=== PATIENT | female | born 1940 | race Caucasian/White ===

== ENCOUNTER → 2018-02-27 07:02 | Outpatient (CLI) | payer MEDICARE, SELFPAY ==
[2018-02-27 10:24] LABS: AST(SGOT) 20 U/L (15-37); Alanine Aminotransfer ALT/SGPT 33 U/L (13-56); Albumin, Serum 4.1 g/dL (3.2-5.0); Alkaline Phosphatase 35 U/L (45-117); Bilirubin, Direct 0.13 mg/dL (0.00-0.30); Cholesterol 160 mg/dL (200); Globulin 2.8 g/dL (2.2-4.2); High Density Lipoprotein 59 mg/dL; Protein, Total 6.9 g/dL (6.4-8.2); Triglycerides 119 mg/dL; Very Low Density Lipoprotein 24 mg/dL (5-40)
== END ==
PROVIDERS: Family Provider Family Medicine; PCP Family Medicine; Visit Provider Internal Medicine Cardiovascular Disease
DX: E78.5 Hyperlipidemia, unspecified (principal)
CPT/HCPCS: 36415; 80061; 80076

== ENCOUNTER → 2018-09-21 07:36 | Outpatient (CLI) | payer MEDICARE, SELFPAY ==
--- NOTE | 2018-09-21 07:40 | US_ITS ---
STUDY: ABDOMINAL ULTRASOUND REASON FOR EXAM: Female, 78 years old. Left sided fullness when bending over. Not palpable. TECHNIQUE: Transabdominal ultrasound was performed with real-time and static wolfe scale imaging. TECHNICAL QUALITY: Adequate. COMPARISON: None. FINDINGS: Liver: The liver measures 18 cm. There is increased echogenicity consistent with fatty infiltration. The bile ducts are within normal limits. There is hepatic color flow. The direction of portal flow is hepatopetal. There is no demonstrated mass lesion. Gallbladder: Normal distended gallbladder. The gallbladder wall measures 2.6 mm. There is a negative sonographic Velez's sign. There is no pericholecystic fluid. There are no gallstones. Common Bile Duct (C.B.D.): The common bile duct measures 4.8 mm. Pancreas: Normal size of the head, body and tail of the pancreas. There is normal echogenicity of the pancreas. There is no demonstrated pancreatic mass or cyst. Spleen: Normal size of the spleen. The spleen measures 9.5 cm. Right Kidney: Normal size of the right kidney. The right kidney measures 11 cm. Normal renal cortex. The right cortex measures 1.1 cm. There is no demonstrated renal mass or cyst. There is no right hydronephrosis. Left Kidney: Normal size of the left kidney. The left kidney measures 11 cm. Normal renal cortex. The left cortex measures 1.0 cm. There is no demonstrated renal mass or cyst. There is no left hydronephrosis. Aorta: There is atherosclerotic changes without evidence for abdominal aortic aneurysm. I.V.C.: The IVC is patent. There is no ascites. US/Abdomen Complete IMPRESSION: 1. Enlarged fatty infiltrated liver without focal mass. 2. Atherosclerotic changes of the abdominal aorta without aneurysm. 3. Otherwise normal abdominal ultrasound. Electronically Signed: Joe Rosales DO at 19:34 EST Tel [phone], Service support ,
== END ==
PROVIDERS: Family Provider Family Medicine; PCP Family Medicine; Referring Provider Family Medicine; Visit Provider Family Medicine
DX: R19.02 Left upper quadrant abdominal swelling, mass and lump (principal)
CPT/HCPCS: 76700

== ENCOUNTER → 2019-07-13 10:38 | Outpatient (CLI) | payer MEDICARE, SELFPAY ==
[2019-06-04 08:50] VITALS: BMI 30.7
--- NOTE | 2019-07-13 10:41 | ECHOD_ITS ---
Reason For Study: MURMUR Procedure This was a 2D Doppler, Color Flow transthoracic echocardiogram. Exam performed in department. Left Ventricle Normal LV size. Left ventricular systolic function is normal. The estimated ejection fraction is 65 %. Unable to assess diastolic dysfunction. No regional wall motion abnormalities noted. Right Ventricle Normal RV size. Normal systolic function. Atria Normal left atrium. Normal right atrium. No doppler evidence for ASD. Mitral Valve There is mild to moderate mitral annular calcification. Extension of the mitral annular calcification onto the posterior mitral valve leaflet. Mild (1+) mitral valve insufficiency. Tricuspid Valve Normal tricuspid valve. Mild tricuspid valve insufficiency. Right ventricular systolic pressure estimated to be 22 mmHg. Aortic Valve Trisinus/trileaflet aortic valve. Moderate focal aortic valve thickening. Severe focal aortic valve calcification. Moderate to severe aortic valve stenosis. Pulmonic Valve The pulmonic valve is not well visualized. Great Vessels Normal sized aortic root. Calcified aortic root. Pericardium/Pleural No pericardial effusion. MMode/2D Measurements & Calculations LVIDd: 4.0 cm IVSd: 1.2 cm LVOT diam: 2.0 cm LVIDs: 2.6 cm LVPWd: 1.1 cm LVOT area: 3.1 cm2 RVDd: 3.1 cm FS: 34.8 % MVA(traced): 2.4 cm2 Ao root diam: 3.3 cm LAV(MOD-bp): 42.7 ml LAV(MOD-bp) Indexed: 24.3 ml/m2 LAV(MOD-sp2): 43.7 ml LAV(MOD-sp4): 42.0 ml LA dimension(2D): 3.3 cm Aortic Valve Planimetry: 1.0 cm2 LA A4 area: 16.3 cm2 RA A4 area: 10.0 cm2 Time Measurements MV dec time: 0.36 sec Doppler Measurements & Calculations MV E max bro: 101.5 cm/sec MV V2 max: 147.9 cm/sec Ao V2 max: 356.6 cm/sec MV A max bro: 141.9 cm/sec MV max P.8 mmHg Ao max P.1 mmHg MV E/A: 0.72 MV V2 mean: 73.7 cm/sec Ao V2 mean: 261.3 cm/sec MV mean P.5 mmHg Ao mean P.4 mmHg MV V2 VTI: 37.5 cm Ao V2 VTI: 82.1 cm MVA(VTI): 2.2 cm2 BRENT(I,D): 1.0 cm2 BRENT(V,D): 0.92 cm2 LV V1 max: 105.7 cm/sec SV(LVOT): 83.8 ml PA V2 max: 96.3 cm/sec LV V1 max P.5 mmHg LV V1 mean P.7 mmHg LV V1 mean: 78.6 cm/sec LV V1 VTI: 27.0 cm TR max bro: 218.7 cm/sec MV P1/2t-pr_phl: 103.0 msec TR max P.1 mmHg Interpretation Summary Left ventricular systolic function is normal. The estimated ejection fraction is 65 %. There is mild to moderate mitral annular calcification. Extension of the mitral annular calcification onto the posterior mitral valve leaflet. Mild (1+) mitral valve insufficiency. Mild tricuspid valve insufficiency. Moderate to severe aortic valve stenosis. Calcified aortic root. Right ventricular systolic pressure estimated to be 22 mmHg. Unable to assess diastolic dysfunction. Ordering Physician: Parth De Oliveira Referring Physician: SHELBY BENITEZ Performed By: Johnna Monte, RDCS, RVT
== END ==
PROVIDERS: Family Provider Family Medicine; PCP Family Medicine; Referring Provider Internal Medicine Cardiovascular Disease; Visit Provider Internal Medicine Cardiovascular Disease
DX: I34.0 Nonrheumatic mitral (valve) insufficiency (principal); I35.0 Nonrheumatic aortic (valve) stenosis; I36.1 Nonrheumatic tricuspid (valve) insufficiency; I10 Essential (primary) hypertension; E78.00 Pure hypercholesterolemia, unspecified
CPT/HCPCS: 93306

== ENCOUNTER → 2020-04-11 14:01 | Outpatient (CLI) | payer MEDICARE, SELFPAY ==
[2019-06-04 08:50] VITALS: BMI 30.7
[2020-04-11 15:26] LABS: Vitamin B12 796 pg/mL (211-911)
== END ==
PROVIDERS: PCP Family Medicine; Referring Provider Family Medicine; Visit Provider Family Medicine
DX: R20.2 Paresthesia of skin (principal)
CPT/HCPCS: 36415; 82607; 82746; 84425

== ENCOUNTER 2020-06-26 11:01 | Emergency (ER) | payer MEDICARE, SELFPAY ==
[2019-06-04 08:50] VITALS: BMI 30.7
[2020-06-26 11:03] VITALS: BP 187/92; PULSE 78; RESP 20; TEMP 36.1; O2SAT 98; BMI 31.0
--- NOTE | 2020-06-26 11:19 | EKG12_ITS ---
Test Reason : COLD SYMPTOMS Blood Pressure : / mmHG Vent. Rate : 074 BPM Atrial Rate : 074 BPM P-R Int : 148 ms QRS Dur : 130 ms QT Int : 440 ms P-R-T Axes : 072 108 031 degrees QTc Int : 488 ms Normal sinus rhythm Right bundle branch block Abnormal ECG Confirmed by ETTA POWELL, ROMI ([id number]), editorial director KRYSTA QUIROZ ([id number]) on 06/28/2020 1:31:02 PM Referred By: ANANDA Confirmed By:ROMI QUILES MD
--- NOTE | 2020-06-26 11:21 | ED.DCSUM_ITS ---
History of Present Illness Chief Complaint: Cold Sx Detail of Chief Complaint: Cough, dyspnea, dyspnea on exertion and pleuritic right-sided chest pain Informant: Patient Onset: Weeks - Cough has been present since May 22. Pleuritic chest pain has been present for greater than 1 week she now reports new onset diarrhea. Patient did have a positive COVID test. Context: Sudden Onset Timing: Continuous Quality: Upper respiratory and GI, right-sided pleuritic chest pain Current Severity: Mild Maximum Severity: Moderate Worsened by: Dyspnea on exertion Relieved by: Nothing Associated Symptoms: Upper respiratory and GI Narrative: Patient is an 80-year-old woman who states her cough started May 22. She had a cover test on May 29 that she was told was positive approximately 1 week ago. She states the health department said she no longer had to self quarantine because she does not have a fever. She does report rhinorrhea, congestion, postnasal drainage, sore throat, loss of taste and smell, nonproductive cough and now pleuritic chest pain and diarrhea. She has no history of VTE. She denies leg pain, swelling discoloration. She denies hematemesis, melena or hematochezia. She has not had a documented fever for 1+ weeks. 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 (10) Pure hypercholesterolemia Status: Chronic (11) RBBB (right bundle branch block) Status: Chronic Past Medical History - Allergies and Home Meds Allergies/Adverse Reactions: Allergies codeine Allergy (Intermediate, Verified 06/26/20 11:05) Swelling amoxicillin [From Augmentin] Allergy (Mild, Verified 06/26/20 11:05) Itching clavulanic acid [From Augmentin] Allergy (Mild, Verified 06/26/20 11:05) Itching niacin [From Niaspan Extended-Release] Allergy (Mild, Verified 06/26/20 11:05) Itching Primary Care Physician: Yesica Olsen MD [Primary Care Provider] - Prior records reviewed: Yes Surgical History: noncontributory Lives: Alone Smoking Status: Former smoker Alcohol: None Drugs: None Review of Systems General: Reports: Malaise. Denies: Chills, Fever, Subjective Eyes: Denies: Visual changes - bilaterally, Blurred Vision - bilaterally ENT: Reports: Rhinorrhea, Sore throat. Denies: Bilateral ear pain Cardiovascular: Reports: Chest pain. Denies: Palpitations, Heart racing Respiratory: Reports: Dyspnea, Cough, Dyspnea on exertion. Denies: Sputum, Orthopnea, Paroxysmal nocturnal dyspnea Gastrointestinal: Reports: Abdominal pain, Diarrhea. Denies: Nausea, Vomiting, Constipation, Melena, Hematochezia, -, - Genitourinary: Denies: Dysuria, Hematuria, Frequency Musculoskeletal: Reports: Myalgias, Arthralgias, Swelling. Denies: Neck pain, Back pain, Extremity Pain, -, - Skin: Denies: Rash Neurological: Reports: Headache, Weakness Psych: Denies: Depression, Anxiety Physical Exam Vital Signs/Narrative: Vital Signs Temp Pulse Resp BP Pulse Ox 06/26/20 11:03 97 F L 78 20 H 187/92 H 98 Inital Vital Signs reviewed: Yes General: Well nourished, Well developed, No Acute Distress Head: Normocephalic, Atraumatic Eyes: Perrl, EOMI ENT: Moist mucous membranes, No rhinorrhea, Nasal congestion. Negative for: Sinus tenderness Neck: Supple, Nontender Cardiovascular: Regular rate, Regular rhythm, No murmurs, Normal S1, Normal S2 Respiratory: No distress, Chest nontender, Rales - Inspiratory rales bilaterally., - - Patient does have splinting with deep breathing. Abdomen: Soft, Nontender, Nondistended, Normal bowel sounds Back: Nontender, Normal Inspection. Negative for: CVA tenderness Extremities: Nontender, Edema - 2 to 3 mm pitting edema bilaterally, - - No asymmetry, discoloration, palpable cords or tenderness along the distribution of the deep venous system. There is no ischemic changes noted of the toes or fi ngers. Skin: Normal color, No rash. Negative for: Cyanosis, Diaphoresis, Jaundice Neurological: Alert, Oriented x3, Cranial nerves II-XII grossly intact, Normal Strength, Normal Sensation Psychological: Normal affect, Normal Mood Diagnostic/Tx/Re-eval Chest X-Ray - ED: 1 View, Read by ED Physician, Normal, Heart, Mediastinum, Bony Structures, No Acute Disease, Chronic Changes Impressions Chest X-Ray 06/26/20 12:10 IMPRESSION: The lungs are clear. Electronically Signed: Juliano Pickard, at 12:20 EDT , Service support , 06/26/20 12:10 Chest 1 View (Portable) [RAD] Stat Laboratory Results 06/26/20 06/26/20 06/26/20 11:40 11:40 11:40 WBC 11.0 RBC 3.64 L Hgb 12.1 Hct 36.9 L MCV 101.4 H MCH 33.2 H MCHC 32.8 RDW Std Deviation 49.2 H RDW Coeff of Aubrey 13.4 Plt Count 155 MPV 10.3 Neut % (Auto) Not Reportable Absolute Neuts (auto) 6.0 Absolute Lymphs (auto) 3.75 Total Counted 100 Neutrophils % (Manual) 51 Band Neutrophils % 3 Lymphocytes % (Manual) 34 Monocytes % (Manual) 2 Metamyelocytes % 4 H Myelocytes % 3 H Promyelocytes % 3 H Diff Path Review May foll Reactive Lymphocytes OCC Platelet Estimate ADEQUATE Polychromasia 1+ Macrocytosis 1+ PT 12.8 INR 1.0 APTT 28.5 D-Dimer Quant (PE/DVT) 0.56 H* Sodium 141 Potassium 4.3 Chloride 108 H Carbon Dioxide 28.0 Anion Gap 5 BUN 23 H Creatinine 0.80 Estim Creat Clear Calc 42.88 Est GFR (MDRD) Af Amer 88 Est GFR (MDRD) Non-Af 72 BUN/Creatinine Ratio 28.6 H Glucose 97 Lactic Acid Calcium 9.2 Total Bilirubin 0.30 AST 27 ALT 39 Alkaline Phosphatase 40 L Total Protein 7.5 Albumin 4.1 Globulin 3.4 Albumin/Globulin Ratio 1.2 06/26/20 11:40 WBC RBC Hgb Hct MCV MCH MCHC RDW Std Deviation RDW Coeff of Aubrey Plt Count MPV Neut % (Auto) Absolute Neuts (auto) Absolute Lymphs (auto) Total Counted Neutrophils % (Manual) Band Neutrophils % Lymphocytes % (Manual) Monocytes % (Manual) Metamyelocytes % Myelocytes % Promyelocytes % Diff Path Review Reactive Lymphocytes Platelet Estimate Polychromasia Macrocytosis PT INR APTT D-Dimer Quant (PE/DVT) Sodium Potassium Chloride Carbon Dioxide Anion Gap BUN Creatinine Estim Creat Clear Calc Est GFR (MDRD) Af Amer Est GFR (MDRD) Non-Af BUN/Creatinine Ratio Glucose Lactic Acid 0.7 Calcium Total Bilirubin AST ALT Alkaline Phosphatase Total Protein Albumin Globulin Albumin/Globulin Ratio Dimer is elevated at 0.56. D-dimer is normal when corrected for age. Therefore CTA was not ordered. Patient has pleurisy. Suspect this is due to her COVID infection. - Medical Decision Making With positive Kopit test pleuritic chest pain need to consider pulmonary embolus. Also need to rule out rib fracture, pneumonia versus pleurisy. Appropriate labs including d-dimer was obtained. Chest x-ray single view was obtained because patient is still symptomatic with a positive COVID test. ED Disposition - Plan for ED Patient: Disposition: Home or Assisted Living Diagnosis: COVID-19 virus infection, Pleurisy Instructions: ED Chest Pain Pleurisy Referrals: Yesica Olsen MD [Primary Care Provider] - As Needed Additional Instructions: You should continue to self quarantine since you are still having symptoms. Two thirds of patients with COVID infection do not have a fever. Take ibuprofen or Aleve for your pleuritic chest pain, pleurisy
[2020-06-26 11:50] LABS: Hematocrit 36.9 % (37-47); Hemoglobin 12.1 g/dL (12.0-15.0); Mean Corp Hgb Conc 32.8 g/dL (32-36); Mean Corpuscular Hgb 33.2 pg (27.0-32.0); Mean Corpuscular Volume 101.4 fL (81-99); Mean Platelet Vol. 10.3 fl (6.2-12.0); POSITIVE COUNT YES; POSITIVE MORPHOLOGY YES; Platelet Count 155 K/mm3 (150-450); RBC Distribution Width CV 13.4 % (11.6-14.6); RBC Distribution Width SD 49.2 fl (35.1-43.9); Red Blood Count 3.64 M/mm3 (4.2-5.4)
[2020-06-26 12:00] LABS: Prothrombin Time (Protime)PT. 12.8 SECONDS (11.7-14.9)
[2020-06-26 12:01] LABS: Partial Thromboplast Time 28.5 Seconds (24.1-36.2)
[2020-06-26 12:05] VITALS: BP 175/73; PULSE 68; RESP 10; TEMP 36.6; O2SAT 97
[2020-06-26 12:06] LABS: Differential Indicated MANUAL DIFF
[2020-06-26 12:07] LABS: ALB/GLOB Ratio 1.2 RATIO (0.9-2.4); AST(SGOT) 27 U/L (15-37); Alanine Aminotransfer ALT/SGPT 39 U/L (13-56); Albumin, Serum 4.1 g/dL (3.2-5.0); Alkaline Phosphatase 40 U/L (45-117); Anion Gap 5 (5-15); BUN 23 mg/dL (7-18); BUN/Creat Ratio 28.6 RATIO (10-20); Calcium,Total 9.2 mg/dL (8.5-10.1); Chloride 108 mmol/L (98-107); D-Dimer Quantitative (DVT/PE) 0.56 FEU/ug/m (0.27-0.49); EST Glomerular Filtration Rate 72 mL/min (>60); Est Glom Filt Rate - Afr Amer 88 mL/min (>60); Estimated Creatinine Clearance 42.88 ml/min; Globulin 3.4 g/dL (2.2-4.2); Glucose 97 mg/dL (74-106); Potassium 4.3 mmol/L (3.5-5.1); Protein, Total 7.5 g/dL (6.4-8.2); Sodium Level 141 mmol/L (136-145)
--- NOTE | 2020-06-26 12:10 | RAD_ITS ---
STUDY: X-RAY CHEST REASON FOR EXAM: Female, 80 years old. Cough, pleuritic chst pain, dyspnea, COVID positive TECHNIQUE: Single AP portable view of the chest. COMPARISON: Comparison is made with prior study 06/23/2016. FINDINGS: EKG electrodes are seen. The lungs are clear and expanded. There is no demonstrated pleural abnormality. Normal size heart. Normal mediastinum and alton. Normal visualized pulmonary arteries. There is atherosclerotic calcification of the aortic arch with tortuosity. There are diffuse degenerative changes of the visualized thoracic spine. Normal visualized ribs, clavicles, and shoulders. There is no demonstrated abnormality of the visualized soft tissue structures of the upper abdomen. RAD/Chest 1 View (Portable) IMPRESSION: The lungs are clear. Electronically Signed: Juliano Pickard, at 12:20 EDT , Service support ,
[2020-06-26 12:11] LABS: Lymphocyte 34 % (19-41); Metamyelocyte 4 % (0-1); Monocyte 2 % (0-10); Myelocyte 3 (0-0); Neutrophil-Band 3 % (0-5); Neutrophil-Segmented 51 % (47-70); Promyelocyte 3 (0-0); Total Cells Counted 100 (MANUAL DIFF)
[2020-06-26 12:14] LABS: Absolute Lymphocyte Count 3.75 X10^3/uL (0.83-4.51); Reactive Lymphocyte OCC
[2020-06-26 12:15] LABS: Macrocytosis 1+; Platelet Estimate ADEQUATE (ADEQ); Polychromasia 1+
[2020-06-26 12:18] LABS: Lactic Acid 0.7 mmol/L (0.4-1.9)
[2020-06-26 12:23] VITALS: BP 167/74; PULSE 68; RESP 13; TEMP 36.6; O2SAT 97
[2020-06-26 13:40] VITALS: BP 153/96; PULSE 72; RESP 16; TEMP 37.1; O2SAT 97
[2020-06-27 11:48] LABS: Pathologist Review Reviewed
== END 2020-06-26 13:50 | disposition home or self-care (01) ==
PROVIDERS: Emergency Provider Emergency Medicine; PCP Family Medicine
DX: U07.1 COVID-19 (principal); R09.1 Pleurisy; I08.3 Combined rheumatic disorders of mitral, aortic and tricuspid valves; I45.10 Unspecified right bundle-branch block; I10 Essential (primary) hypertension; E78.00 Pure hypercholesterolemia, unspecified; M19.90 Unspecified osteoarthritis, unspecified site; Z79.82 Long term (current) use of aspirin; Z79.899 Other long term (current) drug therapy; Z87.891 Personal history of nicotine dependence
CPT/HCPCS: 71045; 80053; 83605; 85025; 85379; 85610; 85730; 87040; 93005; 99285

== ENCOUNTER → 2020-08-18 09:05 | Outpatient (CLI) | payer MEDICARE, SELFPAY | PROVIDERS: PCP Family Medicine; Referring Provider Internal Medicine Cardiovascular Disease; Visit Provider Internal Medicine Cardiovascular Disease | DX: B34.2 Coronavirus infection, unspecified (principal) | CPT/HCPCS: 87635; C9803; U0003 ==

== ENCOUNTER → 2020-11-28 08:43 | Outpatient (CLI) | payer MEDICARE, SELFPAY ==
[2020-08-31 09:33] VITALS: BMI 31.4
--- NOTE | 2020-11-28 08:46 | ECHOD_ITS ---
Reason For Study: SOB Procedure This was a 2D Doppler, Color Flow transthoracic echocardiogram. The exam was of adequate technical quality. Exam performed in department. Left Ventricle Normal LV size. Moderate concentric left ventricular hypertrophy. Left ventricular systolic function is normal. The estimated ejection fraction is 65 %. There is evidence of diastolic dysfunction. No regional wall motion abnormalities noted. Right Ventricle Normal RV size. Normal systolic function. Atria The left atrium is mildly enlarged. Normal right atrium. No doppler evidence for ASD. Mitral Valve There is moderate mitral annular calcification. Extension of the mitral annular calcification on the base of the posterior mitral valve leaflet. The mitral valve chordae are thickened and/or calcified. Mild-Moderate (1-2+) mitral valve insufficiency. Tricuspid Valve Normal tricuspid valve. Mild tricuspid valve insufficiency. Right ventricular systolic pressure estimated to be 27 mmHg. Aortic Valve Trisinus/trileaflet aortic valve. Mild diffuse aortic valve thickening. Severe focal aortic valve calcification. Severe aortic stenosis. Pulmonic Valve The pulmonic valve is not well visualized. Great Vessels Calcified aortic root. Pericardium/Pleural No pericardial effusion. MMode/2D Measurements & Calculations LVIDd: 4.2 cm IVSd: 1.4 cm LVOT diam: 2.0 cm LVIDs: 2.9 cm LVPWd: 1.5 cm LVOT area: 3.1 cm2 RVDd: 3.6 cm FS: 31.6 % LAV(MOD-bp): 60.8 ml LVAd ap4: 32.0 cm2 SV(MOD-sp4): 68.6 ml LAV(MOD-bp) Indexed: 34.0 ml/m2 EDV(MOD-sp4): 104.7 ml LAV(MOD-sp2): 69.9 ml EDV(sp4-el): 107.1 ml LAV(MOD-sp4): 51.1 ml LVAs ap4: 16.5 cm2 ESV(MOD-sp4): 36.0 ml ESV(sp4-el): 34.5 ml EF(MOD-sp4): 65.6 % EF(sp4-el): 67.8 % SV(sp4-el): 72.6 ml Aortic Valve Planimetry: 0.80 cm2 LA A4 area: 19.0 cm2 LA dimension(2D): 4.6 cm RA A4 area: 12.3 cm2 Time Measurements MV dec time: 0.30 sec Doppler Measurements & Calculations MV E max eze: 122.9 cm/sec Lat Peak E' Eze: 4.9 cm/sec Med Peak E' Eze: 5.0 cm/sec MV A max eze: 190.1 cm/sec E/E' lat: 25.1 E/E' med: 24.7 MV E/A: 0.65 MV V2 max: 182.1 cm/sec Ao V2 max: 428.6 cm/sec LV V1 max: 112.8 cm/sec MV max P.3 mmHg Ao max P.5 mmHg LV V1 max P.1 mmHg MV V2 mean: 106.4 cm/sec Ao V2 mean: 326.8 cm/sec LV V1 mean P.0 mmHg MV mean P.1 mmHg Ao mean P.1 mmHg LV V1 mean: 82.5 cm/sec MV V2 VTI: 38.5 cm Ao V2 VTI: 104.8 cm LV V1 VTI: 28.9 cm MVA(VTI): 2.4 cm2 BRENT(I,D): 0.87 cm2 BRENT(V,D): 0.82 cm2 SV(LVOT): 90.7 ml PA V2 max: 97.1 cm/sec TR max eze: 243.5 cm/sec TR max P.7 mmHg MV P1/2t-pr_phl: 113.8 msec Interpretation Summary Left ventricular systolic function is normal. The estimated ejection fraction is 65 %. Moderate concentric left ventricular hypertrophy. The left atrium is mildly enlarged. There is moderate mitral annular calcification. Extension of the mitral annular calcification on the base of the posterior mitral valve leaflet. The mitral valve chordae are thickened and/or calcified. Mild-Moderate (1-2+) mitral valve insufficiency. Mild tricuspid valve insufficiency. Severe aortic stenosis. Calcified aortic root. Right ventricular systolic pressure estimated to be 27 mmHg. There is evidence of diastolic dysfunction. Ordering Physician: Parth De Oliveira Referring Physician: SHELBY BENITEZ Performed By: Johnna Monte, RDCS, RVT
== END ==
PROVIDERS: PCP Family Medicine; Referring Provider Internal Medicine Cardiovascular Disease; Visit Provider Internal Medicine Cardiovascular Disease
DX: R06.02 Shortness of breath (principal); I08.3 Combined rheumatic disorders of mitral, aortic and tricuspid valves; I10 Essential (primary) hypertension; E78.00 Pure hypercholesterolemia, unspecified
CPT/HCPCS: 93306

== ENCOUNTER → 2020-12-19 09:30 | Outpatient (CLI) | payer MEDICARE, SELFPAY ==
[2020-12-04 14:24] VITALS: BMI 31.8
[2020-12-04 16:38] LABS: Hematocrit 27.9 % (37-47); Hemoglobin 9.1 g/dL (12.0-15.0); Mean Corp Hgb Conc 32.6 g/dL (32-36); Mean Corpuscular Hgb 37.4 pg (27.0-32.0); Mean Corpuscular Volume 114.8 fL (81-99); Mean Platelet Vol. 10.5 fl (6.2-12.0); POSITIVE COUNT YES; POSITIVE DIFFERENTIAL YES; POSITIVE MORPHOLOGY YES; Platelet Count 80 K/mm3 (150-450); RBC Distribution Width CV 16.1 % (11.6-14.6); RBC Distribution Width SD 67.9 fl (35.1-43.9); Red Blood Count 2.43 M/mm3 (4.2-5.4); White Blood Count 44.2 K/mm3 (4.4-11.0)
[2020-12-04 16:47] LABS: Differential Indicated MANUAL DIFF
[2020-12-04 16:51] LABS: BUN 20 mg/dL (7-18); BUN/Creat Ratio 21.7 RATIO (10-20); Calcium,Total 9.5 mg/dL (8.5-10.1); Creatinine, Serum 0.92 mg/dL (0.55-1.02); EST Glomerular Filtration Rate 62 mL/min (>60); Est Glom Filt Rate - Afr Amer 75 mL/min (>60); Glucose 91 mg/dL (74-106); Potassium 4.3 mmol/L (3.5-5.1); Sodium Level 139 mmol/L (136-145)
[2020-12-04 16:52] LABS: Anion Gap 6 (5-15); Chloride 106 mmol/L (98-107)
[2020-12-04 17:16] LABS: Neutrophil-Band 3 % (0-5); Neutrophil-Segmented 68 % (47-70)
[2020-12-04 17:17] LABS: Lymphocyte 13 % (19-41); Monocyte 1 % (0-10); Myelocyte 12 (0-0); Platelet Estimate MOD DEC (ADEQ); Promyelocyte 3 (0-0); Red Cell Morphology NORM C+C NORMAL (NORM C&C)
[2020-12-04 17:19] LABS: Absolute Lymphocyte Count 5.74 X10^3/uL (0.83-4.51); Absolute Neutrophil Count 31.4 X10^3/uL (2.0-7.7)
[2020-12-04 18:03] LABS: Prothrombin Time (Protime)PT. 12.6 SECONDS (11.7-14.9)
[2020-12-05 12:26] LABS: Pathologist Review Reviewed
--- NOTE | 2020-12-19 08:29 | HP_ITS ---
HPI HPI History of Present Illness Surgical H&P: Yes Details: EDWARD ELIAS, is a 80 year old white female who presents to the office today for outpatient cardiovascular follow-up of her history of aortic valve stenosis, MR, and TR superimposed on hyperlipidemia, hypertension, and a diagnosis of the COVID-19 virus in May 2020 (not requiring hospitalization). Patient underwent an echocardiogram on 11/28/2020 that showed ejection fraction of 65% and severe aortic valve stenosis. As part of her work-up, she is anticipated undergo a heart catheterization. Based on results of such test, further recommendation and treatment will be recommended. Pt denies chest, arm, jaw, or neck discomfort. Her exercise tolerance is less. Pt denies symptoms of palpitations, lightheadedness, dizziness, near syncopal or syncopal episodes. Pt denies claudication issues. Pt. denies orthopnea, PND, fever, chills, blood in urine, blood in stool, epistaxis, or myalgia. She notes SOB when walking up steps. She notes previous lower extremity edema that has resolved. She states ongoing cough. She states being more fatigue since COVID- 19. She states her blood pressure at home has been at 150s/70s. Intake Vital Signs 12/04/20 Height 5 ft 2 in 12/04/20 Weight: 174 lb 12/04/20 BP 165/79 H 12/04/20 Blood Pressure Location Lt brachial 12/04/20 Position Sitting 12/04/20 Respiration 18 12/04/20 Pulse 95 12/04/20 Pulse Source Monitor 12/04/20 Pulse Oximetry (%) 98 Intake Visit Reasons: updated [employer] Specialist Required: No Accompanied by: None Is patient in pain?: No Allergies codeine Allergy (Intermediate, Verified 12/04/20 14:22) Swelling amoxicillin [From Augmentin] Allergy (Mild, Verified 12/04/20 14:22) Itching clavulanic acid [From Augmentin] Allergy (Mild, Verified 12/04/20 14:22) Itching niacin [From Niaspan Extended-Release] Allergy (Mild, Verified 12/04/20 14:22) [facility]ching [facility] Medical History Pure hypercholesterolemia (Chronic) Essential hypertension (Chronic) Nonrheumatic aortic (valve) stenosis (Chronic) Nonrheumatic mitral (valve) insufficiency (Chronic) Non-rheumatic tricuspid valve insufficiency (Chronic) Other [facility] (current[facility] drug therapy (Chronic) RBBB (right bundle branch block) (Chronic) Edema (Acute) Palpitations (Acute) Abnormal EKG (Acute) Segmental and somatic dysfunction of pelvic region (Acute) Segmental and somatic dysfunction of thoracic region (Acute) Intervertebral disc disorder with radiculopathy of lumbar region (Acute) Osteoarthritis (Chronic) Segmental and somatic dysfunction of lumbar region (Acute) Neuropathy (Acute) Aortic stenosis (Inactive) Surgical History H/O meniscectomy of right knee (Resolved) History of appendectomy (Resolved) History of medial meniscus repair of left knee (Resolved) History of partial knee replacement (Resolved) History of synovectomy (Resolved) History of total hysterectomy (Resolved) History of tubal ligation (Resolved) Family History Mother CHF (congestive heart failure) Brother CAD (coronary artery disease) Sister CHF (congestive heart failure) Son Cardiac pacemaker in situ WPW (Durkv-Arsgqdlap-Lrcyp syndrome) Father No problems noted. Social History (Updated 12/04/20 @ 15:35 by Joce Ni TERRAZZO LAYER HELPER, TERRAZZO LAYER HELPER-C) Smoking Status: Never smoker alcohol intake: never substance use type: does not use diet: low carbohydrate caffeine: Yes Type: coffee Number of servings: 2 what type of physical activity do you participate in: none seatbelt use: always do you feel safe at home: Yes ROS Const Const: Positive for fatigue and weakness (leg); negative for body ache, fever(s) or chills ENT ENT: Negative for dizziness Cardio Chest Pain: No Palpitations: No Edema: None Muscle aches with walking: None Resp Respiratory: Positive for SOB with activity and Cough; negative for SOB at rest, SOB orthopnea\SOB lying down or paroxysmal nocturnal dyspnea GI GI: Negative nausea, vomiting blood/hematemesis, bright, red blood in stools or black,tarry stools : Negative for hematuria or frequent nighttime urination/ nocturia Musc Musc: Negative for muscle aches/ myalgia Skin Skin: Negative non-healing lesions or rash Neuro Neuro: Positive for weakness (leg); negative for dizziness, lightheadedness, near syncope, syncope or orthostatic symptoms Endo Endo: Positive for fatigue Allergy Allergy/Immunology: Negative for rash Cardiology Exam Const Appearance: cooperative, healthy appearing, comfortable and no acute distress Nutritional Appearance: well nourished and obese Orientation: alert, awake and oriented x3 Head Head: normal to inspection Ears: hearing grossly normal bilaterally Nose: external nose normal Face and Sinus: face symmetric Mouth: oral mucosae normal Eyes General: appearance normal, both eyes and all related structures Eyelids: eyelids normal EOM: EOM intact bilaterally Neck Neck: normal visual inspection and no JVD Carotids: normal carotid upstroke Chest Chest inspection: normal inspection of the chest, symmetric chest movement and normal respiratory effort; negative cough Auscultation: Bilateral: Clear to Auscultation Cardio Rate: regular rate Rhythm: regular rhythm Heart sounds: S1 normal, S2 normal and murmur; negative rub or gallop Murmur: Grade 3/6, mid systolic, LLSB, LVOT, sternal notch and radiates to carotids GI GI: normal to inspection and obese Neuro General: alert, awake, oriented x3 and CN's II-XI intact bilaterally Skin Skin: no rashes or lesions noted Extremities Pulses: Normal: Right Posterior Tibial Pulse, Left Posterior Tibial Pulse, Right Radial Pulse, Left Radial Pulse Lower Extremity Edema: None: Bilateral Psych Psychological: normal affect Assessment & Plan 1. Nonrheumatic aortic (valve) stenosis I35.0 Plan Patient's most recent echocardiogram reveals severe aortic valve stenosis. She will proceed with heart catheterization to further assess coronary artery anatomy. Based on results, further recommendation will be made. Depending on her long-term work-up, hopefully her shortness of breath improves. EKG in office shows sinus rhythm with underlying right bundle branch block at a rate of 97 beats minute, HI interval 148, QTc 462, and QRS 124. Orders Orders: Left Heart Cath/COR/LV Percut Today Basic Metabolic Profile (BMP) Today Prothrombin Time w/INR Today 2. Essential hypertension I10 Plan Patient's blood pressure is elevated today in office. It was recommended to consider additional medical therapy such as hydrochlorothiazide or amlodipine in attempt to better improve blood pressure. However, at this time she wishes to defer until heart catheterization. She was asked to continue to monitor and contact our office if is increasing at home. Orders Orders: Basic Metabolic Profile (BMP) Today 3. Pure hypercholesterolemia E78.00 Plan She will continue current statin and nonstatin medication. Orders Orders: Basic Metabolic Profile (BMP) Today Plan Detail Other Orders Orders: 12 Lead EKG performed by BMS Today I45.10 Basic Metabolic Profile (BMP) Today I45.10 CBC W/Diff, Automated Today B34.2 Other Medications Changed: From: lisinopril TAKE 1 TABLET BY MOUTH TWICE A DAY 180 tabs 3RF To: lisinopril 20 mg PO BID 180 tabs 3RF Additional Comments Thank you for allowing us to participate in the patients plan of care, if you have any questions please do not hesitate to call. This note was generated using a voice recognition system and there may be incorrect words, spelling or punctuation that were not noted when reviewing the office note prior to saving. Goals Decrease pain and spasm Increase ROM Barriers Degenerative changes Coding Level of Care Code Off vis,est,level 4 Diagnoses Nonrheumatic aortic (valve) stenosis I35.0 Essential hypertension I10 Pure hypercholesterolemia E78.00 Coding Level of Care Code Off vis,est,level 4 Diagnoses Nonrheumatic aortic (valve) stenosis I35.0 Essential hypertension I10 Pure hypercholesterolemia E78.00 Supplemental Info Supplemental Information Transthoracic echocardiogram: 11-28-2020 Interpretation Summary Left ventricular systolic function is normal. The estimated ejection fraction is 65 %. Moderate concentric left ventricular hypertrophy. The left atrium is mildly enlarged. There is moderate mitral annular calcification. Extension of the mitral annular calcification on the base of the posterior mitral valve leaflet. The mitral valve chordae are thickened and/or calcified. Mild-Moderate (1-2+) mitral valve insufficiency. Mild tricuspid valve insufficiency. Severe aortic stenosis. Calcified aortic root. Right ventricular systolic pressure estimated to be 27 mmHg. There is evidence of diastolic dysfunction. Transthoracic echocardiogram: Interpretation Summary Left ventricular systolic function is normal. The estimated ejection fraction is 65 %. Apical false tendon noted. There is mild to moderate mitral annular calcification. Extension of the mitral annular calcification onto the posterior mitral valve leaflets. The mitral papillary muscle appears thickened and/or calcified. Mild (1+) mitral valve insufficiency. Mild tricuspid valve insufficiency. Mild aortic stenosis. Calcified aortic root. Right ventricular systolic pressure estimated to be 21 mmHg. Echocardiogram: 07/13/2019 Interpretation Summary Left ventricular systolic function is normal. The estimated ejection fraction is 65 %. There is mild to moderate mitral annular calcification. Extension of the mitral annular calcification onto the posterior mitral valve leaflet. Mild (1+) mitral valve insufficiency. Mild tricuspid valve insufficiency. Moderate to severe aortic valve stenosis. Calcified aortic root. Right ventricular systolic pressure estimated to be 22 mmHg. Unable to assess diastolic dysfunction. Stress echocardiogram: 04-11-2010 Dobutamine stress echocardiogram: Considered negative Labs LDL Cholesterol 77 mg/dL (0-130) 02/27/18 HDL Cholesterol 59 mg/dL (40-) 02/27/18 Triglycerides 119 mg/dL (-199) 02/27/18 VLDL Cholesterol 24 mg/dL (5-40) 02/27/18 Diagnostics Electrocardiogram 12/04/20 Echocardiogram 11/28/20 Abdomen Ultrasound 09/21/18 Chest X-Ray 06/26/20 COVID (Procedure Consent) Procedure Criteria Procedure Criteria: Yes Elective The surgeon/proceduralist and patient have discussed in detail the risk of exposure to and/or potential harm posed by the COVID-19 virus with having a surgery/procedure at this time versus the risk of? delaying the surgery/procedure. It is not possible to know either the risk of delaying the surgery or procedure or chance of getting an infection with perfect accuracy, but a joint decision was made between the patient and the surgeon/proceduralist ?to proceed at this time with the scheduled surgery/procedure as indicated on the consent form.
== END ==
PROVIDERS: Nurse Practitioner Family; PCP Family Medicine; Visit Provider Internal Medicine Cardiovascular Disease
DX: Z01.812 Encounter for preprocedural laboratory examination (principal); I10 Essential (primary) hypertension; I45.10 Unspecified right bundle-branch block; I35.0 Nonrheumatic aortic (valve) stenosis; E78.00 Pure hypercholesterolemia, unspecified; Z86.16 Personal history of COVID-19
CPT/HCPCS: 36415; 80048; 85025; 85610

== ENCOUNTER → 2021-01-15 08:56 | Outpatient (CLI) | payer MEDICARE, SELFPAY ==
[2021-01-09 11:35] VITALS: BMI 32.8
[2021-01-15] VITALS (10 sets, daily range): BP systolic 116–170; BP diastolic 51–88; PULSE 77–102; RESP 13–23; O2SAT 94–100; BMI 31.4
--- NOTE | 2021-01-15 | IMM_PTH ---
PATIENT: EDWARD ELIAS LOC: CT U#:[id number] AGE/SX: 85/F ROOM: RE01/15/[address]: Dr. Pipe Cazares MD : 1940 BED: DIS: SPEC #: [id number] RECD: 01/16/21 12:46 STATUS: SOUMiranda REQ #: [id number] TRIPP: 01/15/21 00:[address]: Pipe Cazares DEPT: IMMUNOHISTOCHEMISTRY RECD BY: Dianne Guzmán ENTERED: 01/16/21 12:48 SP TYPE: IMMUNO OTHR DR: Dr. Yesica Olsen MD Tissues: B - Bone marrow of iliac crest Procedures: CD56 (add) CD34 (initial) PHYSICIAN & INSTITUTION [place] [id number] SPECIMEN INFORMATION: Tissue Source: B - Bone marrow clot Clinical Info: Leukocytosis, anemia, thrombocytopenia Specimen Number: [id number] CPT code: 68247, 74405 METHODOLOGY: Deparaffinized sections of prefer/formalin-fixed tissue or PAP/DQ stained slides are incubated with monoclonal/polyclonal antibodies/oligonucleotide probes. Localization is made via biotin free immunoperoxidase method. Appropriate controls are performed and reacted as expected. Results on target cell population are indicated in the following table: RESULTS: ANTIBODY / CLONE RESULT Block B CD34 (QBEnd-10) positive CD56 (123C3.D5) negative These tests were developed and their performance characteristics determined by [facility]. They may not have been cleared or approved by the U.S. Food and Drug Administration. The FDA has determined that such clearance or approval is not necessary. The above immunohistochemical/dualISH markers are ordered and reviewed by the Pathologist. INTERPRETATION: B. Bone marrow clot: Rare blasts are noted. Significant increase of blasts is not seen. SJ:wilfredo 01/17/2021
--- NOTE | 2021-01-15 09:12 | CT_ITS ---
PROCEDURE: CT GUIDED BONE marrow biopsy and bone marrow aspirate. DATE: 01/15/2021. INDICATION: Female, 80 years old. Thrombocytopenia. PHYSICIAN: Juliano Pickard M.D. RADIATION DOSAGE (If Supplied By Facility): CTDIvol = ( 15 ) mGy, DLP = ( 257.04 ) mGycm. Individualized dose optimization techniques were utilized. PROCEDURE: The risks, benefits, and alternatives to the procedure were explained to the patient. The specific risk of hemorrhage requiring further treatment or intervention was detailed and accepted. Follow-up instructions were discussed with the patient as well. Written informed consent was obtained. The patient was brought into the CT suite and placed in the prone position. . An appropriate entry site was identified. The overlying skin was prepped and draped in the usual sterile fashion. 1% lidocaine was administered subcutaneously for local anesthesia. Conscious sedation was performed. The patient received 1 mg of VERSED and 25 mcg of FENTANYL intravenously. Conscious sedation was started at 10:38 AM and terminated at 10:49 AM. The patient was monitored by the department nurse. Under CT guidance, a bone marrow biopsy and bone marrow aspirate were performed along the posterior aspect of the left iliac bone. The specimens were then placed in the appropriate fluid and transported to the laboratory for analysis. Hemostasis was obtained. The patient tolerated the procedure well without immediate complications. CT/Biopsy/Inj or Needle Placement IMPRESSION: Successful CT guided bone marrow biopsy and bone marrow aspirate of the posterior aspect of the left iliac bone, as described above. Conscious sedation protocol was followed. Electronically Signed: Juliano Pickard MD at 11:44 EST , Service support ,
[2021-01-15 09:20] LABS: Hematocrit 21.9 % (37-47); Hemoglobin 6.7 g/dL (12.0-15.0); Mean Corp Hgb Conc 30.6 g/dL (32-36); Mean Corpuscular Hgb 39.2 pg (27.0-32.0); Mean Corpuscular Volume 128.1 fL (81-99); Mean Platelet Vol. 10.5 fl (6.2-12.0); POSITIVE COUNT YES; POSITIVE DIFFERENTIAL YES; POSITIVE MORPHOLOGY YES; RBC Distribution Width CV 17.9 % (11.6-14.6); RBC Distribution Width SD 82.4 fl (35.1-43.9); Red Blood Count 1.71 M/mm3 (4.2-5.4)
[2021-01-15 09:26] LABS: Differential Indicated MANUAL DIFF; Platelet Count 50 K/mm3 (150-450); White Blood Count 63.3 K/mm3 (4.4-11.0)
[2021-01-15 09:27] LABS: Prothrombin Time (Protime)PT. 12.7 SECONDS (11.7-14.9)
[2021-01-15 09:28] LABS: Partial Thromboplast Time 29.1 Seconds (24.1-36.2)
[2021-01-15 10:09] LABS: Blast 2 % (0-0); Lymphocyte 13 % (19-41); Metamyelocyte 17 % (0-1); Monocyte 1 % (0-10); Myelocyte 9 (0-0); Neutrophil-Band 7 % (0-5); Neutrophil-Segmented 47 % (47-70); Promyelocyte 4 (0-0); Total Cells Counted 100 (MANUAL DIFF)
[2021-01-15 10:10] LABS: Anisocytosis 2+; Hypochromasia 3+; Platelet Estimate MKD DEC (ADEQ)
[2021-01-15 10:11] LABS: Macrocytosis 2+; Microcytosis RARE
[2021-01-15 10:12] LABS: Absolute Lymphocyte Count 8.22 X10^3/uL (0.83-4.51); Absolute Neutrophil Count 34.2 X10^3/uL (2.0-7.7)
[2021-01-15 10:58] LABS: Bone Marrow Aspiraton SEE PATHOLOGY REPORT
--- NOTE | 2021-01-15 11:00 | BMB_PTH ---
PATIENT: EDWARD ELIAS LOC: CT U#:[id number] AGE/SX: 85/F ROOM: RE01/15/[address]: Dr. Pipe Cazares MD : 1940 BED: DIS: SPEC #: [id number] RECD: 01/15/21 11:31 STATUS: RENATO REEmani #: [id number] TRIPP: 01/15/21 11:[address]: Pipe Cazares DEPT: BONE MARROW RECD BY: Carmen Powers ENTERED: 01/15/21 11:32 SP TYPE: BMB OTHR DR: Dr. Yesica Olsen MD Tissues: A - Bone marrow, NOS B - Bone marrow, NOS C - Bone marrow, NOS Procedures: Bone Marrow Aspiration Bone Marrow Core Biopsy Iron Stain Bone Marrow HEADER OPERATION: Bone marrow biopsy and aspiration PRE-OP DIAGNOSIS: Leukocytosis, anemia, thrombocytopenia TISSUE SUBMITTED: A - Core, B - Clot, C - Smears, and send outs (flow, cytogenetics and FISH) BONE MARROW DIAGNOSIS Bone marrow core, clot and aspirate smears: Marked leukocytosis with left shift suspicious for myeloproliferative neoplasm, CML. Iron - absent. Peripheral blood - leukemoid reaction with neutrophilic left shift. - severe macrocytic anemia and marked thrombocytopenia. Flow cytometry study from [facility] does not show acute leukemia or increased blasts. The flow cytometry shows predominance of maturing myeloid cells (96.3%). A myeloproliferative neoplasms (MPN), such as CML, cannot be excluded. No monocytosis. No evidence of lymphoproliferative disorder. Complete report is viewable in patient's EMR. Cytogenetic and FISH studies are pending at this time. See comment. SJ:wilfredo 01/17/2021 COMMENT Bone marrow core consists of scant blood clot. No bone core is identified. Correlation with clinical findings and appropriate follow up are necessary. This case is discussed with Dr. Cazares on 01/17/2021. BONE MARROW STUDY Slides are reviewed. CBC DATE: 01/15/21 WBC 63.3K; RBC 1.71; HGB 6.7; HCT 21.9; MCV 128.1; RDW 17.9; PLTS 50,000 SEGS 47%; BAND 7%, META 17%, MYELO 9, PRO 4, BLAST 2% LYMPHS 13%; MONOS 1%; EOS 0%; BASOS 0%, PERIPHERAL SMEAR: Submitted. RBC: Severe macrocytic anemia. WBC: Leukemoid reaction with neutrophilic left shift. The WBC count is compatible to as reported above. PLTS: Markedly decreased. BONE MARROW ASPIRATE DIFFERENTIAL: 200 cell count. Blasts % (normal 0-2): 1 Promyelocytes % (normal 1-5): 4 Myelocytes and metamyelocytes % (normal 17-41): 31 Bands and Segs % (normal 15-32): 60 Eos % (normal 1-6): 0 Basos % (normal 0-1): 0 Monocytes % (normal 0-4): 0 Erythroid Precursors % (normal 17-35): 2 Lymphocytes % (normal 7-13): 3 Plasma Cells % (normal 0-2): 0 ASPIRATE FINDINGS: Site: Not specified Aspicular, Cellular M/E ratio: 47.5 (Normal 1.5-4.0) Megakaryocytes: Not seen Erythropoiesis: Markedly decreased. Rare erythroid cells are noted. Granulopoiesis: Progressive and with left shift. Comment: Significant increase of blasts are not seen. CORE BIOPSY FINDINGS: Site: Not specified Comment: The specimen consists of scant amount of peripheral blood. Bone marrow core is not identified in the submitted specimen. ASPIRATE CLOT FINDINGS: Site: Not specified Marrow particles: Numerous Cellularity: 100% M/E ratio: Marked myeloid hyperplasia is noted. Megakaryocytes: Present and decreased in number. Granulomas: Absent. Lymphoid aggregates: Absent. Atypical infiltrates: Absent. Comment: Immunohistochemistry ([id number]) does not show significant increase of blasts. Rare blasts are noted. SPECIAL STAINS WITH MATCHED CONTROLS: Iron: Absent Reticulin: No significant increase of reticulin fibers is noted. PAS: Highlights myeloid cells and megakaryocytes. BONE MARROW GROSS A - Received is a container labeled with the patient's name and designated bone marrow. The specimen consists of a scant amount of blood clot. The specimen is totally submitted for cell block preparation. B - Received labeled with the patient's name and designated bone marrow is a specimen that consists of approximately 8 cc of bloody fluid that on filtration yields multiple minute fragments of blood clots measuring in aggregate 3 x 2.5 x 0.1 cm. The specimen is totally submitted in one cassette. C - Also received are 15 unstained and 1 peripheral stained slides. The unstained slides are submitted for appropriate staining. Also received are three green top tubes which are sent to our reference lab for flow, cytogenetics and FISH. / SJ:rg 01/15/2021 TC:0 CPT: 82574, 19351, 58418 x2, 28926 x3 ADDENDUM ADDENDUM ADDENDUM ADDENDUM ADDENDUM ADDENDUM ADDENDUM ADDENDUM ADDENDUM ADDENDUM ADDENDUM 01/24/2021 09:59 ADDENDUM 01/31/2021 09:54 ADDENDUM 01/24/2021 09:59 ADDENDUM 01/24/2021 09:59 ADDENDUM 01/24/2021 09:59 ADDENDUM 01/24/2021 09:59 CYTOGENETICS REPORT FROM [facility] INTERPRETATION: A normal female karyotype was observed in ten metaphases analyzed. Karyotype: 46,XX[10] Incomplete study FLUORESCENCE IN SITU HYBRIDIZATION (FISH) INTERPRETATION: No evidence of BCR/ABL rearrangement. Please see complete report in e-chart or EMR for further details ONKOSIGHT NGS MPN PANEL SEQUENCING REPORT FROM [facility] RESULT SUMMARY: Abnormal PERTINENT NEGATIVE RESULTS: The following genes are NEGATIVE for clinically relevant mutations. Mutational hotspots and surrounding exonic regions were interrogated for DNA level point mutations and indels (fusions not assayed). ABL1, CALR, CBL, CSF3R, DNMT3A, IDH1, IDH2, JAK2, KIT, MPL, SETBP1, SF3B1, TP53, U2AF1 Please see complete report in e-chart or EMR
--- NOTE | 2021-01-15 11:30 | NURSING ---
[id number], Madison Arteaga, who dropped off the patient, left her phone number [phone] to be contacted when pt is able to be picked up. JOURDAN Ulloa contacted Madison to let her know the procedure went well and the patient can be picked up at noon at the main entrance.
[2021-01-15 14:47] LABS: Pathologist Review Reviewed
== END ==
PROVIDERS: PCP Family Medicine; Referring Provider Internal Medicine Medical Oncology; Visit Provider Internal Medicine Medical Oncology
DX: D69.6 Thrombocytopenia, unspecified (principal); D72.829 Elevated white blood cell count, unspecified; D53.9 Nutritional anemia, unspecified
CPT/HCPCS: 38222; 36415; 77012; 85025; 85610; 85730; 88305; 88311; 88313; 88341; 88342; J7040; A4216

== ENCOUNTER 2021-01-20 18:32 | Inpatient (IN) | payer MEDICARE, SELFPAY ==
[2021-01-15 09:56] VITALS: BMI 31.4
[2021-01-20] VITALS (8 sets, daily range): BP systolic 134–165; BP diastolic 59–92; PULSE 91–109; RESP 16–26; TEMP 36.4–37.2; O2SAT 94–98; BMI 33.3; BMI 32.9; BMI 32.8
--- NOTE | 2021-01-20 18:35 | ED.RN ---
CALLED FOR EKG PER RN REQUEST, PULLED OLD EKGS FOR
--- NOTE | 2021-01-20 18:36 | EKG12_ITS ---
Test Reason : CP Blood Pressure : / mmHG Vent. Rate : 100 BPM Atrial Rate : 100 BPM P-R Int : 158 ms QRS Dur : 128 ms QT Int : 404 ms P-R-T Axes : 065 110 -08 degrees QTc Int : 521 ms Normal sinus rhythm Right bundle branch block Left posterior fascicular block Bifascicular block Cannot rule out Inferior infarct , age undetermined T wave abnormality, consider lateral ischemia Abnormal ECG Confirmed by SUSAN POWELL, JL ([id number]), production editor KRYSTA QUIROZ ([id number]) on 01/23/2021 12:22:49 PM Referred By: DAYSI Confirmed By:JL DAVIS MD
--- NOTE | 2021-01-20 18:54 | RAD_ITS ---
STUDY: X-RAY CHEST REASON FOR EXAM: Female, 80 years old. chest pain TECHNIQUE: Frontal view of the chest COMPARISON: 26 June 2020 FINDINGS: There is likely bilateral basal atelectasis.. There is no demonstrated pleural abnormality. Normal size heart. Normal mediastinum and alton. Normal visualized pulmonary arteries. Normal visualized aortic arch and descending thoracic aorta. Normal visualized thoracic spine. Normal visualized ribs, clavicles, and shoulders. There is no demonstrated abnormality of the visualized soft tissue structures of the upper abdomen. RAD/Chest 1 View (Portable) IMPRESSION: Bilateral basal atelectasis. Electronically Signed: Nicanor Kearney MD at 19:23 EST Tel , Service support ,
--- NOTE | 2021-01-20 18:56 | ED.DCSUM_ITS ---
- ER Visit Summary Date of Service: 01/20/21 Chief Complaint: Left-sided chest pain radiating to her left shoulder blade area and down her posterior left arm. Resolved after nitroglycerin and aspirin by squad History of Present Illness: The patient is a 80 F history of coronary disease, hypertension, high cholesterol anemia and low platelets with elevated white count that they are currently working up. She also has a known history of a right bundle branch block and aortic stenosis. Patient is never had a heart cath that is pending due to the other medical problems. States today around 5:00 at home at rest left-sided chest pain radiating to her left shoulder blade region and down her left arm. Associated with shortness of breath. She has known exertional dyspnea with minimal exertion and also at times gets chest pain with that. Physical Examination: Older female no acute distress currently is pain-free. Pulse ox 96% on room air no signs hypoxia. H EENT exam unremarkable. Neck nontender. No JVD no lymphadenopathy. Lungs clear to auscultation bilaterally. Heart regular rhythm rate about 100 she has a 4 6 stock ejection murmur which she has had before. Abdomen soft nontender normal bowel sounds no peritoneal signs. Patient moving all 4 extremities. She has 1+ pitting edema which is been there in her lower extremities. Calves are nontender. The edema is symmetrical bilaterally. Neurologically she is awake alert with no focal motor deficits. Test Results: EKG shows a normal sinus rhythm right bundle branch block with a left posterior fascicular block. ST depression in leads II, III, aVF. Also appears to be in leads V4 5 and 6. Repeat EKG shows normal sinus rhythm rate of 90 with no change from the first. CBC shows a white count of 57,000 which is her baseline secondary to his underlying hematologic disorder which the results are not back yet on the bone biopsy. Hemoglobin is 6.2 previously was 6.7 it is continually dropped. Platelet count of 47,000 previously was 50. Electrolytes unremarkable normal creatinine gap. Troponin negative. I went over all test results with the patient. Currently she is pain-free. She will be given Nitropaste. Emergency Department Course and Treatment: Patient with very cardiac sounding chest pain. Is already received aspirin and nitro. Currently is pain-free. Treatment Plan: I spoke to the admitting hospitalist. Patient be admitted to PCU. I spoke to cardiology on-call Dr. Weir. Patient will be typed and crossed for 4 units and she is 2 units. 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 This note was generated with [employer] dictation software. It may contain incorrect words, spelling, and punctuation that were not noted in review of the chart prior to signing ED Disposition - Plan for ED Patient: Referrals: Yesica Olsen MD [Primary Care Provider] -
[2021-01-20 19:16] LABS: Anion Gap 6 (5-15); BUN 21 mg/dL (7-18); Calcium,Total 8.5 mg/dL (8.5-10.1); Chloride 109 mmol/L (98-107); EST Glomerular Filtration Rate 56 mL/min (>60); Est Glom Filt Rate - Afr Amer 68 mL/min (>60); Glucose 146 mg/dL (74-106); Potassium 4.1 mmol/L (3.5-5.1); Sodium Level 141 mmol/L (136-145)
[2021-01-20 19:47] LABS: Hematocrit 19.5 % (37-47); Hemoglobin 6.2 g/dL (12.0-15.0); Mean Corp Hgb Conc 31.8 g/dL (32-36); Mean Corpuscular Hgb 39.5 pg (27.0-32.0); Mean Corpuscular Volume 124.2 fL (81-99); Mean Platelet Vol. 11.1 fl (6.2-12.0); POSITIVE COUNT YES; POSITIVE DIFFERENTIAL YES; POSITIVE MORPHOLOGY YES; Red Blood Count 1.57 M/mm3 (4.2-5.4)
[2021-01-20 19:49] LABS: Differential Indicated MANUAL DIFF
--- NOTE | 2021-01-20 19:49 | EKG12_ITS ---
Test Reason : REPEAT Blood Pressure : / mmHG Vent. Rate : 090 BPM Atrial Rate : 090 BPM P-R Int : 164 ms QRS Dur : 130 ms QT Int : 424 ms P-R-T Axes : 073 108 -25 degrees QTc Int : 518 ms Normal sinus rhythm Right bundle branch block Cannot rule out Inferior infarct , age undetermined T wave abnormality, consider lateral ischemia Abnormal ECG Confirmed by JL DAVIS MD ([id number]), news videotape editor KRYSTA QUIROZ ([id number]) on 01/23/2021 12:23:03 PM Referred By: DAYSI Confirmed By:JL DAVIS MD
[2021-01-20 19:50] LABS: Platelet Count 47 K/mm3 (150-450); White Blood Count 57.7 K/mm3 (4.4-11.0)
[2021-01-20 20:48] LABS: Blast 3 % (0-0); Lymphocyte 12 % (19-41); Metamyelocyte 4 % (0-1); Myelocyte 8 (0-0); Neutrophil-Band 14 % (0-5); Neutrophil-Segmented 52 % (47-70); Promyelocyte 7 (0-0); Total Cells Counted 100 (MANUAL DIFF)
[2021-01-20 20:51] LABS: Anisocytosis 2+; Macrocytosis 2+; Platelet Estimate MKD DEC (ADEQ)
[2021-01-20 20:59] LABS: Hypochromasia 1+
[2021-01-20 21:00] LABS: Absolute Lymphocyte Count 6.92 X10^3/uL (0.83-4.51); Absolute Neutrophil Count 38.1 X10^3/uL (2.0-7.7)
[2021-01-20] MEDS: Nitroglycerin Oint 1 INCH PACKET TD (22:29)
--- NOTE | 2021-01-20 22:32 | PCM.HP.STD ---
Problem List (1) Chest pain Status: Acute (2) Aortic stenosis Status: Chronic (3) Unstable angina Status: Acute (4) Coronavirus infection Status: Resolved (5) Leukocytosis Status: Chronic Qualifiers: Leukocytosis type: unspecified Qualified Code(s): D72.829 - Elevated white blood cell count, unspecified (6) Thrombocytopenia Status: Chronic (7) History of COVID-19 Status: Chronic Comment: May 2020 (8) Pure hypercholesterolemia Status: Chronic (9) Essential hypertension Status: Chronic (10) Nonrheumatic aortic (valve) stenosis Status: Chronic (11) Nonrheumatic mitral (valve) insufficiency Status: Chronic (12) Non-rheumatic tricuspid valve insufficiency Status: Chronic (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 (14) RBBB (right bundle branch block) Status: Chronic (15) Edema Status: Chronic (16) Palpitations Status: Inactive (17) Abnormal EKG Status: Chronic (18) Segmental and somatic dysfunction of pelvic region Status: Chronic (19) Segmental and somatic dysfunction of thoracic region Status: Chronic (20) 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 She describes her chest pain as a pressure at the left side of her chest. The chest pain radiated to her left scapula; into her left arm and into her teeth. Her chest pain increased with exertion and it improves with rest although at rest she still has a significant chest pain. Associated with her symptoms is diaphoresis and shortness of breath. She denies any nausea or vomiting. She received nitroglycerin by the paramedics and this helped with her chest pain. Also she was given full dose aspirin. Her chest pain actually started in November 2020. In November 2020 her chest pain was only with exertion but now her chest pain is at rest. Because of severe aortic stenosis the plan was to do a cardiac cath but because of abnormal blood count she was referred to hematology. Currently she is being worked out outpatient for an abnormal CBC and recently had a bone marrow biopsy. She has a chronic right bundle branch block. Past Medical History Past Medical History (Chronic Problems): Chronic Problems (Last Reviewed 01/21/21 @ 01:[address] Pipe Rich MD) Leukocytosis (Chronic) Thrombocytopenia (Chronic) Aortic stenosis (Chronic) History of COVID-19 (Chronic) May 2020 Pure hypercholesterolemia (Chronic) Essential hypertension (Chronic) Nonrheumatic aortic (valve) stenosis (Chronic) Nonrheumatic mitral (valve) insufficiency (Chronic) Non-rheumatic tricuspid valve insufficiency (Chronic) Other fci (current) drug therapy (Chronic) RBBB (right bundle branch block) (Chronic) Edema (Chronic) Abnormal EKG (Chronic) Segmental and somatic dysfunction of pelvic region (Chronic) Segmental and somatic dysfunction of thoracic region (Chronic) 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) Osteoarthritis (Chronic) Segmental and somatic dysfunction of lumbar region (Chronic) Medical History: Medical History (Last Reviewed 01/21/21 @ 01:[address] Pipe Rich MD) History of COVID-19 (Chronic) Z86.01 June 2020 Pure hypercholesterolemia (Chronic) E78.00 Essential hypertension (Chronic) I10 Nonrheumatic aortic (valve) stenosis (Chronic) I35.0 Nonrheumatic mitral (valve) insufficiency (Chronic) I34.0 Non-rheumatic tricuspid valve insufficiency (Chronic) I36.1 Other fci (current) drug therapy (Chronic) Z79.899 RBBB (right bundle branch block) (Chronic) I45.10 Edema (Acute) R60.9 Palpitations (Acute) R00.2 Abnormal EKG (Acute) R94.31 Segmental and somatic dysfunction of pelvic region (Acute) M99.05 Segmental and somatic dysfunction of thoracic region (Acute) M99.02 Intervertebral disc disorder with radiculopathy of lumbar region (Acute) M51.16 Osteoarthritis (Chronic) M19.90 Segmental and somatic dysfunction of lumbar region (Acute) M99.03 Neuropathy G62.9 Aortic stenosis (Inactive) I35.0 Allergies codeine Allergy (Intermediate, Verified 01/20/21 18:41) Swelling amoxicillin [From Augmentin] Allergy (Mild, Verified 01/20/21 18:41) Itching clavulanic acid [From Augmentin] Allergy (Mild, Verified 01/20/21 18:41) Itching niacin [From Niaspan Extended-Release] Allergy (Mild, Verified 01/20/21 18:41) Itching Home Medications: Ambulatory Orders Medication Instructions Recorded multivitamin,cl-ehbc-[id number] 1 tab PO QDAY 11/18/17 naproxen sodium 220 mg capsule 220 mg PO Q12H PRN 03/02/18 tolterodine 2 mg tablet 4 mg PO DAILY tab 06/04/19 atorvastatin 10 mg tablet 10 mg PO QDAY #90 tab 08/31/20 fenofibrate nanocrystallized 48 mg 48 mg PO QDAY #90 tab 08/31/20 tablet magnesium 250 mg tablet 250 mg PO DAILY 08/31/20 zinc 50 mg tablet 50 mg PO DAILY 08/31/20 lisinopril 20 mg tablet 20 mg PO BID #180 tab 12/04/20 furosemide 20 mg tablet 20 mg PO DAILY #30 tab 12/13/20 Ferrous Sulfate [Iron] 325 mg PO DAILY 01/09/21 Potassium Chloride [K-Tab ER] 20 meq PO DAILY 01/09/21 Surgical History: Surgical History (Last Reviewed 01/21/21 @ 01:[address] Pipe Rich MD) H/O meniscectomy of right knee Z98.890 History of appendectomy Z90.49 History of medial meniscus repair of left knee Z98.890 History of partial knee replacement Z96.659 History of synovectomy Z98.890 History of total hysterectomy Z90.710 History of tubal ligation Z98.51 Smoking Status: Never smoker Tobacco Use: Non-smoker - *Family History Maternal Family History: Family History (Last Reviewed 01/21/21 @ 01:[address] Pipe Rich MD) Mother CHF (congestive heart failure) Brother CAD (coronary artery disease) Sister CHF (congestive heart failure) Son Cardiac pacemaker in situ WPW (Sdojt-Tcksaogoc-Lbuhs syndrome) Father No problems noted. Review of Systems Constitutional: Denies: Chills, Fever, Weight Change HEENT: Denies: Head Aches, Sinus Congestion, Sinus Drainage Cardiovascular: Reports: Chest Pain. Denies: Palpitations Respiratory: Reports: Shortness of Breath. Denies: Cough, Sputum production Gastrointestinal: Denies: Abdominal Pain, Nausea, Vomiting Genitourinary: Denies: Dysuria Musculoskeletal: Denies: Joint Pain, Joint Tenderness Skin: Denies: Rash, Wounds Neurological: Denies: Numbness, Tingling, Focal weakness Psychiatric: Denies: Anxiety, Depression, Homicidal Ideations, Suicidal Ideations Hematologic/ Lymphatic: Denies: Easy Bruising, Easy Bleeding VTE Information - Inpt Only VTE Present on Admission: No VTE Mechan Device Prophylaxis: SCD's VTE Pharm Prophylaxis ordered?: No Patient Problems: Active and Suspected Problems (Last Reviewed 01/21/21 @ 01:[address] Pipe Rich MD) Chest pain (Acute) - Physical Exam Vitals/I&O's: Vital Signs Temp Pulse Resp BP Pulse Ox 97.6 F L 101 H 26 H 155/92 H 95 01/20/21 18:33 01/20/21 22:29 01/20/21 22:02 01/20/21 22:29 01/20/21 22:02 Oxygen Delivery Method Room Air Weight: 82.6 kg Body Mass Index (BMI) 33.3 General: Alert, Oriented x3, Cooperative HEENT: Atraumatic, PERRLA, EOMI, Normocephalic Neck: Supple, No JVD, Negative Carotid Bruits Lungs: Clear to auscultation, Normal air movement Cardiovascular: Regular rate, Normal S1, Normal S2, Murmur Abdomen: Bowel Sounds Present, Soft, Non Tender Extremities: Capillary Refill Less than 3 Seconds, Edema - Bilateral leg edema Skin: No rashes, No breakdown Musculoskeletal: No Tenderness to Palpation of Joints or Extremities Neurological: Cranial nerves II-XII grossly intact Psych/Mental Status: Normal Affect, Appropriate Laboratory Results 01/20/21 18:13: WBC Cancelled, Corrected WBC Cancelled, RBC Cancelled, Hgb Cancelled, Hct Cancelled, MCV Cancelled, MCH Cancelled, MCHC Cancelled, RDW Std Deviation Cancelled, RDW Coeff of Aubrey Cancelled, Plt Count Cancelled, MPV Cancelled, Immature Gran % (Auto) Cancelled, Neut % (Auto) Cancelled, Lymph % (Auto) Cancelled, [place] % (Auto) Cancelled, Eos % (Auto) Cancelled, Baso % (Auto) Cancelled, Absolute Neuts (auto) Cancelled, Absolute Lymphs (auto) Cancelled, Total Counted Cancelled, Neutrophils % (Manual) Cancelled, Band Neutrophils % Cancelled, Lymphocytes % (Manual) Cancelled, Monocytes % (Manual) Cancelled, Eosinophils % (Manual) Cancelled, Basophils % (Manual) Cancelled, Metamyelocytes % Cancelled, Myelocytes % Cancelled, Promyelocytes % Cancelled, Blast Cells % Cancelled, Plasma Cell % (Manual) Cancelled, Other Cells % Cancelled, Nucleated RBC % Cancelled, Nucleated RBCs/100 WBC Cancelled, Differential Comment Cancelled, Diff Path Review Cancelled, Hypersegmented Neuts Cancelled, Atypical Lymphocytes Cancelled, Reactive Lymphocytes Cancelled, Smudge Cells Cancelled, Toxic Granulation Cancelled, Toxic Vacuolation Cancelled, Dohle Bodies Cancelled, Natty Rods Cancelled, Platelet Estimate Cancelled, Plt Morphology Comment Cancelled, RBC Morphology Cancelled, Polychromasia Cancelled, Hypochromasia Cancelled, Poikilocytosis Cancelled, Basophilic Stippling Cancelled, Anisocytosis Cancelled, Microcytosis Cancelled, Macrocytosis Cancelled, Spherocytes Cancelled, Sickle Cells Cancelled, Target Cells Cancelled, Tear Drop Cells Cancelled, Ovalocytes Cancelled, Stomatocytes Cancelled, Garcia-Wittmann Bodies Cancelled, Oanh Cells Cancelled, Bite Cells Cancelled, Crenated Cell Cancelled, Acanthocytes (Spur) Cancelled, Rouleaux Cancelled, Schistocytes Cancelled 01/20/21 18:13: Sodium 141, Potassium 4.1, Chloride 109 H, Carbon Dioxide 26.0, Anion Gap 6, BUN 21 H, Creatinine 1.00, Estim Creat Clear Calc 34.30, Est GFR (MDRD) Af Amer 68, Est GFR (MDRD) Non-Af 56 L, BUN/Creatinine Ratio 21.0 H, Glucose 146 H, Calcium 8.5, Troponin I < 0.015 01/20/21 18:55: WBC 57.7 H*, RBC 1.57 L, Hgb 6.2 L, Hct 19.5 L, MCV 124.2 H, MCH 39.5 H, MCHC 31.8 L, RDW Std Deviation 79.0 H, RDW Coeff of Aubrey 18.0 H, Plt Count 47 L*, MPV 11.1, Neut % (Auto) Not Reportable, Absolute Neuts (auto) 38.1 H, Absolute Lymphs (auto) 6.92 H, Total Counted 100, Neutrophils % (Manual) 52, Band Neutrophils % 14 H, Lymphocytes % (Manual) 12 L, Metamyelocytes % 4 H, Myelocytes % 8 H, Promyelocytes % 7 H, Blast Cells % 3 H*, Diff Path Review May foll, Platelet Estimate MKD DEC, Hypochromasia 1+, Anisocytosis 2+, Macrocytosis 2+ Assessment/Plan All Active Problems (Last Reviewed 01/21/21 @ 01:[address] Pipe Rich MD) Coronavirus infection (Resolved) Chest pain (Acute) Unstable angina (Acute) The patient is a 80 year old F with a significant history of severe aortic stenosis who presents emergency department with excruciating chest pain that started on the same day of presentation and with abnormal CBC. Unstable angina Place on a monitored bed at PCU Radiologist impression of chest x-ray: Bilateral atelectasis actual. CXR image was independently interpreted. I agree radiologist interpretation. Actual EKG tracing was independently visualized. EKG tracing showed right bundle branch block with ST depression. Old EKG was reviewed. Current EKG is similar to EKG on 12/04/2020. ASA 81 mg p.o. daily ordered Nitropaste ordered at the ED; and continued. Does not want morphine for pain. We will check lipid panel. Serial cardiac enzymes ordered Stat EKG as needed for chest pain Discussed with ED doc to discuss case with cardiology. Inpatient cardiology consult. Blood dyscrasia With leukocytosis; anemia and thrombocytopenia. Disappear to be chronic. Is being worked up outpatient. Discussed with ED doctor to give 2 units of blood. Will order Lasix in between blood as patient has bilateral leg edema. Iron sulfate continued Hypertension Blood pressure is not within goal Lisinopril continued. As needed hydralazine ordered. Trend blood pressure and adjust blood pressure medications. Leg edema Home furosemide continued Lasix 40 mg IV push x1 in between 2 units of packed red blood cells. DVT prophylaxis SCD ordered. Inpatient E&M: 46850 Init Hosp L3
[2021-01-20] MEDS: Acetaminophen 500 MG Tablet 1000 MG PO (22:48)
--- NOTE | 2021-01-20 23:06 | EKG12_ITS ---
Test Reason : CP ADMISSION Blood Pressure : / mmHG Vent. Rate : 100 BPM Atrial Rate : 100 BPM P-R Int : 162 ms QRS Dur : 130 ms QT Int : 398 ms P-R-T Axes : 072 113 -59 degrees QTc Int : 513 ms Normal sinus rhythm Right bundle branch block Left posterior fascicular block Bifascicular block Inferior infarct , age undetermined T wave abnormality, consider lateral ischemia Abnormal ECG Confirmed by SUSAN POWELL, JL ([id number]), writer editor KRYSTA QUIROZ ([id number]) on 01/23/2021 12:49:32 PM Referred By: GAVIN Confirmed By:JL DAVIS MD
[2021-01-21] VITALS (27 sets, daily range): BP systolic 111–150; BP diastolic 46–71; PULSE 69–104; RESP 16–22; TEMP 36.3–37.1; O2SAT 93–100
--- NOTE | 2021-01-21 02:33 | NURSING ---
PT'S DAUGHTER EMMETT BENITEZ CALLED IN GAVE PHONE # OF [phone] CONTACT NUMBER. STATES SHE MAY BE THE ONE VISITING IF HER BROTHER IS UNABLE TO DO SO. INFORMED OF VISITATION POLICY AND HOURS.
[2021-01-21] MEDS: Furosemide 40 MG/4 ML Vial IV (05:49)
[2021-01-21] MEDS: Nitroglycerin Oint 1 INCH PACKET TD ×3 (06:28→18:24)
[2021-01-21 07:23] LABS: Anion Gap 8 (5-15); BUN 28 mg/dL (7-18); BUN/Creat Ratio 33.4 RATIO (10-20); Calcium,Total 8.3 mg/dL (8.5-10.1); Chloride 112 mmol/L (98-107); Cholesterol 207 mg/dL (200); Creatinine, Serum 0.84 mg/dL (0.55-1.02); EST Glomerular Filtration Rate 69 mL/min (>60); Est Glom Filt Rate - Afr Amer 84 mL/min (>60); Estimated Creatinine Clearance 40.84 ml/min; Glucose 109 mg/dL (74-106); High Density Lipoprotein 37 mg/dL; Potassium 4.4 mmol/L (3.5-5.1); Sodium Level 144 mmol/L (136-145); Triglycerides 366 mg/dL; Very Low Density Lipoprotein 73 mg/dL (5-40)
--- NOTE | 2021-01-21 07:29 | PN_ITS ---
Patient Problems: Active and Suspected Problems (Last Reviewed 01/21/21 @ 01:[address] Pipe Rich MD) Chest pain (Acute) Unstable angina (Acute) Reason for Visit: Follow-up on chest pain/leukocytosis/thrombocytopenia Subjective: Patient was seen and examined. She was transfused 2 units of packed RBCs. She denied any progressive shortness of breath dizziness or chest pain. No bleeding from any orifices. No melena stools or hematochezia. Objective: Physical exam: General: Alert, Oriented x3, Cooperative HEENT: Atraumatic, PERRLA, EOMI, Normocephalic Neck: Supple, No JVD, Negative Carotid Bruits Lungs: Clear to auscultation, Normal air movement Cardiovascular: Regular rate, Normal S1, Normal S2, Murmur Abdomen: Bowel Sounds Present, Soft, Non Tender Extremities: Capillary Refill Less than 3 Seconds, Edema - Bilateral leg edema Skin: No rashes, No breakdown Musculoskeletal: No Tenderness to Palpation of Joints or Extremities Neurological: Cranial nerves II-XII grossly intact Psych/Mental Status: Normal Affect, Appropriate Vitals/I&O's: Vital Signs Temp Pulse Resp BP Pulse Ox 97.7 F L 88 16 132/58 H 99 01/21/21 06:25 01/21/21 06:28 01/21/21 06:25 01/21/21 06:28 01/21/21 06:25 Oxygen Flow Rate (L/min) 2 Oxygen Delivery Method Nasal Cannula Weight: 81.5 kg Body Mass Index (BMI) 32.8 Intake and Output for Last 24 Hours 01/19/21 01/20/21 01/21/21 23:59 23:59 23:59 Intake Total 500 / 500 Balance 500 / 500 Laboratory Results 01/20/21 11:43: Troponin I 0.024 01/20/21 18:13: WBC Cancelled, Corrected WBC Cancelled, RBC Cancelled, Hgb Cancelled, Hct Cancelled, MCV Cancelled, MCH Cancelled, MCHC Cancelled, RDW Std Deviation Cancelled, RDW Coeff of Aubrey Cancelled, Plt Count Cancelled, MPV Cancelled, Immature Gran % (Auto) Cancelled, Neut % (Auto) Cancelled, Lymph % (Auto) Cancelled, [place] % (Auto) Cancelled, Eos % (Auto) Cancelled, Baso % (Auto) Cancelled, Absolute Neuts (auto) Cancelled, Absolute Lymphs (auto) Cancelled, Total Counted Cancelled, Neutrophils % (Manual) Cancelled, Band Neutrophils % Cancelled, Lymphocytes % (Manual) Cancelled, Monocytes % (Manual) Cancelled, Eosinophils % (Manual) Cancelled, Basophils % (Manual) Cancelled, Metamyelocytes % Cancelled, Myelocytes % Cancelled, Promyelocytes % Cancelled, Blast Cells % Cancelled, Plasma Cell % (Manual) Cancelled, Other Cells % Cancelled, Nucleated RBC % Cancelled, Nucleated RBCs/100 WBC Cancelled, Differential Comment Cancelled, Diff Path Review Cancelled, Hypersegmented Neuts Cancelled, Atypical Lymphocytes Cancelled, Reactive Lymphocytes Cancelled, Smudge Cells Cancelled, Toxic Granulation Cancelled, Toxic Vacuolation Cancelled, Dohle Bodies Cancelled, Natty Rods Cancelled, Platelet Estimate Cancelled, Plt Morphology Comment Cancelled, RBC Morphology Cancelled, Polychromasia Cancelled, Hypochromasia Cancelled, Poikilocytosis Cancelled, Basophilic Stippling Cancelled, Anisocytosis Cancelled, Microcytosis Cancelled, Macrocytosis Cancelled, Spherocytes Cancelled, Sickle Cells Cancelled, Target Cells Cancelled, Tear Drop Cells Cancelled, Ovalocytes Cancelled, Stomatocytes Cancelled, Garcia-Cornlea Bodies Cancelled, [place] Cells Cancelled, Bite Cells Cancelled, Crenated Cell Cancelled, Acanthocytes (Spur) Cancelled, Rouleaux Cancelled, Schistocytes Cancelled 01/20/21 18:13: Sodium 141, Potassium 4.1, Chloride 109 H, Carbon Dioxide 26.0, Anion Gap 6, BUN 21 H, Creatinine 1.00, Estim Creat Clear Calc 34.30, Est GFR (MDRD) Af Amer 68, Est GFR (MDRD) Non-Af 56 L, BUN/Creatinine Ratio 21.0 H, Glucose 146 H, Calcium 8.5, Troponin I < 0.015 01/20/21 18:55: WBC 57.7 H*, RBC 1.57 L, Hgb 6.2 L, Hct 19.5 L, MCV 124.2 H, MCH 39.5 H, MCHC 31.8 L, RDW Std Deviation 79.0 H, RDW Coeff of Aubrey 18.0 H, Plt Cou nt 47 L*, MPV 11.1, Neut % (Auto) Not Reportable, Absolute Neuts (auto) 38.1 H, Absolute Lymphs (auto) 6.92 H, Total Counted 100, Neutrophils % (Manual) 52, Band Neutrophils % 14 H, Lymphocytes % (Manual) 12 L, Metamyelocytes % 4 H, Myelocytes % 8 H, Promyelocytes % 7 H, Blast Cells % 3 H*, Diff Path Review May foll, Platelet Estimate MKD DEC, Hypochromasia 1+, Anisocytosis 2+, Macrocytosis 2+ 01/20/21 22:30: Blood Type A NEGATIVE, Antibody Screen NEGATIVE, Crossmatch See Detail 01/21/21 02:15: Troponin I 0.065 H 01/21/21 05:16: Sodium 144, Potassium 4.4, Chloride 112 H, Carbon Dioxide 24.0, Anion Gap 8, BUN 28 H, Creatinine 0.84, Estim Creat Clear Calc 40.84, Est GFR (MDRD) Af Amer 84, Est GFR (MDRD) Non-Af 69, BUN/Creatinine Ratio 33.4 H, Glucose 109 H, Calcium 8.3 L, Magnesium 2.0, Triglycerides 366 H, Cholesterol 207 H, LDL Cholesterol 97, VLDL Cholesterol 73 H, HDL Cholesterol 37 L 01/21/21 05:16: Troponin I 0.177 H Current Medications Acetaminophen (Acetaminophen 325 Mg Tablet) 650 mg PO Q6H PRN PRN PRN Reason: Pain Score 1-10/Temp > 100.7 F Aspirin (Aspirin E.C. 81 Mg Tablet) 81 mg PO DAILY@0800 [facility] Atorvastatin Calcium (Atorvastatin Calcium 10 Mg Tablet) 10 mg PO QHS [facility] Cholecalciferol (Cholecalciferol (Vit D3) 1,000 Unit (25mcg)) 2,000 unit PO DAILY [facility] Fenofibrate (Fenofibrate 48 Mg Tablet) 48 mg PO DAILYCM [facility] Ferrous Sulfate (Ferrous Sulfate 325 Mg Tablet) 325 mg PO DAILYCM [facility] Furosemide (Furosemide 20 Mg Tablet) 20 mg PO DAILY [facility] Lisinopril (Lisinopril 20 Mg Tablet) 20 mg PO BID [facility] Magnesium Chloride (Magnesium Chloride 64 Mg Delay Rel.Tablet) 64 mg PO DAILY [facility] Multivitamins/Minerals (Multivitamins,Ther W-Minerals Tablet) 1 tablet PO DAILYCM [facility] Nitroglycerin (Nitroglycerin Oint 1 Inch Packet) 1 inch TD Q6 [facility] Last Admin: 01/21/21 06:28 Dose: 1 inch Documented by: Nutritional Formula (Lactose Free) (Ensure Enlive 120 Ml Liquid) 120 ml PO 4X/DAY [facility] Ondansetron HCl (Ondansetron 4 Mg/2 Ml Vial) 4 mg IV Q8H PRN PRN PRN Reason: NAUSEA/VOMITING Potassium Chloride (Potassium Chloride Oral Tablet 20 Meq) [facility] Senna/Docusate Sodium (Senna/Docusate Sodium 1 Tablet) 2 tablet PO BID PRN PRN PRN Reason: Constipation Tolterodine Tartrate (Tolterodine Tartrate 4 Mg Cap.Sa) 4 mg PO DAILY [facility] Zinc Sulfate (Zinc Sulfate (50mg Elemental) 220 Mg Capsule) 220 mg PO DAILY [facility] STROKE Vital Signs/Narrative: Vital Signs Temp Pulse Resp BP Pulse Ox 01/21/21 06:28 88 132/58 H 01/21/21 06:25 97.7 F L 81 16 132/58 H 99 01/21/21 06:10 97.7 F L 77 16 138/59 H 100 01/21/21 05:20 97.8 F 75 16 120/46 L 100 01/21/21 04:26 98.2 F 76 16 111/50 L 100 Medical Necessity - Tobacco Use Smoking Status: Former smoker Tobacco Use: Non-smoker Assessment/Plan All Active Problems (Last Reviewed 01/21/21 @ 01:[address] Pipe Rich MD) Coronavirus infection (Resolved) Chest pain (Acute) Unstable angina (Acute) 80-year-old female past medical history of CAD, severe aortic stenosis, with ongoing work-up for CML by hematology who comes in with chest pain 1. Chest pain, concerning for angina, absent at the time of being seen No acute ST-T changes, troponins have been minimally elevated Continue on aspirin, atorvastatin, fenofibrate 2. Leucocytosis/thrombocytopenia, concerning for possible CML Will consult hematology 3. Hypertension, controlled, continue on Lisinopril 4. DVT PPx - SCDs Inpatient E&M: 44716 Subs Hosp L2
[2021-01-21] MEDS: Fenofibrate 48 MG Tablet PO (08:37)
[2021-01-21] MEDS: Furosemide 20 MG Tablet PO (08:37)
[2021-01-21] MEDS: Potassium Chloride Oral Tablet 20 MEQ PO (08:37)
[2021-01-21] MEDS: Aspirin E.C. 81 MG Tablet PO (08:37)
[2021-01-21] MEDS: Magnesium Chloride 64 MG Delay Rel.Tablet PO (08:37)
[2021-01-21] MEDS: Ferrous Sulfate 325 MG Tablet PO (08:37)
[2021-01-21] MEDS: Tolterodine Tartrate 4 MG CAP.SA PO (08:37)
[2021-01-21] MEDS: Multivitamins,Ther W-Minerals Tablet 1 TABLET PO (08:38)
[2021-01-21] MEDS: Lisinopril 20 MG Tablet PO ×2 (08:38→21:16)
--- NOTE | 2021-01-21 10:50 | CON.PCM_ITS ---
Reason for Consult Date of Consultation: 01/21/21 History of Present Illness: The patient is a 80 year old F [] Past Medical History Allergies/Adverse Reactions: Allergies codeine Allergy (Intermediate, Verified 01/20/21 23:23) Swelling amoxicillin [From Augmentin] Allergy (Mild, Verified 01/20/21 23:23) Itching clavulanic acid [From Augmentin] Allergy (Mild, Verified 01/20/21 23:23) Itching niacin [From Niaspan Extended-Release] Allergy (Mild, Verified 01/20/21 23:23) Itching Home Medications: Ambulatory Orders Medication Instructions Recorded multivitamin,[id number] 1 tab PO QDAY 11/18/17 naproxen sodium 220 mg capsule 220 mg PO Q12H PRN 03/02/18 tolterodine 2 mg tablet 4 mg PO DAILY tab 06/04/19 atorvastatin 10 mg tablet 10 mg PO QDAY #90 tab 08/31/20 fenofibrate nanocrystallized 48 mg 48 mg PO QDAY #90 tab 08/31/20 tablet magnesium 250 mg tablet 250 mg PO DAILY 08/31/20 zinc 50 mg tablet 50 mg PO DAILY 08/31/20 lisinopril 20 mg tablet 20 mg PO BID #180 tab 12/04/20 furosemide 20 mg tablet 20 mg PO DAILY #30 tab 12/13/20 Ferrous Sulfate [Iron] 325 mg PO DAILY 01/09/21 Potassium Chloride [K-Tab ER] 20 meq PO DAILY 01/09/21 Past Medical History (Chronic Problems): Chronic Problems (Last Reviewed 01/21/21 @ 01:[address] Pipe Rich MD) Leukocytosis (Chronic) Thrombocytopenia (Chronic) Aortic stenosis (Chronic) History of COVID-19 (Chronic) May 2020 Pure hypercholesterolemia (Chronic) Essential hypertension (Chronic) Nonrheumatic aortic (valve) stenosis (Chronic) Nonrheumatic mitral (valve) insufficiency (Chronic) Non-rheumatic tricuspid valve insufficiency (Chronic) Other intermediate designer (current) drug therapy (Chronic) RBBB (right bundle branch block) (Chronic) Edema (Chronic) Abnormal EKG (Chronic) Segmental and somatic dysfunction of pelvic region (Chronic) Segmental and somatic dysfunction of thoracic region (Chronic) 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 Pipe Rich MD) Mother CHF (congestive heart failure) Brother CAD (coronary artery disease) Sister CHF (congestive heart failure) Son Cardiac pacemaker in situ WPW (Pyauj-Zwgjbbqod-Kynab syndrome) Father No problems noted. Smoking Status: Former smoker Tobacco Use: Non-smoker Objective: Vital Signs Temp Pulse Resp BP Pulse Ox 98.0 F 85 16 143/51 H 98 01/21/21 09:50 01/21/21 09:50 01/21/21 09:50 01/21/21 09:50 01/21/21 09:50 Oxygen Flow Rate (L/min) 2 Oxygen Delivery Method Room Air Weight: 179 lb 10.828 oz Body Mass Index (BMI) 32.8 Intake and Output for Last 24 Hours 01/19/21 01/20/21 01/21/21 23:59 23:59 23:59 Intake Total 500 / 500 Balance 500 / 500 General: Awake, Alert, Oriented x 3 HEENT: PERRL, EOMI, Sclera Non Icteric Neck: Supple, Good ROM, No Lymph Node Enlargement Cardiovascular: Regular Rhythm, Normal S1, Normal S2, No Murmurs, No Rubs, No Gallops Murmur Murmur: Grade 2/6, Mid Systolic 01/20/21 11:43: Troponin I 0.024 01/20/21 18:13: WBC Cancelled, Corrected WBC Cancelled, RBC Cancelled, Hgb Cancelled, Hct Cancelled, MCV Cancelled, MCH Cancelled, MCHC Cancelled, Plt Count Cancelled, MPV Cancelled, Immature Gran % (Auto) Cancelled, Neut % (Auto) Cancelled, Lymph % (Auto) Cancelled, Early % (Auto) Cancelled, Eos % (Auto) Cancelled, Baso % (Auto) Cancelled, Absolute Neuts (auto) Cancelled, Total Counted Cancelled, Neutrophils % (Manual) Cancelled, Band Neutrophils % Cancelled, Lymphocytes % (Manual) Cancelled, Monocytes % (Manual) Cancelled, Eosinophils % (Manual) Cancelled, Basophils % (Manual) Cancelled, Metamyelocytes % Cancelled, Myelocytes % Cancelled, Promyelocytes % Cancelled, Blast Cells % Cancelled, Plasma Cell % (Manual) Cancelled, Other Cells % Cancelled, Nucleated RBC % Cancelled 01/20/21 18:13: Sodium 141, Potassium 4.1, Chloride 109 H, Carbon Dioxide 26.0, Anion Gap 6, BUN 21 H, Creatinine 1.00, Est GFR (MDRD) Af Amer 68, Est GFR (MDRD) Non-Af 56 L, BUN/Creatinine Ratio 21.0 H, Glucose 146 H, Calcium 8.5, Troponin I < 0.015 01/20/21 18:55: WBC 57.7 H*, RBC 1.57 L, Hgb 6.2 L, Hct 19.5 L, MCV 124.2 H, MCH 39.5 H, MCHC 31.8 L, Plt Count 47 L*, MPV 11.1, Neut % (Auto) Not Reportable, Absolute Neuts (auto) 38.1 H, Total Counted 100, Neutrophils % (Manual) 52, Band Neutrophils % 14 H, Lymphocytes % (Manual) 12 L, Metamyelocytes % 4 H, Myelocytes % 8 H, Promyelocytes % 7 H, Blast Cells % 3 H* 01/21/21 02:15: Troponin I 0.065 H 01/21/21 05:16: Sodium 144, Potassium 4.4, Chloride 112 H, Carbon Dioxide 24.0, Anion Gap 8, BUN 28 H, Creatinine 0.84, Est GFR (MDRD) Af Amer 84, Est GFR (MDRD) Non-Af 69, BUN/Creatinine Ratio 33.4 H, Glucose 109 H, Calcium 8.3 L, Magnesium 2.0, Triglycerides 366 H, Cholesterol 207 H, LDL Cholesterol 97, VLDL Cholesterol 73 H, HDL Cholesterol 37 L 01/21/21 05:16: Troponin I 0.177 H Rhythm: EKG: ECHO: Stress Test: Cardiac Cath: PCI: CT Surgery: Holter monitor: EPS: PPM: CXR: Chest CT Scan: Assessment/Plan 80-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 De Oliveira He had echocardiogram which showed preserved LV function with ejection fraction 65, severe calcific aortic valve stenosis Due to history of anemia and thrombocytopenia with a platelet count of 47 white cell count 53 Patient underwent hematology evaluation with a bone marrow biopsy and awaiting further assessment and recommendation. Assessment and plan;. 1. Patient has significantly abnormal electrocardiogram, with diffuse ST depression and ST elevation noted in aVR. On clinical exam she had ejection systolic murmur heard in the aortic valve area and by the echocardiogram she had severe calcific aortic valve stenosis. The cardiac biomarkers, high sensitive troponins has been within normal, renal function electrolytes normal. On the CBC she has blast cells and she has severe thrombocytopenia and significant leukocytosis. Awaiting to discuss a bone marrow biopsy result with the can filling machine operator/oncologist. Patient will require further assessment with cardiac catheterization however as she has severe thrombocytopenia she will need initial hematology work-up to reach out the diagnosis and to discuss her treatment Meanwhile she been stable clinically she does not have any symptoms of chest pain today. She will be seen and followed by her primary biomass technician Dr. De Oliveira. As well she will be evaluated by her can filling machine operator/oncology during this admission.
[2021-01-21 10:57] LABS: Hematocrit 25.9 % (37-47); Hemoglobin 8.3 g/dL (12.0-15.0); Mean Corpuscular Hgb 35.5 pg (27.0-32.0); Mean Corpuscular Volume 110.7 fL (81-99); Mean Platelet Vol. 10.1 fl (6.2-12.0); POSITIVE COUNT YES; POSITIVE MORPHOLOGY YES; Platelet Count 40 K/mm3 (150-450); RBC Distribution Width CV 26.6 % (11.6-14.6); Red Blood Count 2.34 M/mm3 (4.2-5.4)
[2021-01-21 11:00] LABS: RBC Distribution Width SD 103.1 fl (35.1-43.9); Scan Indicated on CBC? Y/N YES- FLAGS NOTED
[2021-01-21 11:02] LABS: White Blood Count 60.5 K/mm3 (4.4-11.0)
[2021-01-21 11:21] LABS: Differential Comment SCANNED
--- NOTE | 2021-01-21 13:59 | CON.PCM_ITS ---
Subjective Date of Service:: 01/21/21 Chief Complaint: Leukocytosis/thrombocytopenia History of Present Illness: Ms. Radha Subramanian is a very pleasant 80-year-old woman with a past medical history positive for hypertension, aortic valve stenosis, and osteoarthritis who was found to have leukocytosis and thrombocytopenia during a work-up for angina in November 2020. She was referred to hematology for work-up. Underwent BMBX on 01/15/2021. Pathology of which showed marked leukocytosis with left shift suspicious for myeloproliferative neoplasm, CML. Peripheral blood with severe macrocytic anemia and marked thrombocytopenia. Flow cytometry at that time did not show any increased blasts. Cytogenetics and FISH studies are pending. Patient experienced severe abrupt worsening of her chronic chest pain accompanied by shortness of breath while sitting in a chair yesterday. She was brought to [facility] ED via squad. Found to have significantly abnormal EKG, with ST depression and ST elevation. CBC showed a white blood cell count 57.7, hemoglobin 6.2 and platelets 47,000. 3% blasts Tentatively, she was scheduled for cardiac catheterization however thrombocytopenia took precedence. She has been given 2 units PRBCs. Upon entering the room, patient is sitting upright in bed having a conversation with son who is visiting. She denies any chest pain or shortness of breath occurring today. Further denies any overt bleeding or abnormal bruising aside from previous venipuncture sites. Reports that she tolerated blood transfusions well. Past Medical History: Chronic Problems (Last Reviewed 01/21/21 @ 01:[address] Pipe Rich MD) Leukocytosis (Chronic) Thrombocytopenia (Chronic) Aortic stenosis (Chronic) History of COVID-19 (Chronic) May 2020 Pure hypercholesterolemia (Chronic) Essential hypertension (Chronic) Nonrheumatic aortic (valve) stenosis (Chronic) Nonrheumatic mitral (valve) insufficiency (Chronic) Non-rheumatic tricuspid valve insufficiency (Chronic) Other intermediate card tender (current) drug therapy (Chronic) RBBB (right bundle branch block) (Chronic) Edema (Chronic) Abnormal EKG (Chronic) Segmental and somatic dysfunction of pelvic region (Chronic) Segmental and somatic dysfunction of thoracic region (Chronic) 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) Osteoarthritis (Chronic) Segmental and somatic dysfunction of lumbar region (Chronic) Past Medical/Surgical History: Past Medical History - Most Recent Inpatient Visit Past Medical History Start: 01/20/21 22:23 Text: Status: Complete Freq: ONCE Protocol: Document 01/20/21 22:23 AF (Rec: 01/20/21 23:44 AF [id number]) BMI Required to complete PMH What is Patient's BMI 32.9 Past Medical History Unable History Recalled Yes Query Text:Pt Unable/Family Not Present Neurologic Medical History Hx Stroke/TIA No Hx Dementia/Alzheimer's No Hx Parkinson's Disease No Hx Seizures No Hx Multiple Sclerosis No Hx Migraines No Cardiac Medical History VTE Present on Admission No Hx of Deep Vein Thrombosis/VTE/PE No Hx Hypertension Yes Hx Chest Pain/Angina Yes: ON EXERTION TYPICALLY Hx Heart Attack No Hx Cardiac Surgery/Stents/Etc. No Hx Heart Failure No Hx Pacemaker/AICD No Hx Irregular Heartbeat and/or Afib No Hx Anticoagulant Therapy No: WAS ON ASPIRIN DR ONEAL Query Text:(Coumadin, Aspirin, Plavix, Xarelto, etc.) Hx Pain in Legs when Walking/Leg Cramps No Respiratory Medical History Hx COPD No Hx Emphysema No Hx Smoking No Smoking Status Former smoker Tobacco Use Non-smoker Years Smoking 20 Packs Smoked per Day 2 Hx Smoking Cessation Date 11/17/1959 Hx Smoking Cessation Counseling No Hx Smoking Exposure No Hx Tobacco Use in last 12 months No Hx Sleep Apnea No Do you snore loudly (louder than talking No or can be heard through closed doors)? Do you often feel tired/ fatigued/ No sleepy during daytime? Has anyone observed you stop breathing No during sleep? STOP Results Negative GI Medical History Hx Ulcer No Hx Hepatitis No Hx Cirrhosis No Hx GI Bleed No Hx Unplanned Weight Loss No Genitourinary Medical History Indwelling Catheter in Place on Arrival/ No Admission Hx Renal Disease No Hx Dialysis No Musculoskeletal History Hx Arthritis No Hx Rheumatoid Arthritis No Endocrine Medical History Hx Diabetes No Hx Thyroid Disease No Hematologic Medical History Hx of Blood Transfusion Yes Hx of Transfusion in last 3 Months No Ever experience any problems with No transfusion(s)? Hx of Preganancy in last 3 Months No Nurse Filling Out Transfusion & AFLICKING Questions: Date: 01/20/21 Time: 23:40 Psycho/Social Medical History Hx Depression No Hx Anxiety No Hx Behavior Disorder No Hx Alcohol Use No Hx Substance Use No Other Medical History Hx Blood Disorders Yes Hx Anemia Yes Hx Cancer No: RECENTLY HAD BX Hx Drug Resistant Organism No Wound/Pressure Injury Present on Arrival No /Admission Query Text:If yes, chart assessment in Shift/Clinical Findings Central Line/PICC/VAD Present on Arrival No /Admission Antibiotics within last 7 days? No Risk for Readmission Number of Risk Factors 3 At Risk for Readmission Patient is At Risk For Readmission Patient is eligible for Call Back Y Past Medical History (Last Reviewed 01/21/21 @ 01:[address] 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 Pipe Rich MD) H/O meniscectomy of right knee (Resolved) History of appendectomy (Resolved) History of medial meniscus repair of left knee (Resolved) History of partial knee replacement (Resolved) History of synovectomy (Resolved) History of total hysterectomy (Resolved) History of tubal ligation (Resolved) Maternal Family History: Family History (Last Reviewed 01/21/21 @ 01:[address] Pipe Rich MD) Mother CHF (congestive heart failure) Brother CAD (coronary artery disease) Sister CHF (congestive heart failure) Son Cardiac pacemaker in situ WPW (Akmuh-[id number] syndrome) Father No problems noted. - Social History Smoking Status: Former smoker Tobacco Use: Non-smoker Allergies/Adverse Reactions: Allergy/AdvReac Type Severity Reaction Status Date / Time codeine Allergy Intermediate Swelling Verified 01/20/21 23:23 amoxicillin [From Augmentin] Allergy Mild Itching Verified 01/20/21 23:23 clavulanic acid Allergy Mild Itching Verified 01/20/21 23:23 [From Augmentin] niacin Allergy Mild Itching Verified 01/20/21 23:23 [From Niaspan Extended-Release] Review of Systems Constitutional:: Reports: Appetite change - Decreased. Denies: Fever, Sweats, Weight loss, Chills Cardiovascular:: Denies: Chest pain - Resolved, Palpitations Respiratory: Denies: Cough, Hemoptysis, Shortness of Breath, Wheezing Gastrointestinal:: Denies: Abdominal pain, Nausea, Vomiting, Diarrhea, Constipation, Melena, Hematochezia Genitourinary: Denies: Hematuria Musculoskeletal:: Denies: Back pain Skin: Denies: Pruritis, Rash Neurological:: Denies: Headache, Dizziness, Numbness, Tingling Vital Signs Temperature 98.3 F 01/21/21 12:20 Temperature Source Oral 01/21/21 12:20 Pulse Rate 84 01/21/21 12:21 Pulse Strength Normal (2+) 01/21/21 08:33 Respiratory Rate 18 01/21/21 12:20 Respiratory Effort Non-Labored 01/21/21 08:27 Respiratory Depth Normal 01/21/21 08:27 Respiratory Pattern Normal 01/21/21 08:27 Blood Pressure 146/60 H 01/21/21 12:21 Blood Pressure Mean 88 01/21/21 12:20 Blood Pressure Source Monitor 01/21/21 12:20 Blood Pressure Position Sitting 01/21/21 12:20 Blood Pressure Location Left Arm 01/21/21 12:20 Pulse Ox 99 01/21/21 12:20 Oxygen Delivery Method Room Air 01/21/21 12:20 Oxygen Flow Rate (L/min) 2 01/21/21 06:25 - Physical Exam General: Alert, Oriented x3, No apparent distress HEENT: Atraumatic, Normocephalic, - - Wears glasses Oropharynx:: Negative for: Dry mucosa, Ulcerated lesions Neck:: Supple, Trachea midline. Negative for: JVD, bilateral Cardiac:: Regular rate, Regular rhythm, Normal S1, Normal S2 Lungs: Clear to auscultation, Excusion symmetrical. Negative for: Rhonchi, Wheezes Abdomen:: Bowel sounds x 4, Soft, Non-tender, Non-distended. Negative for: Hepatosplenomegaly - Careful attention paid to the spleen during abdominal exam Extremities:: Edema - Bilateral lower extremities right equals left Skin:: Ecchymosis - Bilateral upper extremities in various stages of healing. Negative for: Rash, Petechiae Psychiatric:: Appropriate affect, Euthymic Lymphatics:: Negative for: Cervical lymphadenopathy, Supraclavicular lymphadenopathy, Axillary lymphadenopathy Laboratory Data: Laboratory Tests 01/21/21 01/21/21 01/21/21 Range/Units 10:45 05:16 05:16 WBC 60.5 H* Corrected WBC RBC 2.34 L Hgb 8.3 L Hct 25.9 L MCV 110.7 H D MCH 35.5 H MCHC 32.0 RDW Std Deviation 103.1 H RDW Coeff of Aubrey 26.6 H Plt Count 40 L* MPV 10.1 Immature Gran % (Auto) Neut % (Auto) Lymph % (Auto) [place] % (Auto) Eos % (Auto) Baso % (Auto) Absolute Neuts (auto) Absolute Lymphs (auto) Total Counted Neutrophils % (Manual) Band Neutrophils % Lymphocytes % (Manual) Monocytes % (Manual) Eosinophils % (Manual) Basophils % (Manual) Metamyelocytes % Myelocytes % Promyelocytes % Blast Cells % Plasma Cell % (Manual) Other Cells % Nucleated RBC % Nucleated RBCs/100 WBC Differential Comment SCANNED Diff Path Review May foll Hypersegmented Neuts Atypical Lymphocytes Reactive Lymphocytes Smudge Cells Toxic Granulation Toxic Vacuolation Dohle Bodies Natty Rods Platelet Estimate Plt Morphology Comment RBC Morphology Polychromasia Hypochromasia Poikilocytosis Basophilic Stippling Anisocytosis Microcytosis Macrocytosis Spherocytes Sickle Cells Target Cells Tear Drop Cells Ovalocytes Stomatocytes [place] Bodies [place] Cells Bite Cells Crenated Cell Acanthocytes (Spur) Rouleaux Schistocytes Sodium 144 (136-145) mmol/L Potassium 4.4 (3.5-5.1) mmol/L Chloride 112 H (98-107) mmol/L Carbon Dioxide 24.0 (21.0-32.0) mmol/L Anion Gap 8 (5-15) BUN 28 H (7-18) mg/dL Creatinine 0.84 (0.55-1.02) mg/dL Estim Creat Clear Calc 40.84 ml/min Est GFR (MDRD) Af Amer 84 (>60) mL/min Est GFR (MDRD) Non-Af 69 (>60) mL/min BUN/Creatinine Ratio 33.4 H (10-20) RATIO Glucose 109 H (74-106) mg/dL Calcium 8.3 L (8.5-10.1) mg/dL Magnesium 2.0 (1.6-2.6) mg/dL Troponin I 0.177 H (<0.045) ng/mL Triglycerides 366 H ( - 199) mg/dL Cholesterol 207 H (200) mg/dL LDL Cholesterol 97 (0-130) mg/dL VLDL Cholesterol 73 H (5-40) mg/dL HDL Cholesterol 37 L (40 - ) mg/dL Blood Type Antibody Screen Crossmatch 01/21/21 01/20/21 01/20/21 Range/Units 02:15 22:30 18:55 WBC 57.7 H* Corrected WBC RBC 1.57 L Hgb 6.2 L Hct 19.5 L MCV 124.2 H MCH 39.5 H MCHC 31.8 L RDW Std Deviation 79.0 H RDW Coeff of Aubrey 18.0 H Plt Count 47 L* MPV 11.1 Immature Gran % (Auto) Neut % (Auto) Not Reportable Lymph % (Auto) [place] % (Auto) Eos % (Auto) Baso % (Auto) Absolute Neuts (auto) 38.1 H Absolute Lymphs (auto) 6.92 H Total Counted 100 Neutrophils % (Manual) 52 Band Neutrophils % 14 H Lymphocytes % (Manual) 12 L Monocytes % (Manual) Eosinophils % (Manual) Basophils % (Manual) Metamyelocytes % 4 H Myelocytes % 8 H Promyelocytes % 7 H Blast Cells % 3 H* Plasma Cell % (Manual) Other Cells % Nucleated RBC % Nucleated RBCs/100 WBC Differential Comment Diff Path Review May foll Hypersegmented Neuts Atypical Lymphocytes Reactive Lymphocytes Smudge Cells Toxic Granulation Toxic Vacuolation Dohle Bodies Natty Rods Platelet Estimate MKD DEC Plt Morphology Comment RBC Morphology Polychromasia Hypochromasia 1+ Poikilocytosis Basophilic Stippling Anisocytosis 2+ Microcytosis Macrocytosis 2+ Spherocytes Sickle Cells Target Cells Tear Drop Cells Ovalocytes Stomatocytes [place] Bodies Oanh Cells Bite Cells Crenated Cell Acanthocytes (Spur) Rouleaux Schistocytes Sodium (136-145) mmol/L Potassium (3.5-5.1) mmol/L Chloride (98-107) mmol/L Carbon Dioxide (21.0-32.0) mmol/L Anion Gap (5-15) BUN (7-18) mg/dL Creatinine (0.55-1.02) mg/dL Estim Creat Clear Calc ml/min Est GFR (MDRD) Af Amer (>60) mL/min Est GFR (MDRD) Non-Af (>60) mL/min BUN/Creatinine Ratio (10-20) RATIO Glucose (74-106) mg/dL Calcium (8.5-10.1) mg/dL Magnesium (1.6-2.6) mg/dL Troponin I 0.065 H (<0.045) ng/mL Triglycerides ( - 199) mg/dL Cholesterol (200) mg/dL LDL Cholesterol (0-130) mg/dL VLDL Cholesterol (5-40) mg/dL HDL Cholesterol (40 - ) mg/dL Blood Type A NEGATIVE Antibody Screen NEGATIVE Crossmatch See Detail 01/20/21 01/20/21 01/20/21 Range/Units 18:13 18:13 11:43 WBC Cancelled Corrected WBC Cancelled RBC Cancelled Hgb Cancelled Hct Cancelled MCV Cancelled MCH Cancelled MCHC Cancelled RDW Std Deviation Cancelled RDW Coeff of Aubrey Cancelled Plt Count Cancelled MPV Cancelled Immature Gran % (Auto) Cancelled Neut % (Auto) Cancelled Lymph % (Auto) Cancelled [place] % (Auto) Cancelled Eos % (Auto) Cancelled Baso % (Auto) Cancelled Absolute Neuts (auto) Cancelled Absolute Lymphs (auto) Cancelled Total Counted Cancelled Neutrophils % (Manual) Cancelled Band Neutrophils % Cancelled Lymphocytes % (Manual) Cancelled Monocytes % (Manual) Cancelled Eosinophils % (Manual) Cancelled Basophils % (Manual) Cancelled Metamyelocytes % Cancelled Myelocytes % Cancelled Promyelocytes % Cancelled Blast Cells % Cancelled Plasma Cell % (Manual) Cancelled Other Cells % Cancelled Nucleated RBC % Cancelled Nucleated RBCs/100 WBC Cancelled Differential Comment Cancelled Diff Path Review Cancelled Hypersegmented Neuts Cancelled Atypical Lymphocytes Cancelled Reactive Lymphocytes Cancelled Smudge Cells Cancelled Toxic Granulation Cancelled Toxic Vacuolation Cancelled Dohle Bodies Cancelled Natty Rods Cancelled Platelet Estimate Cancelled Plt Morphology Comment Cancelled RBC Morphology Cancelled Polychromasia Cancelled Hypochromasia Cancelled Poikilocytosis Cancelled Basophilic Stippling Cancelled Anisocytosis Cancelled Microcytosis Cancelled Macrocytosis Cancelled Spherocytes Cancelled Sickle Cells Cancelled Target Cells Cancelled Tear Drop Cells Cancelled Ovalocytes Cancelled Stomatocytes Cancelled Garcia[place] Bodies Cancelled [place] Cells Cancelled Bite Cells Cancelled Crenated Cell Cancelled Acanthocytes (Spur) Cancelled Rouleaux Cancelled Schistocytes Cancelled Sodium 141 (136-145) mmol/L Potassium 4.1 (3.5-5.1) mmol/L Chloride 109 H (98-107) mmol/L Carbon Dioxide 26.0 (21.0-32.0) mmol/L Anion Gap 6 (5-15) BUN 21 H (7-18) mg/dL Creatinine 1.00 (0.55-1.02) mg/dL Estim Creat Clear Calc 34.30 ml/min Est GFR (MDRD) Af Amer 68 (>60) mL/min Est GFR (MDRD) Non-Af 56 L (>60) mL/min BUN/Creatinine Ratio 21.0 H (10-20) RATIO Glucose 146 H (74-106) mg/dL Calcium 8.5 (8.5-10.1) mg/dL Magnesium (1.6-2.6) mg/dL Troponin I < 0.015 0.024 (<0.045) ng/mL Triglycerides ( - 199) mg/dL Cholesterol (200) mg/dL LDL Cholesterol (0-130) mg/dL VLDL Cholesterol (5-40) mg/dL HDL Cholesterol (40 - ) mg/dL Blood Type Antibody Screen Crossmatch Diagnostic Data: Diagnostic Data Chest X-Ray 01/20/21 18:54 IMPRESSION: Bilateral basal atelectasis. Electronically Signed: Nicanor Kearney MD at 19:23 EST Tel , Service support , Assessment and Plan Ms. Radha Subramanian is a very pleasant 80-year-old woman recently noted to have abnormal blood counts, requiring cardiac catheterization admitted to [facility] on 01/20/2021 for chest pain and severe anemia. 1. Leukocytosis?with left shift, severe anemia and thrombocytopenia as evidenced by white blood cell count greater than 57, hemoglobin 6.2 and platelets 47,000. Patient has been given 2 units PRBCs. Hemoglobin improved today, 8.2. Reviewed the results of her bone marrow biopsy which is ? for myeloproliferative neoplasm report indicates suspicion for CML, however BCR/ABL was negative. FISH and cytogenetic panels are still pending. For now, advise supportive care with transfusional for hemoglobin less than 8. She is not endorsing any bleeding, no platelet transfusions are required at this time. We will coordinate with cardiology tomorrow specifically regarding platelet level prior to any cardiac intervention. Advise she follow-up with Dr. Cazares on 01/25/21 in the outpatient setting. Case discussed with Dr. Cazares who is in agreement with the aforementioned plan. Florina Mccauley, MSN, [employer]MATURE [employer]PECTOR, AOCNP Medications: Medications Added to Medication List This Visit Category Date Time Status Aspirin E.C. [Ecotrin] Med 01/21/21 08:00 Active 81 mg PO DAILY@0800 Atorvastatin Calcium [Lipitor] Med 01/21/21 22:00 Active 10 mg PO QHS Cholecalciferol (VIT D3) [Vitamin D (25mcg)] Med 01/21/21 10:00 Active 2,000 unit PO DAILY Ensure Enlive Med 01/21/21 10:00 Active 120 ml PO 4X/DAY Fenofibrate [Tricor] Med 01/21/21 08:00 Active 48 mg PO DAILYCM Ferrous Sulfate Med 01/21/21 08:00 Active 325 mg PO DAILYCM Furosemide [Lasix] Med 01/21/21 10:00 Active 20 mg PO DAILY Lisinopril [Zestril] Med 01/21/21 10:00 Active 20 mg PO BID Magnesium Chloride [Mag64] Med 01/21/21 10:00 Active 64 mg PO DAILY Multivitamins,Ther W-Minerals [Multivitamin With Med 01/21/21 08:00 Active Minerals (BKC)] 1 tablet PO DAILYCM Nitroglycerin Oint [Nitrobid] Med 01/21/21 06:00 Active 1 inch TD Q6 Potassium Chloride Oral Tablet [K-Dur] Med 01/21/21 08:00 Active 20 meq PO DAILYCM Tolterodine Tartrate [Detrol LA] Med 01/21/21 10:00 Active 4 mg PO DAILY Zinc Sulfate (50mg elemental) [Zinc Sulfate] Med 01/21/21 10:00 Active 220 mg PO DAILY Primary Care Provider: Dr. Yesica Olsen MD Referring Provider: - Problem List (1) Leukocytosis Status: Chronic Qualifiers: Leukocytosis type: unspecified Qualified Code(s): D72.829 - Elevated white blood cell count, unspecified (2) Thrombocytopenia Status: Chronic (3) Anemia Status: Acute Qualifiers: Anemia type: unspecified type Qualified Code(s): D64.9 - Anemia, unspecified
[2021-01-21] MEDS: Atorvastatin Calcium 10 MG Tablet PO (21:16)
[2021-01-22] VITALS (9 sets, daily range): BP systolic 113–160; BP diastolic 38–78; PULSE 65–79; RESP 16–18; TEMP 36.3–37.1; O2SAT 96–97
[2021-01-22] MEDS: Nitroglycerin Oint 1 INCH PACKET TD ×2 (00:46→06:11)
[2021-01-22] MEDS: Potassium Chloride Oral Tablet 20 MEQ PO (08:47)
[2021-01-22] MEDS: Fenofibrate 48 MG Tablet PO (08:47)
[2021-01-22] MEDS: Aspirin E.C. 81 MG Tablet PO (08:47)
[2021-01-22] MEDS: Multivitamins,Ther W-Minerals Tablet 1 TABLET PO (08:47)
[2021-01-22] MEDS: Ferrous Sulfate 325 MG Tablet PO (08:47)
[2021-01-22] MEDS: Magnesium Chloride 64 MG Delay Rel.Tablet PO (08:48)
[2021-01-22] MEDS: Tolterodine Tartrate 4 MG CAP.SA PO (08:48)
[2021-01-22] MEDS: Lisinopril 20 MG Tablet PO (08:52)
[2021-01-22] MEDS: Furosemide 20 MG Tablet PO (08:52)
[2021-01-22] MEDS: 0.9% Saline Lock 10 ML Syringe IV (10:20)
[2021-01-22] MEDS: Metoprolol Tartrate 25 MG Tablet PO (10:20)
[2021-01-22] MEDS: Isosorbide Mononitrate 30 MG Tablet PO (10:20)
--- NOTE | 2021-01-22 10:30 | CASEMGMT ---
JOURDAN PARIKH Assessment: Face to Face with patient for initial transition planning/care coordination assessment. RN CM introduced self and role at [facility], pt voices understanding and consents to assessment. Pt is sitting up in chair on RA with no distress. PT is A/Ox4 and answers all questions appropriately at this time. Care providers, pharmacy, and demographics verified/updated. Presentation: CP Admitting dx: Unstable angina with severe aortic stenosis PCP: [facility] Specialists:Alvino, cardio; Prah, onco Preferred Pharmacy: [facility] Insurance: PT [facility] Prescription Benefit: yes Living Will/HPOA: Pt states does not have a LW/HPOA and declines AD info at this time. LNOK: sons- Krzysztof and Radhap Chandler Living Arrangements: Pt son is currently living with her and no concerns at home. Pt states I in ADL's. Transportation: Pt states drives self and states no transportation issues. DME/HHC: Pt states she has a cane and walker at home. Denies need for DME. No previous HHC. Pt states no concerns with going home at time of dc. Pt states no further concerns/needs. CM to follow for any further dc planning/needs. Advised pt to ask for CM if any further questions/concerns/needs arise, voices understanding. Pt goal: Home Plan: Home
--- NOTE | 2021-01-22 11:44 | DCINST_ITS ---
- Discharge Diagnoses Current Active Problems: Current Active and Chronic Problems (Last Reviewed 01/21/21 @ 01:[address] Pipe Rich MD) Leukocytosis (Chronic) Thrombocytopenia (Chronic) Chest pain (Acute) Aortic stenosis (Chronic) Unstable angina (Acute) Anemia (Acute) History of COVID-19 (Chronic) May 2020 Pure hypercholesterolemia (Chronic) Essential hypertension (Chronic) Nonrheumatic aortic (valve) stenosis (Chronic) Nonrheumatic mitral (valve) insufficiency (Chronic) Non-rheumatic tricuspid valve insufficiency (Chronic) Other fci (current) drug therapy (Chronic) RBBB (right bundle branch block) (Chronic) Edema (Chronic) Abnormal EKG (Chronic) Segmental and somatic dysfunction of pelvic region (Chronic) Segmental and somatic dysfunction of thoracic region (Chronic) 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) Osteoarthritis (Chronic) Segmental and somatic dysfunction of lumbar region (Chronic) You will use the following diet at home:: No restrictions Discharge Activity: Return to Normal Activity Allergies/Adverse Reactions: Allergies codeine Allergy (Intermediate, Verified 01/20/21 23:23) Swelling amoxicillin [From Augmentin] Allergy (Mild, Verified 01/20/21 23:23) Itching clavulanic acid [From Augmentin] Allergy (Mild, Verified 01/20/21 23:23) Itching niacin [From Niaspan Extended-Release] Allergy (Mild, Verified 01/20/21 23:23) Itching Medications to take at Discharge multivitamin,[id number] 1 tab PO QDAY 11/18/17 tolterodine 2 mg tablet 4 mg PO DAILY tab 06/04/19 atorvastatin 10 mg tablet 10 mg PO QDAY #90 tab 08/31/20 fenofibrate nanocrystallized 48 mg tablet 48 mg PO QDAY #90 tab 08/31/20 magnesium 250 mg tablet 250 mg PO DAILY 08/31/20 zinc 50 mg tablet 50 mg PO DAILY 08/31/20 lisinopril 20 mg tablet 20 mg PO BID #180 tab 12/04/20 furosemide 20 mg tablet 20 mg PO DAILY #30 tab 12/13/20 Ferrous Sulfate [Iron] 325 mg PO DAILY 01/09/21 Potassium Chloride [K-Tab ER] 20 meq PO DAILY 01/09/21 Acetaminophen [Tylenol Tablet] 650 mg PO Q6H PRN PRN tablet 01/22/21 Aspirin E.C. [Ecotrin] 81 mg PO DAILY@0800 #60 tab 01/22/21 Isosorbide Mononitrate [Imdur] 30 mg PO DAILY #60 tab 01/22/21 Metoprolol Tartrate [Lopressor (beta flavio)] 25 mg PO BID #120 tab 01/22/21 The following prescriptions were given: Aspirin E.C. [Ecotrin] 81 mg PO DAILY@0800 #60 tab Transmission Status: Pending to [id number] Isosorbide Mononitrate [Imdur] 30 mg PO DAILY #60 tab Transmission Status: Pending to [id number] Metoprolol Tartrate [Lopressor (beta flavio)] 25 mg PO BID #120 tab Transmission Status: Pending to [facility][id number] Primary Care Physician: Yesica Olsen MD [Primary Care Provider] - Please follow up with your Primary Care Physician in: in 1-2 weeks Test Results: Test results from this visit will be discussed in further detail at your follow- up appointment, if applicable. Please Follow Up With: Pipe Cazares MD Please Follow Up With: Parth De Oliveira MD When: in 2-4 weeks Proposed Discharge Date: 01/22/21
--- NOTE | 2021-01-22 12:15 | DS.PCM_ITS ---
Discharge Date and Diagnosis - Problem List Patient Problems: Active and Suspected Problems (Last Reviewed 01/21/21 @ 01:[address] Pipe Rich MD) Chest pain (Acute) Unstable angina (Acute) Anemia (Acute) Date of Admission: 01/20/21 Date of Discharge: 01/22/21 - Primary Discharge Diagnosis Acute Problems: Active Problems (Last Reviewed 01/21/21 @ 01:[address] Pipe Rich MD) Chest pain (Acute) Unstable angina (Acute) Anemia (Acute) - Secondary Discharge Diagnosis Chronic Problems: Chronic Problems (Last Reviewed 01/21/21 @ 01:[address] Pipe Rich MD) Leukocytosis (Chronic) Thrombocytopenia (Chronic) Aortic stenosis (Chronic) History of COVID-19 (Chronic) May 2020 Pure hypercholesterolemia (Chronic) Essential hypertension (Chronic) Nonrheumatic aortic (valve) stenosis (Chronic) Nonrheumatic mitral (valve) insufficiency (Chronic) Non-rheumatic tricuspid valve insufficiency (Chronic) Other supervisor intermediates (current) drug therapy (Chronic) RBBB (right bundle branch block) (Chronic) Edema (Chronic) Abnormal EKG (Chronic) Segmental and somatic dysfunction of pelvic region (Chronic) Segmental and somatic dysfunction of thoracic region (Chronic) 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 Electronically Signed: Nicanor Kearney MD at 19:23 EST Tel , Service support , Summary of Care Provided: The patient is a 80 year old F-year-old lady with presented with chest pain found to be anemic admitted to monitored bed for further management 1. Chest pain ?Consistent with unstable angina with elevated troponin. 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 Carl Myles 2. Myeloproliferative disorder ?Patient presented with leukocytosis as well as trouble cytopenia and anemia. 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 Attic anemia ?Patient was transfused with 2 unit PRBC 4. Severe aortic stenosis ?Patient to follow-up with cardiology as outpatient 5. Dyslipidemia -Patient is on statin therapy, continued at home dose 6. Patient hypertension ?Patient blood pressure was not well controlled added metoprolol and continue with her lisinopril Patient Problems: Active and Suspected Problems (Last Reviewed 01/21/21 @ 01:[address] Pipe Rich MD) Chest pain (Acute) Unstable angina (Acute) Anemia (Acute) Objective: GENERAL: cooperative HEENT: Atraumatic; EYES; Anicteric, Normal Conjunctiva NECK; supple, normal thyroid, RESPIRATORY: Diminished to auscultation CARDIOVASCULAR: Regular S1 S2, GI: soft, normoactive bowel sounds, : No Renal angle tenderness; EXTREMITIES: No edema, no clubbing, MUSCULOSKELETAL: no muscle waisting NEURO: Awake; no lateralizing signs. SKIN: No Rash PSYCH; Flat affect - Physical Exam Vitals/I&O's: Vital Signs Temp Pulse Resp BP Pulse Ox 98.4 F 78 18 148/50 H 97 01/22/21 10:19 01/22/21 10:20 01/22/21 10:19 01/22/21 10:20 01/22/21 10:19 Oxygen Flow Rate (L/min) 2 Oxygen Delivery Method Room Air Weight: 81.5 kg Body Mass Index (BMI) 32.8 Intake and Output for Last 24 Hours 01/20/21 01/21/21 01/22/21 23:59 23:59 23:59 Intake Total 1160 / 1460 600 / 600 Balance 1160 / 1460 600 / 600 Current Medications Acetaminophen (Acetaminophen 325 Mg Tablet) 650 mg PO Q6H PRN PRN PRN Reason: Pain Score 1-10/Temp > 100.7 F Aspirin (Aspirin E.C. 81 Mg Tablet) 81 mg PO DAILY@0800 [facility] Last Admin: 01/22/21 08:47 Dose: 81 mg Documented by: Atorvastatin Calcium (Atorvastatin Calcium 10 Mg Tablet) 10 mg PO QHS [facility] Last Admin: 01/21/21 21:16 Dose: 10 mg Documented by: Cholecalciferol (Cholecalciferol (Vit D3) 1,000 Unit (25mcg)) 2,000 unit PO DAILY [facility] Last Admin: 01/22/21 08:48 Dose: 2,000 unit Documented by: Fenofibrate ([facility]ibrate 48 Mg Tablet) [facility] Last Admin: 01/22/21 08:47 Dose: 48 mg Documented by: Ferrous Sulfate (Ferrous Sulfate 325 Mg Tablet) [facility] Last Admin: 01/22/21 08:47 Dose: 325 mg Documented by: Furosemide (Furosemide 20 Mg Tablet) 20 mg PO DAILY [facility] Last Admin: 01/22/21 08:52 Dose: 20 mg Documented by: Isosorbide Mononitrate (Isosorbide Mononitrate 30 Mg Tablet) 30 mg PO DAILY [facility] Last Admin: 01/22/21 10:20 Dose: 30 mg Documented by: Lisinopril (Lisinopril 20 Mg Tablet) 20 mg PO BID [facility] Last Admin: 01/22/21 08:52 Dose: 20 mg Documented by: Magnesium Chloride (Magnesium Chloride 64 Mg Delay Rel.Tablet) 64 mg PO DAILY [facility] Last Admin: 01/22/21 08:48 Dose: 64 mg Documented by: Metoprolol Tartrate (Metoprolol Tartrate 25 Mg Tablet) 25 mg PO BID [facility] Last Admin: 01/22/21 10:20 Dose: 25 mg Documented by: Multivitamins/Minerals (Multivitamins,Ther W-Minerals Tablet) [facility] Last Admin: 01/22/21 08:47 Dose: 1 tablet Documented by: Nutritional Formula (Lactose Free) (Ensure Enlive 120 Ml Liquid) 120 ml PO 4X/DAY [facility] Last Admin: 01/22/21 08:57 Dose: Not Given Documented by: Ondansetron HCl (Ondansetron 4 Mg/2 Ml Vial) 4 mg IV Q8H PRN PRN PRN Reason: NAUSEA/VOMITING Potassium Chloride (Potassium Chloride Oral Tablet 20 Meq) [facility] Last Admin: 01/22/21 08:47 Dose: 20 meq Documented by: Senna/Docusate Sodium (Senna/Docusate Sodium 1 Tablet) 2 tablet PO BID PRN PRN PRN Reason: Constipation Sodium Chloride (0.9% Saline Lock 10 Ml Syringe) 10 - 40 ml IV UD PRN PRN Reason: SALINE FLUSH Last Admin: 01/22/21 10:20 Dose: 10 ml Documented by: Tolterodine Tartrate (Tolterodine Tartrate 4 Mg Cap.Sa) 4 mg PO DAILY [facility] Last Admin: 01/22/21 08:48 Dose: 4 mg Documented by: Zinc Sulfate (Zinc Sulfate (50mg Elemental) 220 Mg Capsule) 220 mg PO DAILY [facility] Last Admin: 01/22/21 08:48 Dose: 220 mg Documented by: Discharge Diet: Low fat/ Low Cholesterol Discharge Activity: Return to Normal Activity Home Medications: Medications to take at Discharge multivitamin,[id number] 1 tab PO QDAY 11/18/17 tolterodine 2 mg tablet 4 mg PO DAILY tab 06/04/19 atorvastatin 10 mg tablet 10 mg PO QDAY #90 tab 08/31/20 fenofibrate nanocrystallized 48 mg tablet 48 mg PO QDAY #90 tab 08/31/20 magnesium 250 mg tablet 250 mg PO DAILY 08/31/20 zinc 50 mg tablet 50 mg PO DAILY 08/31/20 lisinopril 20 mg tablet 20 mg PO BID #180 tab 12/04/20 furosemide 20 mg tablet 20 mg PO DAILY #30 tab 12/13/20 Ferrous Sulfate [Iron] 325 mg PO DAILY 01/09/21 Potassium Chloride [K-Tab ER] 20 meq PO DAILY 01/09/21 Acetaminophen [Tylenol Tablet] 650 mg PO Q6H PRN PRN tab 01/22/21 Aspirin E.C. [Ecotrin] 81 mg PO DAILY@0800 #60 tab 01/22/21 Isosorbide Mononitrate [Imdur] 30 mg PO DAILY #60 tab 01/22/21 Metoprolol Tartrate [Lopressor (beta flavio)] 25 mg PO BID #120 tab 01/22/21 Following Prescriptions Were Given to Patient: Aspirin E.C. [Ecotrin] 81 mg PO DAILY@0800 #60 tab Transmission Status: Received by [id number] Isosorbide Mononitrate [Imdur] 30 mg PO DAILY #60 tab Transmission Status: Received by [id number] Metoprolol Tartrate [Lopressor (beta flavio)] 25 mg PO BID #120 tab Transmission Status: Received by [id number] Primary Care Physician: Yesica Olsen MD [Primary Care Provider] - Please follow up with your Primary Care Physician in: in 1-2 weeks Please Follow Up With: Pipe Cazares MD Please Follow Up With: Parth De Oliveira MD When: in 2-4 weeks Disposition: Home Minutes spent on discharge:: 45 Medical Necessity - Tobacco Use Smoking Status: Former smoker Tobacco Use: Non-smoker Meaningful Use Info Meaningful Use Diagnoses (Choose all that apply): None applicable Inpatient E&M: 40467 Disch Hosp
--- NOTE | 2021-01-22 12:22 | PCM.PN.CARD ---
Subjectve: The patient was evaluated earlier this day. At that time she stated she felt much improved compared to when she presented to the hospital. She noted her improvement occurred after her first unit of PRBCs and then even more so after her second unit of PRBCs. Objective: Vital Signs Temp Pulse Resp BP Pulse Ox 98.4 F 78 18 148/50 H 97 01/22/21 10:19 01/22/21 10:20 01/22/21 10:19 01/22/21 10:20 01/22/21 10:19 Oxygen Flow Rate (L/min) 2 Oxygen Delivery Method Room Air Weight: 179 lb 10.828 oz Body Mass Index (BMI) 32.8 Intake and Output for Last 24 Hours 01/20/21 01/21/21 01/22/21 23:59 23:59 23:59 Intake Total 1160 / 1460 600 / 600 Balance 1160 / 1460 600 / 600 General: Awake, Alert, Oriented x 3, Cooperative, No Acute Distress HEENT: Atraumatic, Normocephalic, PERRL, EOMI, Sclera Non Icteric Neck: Supple, Good ROM, No JVD Cardiovascular: Regular Rhythm, Normal S1, Dimished A2 Murmur Murmur: Grade 3/6, Harsh, Mid Systolic, LLSB, LVOT Abdomen: Bowel Sounds Present, Soft Extremities: No edema Neurological: No Focal Motor or Sensory Deficit Psych/Mental Status: Appropriate Rhythm: Sinus rhythm Medical Necessity - Tobacco Use Smoking Status: Former smoker Tobacco Use: Non-smoker Assessment/Plan 1. Indeterminate troponin I levels The patient has been noted to have indeterminate troponin I levels. This may be a type II event secondary to supply demand mismatch based upon the patient's marked anemia superimposed upon her other cardiovascular disease/aortic valve stenosis history. At the present time she is still pending further evaluation with diagnostic cardiac catheterization as well whether or not she truly has underlying angiographically significant appearing CAD that would contribute to symptoms and/or objective findings. However this has been placed on hold secondary to her ongoing recent acute CBC related issues with leukocytosis, anemia, and thrombocytopenia, with a working diagnosis at the moment of CML. 2. Angina pectoris The patient presented with symptoms concerning for angina pectoris. Again this may have been brought out by her marked anemia. This may be related to her marked anemia superimposed upon her underlying severe aortic valve stenosis. However, as noted above, underlying CAD has not yet been excluded. She has had improvement with PRBC transfusion and adjustment of her medications. 3. Aortic valve stenosis Based upon her recent echocardiogram she does appear to have findings compatible with severe aortic valve stenosis. At the present time she will continue her conservative medical therapy. She is being followed by hematology/oncology with respect to her CBC and the need for additional PRBC transfusions. Over time when she is able to from a hematology/oncology standpoint hopefully she can proceed with a diagnostic cardiac catheterization to further evaluate her underlying cardiovascular status. 4. Hyperlipidemia She will continue medical therapy as deemed appropriate. 5. Hypertension Her blood pressure will be monitored and medications can be adjusted as needed. Comment: Her case was reviewed with the patient and Florina Mccauley from hematology oncology. At the present time the recommendation has been to continue conservative management, await the patient's final hematology oncology diagnosis and recommendations with not only her underlying hematologic issues but also how she can proceed from a cardiovascular standpoint with the proceeding with studies such as diagnostic cardiac catheterization and/or PCI and/or TAVR versus a surgical related approach if need be with respect to antiplatelet therapy and anticoagulant therapy, and in the interim follow her hemoglobin to keep her hemoglobin at least above 8. The above was also discussed with Dr. Jon the [facility] hospitalist group. This note was generated using a voice recognition system and there may be incorrect words, spelling or punctuation that were not noted when reviewing the office note prior to saving.
--- NOTE | 2021-01-22 12:45 | PHA.DC.MC ---
Pharmacy Service has performed discharge medication reconciliation and counseling for this patient. The patient was counseled on the following discharge medications and changes in medications for homegoing were reviewed. 1. LOPRERSSOR 2. IMDUR 3. TYLENOL 4. ASPIRIN The Reason for Use, instructions for use, and potential side effects were reviewed for all new medications. The patient's questions regarding all of their medications were answered. The patient was able to verbally demonstrate an understanding of their discharge medications. Home Medications multivitamin,[id number] 1 tab PO QDAY 11/18/17 tolterodine 2 mg tablet 4 mg PO DAILY tab 06/04/19 atorvastatin 10 mg tablet 10 mg PO QDAY #90 tab 08/31/20 fenofibrate nanocrystallized 48 mg tablet 48 mg PO QDAY #90 tab 08/31/20 magnesium 250 mg tablet 250 mg PO DAILY 08/31/20 zinc 50 mg tablet 50 mg PO DAILY 08/31/20 lisinopril 20 mg tablet 20 mg PO BID #180 tab 12/04/20 furosemide 20 mg tablet 20 mg PO DAILY #30 tab 12/13/20 Ferrous Sulfate [Iron] 325 mg PO DAILY 01/09/21 Potassium Chloride [K-Tab ER] 20 meq PO DAILY 01/09/21 Acetaminophen [Tylenol Tablet] 650 mg PO Q6H PRN PRN tab 01/22/21 Aspirin E.C. [Ecotrin] 81 mg PO DAILY@0800 #60 tab 01/22/21 Isosorbide Mononitrate [Imdur] 30 mg PO DAILY #60 tab 01/22/21 Metoprolol Tartrate [Lopressor (beta flavio)] 25 mg PO BID #120 tab 01/22/21 The patient's discharge medication list was reviewed for discrepancies and discrepancies were resolved.
[2021-01-23 09:53] LABS: Pathologist Review Reviewed
[2021-01-23 09:54] LABS: Pathologist Review Reviewed
== END 2021-01-22 13:46 | disposition home or self-care (01) | DRG 812 ==
LOC: ED 19:17 → PCU 22:21
PROVIDERS: Admitting Provider Hospitalist; Emergency Provider Emergency Medicine; PCP Family Medicine; Visit Provider Internal Medicine
DX: D64.9 Anemia, unspecified (principal); I25.110 Atherosclerotic heart disease of native coronary artery with unstable angina pectoris; C94.6 Myelodysplastic disease, not elsewhere classified; D69.6 Thrombocytopenia, unspecified; I35.0 Nonrheumatic aortic (valve) stenosis; E78.5 Hyperlipidemia, unspecified; I10 Essential (primary) hypertension; D63.8 Anemia in other chronic diseases classified elsewhere; R60.0 Localized edema; Z87.891 Personal history of nicotine dependence
CPT/HCPCS: 36415; 71045; 80048; 80061; 83735; 84484; 85025; 85027; 86850; 86900; 86901; 86920; 86922; 93005; 97802; 99285; P9016; A4216; J1940

== ENCOUNTER → 2021-02-02 08:01 | Outpatient (CLI) | payer MEDICARE, SELFPAY ==
[2021-01-25 10:40] VITALS: BMI 32.5
--- NOTE | 2021-02-02 08:03 | CT_ITS ---
STUDY: CT CHEST, ABDOMEN T PELVIS WITH CONTRAST REASON FOR EXAM: Female, 80 years old. R/O MALIGNANCY. History of leukemia. RADIATION DOSAGE (If Supplied By Facility): CTDIvol = ( 9.92 ) mGy, DLP = ( 860.36 ) mGycm TECHNIQUE: Transaxial imaging was performed following intravenous administration of Oral and amp; IV REDICAT and amp; 100ML ISOVUE 300. Individualized dose optimization techniques were used for this CT. COMPARISON: No relevant priors. FINDINGS: CHEST Small benign-appearing bilateral axillary lymph nodes. There is a 4.9 mm faint pleural-based nodule in the anterior aspect of the right upper lobe laterally as seen on axial image #59. This also evidence of a 6.9 mm noncalcified nodule in the peripheral aspect of the left lower lobe as seen on axial image #76. This also evidence of a 4.7 mm nodule in the posterior-lateral aspect of the left lower lobe. These 2 nodules are pleural-based. A pleural-based nodule measuring 6.8 mm is seen in the lateral aspect of the lingular segment of the left upper lobe. There is also evidence of a 1.1 cm x 1 cm nodule in the posterior aspect of the lingular segment of the left upper lobe abutting the left major fissure. There is no demonstrated pleural abnormality. Coronary artery calcification. There are multiple small lymph nodes within the mediastinum, which are normal in size and morphology most compatible with reactive lymph hyperplasia. Normal hilar regions. Normal unenhanced pulmonary arteries. Normal aorta arch and descending thoracic aorta. There are multi-level degenerative changes of the thoracic spine. There is no demonstrated abnormality of the visualized upper abdomen. ABDOMEN Several pleural-based nodules are seen as described. Coronary artery calcification. Calcification of the mitral valve annulus. There is decreased attenuation of the liver consistent with steatosis. Normal gallbladder and extrahepatic biliary system. There is mild splenomegaly. Normal pancreas. Normal bilateral adrenal glands. Normal right kidney. Normal left kidney. There is a small hiatal hernia. Normal small intestine. There are multiple colonic diverticula consistent with diverticulosis. There is non-visualization of the appendix. Status post hysterectomy. There is diffuse atherosclerotic calcification of the abdominal aorta. Minimal dilatation of the distal abdominal aorta with a transverse dimension of 2.7 cm.. Normal inferior vena cava. Normal retroperitoneum. Normal abdominal wall. Normal osseous structures. PELVIS Normal urinary bladder. Normal visualized small intestine. There are multiple colonic diverticula of the sigmoid colon consistent with chronic diverticulosis. There is no pelvic fluid. There is no pelvic lymphadenopathy or mass lesion. Normal visualized pelvic arteries. Normal abdominal wall. There are mild degenerative changes of the visualized lumbar spine. Grade 1 anterolisthesis of L4 on L5. CT/CT Chest, Abd, Pel w/Contrast IMPRESSION: Multiple pleural-based nodules in the lungs as described. Correlation with a PET scan is recommended. Splenomegaly. Electronically Signed: Juliano Pickard MD at 14:46 EDT , Service support ,
== END ==
PROVIDERS: PCP Family Medicine; Referring Provider Internal Medicine Medical Oncology; Visit Provider Internal Medicine Medical Oncology
DX: D72.823 Leukemoid reaction (principal)
CPT/HCPCS: 36430; 71260; 74177; J7040; P9040; Q9967

== ENCOUNTER 2021-05-12 21:29 | Inpatient (IN) | payer MEDICARE, SELFPAY ==
[2021-05-12 21:29] VITALS: BMI 33.1
[2021-05-12 21:30] VITALS: BP 186/103; PULSE 93; RESP 22; TEMP 36.8; O2SAT 99; BMI 34.6
--- NOTE | 2021-05-12 21:43 | EKG12_ITS ---
Test Reason : CP Blood Pressure : / mmHG Vent. Rate : 093 BPM Atrial Rate : 093 BPM P-R Int : 170 ms QRS Dur : 128 ms QT Int : 400 ms P-R-T Axes : 075 106 014 degrees QTc Int : 497 ms Normal sinus rhythm Right bundle branch block Cannot rule out Inferior infarct , age undetermined T wave abnormality, consider lateral ischemia Abnormal ECG Confirmed by SUSAN POWELL, JL ([id number]), food editor KRYSTA QUIROZ ([id number]) on 05/15/2021 8:56:40 AM Referred By: YARELY Confirmed By:JL DAVIS MD
--- NOTE | 2021-05-12 21:43 | RAD_ITS ---
INDICATION: chest pain EXAMINATION/TECHNIQUE: X-RAY - XR Chest 1 View COMPARISON: 01/20/2021. FINDINGS: Bibasilar atelectasis. Lungs are otherwise clear. Tortuous and calcified thoracic aorta. The heart is not enlarged. No pleural effusion or pneumothorax. Degenerative changes of the thoracic spine and shoulders. RAD/Chest 1 View (Portable) IMPRESSION: No acute radiographic abnormalities. Electronically Signed: Jeromy Veras MD at 22:07 EDT Tel , Service support ,
[2021-05-12 21:49] VITALS: O2SAT 100
[2021-05-12 21:53] LABS: Hematocrit 25.5 % (37-47); Hemoglobin 8.5 g/dL (12.0-15.0); Mean Corp Hgb Conc 33.3 g/dL (32-36); Mean Corpuscular Hgb 36.8 pg (27.0-32.0); Mean Corpuscular Volume 110.4 fL (81-99); Mean Platelet Vol. 9.5 fl (6.2-12.0); POSITIVE COUNT YES; POSITIVE MORPHOLOGY YES; Red Blood Count 2.31 M/mm3 (4.2-5.4); White Blood Count 16.9 K/mm3 (4.4-11.0)
--- NOTE | 2021-05-12 21:56 | EDS_ITS ---
HPI History of Present Illness Chief Complaint: Chest Pain Narrative Narrative: 80-year-old female presenting with chest pain. She states that she has a history of similar chest pain. She describes it as radiating from her shoulder to her back and her left-sided jaw. Patient states that in November Dr. De Oliveira is going to do a cardiac catheterization when it was discovered that she has leukemia. Her platelets were too low for cardiac catheterization. Patient has no history of RI or cardiac stents. [facility] Medical History (Updated 05/12/21 @ 23:[address] Clarissa Vidales MD) Aortic stenosis Essential hypertension History of COVID-19 Neuropathy Non-rheumatic tricuspid valve insufficiency Nonrheumatic aortic (valve) stenosis Nonrheumatic mitral (valve) insufficiency Other terminal gauger (current) drug therapy Pure hypercholesterolemia RBBB (right bundle branch block) Home Medications multivitamin,[id number] 1 tab PO QDAY 11/18/17 [History Last Taken Unknown] tolterodine 2 mg tablet 4 mg PO DAILY tab 06/04/19 [History Last Taken Unknown] atorvastatin 10 mg tablet 10 mg PO QDAY #90 tab 08/31/20 [Rx Last Taken Unknown] fenofibrate nanocrystallized 48 mg tablet 48 mg PO QDAY #90 tab 08/31/20 [Rx Last Taken Unknown] magnesium 250 mg tablet 250 mg PO DAILY 08/31/20 [History Last Taken Unknown] zinc 50 mg tablet 50 mg PO DAILY 08/31/20 [History Last Taken Unknown] lisinopril 20 mg tablet 20 mg PO BID #180 tab 12/04/20 [Rx Last Taken Unknown] furosemide 20 mg tablet 20 mg PO DAILY #30 tab 12/13/20 [Rx Last Taken Unknown] ferrous sulfate 325 mg PO DAILY 01/09/21 [History Last Taken Unknown] potassium chloride 20 meq PO DAILY 01/09/21 [History Last Taken Unknown] acetaminophen 650 mg PO Q6H PRN PRN tab 01/22/21 [Rx Last Taken Unknown] allopurinol 300 mg PO DAILY 30 Days #30 tablet 03/12/21 [Rx Last Taken Unknown] metoprolol tartrate 25 mg tablet 25 mg PO BID #180 tab 04/17/21 [Rx Last Taken Unknown] hydroxyurea 500 mg capsule 1,000 mg PO DAILY #60 cap 05/07/21 [Rx Last Taken Unknown] isosorbide mononitrate 90 mg PO DAILY 05/12/21 [History Last Taken Unknown] Allergy/AdvReac Type Severity Reaction Status Date / Time codeine Allergy Intermediate Swelling Verified 04/30/21 10:59 amoxicillin [From Augmentin] Allergy Mild Itching Verified 04/30/21 10:59 clavulanic acid Allergy Mild Itching Verified 04/30/21 10:59 [From Augmentin] niacin Allergy Mild Itching Verified 04/30/21 10:59 [From Niaspan Extended-Release] Family History Mother CHF (congestive heart failure) Brother CAD (coronary artery disease) Sister CHF (congestive heart failure) Son Cardiac pacemaker in situ WPW (Bdogm-Qaglkhhlc-Grmbx syndrome) Father No problems noted. Surgical History H/O meniscectomy of right knee History of appendectomy History of medial meniscus repair of left knee History of partial knee replacement History of synovectomy History of total hysterectomy History of tubal ligation Social History Smoking Status: Former smoker alcohol intake: never substance use type: does not use diet: low carbohydrate caffeine: Yes Type: coffee Number of servings: 2 what type of physical activity do you participate in: none seatbelt use: always do you feel safe at home: Yes ROS ROS ED Constitutional Constitutional ED: Denies chills, fever(s) or subjective Eyes Eyes: Denies none or change in vision ENT ENT ED: Denies ear pain, rhinorrhea or sore throat Cardiovascular Cardiovascular: Reports chest pain Respiratory/Chest Respiratory/Chest: Denies cough or dyspnea Gastrointestinal Gastrointestinal: Denies abdominal pain, nausea or vomiting Genitourinary Genitourinary ED: Denies dysuria or hematuria Musculoskeletal Musculoskeletal: Denies arthralgias or myalgias Integumentary Denies abscess or rash Neurologic Neurologic: Denies headache(s), paresthesias or weakness Psychiatric Psychiatric: Denies anxiety or depression EXAM Physical Exam Const Vital Signs: 05/12/21 21:30 05/12/21 21:49 05/12/21 22:29 Temperature 98.3 F Temperature Source Oral Pulse Rate 93 80 Respiratory Rate 22 H 22 H Blood Pressure 186/103 H 150/60 H Blood Pressure Mean 130 90 Pulse Ox 99 100 100 Oxygen Delivery Method Room Air Nasal Cannula Nasal Cannula Oxygen Flow Rate (L/min) 2 2 05/12/21 23:00 Temperature Temperature Source Pulse Rate 82 Respiratory Rate 19 H Blood Pressure 134/74 H Blood Pressure Mean 94 Pulse Ox 100 Oxygen Delivery Method Nasal Cannula Oxygen Flow Rate (L/min) 2 Positive well nourished General Appearance ED: NAD; Negative for pallor HEENT normocephalic and atraumatic Eyes PERRL Chest Wall inspection of chest normal and palpation of chest normal Resp normal respiratory effort Effort and Inspection: respiratory distress Cardio regular rate and regular rhythm GI normal to inspection, nondistended, normoactive bowel sounds Back/Spine no CVA tenderness General Back: CVA tenderness Extremity normal to inspection General Extremety ED: Negative for edema or tenderness General Extremity: Negative for edema Neuro oriented x3 Sensorium / Orientation: awake and alert Psych mental status grossly normal Skin no rashes or lesions noted and no wounds General Skin Exam: Negative for jaundice or pallor Heart Score History: Highly Suspicious ECG: Significant ST-Depression Age: >/= 65 years Risk Factors: >/= 3 Risk Factors or History of CAD Score: 8 MDM MDM MDM Narrative Medical decision making narrative: 80-year-old female presenting with chest pain. Patient states she has a history of chest pain and catheterization was put off due to diagnosis of leukemia. Dr. De Oliveira has been waiting for her platelets to stay up high enough in order to get a cardiac catheterization. Currently plan to do this in May after they do repeat lab work once again. Patient presenting with chest pain that is radiating from her shoulder to her back down her arm and into her jaw. Her heart score is 8 pretroponin. Patient was given a nitroglycerin trial which seems to have helped. EKG performed on arrival is sinus rhythm at [address] depressions in V3, V4, V5, V6, leads I and II. She has T wave inversions in lead III and aVF. She does have a right bundle branch block. Patient's previous EKG and 21 January 2021 is very similar and not appear to be any substantial dynamic changes in this. Patient states has been on hydroxyurea and been getting blood transfusions to keep her white cell count down and her hemoglobin up. Her white blood cell count is 16.9 today which is down significantly. Her hemoglobin is 8.5 which is the highest that its been since January. Platelet count is 39. Creatinine is slightly bumped at 1.33 and there is some prerenal azotemia to this so she was given IV fluids. High-sensitivity troponin is 23 however patient was only just recently having a short episode of this chest pain which lasted about 4 minutes. Patient had a D- dimer of 0.69 and although she has leukemia I do believe it is reasonable with an age-adjusted D-dimer to hold back on a CTA in order to make her eligible for catheterization and not to have contrast given to her while she has a decrease in her GFR. I spoke with the hospitalist that he does agree. I also spoke with Dr. Weir and discussed this with him and he recommended that we admit the patient and prepare her for catheterization. Patient is amenable to this plan. Impression: 1. Chest pain 2. History of leukemia Lab Data Attestation: I reviewed the patient's lab results. Labs: Laboratory Results - last 24 hr 05/12/21 05/12/21 05/12/21 21:35 21:46 21:46 WBC 16.9 H RBC 2.31 L Hgb 8.5 L Hct 25.5 L MCV 110.4 H MCH 36.8 H MCHC 33.3 RDW Std Deviation TNP RDW Coeff of Aubrey TNP Plt Count 39 L* MPV 9.5 Neut % (Auto) Not Reportable Absolute Neuts (auto) 13.8 H Absolute Lymphs (auto) 1.52 Total Counted 100 Neutrophils % (Manual) 69 Band Neutrophils % 13 H Lymphocytes % (Manual) 9 L Monocytes % (Manual) 4 Metamyelocytes % 2 H Myelocytes % 2 H Blast Cells % 1 H* Diff Path Review May foll Platelet Estimate MKD DEC RBC Morphology N CHROM Anisocytosis 1+ Macrocytosis 1+ Ovalocytes RARE D-Dimer Quant (PE/DVT) 0.69 H* Sodium 142 Potassium 4.0 Chloride 109 H Carbon Dioxide 25.0 Anion Gap 8 BUN 30 H Creatinine 1.33 H Estim Creat Clear Calc 25.79 Est GFR (MDRD) Af Amer 49 L Est GFR (MDRD) Non-Af 41 L BUN/Creatinine Ratio 22.6 H Glucose 222 H Calcium 8.6 Troponin I High Sens 23.0 Radiography Diagnostic Testing: Radiology Impression Chest X-Ray 05/12/21 21:43 IMPRESSION: No acute radiographic abnormalities. Electronically Signed: Jeormy Veras MD at 22:07 EDT Tel , Service support , Discharge Plan Triage Chief Complaint: Chest Pain ED Provider: Francisco Cherry Dx/Rx/DC Orders Prescriptions: No Action multivitamin,pr-[id number] tablet tablet 1 tab PO QDAY RF: 0 tolterodine [Detrol] 2 mg tablet 4 mg PO DAILY RF: 0 zinc 50 mg tablet 50 mg PO DAILY RF: 0 magnesium 250 mg tablet 250 mg PO DAILY RF: 0 lisinopril 20 mg tablet 20 mg PO BID Qty: 180 RF: 3 potassium chloride 20 MEQ tablet extended release 20 meq PO DAILY RF: 0 ferrous sulfate 325 MG tablet 325 mg PO DAILY RF: 0 allopurinol 300 MG tablet 300 mg PO DAILY 30 Days Qty: 30 RF: 1 acetaminophen 325 MG tablet 650 mg PO Q6H PRN PRN (Reason: Pain Score 1-10/Temp > 100.7 F) RF: 0 isosorbide mononitrate 60 mg tablet extended release 24 hr 90 mg PO DAILY RF: 0 fenofibrate nanocrystallized [Tricor] 48 mg tablet 48 mg PO QDAY Qty: 90 RF: 3 atorvastatin 10 mg tablet 10 mg PO QDAY Qty: 90 RF: 3 furosemide 20 mg tablet 20 mg PO DAILY Qty: 30 RF: 11 metoprolol tartrate 25 mg tablet 25 mg PO BID Qty: 180 RF: 3 hydroxyurea [Hydrea] 500 mg capsule 1,000 mg PO DAILY Qty: 60 RF: 3 Primary Care Provider: Yesica Olsen
[2021-05-12 21:57] LABS: Differential Indicated MANUAL DIFF
[2021-05-12 21:58] LABS: Platelet Count 39 K/mm3 (150-450)
[2021-05-12 22:11] LABS: D-Dimer Quantitative (DVT/PE) 0.69 FEU/ug/m (0.27-0.49)
[2021-05-12 22:12] LABS: Anion Gap 8 (5-15); BUN 30 mg/dL (7-18); BUN/Creat Ratio 22.6 RATIO (10-20); Calcium,Total 8.6 mg/dL (8.5-10.1); Chloride 109 mmol/L (98-107); Creatinine, Serum 1.33 mg/dL (0.55-1.02); EST Glomerular Filtration Rate 41 mL/min (>60); Est Glom Filt Rate - Afr Amer 49 mL/min (>60); Estimated Creatinine Clearance 25.79 ml/min; Glucose 222 mg/dL (74-106); Sodium Level 142 mmol/L (136-145)
[2021-05-12 22:22] LABS: Blast 1 % (0-0); Lymphocyte 9 % (19-41); Metamyelocyte 2 % (0-1); Monocyte 4 % (0-10); Myelocyte 2 % (0-0); Neutrophil-Band 13 % (0-5); Neutrophil-Segmented 69 % (47-70); Total Cells Counted 100 (MANUAL DIFF)
[2021-05-12 22:25] LABS: Anisocytosis 1+; Macrocytosis 1+; Ovalocyte RARE; Platelet Estimate MKD DEC (ADEQ); Red Cell Morphology N CHROM NORMAL (NORM C&C)
[2021-05-12 22:29] VITALS: BP 150/60; PULSE 80; RESP 22; O2SAT 100
[2021-05-12 22:31] LABS: Absolute Lymphocyte Count 1.52 X10^3/uL (0.83-4.51); Absolute Neutrophil Count 13.8 X10^3/uL (2.0-7.7)
[2021-05-12 23:00] VITALS: BP 134/74; PULSE 82; RESP 19; O2SAT 100
--- NOTE | 2021-05-12 23:58 | HP.PCM.HOS_ITS ---
[facility] - General General Date of Admission: 05/12/21 Date of Service: 05/12/21 Chief Complaint: Chest pain. HPI Shayy ELIAS, is a 80 F with past medical history as mentioned above presented to the emergency room because of chest pain. Her symptoms started last night when she was about to go to bed, started having chest pain, it is in between her shoulder blades in the back, stabbing pain, intermittent, radiates to her left arm and jaw, associated with shortness of breath, sometimes aggravated by walking and no relieving factors. Patient stated that she has been having intermittent chest pain since November,. Actually when she started having this chest pain, she was scheduled to have cardiac catheterization done as outpatient but she was found to have severe leukocytosis and anemia on CBC, was referred to oncology and she was diagnosed with leukemia and she was treated with hydroxyurea. In the emergency department, her vital signs were stable. She received sublingual nitro and aspirin in the ED and her pain improved. Her routine blood work was remarkable for leukocytosis, hemoglobin of 8.5 g/dL, platelet count is 39,000, BUN is 30, creatinine is 1.33. EKG revealed normal sinus rhythm, RBBB, diffuse T wave inversion and ST segment depression in leads V3, V4, V5 and V6, no new changes compared to EKG from January 21, 2021. Chest x- ray showed no acute findings. Troponin is negative. Patient is being admitted for chest pain/angina pectoris for evaluation. [facility] Medical History (Updated 05/13/21 @ 00:[address] Clarissa Vidales MD) Aortic stenosis Essential hypertension History of COVID-19 Neuropathy Non-rheumatic tricuspid valve insufficiency Nonrheumatic aortic (valve) stenosis Nonrheumatic mitral (valve) insufficiency Other penitentiary (current) drug therapy Pure hypercholesterolemia RBBB (right bundle branch block) Home Medications multivitamin,[id number] 1 tab PO QDAY 11/18/17 [History Last Taken Unknown] tolterodine 2 mg tablet 4 mg PO DAILY tab 06/04/19 [History Last Taken Unknown] atorvastatin 10 mg tablet 10 mg PO QDAY #90 tab 08/31/20 [Rx Last Taken Unknown] fenofibrate nanocrystallized 48 mg tablet 48 mg PO QDAY #90 tab 08/31/20 [Rx Last Taken Unknown] magnesium 250 mg tablet 250 mg PO DAILY 08/31/20 [History Last Taken Unknown] zinc 50 mg tablet 50 mg PO DAILY 08/31/20 [History Last Taken Unknown] lisinopril 20 mg tablet 20 mg PO BID #180 tab 12/04/20 [Rx Last Taken Unknown] furosemide 20 mg tablet 20 mg PO DAILY #30 tab 12/13/20 [Rx Last Taken Unknown] ferrous sulfate 325 mg PO DAILY 01/09/21 [History Last Taken Unknown] potassium chloride 20 meq PO DAILY 01/09/21 [History Last Taken Unknown] acetaminophen 650 mg PO Q6H PRN PRN tab 01/22/21 [Rx Last Taken Unknown] allopurinol 300 mg PO DAILY 30 Days #30 tablet 03/12/21 [Rx Last Taken Unknown] metoprolol tartrate 25 mg tablet 25 mg PO BID #180 tab 04/17/21 [Rx Last Taken Unknown] hydroxyurea 500 mg capsule 1,000 mg PO DAILY #60 cap 05/07/21 [Rx Last Taken Unknown] isosorbide mononitrate 90 mg PO DAILY 05/12/21 [History Last Taken Unknown] Allergy/AdvReac Type Severity Reaction Status Date / Time codeine Allergy Intermediate Swelling Verified 04/30/21 10:59 amoxicillin [From Augmentin] Allergy Mild Itching Verified 04/30/21 10:59 clavulanic acid Allergy Mild Itching Verified 04/30/21 10:59 [From Augmentin] niacin Allergy Mild Itching Verified 04/30/21 10:59 [From Niaspan Extended-Release] Family History Mother CHF (congestive heart failure) Brother CAD (coronary artery disease) Sister CHF (congestive heart failure) Son Cardiac pacemaker in situ WPW (Kdfij-Irrlgdiqt-Pntke syndrome) Father No problems noted. Surgical History H/O meniscectomy of right knee History of appendectomy History of medial meniscus repair of left knee History of partial knee replacement History of synovectomy History of total hysterectomy History of tubal ligation Social History Smoking Status: Former smoker alcohol intake: never substance use type: does not use diet: low carbohydrate caffeine: Yes Type: coffee Number of servings: 2 what type of physical activity do you participate in: none seatbelt use: always do you feel safe at home: Yes ROS Constitutional Constitutional: Denies anorexia, chills, fatigue, fever(s) or malaise Eyes Eyes: Denies blurry vision, change in eye color, change in vision, double vision or eye pain ENT HEENT: Denies ear discharge, ear pain, epistaxis, headache(s), nasal congestion, post nasal drip or sore throat Cardiovascular Cardiovascular: Reports chest pain, dyspnea on exertion and edema; Denies lightheadedness, orthopnea, palpitations or syncope Respiratory/Chest Respiratory/Chest: Reports dyspnea, shortness of breath at rest and shortness of breath with exertion; Denies cough, hemoptysis, productive cough or wheezing Gastrointestinal Gastrointestinal: Denies abdominal pain, constipation, diarrhea, hematemesis, hematochezia, melena, nausea or vomiting Genitourinary Genitourinary: Denies burning urination, dysuria, hematuria, urinary hesitancy or urinary urgency Musculoskeletal Musculoskeletal: Denies arthralgias, back pain, joint pain, joint swelling, myal gias or neck pain Neurologic Neurologic: Denies confusion, dizziness, focal weakness, headache(s), numbness, paresthesias, seizures, tingling, tremor(s) or vertigo Psychiatric Psychiatric: Denies anxiety, depression, hallucinations, homicidal ideation or suicidal ideation Endocrine Endocrinology: Denies change in body appearance, cold intolerance, heat intolerance, polydipsia or polyuria Hematologic/Lymphatic Hematologic/Lymphatic: Denies easy bleeding, easy bruising or lymphadenopathy Allergic/Immunologic Allergic/Immunologic: Denies itchy eyes, rhinitis, throat swelling, tongue swelling, hives, urticaria or wheezing Vital Signs Vital Signs Vital Signs: 05/12/21 21:30 05/12/21 21:49 05/12/21 22:29 Temperature 98.3 F Temperature Source Oral Pulse Rate 93 80 Respiratory Rate 22 H 22 H Blood Pressure 186/103 H 150/60 H Blood Pressure Mean 130 90 Pulse Ox 99 100 100 Oxygen Delivery Method Room Air Nasal Cannula Nasal Cannula Oxygen Flow Rate (L/min) 2 2 05/12/21 23:00 Temperature Temperature Source Pulse Rate 82 Respiratory Rate 19 H Blood Pressure 134/74 H Blood Pressure Mean 94 Pulse Ox 100 Oxygen Delivery Method Nasal Cannula Oxygen Flow Rate (L/min) 2 Weight Weight: 189 lb 6.033 oz Body Mass Index (BMI) 34.6 Physical Exam Const alert, oriented x3, no apparent distress and no limitations General Appearance: cooperative HEENT normocephalic, head/scalp atraumatic, external ears normal and external nose normal Eyes PERRL, EOMs intact bilaterally, conjunctivae normal and no scleral icterus General Eye: normal appearance of both eyes Neck no lymphadenopathy, supple, no meningeal signs, no JVD and no carotid bruits Lymph Lymphatic: no lymphadenopathy noted Resp normal respiratory effort, normal air movement and clear to auscultation bilaterally Resp Narrative: Diminished breath sounds bilateral, otherwise clear. Auscultation: Negative for crackles, rales, rhonchi or wheezes Cardio regular rate, regular rhythm, S1 normal heart sound, S2 normal heart sound and no JVD Cardio Narrative: Systolic murmur. GI normal to inspection, nondistended, normoactive bowel sounds, soft to palpation, non-tender and non-distended; Negative for hepatosplenomegaly Extremity normal to inspection and full ROM Extremity Narrative: Nonpitting edema, no clubbing or cyanosis. Skin no rashes or lesions noted, no wounds and no petechiae Neuro oriented x3, CN's II-XII intact bilaterally and moves all extremities Sensorium / Orientation: alert Speech: speech normal Motor Exam: strength 5/5 throughout Psych mental status grossly normal and affect normal Appearance: appropriate and well kempt Results Lab / Micro Data Result Diagrams: 05/12/21 21:35 05/12/21 21:46 Labs: Laboratory Results - last 24 hr 05/12/21 05/12/21 05/12/21 21:35 21:46 21:46 WBC 16.9 H RBC 2.31 L Hgb 8.5 L Hct 25.5 L MCV 110.4 H MCH 36.8 H MCHC 33.3 RDW Std Deviation TNP RDW Coeff of Aubrey TNP Plt Count 39 L* MPV 9.5 Neut % (Auto) Not Reportable Absolute Neuts (auto) 13.8 H Absolute Lymphs (auto) 1.52 Total Counted 100 Neutrophils % (Manual) 69 Band Neutrophils % 13 H Lymphocytes % (Manual) 9 L Monocytes % (Manual) 4 Metamyelocytes % 2 H Myelocytes % 2 H Blast Cells % 1 H* Diff Path Review May foll Platelet Estimate MKD DEC RBC Morphology N CHROM Anisocytosis 1+ Macrocytosis 1+ Ovalocytes RARE D-Dimer Quant (PE/DVT) 0.69 H* Sodium 142 Potassium 4.0 Chloride 109 H Carbon Dioxide 25.0 Anion Gap 8 BUN 30 H Creatinine 1.33 H Estim Creat Clear Calc 25.79 Est GFR (MDRD) Af Amer 49 L Est GFR (MDRD) Non-Af 41 L BUN/Creatinine Ratio 22.6 H Glucose 222 H Calcium 8.6 Troponin I High Sens 23.0 Radiology Impression Chest X-Ray 05/12/21 21:43 IMPRESSION: No acute radiographic abnormalities. Electronically Signed: Jeromy Veras MD at 22:07 EDT Tel , Service support , Assessment & Plan Assessment/Plan (1) USMAN (acute kidney injury): (2) Chest pain: (3) Angina pectoris: (4) Myeloproliferative neoplasm: (5) Thrombocytopenia: (6) Leukocytosis: QUALIFIERS: Leukocytosis type: unspecified Qualified Code(s): D72.829 - Elevated white blood cell count, unspecified (7) Pure hypercholesterolemia: (8) Essential hypertension: (9) Nonrheumatic aortic (valve) stenosis: PLAN: This is an 80 years old female patient presented to the emergency room for chest pain and she is being admitted for evaluation. #1 chest pain/angina pectoris: This has been going on for several months, she is supposed to go for cardiac catheterization as outpatient with Dr. De Oliveira. EKG reviewed as above. Troponin is negative. Chest x-ray showed no acute findings. Vital signs are stable. She had 2D echocardiogram on November,, showed ejection fraction 65%, LVH, severe aortic stenosis. Plan: Admit to PCU, cardiac monitoring, serial cardiac enzymes, sublingual nitro as needed, Tylenol as needed, Zofran as needed, continue statins and beta-blockers, cardiology consult, gentle IV fluids for hydration, repeat CBC and BMP as well as INR tomorrow morning, PT OT evaluation and treatment. 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 WBC significantly improved. Hemoglobin has been around 8 g/dL, platelet count is 39,000. No active bleeding. Plan to monitor, pro time INR, transfuse as needed. #3 mild acute kidney injury: Admission creatinine is 1.33, but has been around 1 in the past. Plan for gentle IV fluids for hydration, input output chart, repeat BMP tomorrow morning, avoid nephrotoxic drugs. #4 hyperglycemia: Without history of diabetes. Blood glucose is 222. Plan: Check hemoglobin A1c, Accu-Cheks, sliding scale. #5 elevated D-dimer: Age-adjusted D-dimer is 0.82, at this time I doubt acute PE. Patient is not hypoxic or tachycardic. #6 hypertension: Blood pressure stable, continue lisinopril and metoprolol, hold Lasix. #7 severe aortic stenosis: Echocardiogram reviewed as above. #8 hyperlipidemia: Continue statins. #9 CODE STATUS: DNR CCA, no intubation. I explained to the patient and her son different types of CODE STATUS including full code, DNR CC, DNR CCA with and without intubation. Patient clearly mentioned that she does not want any life- sustaining measures, no CPR, no intubation and no mechanical ventilation. Patient's son agreed. #10 DVT prophylaxis: No chemical prophylaxis because of severe thrombocytopenia. This note was generated with [employer] dictation software. It may contain incorrect words, spelling, and punctuation that were not noted in checking the note before signing. Charges/Coding Visit Charges Inpatient E&M: 33266 Init Hosp L3 Procedures Hospitalists Procedures: 69482 Advncd Care Plan 30 Min (Time spent discussing CODE STATUS with the patient and her son is 16 minutes.)
[2021-05-13] VITALS (44 sets, daily range): BP systolic 120–196; BP diastolic 49–126; PULSE 61–89; RESP 14–23; TEMP 36–37.1; O2SAT 92–100; BMI 33.3
--- NOTE | 2021-05-13 00:28 | EKG12_ITS ---
Test Reason : CP ADMIT Blood Pressure : / mmHG Vent. Rate : 075 BPM Atrial Rate : 075 BPM P-R Int : 166 ms QRS Dur : 128 ms QT Int : 448 ms P-R-T Axes : 068 097 050 degrees QTc Int : 500 ms Normal sinus rhythm Right bundle branch block Abnormal ECG Confirmed by SUSAN POWELL, JL ([id number]), editorial manager KRYSTA QUIROZ ([id number]) on 05/15/2021 9:15:36 AM Referred By: ERICK Confirmed By:JL DAVIS MD
[2021-05-13 00:42] LABS: Troponin-I HS 111.7 pg/mL (3.0-53.7)
[2021-05-13] MEDS: 0.9% Normal Saline 1,000 ML 60 ML IV (00:45)
[2021-05-13] MEDS: 0.9% Saline Lock 10 ML Syringe IV ×4 (00:46→14:37)
[2021-05-13 01:02] LABS: Hemoglobin A1c 5.9 % (3.8-5.6)
[2021-05-13] MEDS: Nitroglycerin (INPATIENT USE) 0.4 MG TAB.SUBL SL ×9 (01:25→06:07)
--- NOTE | 2021-05-13 01:26 | NURSING ---
c/o chest pain rated 9. 02 at 2lnc applied nitro given
--- NOTE | 2021-05-13 04:08 | NURSING ---
Pt c/o of chest pain/back pain when she returned from bathroom. nitro given. inform pt to use bedpan from now on.
[2021-05-13 04:09] LABS: Hematocrit 22.5 % (37-47); Hemoglobin 7.3 g/dL (12.0-15.0); Mean Corp Hgb Conc 32.4 g/dL (32-36); Mean Corpuscular Hgb 36.5 pg (27.0-32.0); Mean Corpuscular Volume 112.5 fL (81-99); Mean Platelet Vol. 10.1 fl (6.2-12.0); POSITIVE COUNT YES; POSITIVE MORPHOLOGY YES; Platelet Count 33 K/mm3 (150-450); White Blood Count 15.7 K/mm3 (4.4-11.0)
[2021-05-13 04:10] LABS: Differential Indicated MANUAL DIFF
--- NOTE | 2021-05-13 04:12 | NURSING ---
Pts primary rn aware of plt count of 33 this am.
[2021-05-13 04:15] LABS: Prothrombin Time (Protime)PT. 12.6 SECONDS (11.7-14.9)
[2021-05-13 04:28] LABS: Anion Gap 3 (5-15); BUN 28 mg/dL (7-18); Calcium,Total 8.2 mg/dL (8.5-10.1); Chloride 112 mmol/L (98-107); EST Glomerular Filtration Rate 56 mL/min (>60); Est Glom Filt Rate - Afr Amer 68 mL/min (>60); Glucose 123 mg/dL (74-106); Potassium 4.8 mmol/L (3.5-5.1); Sodium Level 144 mmol/L (136-145)
[2021-05-13 04:52] LABS: Troponin-I HS 403.2 pg/mL (3.0-53.7)
[2021-05-13 05:25] LABS: Blast 1 % (0-0); Lymphocyte 15 % (19-41); Monocyte 2 % (0-10); Myelocyte 7 % (0-0); Neutrophil-Band 4 % (0-5); Neutrophil-Segmented 68 % (47-70); Promyelocyte 3 % (0-0)
[2021-05-13 05:26] LABS: Absolute Neutrophil Count 11.3 X10^3/uL (2.0-7.7)
[2021-05-13 05:27] LABS: Absolute Lymphocyte Count 2.36 X10^3/uL (0.83-4.51); Anisocytosis 2+; Platelet Estimate MKD DEC (ADEQ); Red Cell Morphology NORM C+C NORMAL (NORM C&C)
[2021-05-13 05:28] LABS: Polychromasia 1+
--- NOTE | 2021-05-13 06:00 | EKG12_ITS ---
Test Reason : AM EKG Blood Pressure : / mmHG Vent. Rate : 080 BPM Atrial Rate : 080 BPM P-R Int : 170 ms QRS Dur : 126 ms QT Int : 438 ms P-R-T Axes : 058 101 029 degrees QTc Int : 505 ms Normal sinus rhythm Right bundle branch block T wave abnormality, consider lateral ischemia Abnormal ECG When compared with ECG of 13-MAY-2021 01:09, MANUAL COMPARISON REQUIRED, DATA IS UNCONFIRMED Confirmed by SUSAN POWELL, JL ([id number]), digital editor KRYSTA QUIROZ ([id number]) on 05/15/2021 9:15:20 AM Referred By: ERICK Confirmed By:JL DAVIS MD
[2021-05-13] MEDS: Nitroglycerin Infusion 250 ML 3 MG CONT INF (07:42)
[2021-05-13 07:45] LABS: Bedside Glucose 126 mg/dL (70-110)
[2021-05-13] MEDS: Atorvastatin Calcium 40 MG Tablet PO (07:47)
[2021-05-13] MEDS: Metoprolol Tartrate 25 MG Tablet PO ×2 (07:48→21:00)
[2021-05-13] MEDS: Lisinopril 20 MG Tablet PO ×2 (07:52→21:00)
--- NOTE | 2021-05-13 09:56 | PCM.PN.HOSP ---
Subjective Subjective Doing well, no issues overnight. Continues to have some chest pain on nitro drip, cannot tolerate a heparin drip secondary to her thrombocytopenia. Objective Data Objective Data Vital Signs: Vital Signs Temp Pulse Resp BP Pulse Ox 97 F L 69 20 H 134/60 H 96 05/13/21 08:00 05/13/21 09:00 05/13/21 09:00 05/13/21 09:00 05/13/21 09:38 Oxygen Flow Rate (L/min) 3 Oxygen Delivery Method Nasal Cannula Weight: 182 lb 5.156 oz Body Mass Index (BMI) 33.3 Intake & Output: Intake and Output for Last 24 Hours 05/12/21 05/13/21 05/14/21 03:59 03:59 03:59 Intake Total 3.90 / 3.90 Balance 3.90 / 3.90 Lab / Micro Data Result Diagrams: 05/13/21 03:55 05/13/21 03:55 Labs: Laboratory Results - last 24 hr 05/12/21 05/12/21 05/12/21 21:35 21:35 21:35 WBC 16.9 H RBC 2.31 L Hgb 8.5 L Hct 25.5 L MCV 110.4 H MCH 36.8 H MCHC 33.3 RDW Std Deviation TNP RDW Coeff of Aubrey TNP Plt Count 39 L* MPV 9.5 Neut % (Auto) Not Reportable Absolute Neuts (auto) 13.8 H Absolute Lymphs (auto) 1.52 Total Counted 100 Neutrophils % (Manual) 69 Band Neutrophils % 13 H Lymphocytes % (Manual) 9 L Monocytes % (Manual) 4 Metamyelocytes % 2 H Myelocytes % 2 H Promyelocytes % Blast Cells % 1 H* Diff Path Review May foll Platelet Estimate MKD DEC RBC Morphology N CHROM Polychromasia Anisocytosis 1+ Macrocytosis 1+ Ovalocytes RARE PT INR D-Dimer Quant (PE/DVT) Sodium Potassium Chloride Carbon Dioxide Anion Gap BUN Creatinine Estim Creat Clear Calc Est GFR (MDRD) Af Amer Est GFR (MDRD) Non-Af BUN/Creatinine Ratio Glucose Hemoglobin A1c 5.9 H Calcium Troponin I High Sens POC Glucose Blood Type A NEGATIVE Antibody Screen NEGATIVE Crossmatch See Detail 05/12/21 05/12/21 05/13/21 21:46 21:46 00:02 WBC RBC Hgb Hct MCV MCH MCHC RDW Std Deviation RDW Coeff of Aubrey Plt Count MPV Neut % (Auto) Absolute Neuts (auto) Absolute Lymphs (auto) Total Counted Neutrophils % (Manual) Band Neutrophils % Lymphocytes % (Manual) Monocytes % (Manual) Metamyelocytes % Myelocytes % Promyelocytes % Blast Cells % Diff Path Review Platelet Estimate RBC Morphology Polychromasia Anisocytosis Macrocytosis Ovalocytes PT INR D-Dimer Quant (PE/DVT) 0.69 H* Sodium 142 Potassium 4.0 Chloride 109 H Carbon Dioxide 25.0 Anion Gap 8 BUN 30 H Creatinine 1.33 H Estim Creat Clear Calc 25.79 Est GFR (MDRD) Af Amer 49 L Est GFR (MDRD) Non-Af 41 L BUN/Creatinine Ratio 22.6 H Glucose 222 H Hemoglobin A1c Calcium 8.6 Troponin I High Sens 23.0 111.7 H* POC Glucose Blood Type Antibody Screen Crossmatch 05/13/21 05/13/21 05/13/21 03:55 03:55 03:55 WBC 15.7 H RBC 2.00 L Hgb 7.3 L Hct 22.5 L MCV 112.5 H MCH 36.5 H MCHC 32.4 RDW Std Deviation TNP RDW Coeff of Aubrey TNP Plt Count 33 L* MPV 10.1 Neut % (Auto) Not Reportable Absolute Neuts (auto) 11.3 H Absolute Lymphs (auto) 2.36 Total Counted Neutrophils % (Manual) 68 Band Neutrophils % 4 Lymphocytes % (Manual) 15 L Monocytes % (Manual) 2 Metamyelocytes % Myelocytes % 7 H Promyelocytes % 3 H Blast Cells % 1 H* Diff Path Review May foll Platelet Estimate MKD DEC RBC Morphology NORM C+C Polychromasia 1+ Anisocytosis 2+ Macrocytosis Ovalocytes PT 12.6 INR 1.0 D-Dimer Quant (PE/DVT) Sodium 144 Potassium 4.8 Chloride 112 H Carbon Dioxide 29.0 Anion Gap 3 L BUN 28 H Creatinine 1.00 Estim Creat Clear Calc 34.30 Est GFR (MDRD) Af Amer 68 Est GFR (MDRD) Non-Af 56 L BUN/Creatinine Ratio 28.0 H Glucose 123 H Hemoglobin A1c Calcium 8.2 L Troponin I High Sens POC Glucose Blood Type Antibody Screen Crossmatch 05/13/21 05/13/21 03:55 06:34 WBC RBC Hgb Hct MCV MCH MCHC RDW Std Deviation RDW Coeff of Aubrey Plt Count MPV Neut % (Auto) Absolute Neuts (auto) Absolute Lymphs (auto) Total Counted Neutrophils % (Manual) Band Neutrophils % Lymphocytes % (Manual) Monocytes % (Manual) Metamyelocytes % Myelocytes % Promyelocytes % Blast Cells % Diff Path Review Platelet Estimate RBC Morphology Polychromasia Anisocytosis Macrocytosis Ovalocytes PT INR D-Dimer Quant (PE/DVT) Sodium Potassium Chloride Carbon Dioxide Anion Gap BUN Creatinine Estim Creat Clear Calc Est GFR (MDRD) Af Amer Est GFR (MDRD) Non-Af BUN/Creatinine Ratio Glucose Hemoglobin A1c Calcium Troponin I High Sens 403.2 H* POC Glucose 126 H Blood Type Antibody Screen Crossmatch Radiography Diagnostic Testing: Radiology Impression Chest X-Ray 05/12/21 21:43 IMPRESSION: No acute radiographic abnormalities. Electronically Signed: Jeromy Veras MD at 22:07 EDT Tel , Service support , Physical Exam Const alert, oriented x3 and no apparent distress General Appearance: cooperative HEENT normocephalic and moist oral mucous membranes Eyes PERRL, EOMs intact bilaterally and conjunctivae normal Neck supple and no JVD Lymph Lymphatic: no lymphadenopathy noted Resp normal respiratory effort, no retractions, no use of accessory muscles and clear to auscultation bilaterally Auscultation: Negative for crackles, rales, rhonchi or wheezes Cardio regular rate, regular rhythm, S1 normal heart sound and S2 normal heart sound Heart Sounds: murmur GI soft to palpation, non-tender and non-distended; Negative for hepatosplenomegaly Extremity no clubbing, cyanosis or edema Skin no rashes or lesions noted Neuro no focal motor deficits and no sensory deficits noted Psych affect normal Appearance: appropriate Assessment & Plan Assessment/Plan (1) Acute [id number]-mljelpgvj myocardial infarction: (2) Myeloproliferative neoplasm: (3) Anemia: QUALIFIERS: 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 Non-STEMI/HTN/HLD/severe aortic stenosis -Continue with nitro drip, she does have thrombocytopenia which is chronic- therefore cannot do a heparin drip or Lovenox -We will transfuse 2 units today secondary to her anemia and hopefully this will help with her thrombocytopenia -Cardiology on board and is planning for heart cath tomorrow -We will try some morphine for her pain -She is planning on having her aortic stenosis repaired in few months -Continue statin and fenofibrate -Continue with metoprolol, hold her Lasix and hold her isosorbide secondary to her nitro drip 2. 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 USMAN resolved DVT: SCDs Charges/Coding Visit Charges Inpatient E&M: 71395 Subs Hosp L2
[2021-05-13] MEDS: Tolterodine Tartrate 4 MG CAP.SA PO (10:12)
[2021-05-13] MEDS: Fenofibrate 48 MG Tablet PO (10:12)
[2021-05-13 11:46] LABS: Bedside Glucose 104 mg/dL (70-110)
--- NOTE | 2021-05-13 11:56 | PCM.CONS.C ---
Assessment & Plan Assessment/Plan (1) Acute dht-YH-ttguemrow myocardial infarction: PLAN: 80-year-old patient presented with symptoms of chest pain no symptoms of dizziness lightheadedness or syncope and no symptoms of palpitation or shortness of breath. The chest pain was described as a retrosternal with radiation to the back and to the left arm and also she had discomfort in the left jaw and she mention painful teeth Patient known to have [place] and been seen and followed by her primary automotive specialty technician Dr. De Oliveira In November this year she has the symptoms of chest pain which on this admission get worse and she has significant change in the EKG Also patient had history of valvular heart disease aortic stenosis, mitral and tricuspid regurgitation and was a scheduled to undergo cardiac catheterization however that was not possible due to her low platelet count and being on hydroxyurea for a diagnosis of myeloproliferative diseases/CML by the oncologist which she regular follow-up at [facility]/has been evaluated by bone marrow biopsy She has worsening of her platelet count from 39-33 and also anemia with a hemoglobin of 7.1 requiring blood transfusion I did discuss with the oncologist and will hold aspirin and heparin for now. Then we will follow with repeat CBC and discuss further plan possible cardiac catheterization and repeat echocardiogram to reevaluate her LV function as she has significant elevation of high sensitive troponin with significant change in the EKG and clinical diagnosis of non-ST elevation PR Recommendation plan; 1. We will continue beta-flavio, nitro IV and morphine, statin and also discussed to hold the hydroxyurea with oncologist 2. Due to severe thrombocytopenia and anemia hold on aspirin and heparin No. 3. Primary automotive specialty technician Dr. De Oliveira will resume care and discuss further plan. (2) Thrombocytopenia: (3) Myeloproliferative neoplasm: (4) Nonrheumatic aortic (valve) stenosis: (5) Nonrheumatic mitral (valve) insufficiency: (6) Non-rheumatic tricuspid valve insufficiency: (7) RBBB (right bundle branch block): HPI Consult Data Date of Consult: 05/13/21 HPI Narrative Reason for Consultation: Patient with CML, chest pain with non-STEMI HPI Narrative: EDWARD ELIAS, is a 80 F who presents [facility] Medical History (Updated 05/13/21 @ 01:[address] Clarissa Vidales MD) Aortic stenosis Essential hypertension History of COVID-19 Neuropathy Non-rheumatic tricuspid valve insufficiency Nonrheumatic aortic (valve) stenosis Nonrheumatic mitral (valve) insufficiency Other petroleum terminal plant operator (current) drug therapy Pure hypercholesterolemia RBBB (right bundle branch block) Home Medications multivitamin,au-doyf-edkvaimm 1 tab PO QDAY 11/18/17 [History Last Taken Unknown] tolterodine 2 mg tablet 4 mg PO DAILY tab 06/04/19 [History Last Taken Unknown] atorvastatin 10 mg tablet 10 mg PO QDAY #90 tab 08/31/20 [Rx Last Taken Unknown] fenofibrate nanocrystallized 48 mg tablet 48 mg PO QDAY #90 tab 08/31/20 [Rx Last Taken Unknown] magnesium 250 mg tablet 250 mg PO DAILY 08/31/20 [History Last Taken Unknown] zinc 50 mg tablet 50 mg PO DAILY 08/31/20 [History Last Taken Unknown] lisinopril 20 mg tablet 20 mg PO BID #180 tab 12/04/20 [Rx Last Taken Unknown] furosemide 20 mg tablet 20 mg PO DAILY #30 tab 12/13/20 [Rx Last Taken Unknown] ferrous sulfate 325 mg PO DAILY 01/09/21 [History Last Taken Unknown] potassium chloride 20 meq PO DAILY 01/09/21 [History Last Taken Unknown] acetaminophen 650 mg PO Q6H PRN PRN tab 01/22/21 [Rx Last Taken Unknown] allopurinol 300 mg PO DAILY 30 Days #30 tablet 03/12/21 [Rx Last Taken Unknown] metoprolol tartrate 25 mg tablet 25 mg PO BID #180 tab 04/17/21 [Rx Last Taken Unknown] hydroxyurea 500 mg capsule 1,000 mg PO DAILY #60 cap 05/07/21 [Rx Last Taken Unknown] isosorbide mononitrate 90 mg PO DAILY 05/12/21 [History Last Taken Unknown] Allergy/AdvReac Type Severity Reaction Status Date / Time codeine Allergy Intermediate Swelling Verified 05/13/21 00:36 amoxicillin [From Augmentin] Allergy Mild Itching Verified 05/13/21 00:36 clavulanic acid Allergy Mild Itching Verified 05/13/21 00:36 [From Augmentin] niacin Allergy Mild Itching Verified 05/13/21 00:36 [From Niaspan Extended-Release] Family History Mother CHF (congestive heart failure) Brother CAD (coronary artery disease) Sister CHF (congestive heart failure) Son Cardiac pacemaker in situ WPW (Yhtws-Mwjylizct-Iuwqq syndrome) Father No problems noted. Surgical History (Updated 05/13/21 @ 00:32 by Erica Meyer) H/O meniscectomy of right knee History of appendectomy History of medial meniscus repair of left knee History of partial knee replacement History of synovectomy History of total hysterectomy History of tubal ligation Social History Smoking Status: Former smoker alcohol intake: never substance use type: does not use diet: low carbohydrate caffeine: Yes Type: coffee Number of servings: 2 what type of physical activity do you participate in: none seatbelt use: always do you feel safe at home: Yes Physical Exam Narrative This patient seen and evaluated today at bedside along with the nursing staff She was sitting out in a chair her symptoms of chest pain resolved on the current treatment with IV nitro and morphine. The monitor tech showed normal sinus and she been stable hemodynamically Card examination S1-S2 regular Ejection systolic murmur noted in the aortic area Chest examination clear to auscultation Examination of extremity no clubbing no cyanosis of lower extremity noted Objective Data Vital Signs: Vital Signs Temp Pulse Resp BP Pulse Ox 97 F L 77 20 H 142/68 H 100 05/13/21 08:00 05/13/21 11:00 05/13/21 11:00 05/13/21 11:00 05/13/21 11:00 Oxygen Flow Rate (L/min) 2 Oxygen Delivery Method Nasal Cannula Weight: 182 lb 5.156 oz Body Mass Index (BMI) 33.3 Intake & Output: Intake and Output for Last 24 Hours 05/11/21 05/12/21 05/13/21 23:59 23:59 23:59 Intake Total 249.90 / 249.90 Balance 249.90 / 249.90 Lab / Micro Data Result Diagrams: 05/13/21 03:55 05/13/21 03:55 Labs: Laboratory Results - last 24 hr 05/12/21 05/12/21 05/12/21 21:35 21:35 21:35 WBC 16.9 H RBC 2.31 L Hgb 8.5 L Hct 25.5 L MCV 110.4 H MCH 36.8 H MCHC 33.3 RDW Std Deviation TNP RDW Coeff of Aubrey TNP Plt Count 39 L* MPV 9.5 Neut % (Auto) Not Reportable Absolute Neuts (auto) 13.8 H Absolute Lymphs (auto) 1.52 Total Counted 100 Neutrophils % (Manual) 69 Band Neutrophils % 13 H Lymphocytes % (Manual) 9 L Monocytes % (Manual) 4 Metamyelocytes % 2 H Myelocytes % 2 H Promyelocytes % Blast Cells % 1 H* Diff Path Review May foll Platelet Estimate MKD DEC RBC Morphology N CHROM Polychromasia Anisocytosis 1+ Macrocytosis 1+ Ovalocytes RARE PT INR D-Dimer Quant (PE/DVT) Sodium Potassium Chloride Carbon Dioxide Anion Gap BUN Creatinine Estim Creat Clear Calc Est GFR (MDRD) Af Amer Est GFR (MDRD) Non-Af BUN/Creatinine Ratio Glucose Hemoglobin A1c 5.9 H Calcium Troponin I High Sens POC Glucose Blood Type A NEGATIVE Antibody Screen NEGATIVE Crossmatch See Detail 05/12/21 05/12/21 05/13/21 21:46 21:46 00:02 WBC RBC Hgb Hct MCV MCH MCHC RDW Std Deviation RDW Coeff of Aubrey Plt Count MPV Neut % (Auto) Absolute Neuts (auto) Absolute Lymphs (auto) Total Counted Neutrophils % (Manual) Band Neutrophils % Lymphocytes % (Manual) Monocytes % (Manual) Metamyelocytes % Myelocytes % Promyelocytes % Blast Cells % Diff Path Review Platelet Estimate RBC Morphology Polychromasia Anisocytosis Macrocytosis Ovalocytes PT INR D-Dimer Quant (PE/DVT) 0.69 H* Sodium 142 Potassium 4.0 Chloride 109 H Carbon Dioxide 25.0 Anion Gap 8 BUN 30 H Creatinine 1.33 H Estim Creat Clear Calc 25.79 Est GFR (MDRD) Af Amer 49 L Est GFR (MDRD) Non-Af 41 L BUN/Creatinine Ratio 22.6 H Glucose 222 H Hemoglobin A1c Calcium 8.6 Troponin I High Sens 23.0 111.7 H* POC Glucose Blood Type Antibody Screen Crossmatch 05/13/21 05/13/21 05/13/21 03:55 03:55 03:55 WBC 15.7 H RBC 2.00 L Hgb 7.3 L Hct 22.5 L MCV 112.5 H MCH 36.5 H MCHC 32.4 RDW Std Deviation TNP RDW Coeff of Aubrey TNP Plt Count 33 L* MPV 10.1 Neut % (Auto) Not Reportable Absolute Neuts (auto) 11.3 H Absolute Lymphs (auto) 2.36 Total Counted Neutrophils % (Manual) 68 Band Neutrophils % 4 Lymphocytes % (Manual) 15 L Monocytes % (Manual) 2 Metamyelocytes % Myelocytes % 7 H Promyelocytes % 3 H Blast Cells % 1 H* Diff Path Review May foll Platelet Estimate MKD DEC RBC Morphology NORM C+C Polychromasia 1+ Anisocytosis 2+ Macrocytosis Ovalocytes PT 12.6 INR 1.0 D-Dimer Quant (PE/DVT) Sodium 144 Potassium 4.8 Chloride 112 H Carbon Dioxide 29.0 Anion Gap 3 L BUN 28 H Creatinine 1.00 Estim Creat Clear Calc 34.30 Est GFR (MDRD) Af Amer 68 Est GFR (MDRD) Non-Af 56 L BUN/Creatinine Ratio 28.0 H Glucose 123 H Hemoglobin A1c Calcium 8.2 L Troponin I High Sens POC Glucose Blood Type Antibody Screen Crossmatch 05/13/21 05/13/21 05/13/21 03:55 06:34 11:42 WBC RBC Hgb Hct MCV MCH MCHC RDW Std Deviation RDW Coeff of Aubrey Plt Count MPV Neut % (Auto) Absolute Neuts (auto) Absolute Lymphs (auto) Total Counted Neutrophils % (Manual) Band Neutrophils % Lymphocytes % (Manual) Monocytes % (Manual) Metamyelocytes % Myelocytes % Promyelocytes % Blast Cells % Diff Path Review Platelet Estimate RBC Morphology Polychromasia Anisocytosis Macrocytosis Ovalocytes PT INR D-Dimer Quant (PE/DVT) Sodium Potassium Chloride Carbon Dioxide Anion Gap BUN Creatinine Estim Creat Clear Calc Est GFR (MDRD) Af Amer Est GFR (MDRD) Non-Af BUN/Creatinine Ratio Glucose Hemoglobin A1c Calcium Troponin I High Sens 403.2 H* POC Glucose 126 H 104 Blood Type Antibody Screen Crossmatch Cardiology Labs/Tests 05/12/21 21:35: WBC 16.9 H, RBC 2.31 L, Hgb 8.5 L, Hct 25.5 L, MCV 110.4 H, MCH 36.8 H, MCHC 33.3, Plt Count 39 L*, MPV 9.5, Neut % (Auto) Not Reportable, Absolute Neuts (auto) 13.8 H, Total Counted 100, Neutrophils % (Manual) 69, Band Neutrophils % 13 H, Lymphocytes % (Manual) 9 L, Monocytes % (Manual) 4, Metamyelocytes % 2 H, Myelocytes % 2 H, Blast Cells % 1 H* 05/12/21 21:35: Hemoglobin A1c 5.9 H 05/12/21 21:46: D-Dimer Quant (PE/DVT) 0.69 H* 05/12/21 21:46: Sodium 142, Potassium 4.0, Chloride 109 H, Carbon Dioxide 25.0, Anion Gap 8, BUN 30 H, Creatinine 1.33 H, Est GFR (MDRD) Af Amer 49 L, Est GFR (MDRD) Non-Af 41 L, BUN/Creatinine Ratio 22.6 H, Glucose 222 H, Calcium 8.6 05/13/21 03:55: WBC 15.7 H, RBC 2.00 L, Hgb 7.3 L, Hct 22.5 L, MCV 112.5 H, MCH 36.5 H, MCHC 32.4, Plt Count 33 L*, MPV 10.1, Neut % (Auto) Not Reportable, Absolute Neuts (auto) 11.3 H, Neutrophils % (Manual) 68, Band Neutrophils % 4, Lymphocytes % (Manual) 15 L, Monocytes % (Manual) 2, Myelocytes % 7 H, Promyelocytes % 3 H, Blast Cells % 1 H* 05/13/21 03:55: PT 12.6, INR 1.0 05/13/21 03:55: Sodium 144, Potassium 4.8, Chloride 112 H, Carbon Dioxide 29.0, Anion Gap 3 L, BUN 28 H, Creatinine 1.00, Est GFR (MDRD) Af Amer 68, Est GFR (MDRD) Non-Af 56 L, BUN/Creatinine Ratio 28.0 H, Glucose 123 H, Calcium 8.2 L Rhythm: Normal sinus EKG: Abnormal with ST depression, in anterior leads Radiography Diagnostic Testing: Radiology Impression Chest X-Ray 05/12/21 21:43 IMPRESSION: No acute radiographic abnormalities. Electronically Signed: Jeromy Veras MD at 22:07 EDT Tel , Service support ,
[2021-05-13] MEDS: Ferrous Sulfate 325 MG Tablet PO (12:20)
[2021-05-13] MEDS: Furosemide 40 MG/4 ML Vial IV (14:37)
[2021-05-13 17:05] LABS: Bedside Glucose 113 mg/dL (70-110)
[2021-05-13 21:05] LABS: Bedside Glucose 146 mg/dL (70-110)
[2021-05-14] VITALS (33 sets, daily range): BP systolic 106–171; BP diastolic 45–88; PULSE 57–88; RESP 16–23; TEMP 36–36.7; O2SAT 92–100
--- NOTE | 2021-05-14 05:00 | EKG12_ITS ---
Test Reason : AM EKG Blood Pressure : / mmHG Vent. Rate : 066 BPM Atrial Rate : 066 BPM P-R Int : 180 ms QRS Dur : 126 ms QT Int : 466 ms P-R-T Axes : 058 103 088 degrees QTc Int : 488 ms Normal sinus rhythm Right bundle branch block T wave abnormality, consider lateral ischemia Abnormal ECG When compared with ECG of 13-MAY-2021 05:47, MANUAL COMPARISON REQUIRED, DATA IS UNCONFIRMED Confirmed by SUSAN POWELL, JL ([id number]), editor magazine KRYSTA QUIROZ ([id number]) on 05/15/2021 9:14:45 AM Referred By: ERICK Confirmed By:JL DAVIS MD
[2021-05-14 06:33] LABS: Hematocrit 30.8 % (37-47); Hemoglobin 9.6 g/dL (12.0-15.0); Mean Corp Hgb Conc 31.2 g/dL (32-36); Mean Corpuscular Hgb 34.2 pg (27.0-32.0); Mean Corpuscular Volume 109.6 fL (81-99); Mean Platelet Vol. 11.2 fl (6.2-12.0); POSITIVE COUNT YES; POSITIVE MORPHOLOGY YES; RBC Distribution Width CV 27.5 % (11.6-14.6); RBC Distribution Width SD 98.1 fl (35.1-43.9); Red Blood Count 2.81 M/mm3 (4.2-5.4); White Blood Count 23.4 K/mm3 (4.4-11.0)
[2021-05-14 06:38] LABS: Differential Indicated MANUAL DIFF; Platelet Count 33 K/mm3 (150-450)
[2021-05-14 06:40] LABS: Bedside Glucose 113 mg/dL (70-110)
[2021-05-14 06:46] LABS: Anion Gap 6 (5-15); BUN 25 mg/dL (7-18); BUN/Creat Ratio 28.6 RATIO (10-20); Calcium,Total 8.6 mg/dL (8.5-10.1); Chloride 109 mmol/L (98-107); Creatinine, Serum 0.88 mg/dL (0.55-1.02); EST Glomerular Filtration Rate 66 mL/min (>60); Est Glom Filt Rate - Afr Amer 79 mL/min (>60); Estimated Creatinine Clearance 38.98 ml/min; Glucose 109 mg/dL (74-106); Potassium 4.7 mmol/L (3.5-5.1); Sodium Level 140 mmol/L (136-145)
[2021-05-14 07:02] LABS: Metamyelocyte 3 % (0-1); Neutrophil-Band 10 % (0-5); Neutrophil-Segmented 75 % (47-70); Total Cells Counted 100 (MANUAL DIFF)
[2021-05-14 07:03] LABS: Absolute Neutrophil Count 19.9 X10^3/uL (2.0-7.7); Lymphocyte 9 % (19-41); Monocyte 2 % (0-10); Myelocyte 1 % (0-0)
[2021-05-14 07:04] LABS: Hypochromasia 2+; Platelet Estimate MKD DEC (ADEQ); Red Cell Morphology N CYTIC NORMAL (NORM C&C)
[2021-05-14] MEDS: Lisinopril 20 MG Tablet PO ×2 (07:33→21:11)
[2021-05-14] MEDS: Metoprolol Tartrate 25 MG Tablet PO ×2 (07:33→21:10)
--- NOTE | 2021-05-14 09:09 | CL.D_ITS ---
Patient Name: EDWARD ELIAS Study Date: 05/14/2021 Performing: Parth De Oliveira MD Ht: 61.81 inches 157 cm : 1940 Wt: 182.98 lbs 83 kg Age: 80 Gender: female BSA: 1.84 PROCEDURE(S) PERFORMED DC11-AO ROOT ANGIO WITH HEART CATH [id number]-[id number] CLINICAL PROFILE AND INDICATIONS Indications: ACS <= 24 hrs, Suspected CAD, Valvular Disease Heart Failure: None Stress/Imaging Stress/Image Study Performed: No Angina Classification Anginal Classification w/in 2 Weeks: CCS IV CAD Presentations: Non-STEMI. CONCLUSIONS Aortic Valve Calcification- Severe Mitral Valve Annular Calcification Severe annular calcification RECOMMENDATIONS Risk factor modification Medical therapy Surgery consult for coronary revascularization Surgery consult for valvular disease DESCRIPTION OF PROCEDURE The patient arrived to the procedure lab. The risks and benefits of the procedure as well as a full d escription of our services here and current unavailability of surgical backup were fully explained to the patient and/or their significant other prior to the catheterization. The Timeout was completed, verifying the correct patient and procedure. The patient's procedural site was prepped and draped in the usual fashion. Local anesthetic was given subcutaneously to right groin region with Lidocaine 2%. Using a modified Seldinger technique, arterial access was obtained via the right femoral artery, a 4 Fr sheath was inserted Left Coronary Artery selective angiography was performed in multiple views us ing a 4 Fr. JL5 catheter. Right Coronary Artery selective angiography was then performed in multiple views using a 4 Fr. 3DRC catheter.The arterial sheath was pulled and manual compression applied until hemostasis is achieved. CORONARY ANGIOGRAPHY DOMINANCE: Right Dominant LEFT HEART ASSESSMENT LEFT MAIN: Angiographically normal LEFT ANTERIOR DESCENDING ARTERY: OSTIAL LAD: 90 % Stenosis PROX LAD: Mild calcification CIRCUMFLEX ARTERY: PROX CIRC: Mild luminal irregularities RIGHT CORONARY ARTERY: MID RCA: Mild calcification VALVE FINDINGS: Aortic Valve Calcification - severe Mitral Valve Annular Calcification Severe AORTIC ROOT: Angiographically normal COMPLICATIONS No Complications PROCEDURE MEDICATIONS Versed 1 mg IV Fentanyl 50 mcg IV Oxygen: 2 L/min via nasal cannula Heparin given IA 05/14/2021 08:27:03 Verapamil 2.5mg, Ntg 100mcgs, 2000 units of Heparin given IA 05/14/2021 08:27:03 SUMMARY OF HEMODYNAMIC DATA Time AIR REST ECG 08:07:15 AO 161/56 (93) SA 08:27:45 AO 159/60 (96) 08:31:27 09:07:03 Signed By Parth De Oliveira MD On 05/14/2021 09:09:04 Parth De Oliveira MD
--- NOTE | 2021-05-14 09:15 | NURSING ---
pt retuned from nursery laborer at this time.
--- NOTE | 2021-05-14 09:33 | CASEMGMT ---
According to the [employer] website, the following are in-network tertiary facilities: [facility], [facility], [facility], and . Anahi SOLIMAN CM
[2021-05-14 10:18] LABS: Hematocrit 29.3 % (37-47); Hemoglobin 9.6 g/dL (12.0-15.0); Mean Corp Hgb Conc 32.8 g/dL (32-36); Mean Corpuscular Hgb 33.7 pg (27.0-32.0); Mean Corpuscular Volume 102.8 fL (81-99); Mean Platelet Vol. 9.7 fl (6.2-12.0); POSITIVE COUNT YES; POSITIVE MORPHOLOGY YES; RBC Distribution Width CV 27.2 % (11.6-14.6); Red Blood Count 2.85 M/mm3 (4.2-5.4); White Blood Count 22.7 K/mm3 (4.4-11.0)
[2021-05-14] MEDS: Fenofibrate 48 MG Tablet PO (10:18)
[2021-05-14] MEDS: Tolterodine Tartrate 4 MG CAP.SA PO (10:18)
[2021-05-14 10:25] LABS: Differential Indicated MANUAL DIFF; Platelet Count 28 K/mm3 (150-450)
[2021-05-14] MEDS: Ferrous Sulfate 325 MG Tablet PO (11:21)
[2021-05-14 11:27] LABS: Anion Gap 8 (5-15); BUN 23 mg/dL (7-18); BUN/Creat Ratio 26.4 RATIO (10-20); Calcium,Total 8.5 mg/dL (8.5-10.1); Chloride 106 mmol/L (98-107); Creatinine, Serum 0.87 mg/dL (0.55-1.02); EST Glomerular Filtration Rate 66 mL/min (>60); Est Glom Filt Rate - Afr Amer 80 mL/min (>60); Estimated Creatinine Clearance 39.43 ml/min; Glucose 109 mg/dL (74-106); Potassium 4.5 mmol/L (3.5-5.1); Sodium Level 139 mmol/L (136-145)
[2021-05-14 11:31] LABS: Bedside Glucose 90 mg/dL (70-110)
[2021-05-14 11:34] LABS: Lymphocyte 16 % (19-41); Metamyelocyte 3 % (0-1); Monocyte 5 % (0-10); Myelocyte 1 % (0-0); Neutrophil-Band 12 % (0-5); Neutrophil-Segmented 63 % (47-70); Total Cells Counted 100 (MANUAL DIFF)
[2021-05-14 11:35] LABS: Anisocytosis 1+; Platelet Estimate MKD DEC (ADEQ); Red Cell Morphology N CHROM NORMAL (NORM C&C)
[2021-05-14 11:38] LABS: Absolute Lymphocyte Count 3.63 X10^3/uL (0.83-4.51)
[2021-05-14 13:38] LABS: Pathologist Review Reviewed
[2021-05-14 13:38] LABS: Pathologist Review Reviewed
--- NOTE | 2021-05-14 16:03 | PN.CARD_ITS ---
Subjective Subjective The patient is status post diagnostic cardiac catheterization. She does not appear to have any acute post procedure related concerns. Objective Data Vital Signs: Vital Signs Temp Pulse Resp BP Pulse Ox 98.1 F 66 23 H 111/58 L 100 05/14/21 12:00 05/14/21 15:16 05/14/21 15:00 05/14/21 15:00 05/14/21 15:00 Oxygen Flow Rate (L/min) 2 Oxygen Delivery Method Room Air Weight: 182 lb 5.156 oz Body Mass Index (BMI) 33.3 Intake & Output: Intake and Output for Last 24 Hours 05/12/21 05/13/21 05/14/21 23:59 23:59 23:59 Intake Total 2379.90 / 2382.90 288 / 288 Output Total 800 / 800 500 / 500 Balance 1579.90 / 1582.90 -212 / -212 Lab / Micro Data Result Diagrams: 05/14/21 09:55 05/14/21 09:55 Labs: Laboratory Results - last 24 hr 05/12/21 05/12/21 05/13/21 21:35 21:35 03:55 WBC RBC Hgb Hct MCV MCH MCHC RDW Std Deviation RDW Coeff of Aubrey Plt Count MPV Neut % (Auto) Absolute Neuts (auto) Absolute Lymphs (auto) Total Counted Neutrophils % (Manual) Band Neutrophils % Lymphocytes % (Manual) Monocytes % (Manual) Metamyelocytes % Myelocytes % Diff Path Review Reviewed Reviewed Platelet Estimate RBC Morphology Hypochromasia Anisocytosis Sodium Potassium Chloride Carbon Dioxide Anion Gap BUN Creatinine Estim Creat Clear Calc Est GFR (MDRD) Af Amer Est GFR (MDRD) Non-Af BUN/Creatinine Ratio Glucose Calcium POC Glucose Crossmatch See Detail 05/13/21 05/13/21 05/14/21 16:49 20:59 05:52 WBC 23.4 H RBC 2.81 L Hgb 9.6 L Hct 30.8 L MCV 109.6 H MCH 34.2 H MCHC 31.2 L RDW Std Deviation 98.1 H RDW Coeff of Aubrey 27.5 H Plt Count 33 L* MPV 11.2 Neut % (Auto) Not Reportable Absolute Neuts (auto) 19.9 H Absolute Lymphs (auto) 2.10 Total Counted 100 Neutrophils % (Manual) 75 H Band Neutrophils % 10 H Lymphocytes % (Manual) 9 L Monocytes % (Manual) 2 Metamyelocytes % 3 H Myelocytes % 1 H Diff Path Review May foll Platelet Estimate MKD DEC RBC Morphology N CYTIC Hypochromasia 2+ Anisocytosis Sodium Potassium Chloride Carbon Dioxide Anion Gap BUN Creatinine Estim Creat Clear Calc Est GFR (MDRD) Af Amer Est GFR (MDRD) Non-Af BUN/Creatinine Ratio Glucose Calcium POC Glucose 113 H 146 H Crossmatch 05/14/21 05/14/21 05/14/21 05:52 06:33 09:55 WBC 22.7 H RBC 2.85 L Hgb 9.6 L Hct 29.3 L MCV 102.8 H D MCH 33.7 H MCHC 32.8 D RDW Std Deviation 90.0 H RDW Coeff of Aubrey 27.2 H Plt Count 28 L* MPV 9.7 Neut % (Auto) Not Reportable Absolute Neuts (auto) 17.0 H Absolute Lymphs (auto) 3.63 Total Counted 100 Neutrophils % (Manual) 63 Band Neutrophils % 12 H Lymphocytes % (Manual) 16 L Monocytes % (Manual) 5 Metamyelocytes % 3 H Myelocytes % 1 H Diff Path Review May foll Platelet Estimate MKD DEC RBC Morphology N CHROM Hypochromasia Anisocytosis 1+ Sodium 140 Potassium 4.7 Chloride 109 H Carbon Dioxide 25.0 Anion Gap 6 BUN 25 H Creatinine 0.88 Estim Creat Clear Calc 38.98 Est GFR (MDRD) Af Amer 79 Est GFR (MDRD) Non-Af 66 BUN/Creatinine Ratio 28.6 H Glucose 109 H Calcium 8.6 POC Glucose 113 H Crossmatch 05/14/21 05/14/21 09:55 11:19 WBC RBC Hgb Hct MCV MCH MCHC RDW Std Deviation RDW Coeff of Aubrey Plt Count MPV Neut % (Auto) Absolute Neuts (auto) Absolute Lymphs (auto) Total Counted Neutrophils % (Manual) Band Neutrophils % Lymphocytes % (Manual) Monocytes % (Manual) Metamyelocytes % Myelocytes % Diff Path Review Platelet Estimate RBC Morphology Hypochromasia Anisocytosis Sodium 139 Potassium 4.5 Chloride 106 Carbon Dioxide 25.0 Anion Gap 8 BUN 23 H Creatinine 0.87 Estim Creat Clear Calc 39.43 Est GFR (MDRD) Af Amer 80 Est GFR (MDRD) Non-Af 66 BUN/Creatinine Ratio 26.4 H Glucose 109 H Calcium 8.5 POC Glucose 90 Crossmatch Cardiology Labs/Tests 05/14/21 05:52: WBC 23.4 H, RBC 2.81 L, Hgb 9.6 L, Hct 30.8 L, MCV 109.6 H, MCH 34.2 H, MCHC 31.2 L, Plt Count 33 L*, MPV 11.2, Neut % (Auto) Not Reportable, Absolute Neuts (auto) 19.9 H, Total Counted 100, Neutrophils % (Manual) 75 H, Band Neutrophils % 10 H, Lymphocytes % (Manual) 9 L, Monocytes % (Manual) 2, Metamyelocytes % 3 H, Myelocytes % 1 H 05/14/21 05:52: Sodium 140, Potassium 4.7, Chloride 109 H, Carbon Dioxide 25.0, Anion Gap 6, BUN 25 H, Creatinine 0.88, Est GFR (MDRD) Af Amer 79, Est GFR (MDRD) Non-Af 66, BUN/Creatinine Ratio 28.6 H, Glucose 109 H, Calcium 8.6 05/14/21 09:55: WBC 22.7 H, RBC 2.85 L, Hgb 9.6 L, Hct 29.3 L, MCV 102.8 H D, MCH 33.7 H, MCHC 32.8 D, Plt Count 28 L*, MPV 9.7, Neut % (Auto) Not Reportab le, Absolute Neuts (auto) 17.0 H, Total Counted 100, Neutrophils % (Manual) 63, Band Neutrophils % 12 H, Lymphocytes % (Manual) 16 L, Monocytes % (Manual) 5, Metamyelocytes % 3 H, Myelocytes % 1 H 05/14/21 09:55: Sodium 139, Potassium 4.5, Chloride 106, Carbon Dioxide 25.0, Anion Gap 8, BUN 23 H, Creatinine 0.87, Est GFR (MDRD) Af Amer 80, Est GFR (MDRD) Non-Af 66, BUN/Creatinine Ratio 26.4 H, Glucose 109 H, Calcium 8.5 Rhythm: Sinus rhythm Cardiac Cath: CONCLUSIONS Aortic Valve Calcification- Severe Mitral Valve Annular Calcification Severe annular calcification RECOMMENDATIONS Risk factor modification Medical therapy Surgery consult for coronary revascularization Surgery consult for valvular disease DESCRIPTION OF PROCEDURE The patient arrived to the procedure lab. The risks and benefits of the procedure as well as a full description of our services here and current unavailability of surgical backup were fully explained to the patient and/or their significant other prior to the catheterization. The Timeout was completed, verifying the correct patient and procedure. The patient's procedural site was prepped and draped in the usual fashion. Local anesthetic was given subcutaneously to right groin region with Lidocaine 2%. Using a modified Seldinger technique, arterial access was obtained via the right femoral artery, a 4Fr sheath was inserted Left Coronary Artery selective angiography was performed in multiple views using a 4 Fr. JL5 catheter. Right Coronary Artery selective angiography was then performed in multiple views using a 4 Fr. 3DRC catheter.The arterial sheath was pulled and manual compression applied until hemostasis is achieved. CORONARY ANGIOGRAPHY DOMINANCE: Right Dominant LEFT HEART ASSESSMENT LEFT MAIN: Angiographically normal LEFT ANTERIOR DESCENDING ARTERY: OSTIAL LAD: 90 % Stenosis PROX LAD: Mild calcification CIRCUMFLEX ARTERY: PROX CIRC: Mild luminal irregularities RIGHT CORONARY ARTERY: MID RCA: Mild calcification VALVE FINDINGS: Aortic Valve Calcification - severe Mitral Valve Annular Calcification Severe AORTIC ROOT: Angiographically normal Physical Exam Const alert, oriented x3, no apparent distress and healthy appearing Orientation / Consciousness: awake HEENT normocephalic, head/scalp atraumatic and hearing grossly normal bilaterally Eyes PERRL and EOMs intact bilaterally Neck full ROM, supple and no JVD Chest inspection of chest normal Resp normal respiratory effort and clear to auscultation bilaterally Cardio regular rate and S1 normal heart sound Heart Sounds: other Other Details: Diminished S2/A2 Peripheral Pulses: femoral pulses present right 2+ GI normal to inspection, nondistended, normoactive bowel sounds Extremity no pedal edema Peripheral Pulses: Yes femoral pulses present right 2+ Skin no rashes or lesions noted Psych mental status grossly normal Assessment & Plan Assessment/Plan (1) Nonrheumatic aortic (valve) stenosis: PLAN: The patient does have by transthoracic echocardiogram findings compatible severe aortic valve stenosis. Based upon cardiac catheterization she does appear to have the appearance of severe calcification in the area of the aortic valve. At the present time the thought would be that she does need to be evaluated at a tertiary care center for her aortic valve disease as to whether or not she is a candidate for aortic valve replacement either percutaneously or surgically. (2) CAD (coronary artery disease): QUALIFIERS: Associated angina: with unstable angina Coronary Disease-Associated Artery/Lesion type: [place] artery [place] vs. transplanted heart: [place] heart Qualified Code(s): I25.110 - Atherosclerotic heart disease of [place] coronary artery with unstable angina pectoris PLAN: The patient has undergone further evaluation with diagnostic cardiac catheterization. She was found to have an ostial LAD lesion. This was reviewed by interventional cardiology. The recommendation was for CT surgery consultation prior to proceeding with any form of catheter-based revascularization procedure based upon the location of the patient's lesion, her aortic valve disease, as well as her underlying hematologic issues. (3) Acute doa-RV-dtpydyldg myocardial infarction: PLAN: The patient presented with findings compatible with an acute non-ST segment elevation NE. This may be a type II event secondary to the patient's underlying marked anemia superimposed upon the findings of her underlying CAD and her aortic valve disease. She will need to continue medical therapy as best as possible. (4) Pure hypercholesterolemia: PLAN: The patient should continue evaluation care of her lipids as best as possible. (5) Essential hypertension: PLAN: The patient's blood pressure will need to be followed and her medications adjusted accordingly. 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 She did receive 2 units of PRBC which increased her H&H. Of note her symptoms subsequently improved as well. At the present time her laboratory studies will need to be followed. It appears that the patient does need to keep her H&H elevated to minimize any adverse cardiovascular events. (7) Thrombocytopenia: PLAN: The patient does have thrombocytopenia. This does present an issue with respect ongoing evaluation and care from a cardiac standpoint with antiplatelet agents and/or anticoagulants. Addt'l Comments The patient's case has been previously discussed with the patient's oncologist Dr. Cazares. Based upon his evaluation he thought the patient could proceed with further cardiac evaluation and care as needed as long as her hemoglobin level remained above 8 and her platelet count remained above 30,000. It appears this has been challenging for the patient to keep her hemoglobin level above 8 without PRBC transfusions and her platelet count level has waxed and waned below and above 30,000. At the present time the recommendation is to continue to follow the patient and treat her medically as best as possible noting her current platelet level and the need to temporarily hold on additional antiplatelet/anticoagulant therapy. The plan is for the patient to be transferred to [facility] for further evaluation and care from both noncardiac and cardiac standpoint. The aforementioned information was communicated to Dr. Loera of the [facility] staff. She agreed to initiate transfer to [facility] for further general medical/cardiovascular evaluation and care. This note was generated using a voice recognition system and there may be incorrect words, spelling or punctuation that were not noted when reviewing the office note prior to saving.
--- NOTE | 2021-05-14 16:41 | DS.PCM_ITS ---
Providers Date of Admission: 05/12/21 Primary Care Physician: Dr. Yesica Olsen MD Consultations 05/13/21 00:17 Consult: Cardiology Routine Consulting Provider: Santana Weir Reason for Consult: Chest pain EMERGENT Consult: No MD Notified: Yes Date Notified: 05/12/21 Time Notified: 23:54 Method of Notification: Text Comments:: Notified by ER physician 05/13/21 07:08 Consult: Oncology/Hematology Routine Consulting Provider: Santana Weir Reason for Consult: low plt EMERGENT Consult: Yes MD Notified: Yes Date Notified: 05/13/21 Time Notified: 07:08 Method of Notification: Page Method of Consult:: In-Person Reason For Visit: CHEST PAIN, ANGINA PECTORIS Diagnosis Discharge Diagnosis (1) Nonrheumatic aortic (valve) stenosis: Status: Chronic Code(s): I35.0 - Nonrheumatic aortic (valve) stenosis (2) CAD (coronary artery disease): Status: Acute Code(s): I25.10 - Atherosclerotic heart disease of [place] coronary artery without angina pectoris Qualifiers: Coronary Disease-Associated Artery/Lesion type: [place] artery [place] vs. transplanted heart: [place] heart Associated angina: with unstable angina Qualified Code(s): I25.110 - Atherosclerotic heart disease of [place] coronary artery with unstable angina pectoris (3) Acute cmx-IK-tccrsdcmt myocardial infarction: Status: Acute Code(s): I21.4 - Non-ST elevation (NSTEMI) myocardial infarction (4) Pure hypercholesterolemia: Status: Chronic Code(s): E78.00 - Pure hypercholesterolemia, unspecified (5) Essential hypertension: Status: Chronic Code(s): I10 - Essential (primary) hypertension (6) Anemia: Status: Chronic Code(s): D64.9 - Anemia, unspecified Qualifiers: Anemia type: bone marrow failure Bone marrow failure anemia type: other bone marrow failure Qualified Code(s): D61.89 - Other specified aplastic anemias and other bone marrow failure syndromes (7) Thrombocytopenia: Status: Chronic Code(s): D69.6 - Thrombocytopenia, unspecified Medications at Discharge Home Medications multivitamin,vr-emkg-[id number] 1 tab PO QDAY 11/18/17 tolterodine 2 mg tablet 4 mg PO DAILY tab 06/04/19 atorvastatin 10 mg tablet 10 mg PO QDAY #90 tab 08/31/20 fenofibrate nanocrystallized 48 mg tablet 48 mg PO QDAY #90 tab 08/31/20 magnesium 250 mg tablet 250 mg PO DAILY 08/31/20 zinc 50 mg tablet 50 mg PO DAILY 08/31/20 lisinopril 20 mg tablet 20 mg PO BID #180 tab 12/04/20 furosemide 20 mg tablet 20 mg PO DAILY #30 tab 12/13/20 ferrous sulfate 325 mg PO DAILY 01/09/21 potassium chloride 20 meq PO DAILY 01/09/21 acetaminophen 650 mg PO Q6H PRN PRN tab 01/22/21 allopurinol 300 mg PO DAILY 30 Days #30 tablet 03/12/21 metoprolol tartrate 25 mg tablet 25 mg PO BID #180 tab 04/17/21 hydroxyurea 500 mg capsule 1,000 mg PO DAILY #60 cap 05/07/21 isosorbide mononitrate 90 mg PO DAILY 05/12/21 Hospital Course Operations None Procedures Cardiac catheterization Summary of Care Provided Minutes Spent on Discharge: 40 Hospital Course: Patient is an 80-year-old female with an extensive past medical history as outlined who was admitted via the ED on 05/12/2021 with a complaint of chest pain which started when she was about to go to bed on the day of admission. It radiated between his shoulder blades and was stabbing with us to shortness of breath and aggravated by walking, with no relieving factors. She has been having intermittent chest pain on outpatient basis and was supposed to have cardiac cath on outpatient basis but was found to have severe leukocytosis and anemia and was referred to oncology. 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 On admission, she had diffuse T wave inversion and ST segment depression in leads V3 4 5 and [address] elevation. Troponin was negative. Cardiology was consulted and she had a cardiac cath on 05/04/2021 which showed severe aortic valve calcification and severe mitral valve annular calcification as well as 99% blockage of the ostial LAD. Cardiology therefore determined patient will benefit from cardiothoracic surgery evaluation and patient was therefore transferred to [facility] on 05/14/2021. She is follow-up with her primary care doctor as scheduled after she is discharged from [facility]. 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 Patient was seen and examined prior to transfer and had no complaints. Son was by her bedside. Review of systems otherwise negative. Labs and vitals reviewed. Home medication reviewed and reconciled. Physical Exam Const alert, oriented x3, no apparent distress and no limitations General Appearance: cooperative, comfortable and well kempt Orientation / Consciousness: awake Exam Limitations: no limitations HEENT normocephalic, head/scalp atraumatic, external ears normal, external nose normal and moist oral mucous membranes Eyes PERRL, EOMs intact bilaterally, conjunctivae normal and no scleral icterus General Eye: normal appearance of both eyes Neck no lymphadenopathy, supple, no meningeal signs, no JVD and no carotid bruits Lymph Lymphatic: no lymphadenopathy noted Resp normal respiratory effort, normal air movement, no retractions, no use of accessory muscles and clear to auscultation bilaterally Resp Narrative: Diminished breath sounds bilateral, otherwise clear. Auscultation: Negative for crackles, rales, rhonchi or wheezes Cardio regular rate, regular rhythm, S1 normal heart sound and S2 normal heart sound Cardio Narrative: Systolic murmur. Heart Sounds: murmur GI normal to inspection, nondistended, normoactive bowel sounds, soft to palpation, non-tender and non-distended; Negative for hepatosplenomegaly Extremity normal to inspection, full ROM and no clubbing, cyanosis or edema Extremity Narrative: Nonpitting edema, no clubbing or cyanosis. Skin no rashes or lesions noted, no wounds and no petechiae Neuro oriented x3, CN's II-XII intact bilaterally, moves all extremities and no focal motor deficits Sensorium / Orientation: awake and alert Speech: speech normal Motor Exam: strength 5/5 throughout Psych mental status grossly normal and affect normal Appearance: appropriate and well kempt Weight / BMI Weight Weight: 182 lb 5.156 oz Body Mass Index (BMI) 33.3 ABG / Lab / Microbiology Data Result Diagrams: 05/14/21 09:55 05/14/21 09:55 Laboratory: Laboratory Results - last 24 hr 05/12/21 05/12/21 05/13/21 21:35 21:35 03:55 WBC RBC Hgb Hct MCV MCH MCHC RDW Std Deviation RDW Coeff of Aubrey Plt Count MPV Neut % (Auto) Absolute Neuts (auto) Absolute Lymphs (auto) Total Counted Neutrophils % (Manual) Band Neutrophils % Lymphocytes % (Manual) Monocytes % (Manual) Metamyelocytes % Myelocytes % Diff Path Review Reviewed Reviewed Platelet Estimate RBC Morphology Hypochromasia Anisocytosis Sodium Potassium Chloride Carbon Dioxide Anion Gap BUN Creatinine Estim Creat Clear Calc Est GFR (MDRD) Af Amer Est GFR (MDRD) Non-Af BUN/Creatinine Ratio Glucose Calcium POC Glucose Crossmatch See Detail 05/13/21 05/13/21 05/14/21 16:49 20:59 05:52 WBC 23.4 H RBC 2.81 L Hgb 9.6 L Hct 30.8 L MCV 109.6 H MCH 34.2 H MCHC 31.2 L RDW Std Deviation 98.1 H RDW Coeff of Aubrey 27.5 H Plt Count 33 L* MPV 11.2 Neut % (Auto) Not Reportable Absolute Neuts (auto) 19.9 H Absolute Lymphs (auto) 2.10 Total Counted 100 Neutrophils % (Manual) 75 H Band Neutrophils % 10 H Lymphocytes % (Manual) 9 L Monocytes % (Manual) 2 Metamyelocytes % 3 H Myelocytes % 1 H Diff Path Review May foll Platelet Estimate MKD DEC RBC Morphology N CYTIC Hypochromasia 2+ Anisocytosis Sodium Potassium Chloride Carbon Dioxide Anion Gap BUN Creatinine Estim Creat Clear Calc Est GFR (MDRD) Af Amer Est GFR (MDRD) Non-Af BUN/Creatinine Ratio Glucose Calcium POC Glucose 113 H 146 H Crossmatch 05/14/21 05/14/21 05/14/21 05:52 06:33 09:55 WBC 22.7 H RBC 2.85 L Hgb 9.6 L Hct 29.3 L MCV 102.8 H D MCH 33.7 H MCHC 32.8 D RDW Std Deviation 90.0 H RDW Coeff of Aubrey 27.2 H Plt Count 28 L* MPV 9.7 Neut % (Auto) Not Reportable Absolute Neuts (auto) 17.0 H Absolute Lymphs (auto) 3.63 Total Counted 100 Neutrophils % (Manual) 63 Band Neutrophils % 12 H Lymphocytes % (Manual) 16 L Monocytes % (Manual) 5 Metamyelocytes % 3 H Myelocytes % 1 H Diff Path Review May foll Platelet Estimate MKD DEC RBC Morphology N CHROM Hypochromasia Anisocytosis 1+ Sodium 140 Potassium 4.7 Chloride 109 H Carbon Dioxide 25.0 Anion Gap 6 BUN 25 H Creatinine 0.88 Estim Creat Clear Calc 38.98 Est GFR (MDRD) Af Amer 79 Est GFR (MDRD) Non-Af 66 BUN/Creatinine Ratio 28.6 H Glucose 109 H Calcium 8.6 POC Glucose 113 H Crossmatch 05/14/21 05/14/21 09:55 11:19 WBC RBC Hgb Hct MCV MCH MCHC RDW Std Deviation RDW Coeff of Aubrey Plt Count MPV Neut % (Auto) Absolute Neuts (auto) Absolute Lymphs (auto) Total Counted Neutrophils % (Manual) Band Neutrophils % Lymphocytes % (Manual) Monocytes % (Manual) Metamyelocytes % Myelocytes % Diff Path Review Platelet Estimate RBC Morphology Hypochromasia Anisocytosis Sodium 139 Potassium 4.5 Chloride 106 Carbon Dioxide 25.0 Anion Gap 8 BUN 23 H Creatinine 0.87 Estim Creat Clear Calc 39.43 Est GFR (MDRD) Af Amer 80 Est GFR (MDRD) Non-Af 66 BUN/Creatinine Ratio 26.4 H Glucose 109 H Calcium 8.5 POC Glucose 90 Crossmatch D/C Instructions Discharge Diet: 2000 mg Sodium Diet Discharge Activity: Return to Normal Activity Meaningful Use Info Meaningful Use Diagnoses (Choose all that apply): None applicable Discharge Plan Admission Admit Date/Time: 05/12/21 23:57 Primary Reason for Your Visit: chest pain Attending Provider: Tequila Loera Primary Care Provider: Yesica Olsen Consulting Providers: Santana Weir Instructions Patient Instructions: ED Chest Pain, Noncardiac Discharge Orders/Prescriptions Prescriptions: No Action multivitamin,oq-rdgc-ghcchkdb tablet tablet 1 tab PO QDAY RF: 0 tolterodine [Detrol] 2 mg tablet 4 mg PO DAILY RF: 0 zinc 50 mg tablet 50 mg PO DAILY RF: 0 magnesium 250 mg tablet 250 mg PO DAILY RF: 0 lisinopril 20 mg tablet 20 mg PO BID Qty: 180 RF: 3 potassium chloride 20 MEQ tablet extended release 20 meq PO DAILY RF: 0 ferrous sulfate 325 MG tablet 325 mg PO DAILY RF: 0 allopurinol 300 MG tablet 300 mg PO DAILY 30 Days Qty: 30 RF: 1 acetaminophen 325 MG tablet 650 mg PO Q6H PRN PRN (Reason: Pain Score 1-10/Temp > 100.7 F) RF: 0 isosorbide mononitrate 60 mg tablet extended release 24 hr 90 mg PO DAILY RF: 0 fenofibrate nanocrystallized [Tricor] 48 mg tablet 48 mg PO QDAY Qty: 90 RF: 3 atorvastatin 10 mg tablet 10 mg PO QDAY Qty: 90 RF: 3 furosemide 20 mg tablet 20 mg PO DAILY Qty: 30 RF: 11 metoprolol tartrate 25 mg tablet 25 mg PO BID Qty: 180 RF: 3 hydroxyurea [Hydrea] 500 mg capsule 1,000 mg PO DAILY Qty: 60 RF: 3 Referrals / Follow Up: Yesica Olsen MD [Primary Care Provider] - (after discharge from [facility]) Disposition Disposition (needs filled in before D/C Order can be placed): Acute Care Hospital Charges/Coding Visit Charges Inpatient E&M: 36617 Disch Hosp
[2021-05-14] MEDS: Atorvastatin Calcium 40 MG Tablet PO (21:10)
[2021-05-15] VITALS (18 sets, daily range): BP systolic 118–164; BP diastolic 49–113; PULSE 58–72; RESP 15–26; TEMP 36.6–36.7; O2SAT 92–99
[2021-05-15 05:59] LABS: Hematocrit 28.5 % (37-47); Hemoglobin 9.4 g/dL (12.0-15.0); Mean Corpuscular Hgb 34.3 pg (27.0-32.0); Mean Platelet Vol. 10.2 fl (6.2-12.0); POSITIVE COUNT YES; POSITIVE MORPHOLOGY YES; RBC Distribution Width SD 91.5 fl (35.1-43.9); Red Blood Count 2.74 M/mm3 (4.2-5.4); White Blood Count 17.4 K/mm3 (4.4-11.0)
[2021-05-15 06:09] LABS: Differential Indicated MANUAL DIFF; Platelet Count 28 K/mm3 (150-450)
[2021-05-15 06:19] LABS: Lymphocyte 12 % (19-41); Metamyelocyte 4 % (0-1); Monocyte 2 % (0-10); Myelocyte 5 % (0-0); Neutrophil-Band 3 % (0-5); Neutrophil-Segmented 74 % (47-70); Total Cells Counted 100 (MANUAL DIFF)
[2021-05-15 06:20] LABS: Absolute Neutrophil Count 13.4 X10^3/uL (2.0-7.7); Hypochromasia 3+; Microcytosis RARE; Platelet Estimate MKD DEC (ADEQ); Red Cell Morphology N CYTIC NORMAL (NORM C&C)
[2021-05-15 06:24] LABS: Anion Gap 6 (5-15); BUN 30 mg/dL (7-18); Calcium,Total 8.5 mg/dL (8.5-10.1); Chloride 108 mmol/L (98-107); Creatinine, Serum 0.94 mg/dL (0.55-1.02); EST Glomerular Filtration Rate 61 mL/min (>60); Est Glom Filt Rate - Afr Amer 73 mL/min (>60); Estimated Creatinine Clearance 36.49 ml/min; Glucose 131 mg/dL (74-106); Potassium 4.4 mmol/L (3.5-5.1); Sodium Level 140 mmol/L (136-145)
[2021-05-15] MEDS: Acetaminophen 325 MG Tablet 650 MG PO (06:35)
--- NOTE | 2021-05-15 08:27 | PCM.PN.CARD ---
Subjective Subjective The patient states that as long as she has been on the IV nitroglycerin she has had no recurrent chest discomfort. Objective Data Vital Signs: Vital Signs Temp Pulse Resp BP Pulse Ox 97.9 F 63 18 149/65 H 93 05/15/21 05:00 05/15/21 07:00 05/15/21 07:00 05/15/21 07:00 05/15/21 07:30 Oxygen Flow Rate (L/min) 2 Oxygen Delivery Method Room Air Weight: 182 lb 5.156 oz Body Mass Index (BMI) 33.3 Intake & Output: Intake and Output for Last 24 Hours 05/13/21 05/14/21 05/15/21 23:59 23:59 23:59 Intake Total 2379.90 / 2382.90 552 / 555 Output Total 800 / 800 800 / 800 450 / 450 Balance 1579.90 / 1582.90 -248 / -245 -426 / -426 Lab / Micro Data Result Diagrams: 05/15/21 05:04 05/15/21 05:04 Labs: Laboratory Results - last 24 hr 05/12/21 05/13/21 05/14/21 21:35 03:55 09:55 WBC 22.7 H RBC 2.85 L Hgb 9.6 L Hct 29.3 L MCV 102.8 H D MCH 33.7 H MCHC 32.8 D RDW Std Deviation 90.0 H RDW Coeff of Aubrey 27.2 H Plt Count 28 L* MPV 9.7 Neut % (Auto) Not Reportable Absolute Neuts (auto) 17.0 H Absolute Lymphs (auto) 3.63 Total Counted 100 Neutrophils % (Manual) 63 Band Neutrophils % 12 H Lymphocytes % (Manual) 16 L Monocytes % (Manual) 5 Metamyelocytes % 3 H Myelocytes % 1 H Diff Path Review Reviewed Reviewed March foll Platelet Estimate MKD DEC RBC Morphology N CHROM Hypochromasia Anisocytosis 1+ Microcytosis Sodium Potassium Chloride Carbon Dioxide Anion Gap BUN Creatinine Estim Creat Clear Calc Est GFR (MDRD) Af Amer Est GFR (MDRD) Non-Af BUN/Creatinine Ratio Glucose Calcium POC Glucose 05/14/21 05/14/21 05/15/21 09:55 11:19 05:04 WBC 17.4 H RBC 2.74 L Hgb 9.4 L Hct 28.5 L MCV 104.0 H MCH 34.3 H MCHC 33.0 RDW Std Deviation 91.5 H RDW Coeff of Aubrey 27.0 H Plt Count 28 L* MPV 10.2 Neut % (Auto) Not Reportable Absolute Neuts (auto) 13.4 H Absolute Lymphs (auto) 2.10 Total Counted 100 Neutrophils % (Manual) 74 H Band Neutrophils % 3 Lymphocytes % (Manual) 12 L Monocytes % (Manual) 2 Metamyelocytes % 4 H Myelocytes % 5 H Diff Path Review May foll Platelet Estimate MKD DEC RBC Morphology N CYTIC Hypochromasia 3+ Anisocytosis Microcytosis RARE Sodium 139 Potassium 4.5 Chloride 106 Carbon Dioxide 25.0 Anion Gap 8 BUN 23 H Creatinine 0.87 Estim Creat Clear Calc 39.43 Est GFR (MDRD) Af Amer 80 Est GFR (MDRD) Non-Af 66 BUN/Creatinine Ratio 26.4 H Glucose 109 H Calcium 8.5 POC Glucose 90 05/15/21 05:04 WBC RBC Hgb Hct MCV MCH MCHC RDW Std Deviation RDW Coeff of Aubrey Plt Count MPV Neut % (Auto) Absolute Neuts (auto) Absolute Lymphs (auto) Total Counted Neutrophils % (Manual) Band Neutrophils % Lymphocytes % (Manual) Monocytes % (Manual) Metamyelocytes % Myelocytes % Diff Path Review Platelet Estimate RBC Morphology Hypochromasia Anisocytosis Microcytosis Sodium 140 Potassium 4.4 Chloride 108 H Carbon Dioxide 26.0 Anion Gap 6 BUN 30 H Creatinine 0.94 Estim Creat Clear Calc 36.49 Est GFR (MDRD) Af Amer 73 Est GFR (MDRD) Non-Af 61 BUN/Creatinine Ratio 32.0 H Glucose 131 H Calcium 8.5 POC Glucose Cardiology Labs/Tests 05/14/21 09:55: WBC 22.7 H, RBC 2.85 L, Hgb 9.6 L, Hct 29.3 L, MCV 102.8 H D, MCH 33.7 H, MCHC 32.8 D, Plt Count 28 L*, MPV 9.7, Neut % (Auto) Not Reportable, Absolute Neuts (auto) 17.0 H, Total Counted 100, Neutrophils % (Manual) 63, Band Neutrophils % 12 H, Lymphocytes % (Manual) 16 L, Monocytes % (Manual) 5, Metamyelocytes % 3 H, Myelocytes % 1 H 05/14/21 09:55: Sodium 139, Potassium 4.5, Chloride 106, Carbon Dioxide 25.0, Anion Gap 8, BUN 23 H, Creatinine 0.87, Est GFR (MDRD) Af Amer 80, Est GFR (MDRD) Non-Af 66, BUN/Creatinine Ratio 26.4 H, Glucose 109 H, Calcium 8.5 05/15/21 05:04: WBC 17.4 H, RBC 2.74 L, Hgb 9.4 L, Hct 28.5 L, MCV 104.0 H, MCH 34.3 H, MCHC 33.0, Plt Count 28 L*, MPV 10.2, Neut % (Auto) Not Reportable, Absolute Neuts (auto) 13.4 H, Total Counted 100, Neutrophils % (Manual) 74 H, Band Neutrophils % 3, Lymphocytes % (Manual) 12 L, Monocytes % (Manual) 2, Metamyelocytes % 4 H, Myelocytes % 5 H 05/15/21 05:04: Sodium 140, Potassium 4.4, Chloride 108 H, Carbon Dioxide 26.0, Anion Gap 6, BUN 30 H, Creatinine 0.94, Est GFR (MDRD) Af Amer 73, Est GFR (MDRD) Non-Af 61, BUN/Creatinine Ratio 32.0 H, Glucose 131 H, Calcium 8.5 Rhythm: Sinus rhythm Physical Exam Const alert, oriented x3, no apparent distress and healthy appearing Orientation / Consciousness: awake HEENT normocephalic, head/scalp atraumatic and hearing grossly normal bilaterally Eyes PERRL and EOMs intact bilaterally Neck full ROM, supple and no JVD Chest inspection of chest normal Resp normal respiratory effort and clear to auscultation bilaterally Cardio regular rate and S1 normal heart sound Heart Sounds: murmur systolic II/ high-pitched left sternal border, LVOT and sternal notch and other Other Details: Diminished S2/A2 Peripheral Pulses: femoral pulses present right 2+ GI normal to inspection, nondistended, normoactive bowel sounds Extremity no pedal edema Skin no rashes or lesions noted Psych mental status grossly normal Assessment & Plan Assessment/Plan (1) Nonrheumatic aortic (valve) stenosis: PLAN: The patient does have by transthoracic echocardiogram findings compatible severe aortic valve stenosis. Based upon cardiac catheterization she does appear to have the appearance of severe calcification in the area of the aortic valve. At the present time the thought would be that she does need to be evaluated at a tertiary care center for her aortic valve disease as to whether or not she is a candidate for aortic valve replacement either percutaneously or surgically. (2) CAD (coronary artery disease): QUALIFIERS: Coronary Disease-Associated Artery/Lesion type: [place] artery [place] vs. transplanted heart: [place] heart Associated angina: with unstable angina Qualified Code(s): I25.110 - Atherosclerotic heart disease of [place] coronary artery with unstable angina pectoris PLAN: The patient has undergone further evaluation with diagnostic cardiac catheterization. She was found to have an ostial LAD lesion. This was reviewed by interventional cardiology. The recommendation was for CT surgery consultation prior to proceeding with any form of catheter-based revascularization procedure based upon the location of the patient's lesion, her aortic valve disease, as well as her underlying hematologic issues. (3) Acute srr-GS-iqwhbxypy myocardial infarction: PLAN: The patient presented with findings compatible with an acute non-ST segment elevation SC. This may be a type II event secondary to the patient's underlying marked anemia superimposed upon the findings of her underlying CAD and her aortic valve disease. She will need to continue medical therapy as best as possible. (4) Pure hypercholesterolemia: PLAN: The patient should continue evaluation care of her lipids as best as possible. (5) Essential hypertension: PLAN: The patient's blood pressure will need to be followed and her medications adjusted accordingly. 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 She did receive 2 units of PRBC which increased her H&H. Of note her symptoms subsequently improved as well. At the present time her laboratory studies will need to be followed. It appears that the patient does need to keep her H&H elevated to minimize any adverse cardiovascular events. (7) Thrombocytopenia: PLAN: The patient does have thrombocytopenia. This does present an issue with respect ongoing evaluation and care from a cardiac standpoint with antiplatelet agents and/or anticoagulants. Addt'l Comments The patient appears to be resting comfortably at this time on her current medical regimen. She will continue her cardiovascular medical therapy as best as tolerated noting that there is a hold on agent such as antiplatelet or anticoagulants secondary to concerns of her underlying hematologic issues. She is pending transfer to [facility] for further noncardiac and cardiac evaluation and care of her hematologic issues as well as her cardiovascular issues with respect to her CAD and aortic valve stenosis. This note was generated using a voice recognition system and there may be incorrect words, spelling or punctuation that were not noted when reviewing the office note prior to saving.
--- NOTE | 2021-05-15 08:44 | CASEMGMT ---
Pt awaiting a bed [facility] since yesterday for further cardiac intervention. Anahi SOLIMAN CM
[2021-05-15] MEDS: Lisinopril 20 MG Tablet PO (09:20)
[2021-05-15] MEDS: Ferrous Sulfate 325 MG Tablet PO (09:20)
[2021-05-15] MEDS: Fenofibrate 48 MG Tablet PO (09:21)
[2021-05-15] MEDS: Tolterodine Tartrate 4 MG CAP.SA PO (09:21)
[2021-05-15] MEDS: Metoprolol Tartrate 25 MG Tablet PO (09:21)
[2021-05-15 12:45] LABS: Pathologist Review Reviewed
[2021-05-15 12:45] LABS: Pathologist Review Reviewed
[2021-05-15 12:45] LABS: Pathologist Review Reviewed
--- NOTE | 2021-05-15 14:19 | CASEMGMT ---
[facility] palliative screening tool completed and pt does not qualify for referral at this time. SStiris RN CM
--- NOTE | 2021-05-15 15:04 | NURSING ---
Called report tyler Ross RN at [facility]
--- NOTE | 2021-05-15 15:18 | PN.HOSP_ITS ---
Subjective Subjective THis is a delayed entry note for 05/14/2021 Patient was seen and examined. She had no complaints. She had had cardiac cath which showed ostial LAD 99% stenosis as well as severe aortic sclerosis. Plan was therefore to transfer her to [facility] for CT surgery evaluation. Son was by her bedside. Review of systems otherwise negative. Objective Data Objective Data Vital Signs: Vital Signs Temp Pulse Resp BP Pulse Ox 98.1 F 70 19 H 164/66 H 97 05/15/21 11:00 05/15/21 15:00 05/15/21 15:00 05/15/21 15:00 05/15/21 15:00 Oxygen Flow Rate (L/min) 2 Oxygen Delivery Method Room Air Weight: 182 lb 5.156 oz Body Mass Index (BMI) 33.3 Intake & Output: Intake and Output for Last 24 Hours 05/13/21 05/14/21 05/15/21 23:59 23:59 23:59 Intake Total 2379.90 / 2382.90 552 / 555 648 / 648 Output Total 800 / 800 800 / 800 800 / 800 Balance 1579.90 / 1582.90 -248 / -245 -152 / -152 Lab / Micro Data Result Diagrams: 05/15/21 05:04 05/15/21 05:04 Labs: Laboratory Results - last 24 hr 05/14/21 05/14/21 05/15/21 05:52 09:55 05:04 WBC 17.4 H RBC 2.74 L Hgb 9.4 L Hct 28.5 L MCV 104.0 H MCH 34.3 H MCHC 33.0 RDW Std Deviation 91.5 H RDW Coeff of Aubrey 27.0 H Plt Count 28 L* MPV 10.2 Neut % (Auto) Not Reportable Absolute Neuts (auto) 13.4 H Absolute Lymphs (auto) 2.10 Total Counted 100 Neutrophils % (Manual) 74 H Band Neutrophils % 3 Lymphocytes % (Manual) 12 L Monocytes % (Manual) 2 Metamyelocytes % 4 H Myelocytes % 5 H Diff Path Review Reviewed Reviewed Reviewed Platelet Estimate MKD DEC RBC Morphology N CYTIC Hypochromasia 3+ Microcytosis RARE Sodium Potassium Chloride Carbon Dioxide Anion Gap BUN Creatinine Estim Creat Clear Calc Est GFR (MDRD) Af Amer Est GFR (MDRD) Non-Af BUN/Creatinine Ratio Glucose Calcium 05/15/21 05:04 WBC RBC Hgb Hct MCV MCH MCHC RDW Std Deviation RDW Coeff of Aubrey Plt Count MPV Neut % (Auto) Absolute Neuts (auto) Absolute Lymphs (auto) Total Counted Neutrophils % (Manual) Band Neutrophils % Lymphocytes % (Manual) Monocytes % (Manual) Metamyelocytes % Myelocytes % Diff Path Review Platelet Estimate RBC Morphology Hypochromasia Microcytosis Sodium 140 Potassium 4.4 Chloride 108 H Carbon Dioxide 26.0 Anion Gap 6 BUN 30 H Creatinine 0.94 Estim Creat Clear Calc 36.49 Est GFR (MDRD) Af Amer 73 Est GFR (MDRD) Non-Af 61 BUN/Creatinine Ratio 32.0 H Glucose 131 H Calcium 8.5 Physical Exam Const alert, oriented x3, no apparent distress and no limitations General Appearance: cooperative, comfortable and well kempt Orientation / Consciousness: awake Exam Limitations: no limitations HEENT normocephalic, head/scalp atraumatic, external ears normal, external nose normal and moist oral mucous membranes Head and Scalp: normocephalic Eyes PERRL, EOMs intact bilaterally, conjunctivae normal and no scleral icterus General Eye: normal appearance of both eyes Neck no lymphadenopathy, supple, no meningeal signs, no JVD and no carotid bruits Lymph Lymphatic: no lymphadenopathy noted Resp normal respiratory effort, normal air movement, no retractions, no use of accessory muscles and clear to auscultation bilaterally Auscultation: Negative for crackles, rales, rhonchi or wheezes Cardio regular rate, regular rhythm, S1 normal heart sound and S2 normal heart sound Cardio Narrative: Systolic murmur. Heart Sounds: murmur GI normal to inspection, nondistended, normoactive bowel sounds, soft to palpation, non-tender and non-distended; Negative for hepatosplenomegaly Extremity normal to inspection and full ROM Extremity Narrative: Nonpitting edema, no clubbing or cyanosis. Peripheral Pulses: Yes pulses 2+ throughout Skin no rashes or lesions noted, no wounds and no petechiae Neuro oriented x3, CN's II-XII intact bilaterally, moves all extremities and no focal motor deficits Sensorium / Orientation: awake and alert Speech: speech normal Motor Exam: strength 5/5 throughout Psych mental status grossly normal and affect normal Appearance: appropriate and well kempt Assessment & Plan Assessment/Plan (1) Nonrheumatic aortic (valve) stenosis: (2) CAD (coronary artery disease): QUALIFIERS: Coronary Disease-Associated Artery/Lesion type: [place] artery [place] vs. transplanted heart: [place] heart Associated angina: with unstable angina Qualified Code(s): I25.110 - Atherosclerotic heart disease of [place] coronary artery with unstable angina pectoris (3) Acute wnq-LH-vqsuhvotr myocardial infarction: (4) Pure hypercholesterolemia: (5) Essential hypertension: (6) Anemia: QUALIFIERS: Anemia type: bone marrow failure Bone marrow failure anemia type: other bone marrow failure Qualified Code(s): D61.89 - Other specified aplastic anemias and other bone marrow failure syndromes (7) Thrombocytopenia: PLAN: #Nonstemi * s/p cardiac cath which showed 99% ostial LAD narrowing as well as severe aortic sclerosis * Cardiology on board. * On statin and fenofibrate. 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 On iron replacement therapy. * Follow-up with oncology on outpatient basis * * #Hyperlipidemia: On statin #Benign essential hypertension: On metoprolol\ #History of aortic valve stenosis and mitral valve insufficiency * Findings as above. For transfer to [facility] for evaluation by cardiothoracic surgery #: USMAN: Resolved DVR prophylaxis: SCDs Disposition: Awaiting transfer to [facility] Charges/Coding Visit Charges Inpatient E&M: 09807 Subs Hosp L2
== END 2021-05-15 16:15 | disposition short-term general hospital (02) | DRG 280 ==
LOC: ED 23:32 → PCU 05-13 01:18
PROVIDERS: Family Medicine; Internal Medicine Cardiovascular Disease; Admitting Provider Hospitalist; Emergency Provider Student in an Organized Health Care Education/Training Program; PCP Family Medicine; Visit Provider Student in an Organized Health Care Education/Training Program
DX: I21.4 Non-ST elevation (NSTEMI) myocardial infarction (principal); D61.89 Other specified aplastic anemias and other bone marrow failure syndromes; C92.10 Chronic myeloid leukemia, BCR/ABL-positive, not having achieved remission; N17.9 Acute kidney failure, unspecified; Z87.891 Personal history of nicotine dependence; D69.6 Thrombocytopenia, unspecified; R73.9 Hyperglycemia, unspecified; R79.1 Abnormal coagulation profile; I10 Essential (primary) hypertension; E78.5 Hyperlipidemia, unspecified; Z66 Do not resuscitate; I36.1 Nonrheumatic tricuspid (valve) insufficiency; I08.0 Rheumatic disorders of both mitral and aortic valves; I45.10 Unspecified right bundle-branch block; I25.110 Atherosclerotic heart disease of native coronary artery with unstable angina pectoris; I70.0 Atherosclerosis of aorta
CPT/HCPCS: 36415; 71045; 80048; 82962; 83036; 84484; 85025; 85379; 85610; 86850; 86900; 86901; 86920; 86922; 93005; 93454; 93567; 97162; 97166; 99152; 99153; 99284; J7030; J7040; P9016; Q9967; A4216; C1769; C1894; J1940

== ENCOUNTER → 2021-05-23 10:16 | Outpatient (CLI) | payer MEDICARE, SELFPAY ==
[2021-05-13 00:29] VITALS: BMI 33.3
[2021-05-23 11:46] LABS: Hematocrit 26.1 % (37-47); Hemoglobin 8.7 g/dL (12.0-15.0); Mean Corp Hgb Conc 33.3 g/dL (32-36); Mean Corpuscular Hgb 35.5 pg (27.0-32.0); Mean Corpuscular Volume 106.5 fL (81-99); Mean Platelet Vol. 11.3 fl (6.2-12.0); POSITIVE COUNT YES; POSITIVE MORPHOLOGY YES; Platelet Count 47 K/mm3 (150-450); Red Blood Count 2.45 M/mm3 (4.2-5.4); White Blood Count 26.3 K/mm3 (4.4-11.0)
[2021-05-23 12:10] LABS: Scan Indicated on CBC? Y/N YES- FLAGS NOTED
[2021-05-23 12:14] LABS: Differential Comment SCANNED
[2021-05-23 12:21] LABS: Anion Gap 6 (5-15); BUN 33 mg/dL (7-18); BUN/Creat Ratio 29.2 RATIO (10-20); Chloride 106 mmol/L (98-107); Creatinine, Serum 1.13 mg/dL (0.55-1.02); EST Glomerular Filtration Rate 49 mL/min (>60); Est Glom Filt Rate - Afr Amer 59 mL/min (>60); Glucose 110 mg/dL (74-106); Potassium 4.8 mmol/L (3.5-5.1); Sodium Level 140 mmol/L (136-145)
[2021-05-24 12:46] LABS: Pathologist Review Reviewed
== END ==
PROVIDERS: PCP Family Medicine; Referring Provider Internal Medicine Interventional Cardiology; Visit Provider Internal Medicine Interventional Cardiology
DX: I35.0 Nonrheumatic aortic (valve) stenosis (principal)
CPT/HCPCS: 36415; 80048; 85027

== ENCOUNTER 2021-06-01 09:33 | Emergency (ER) | payer MEDICARE, SELFPAY ==
[2021-05-31 11:32] VITALS: BMI 32.8
[2021-06-01] VITALS (7 sets, daily range): BP systolic 147–176; BP diastolic 52–94; PULSE 69–72; RESP 11–19; TEMP 36.6–37.2; O2SAT 97–98; BMI 33.6
--- NOTE | 2021-06-01 09:40 | EKG12_ITS ---
Test Reason : TAMMIE Blood Pressure : / mmHG Vent. Rate : 071 BPM Atrial Rate : 071 BPM P-R Int : 206 ms QRS Dur : 130 ms QT Int : 454 ms P-R-T Axes : 070 100 048 degrees QTc Int : 493 ms Normal sinus rhythm Right bundle branch block Abnormal ECG Confirmed by YUNG POWELL, DAVID ([id number]), newspaper photo editor KRYSTA QUIROZ ([id number]) on 06/04/2021 9:53:27 AM Referred By: HERACLIO Confirmed By:BONI BARRAGAN MD
--- NOTE | 2021-06-01 09:49 | EKG12_ITS ---
Test Reason : REPEAT Blood Pressure : / mmHG Vent. Rate : 048 BPM Atrial Rate : 079 BPM P-R Int : 248 ms QRS Dur : 132 ms QT Int : 492 ms P-R-T Axes : 066 109 016 degrees QTc Int : 439 ms Sinus rhythm with 2nd degree A-V block (Mobitz II) Right bundle branch block Cannot rule out Inferior infarct , age undetermined T wave abnormality, consider lateral ischemia Abnormal ECG Confirmed by YUNG POWELL, DAVID ([id number]), magazine editor KRYSTA QUIROZ ([id number]) on 06/04/2021 9:54:20 AM Referred By: HERACLIO Confirmed By:BONI BARRAGAN MD
[2021-06-01 09:57] LABS: Hematocrit 26.4 % (37-47); Hemoglobin 8.6 g/dL (12.0-15.0); Mean Corp Hgb Conc 32.6 g/dL (32-36); Mean Corpuscular Volume 101.1 fL (81-99); Mean Platelet Vol. 11.1 fl (6.2-12.0); POSITIVE COUNT YES; POSITIVE DIFFERENTIAL YES; POSITIVE MORPHOLOGY YES; Platelet Count 16 K/mm3 (150-450); Red Blood Count 2.61 M/mm3 (4.2-5.4)
--- NOTE | 2021-06-01 09:58 | CT_ITS ---
HISTORY: palpitations s/p TAVR. TECHNIQUE: Helically acquired images of the chest following IV contrast as per pulmonary angiogram protocol with 2D and 3D reconstructions. A radiation dose optimization technique was used for this scan. IV Contrast dosage and agent: 100 mL [id number]. # of images incl. paperwork: [id number]. COMPARISON: XR same day, CT 02/02/2021. FINDINGS: CENTRAL AIRWAYS: Patent. LUNGS: Interval decrease in size and number of nodules. Residual 2 mm left upper lobe nodules. Residual 3 mm right upper lobe nodule. Stable 3 mm lingular nodule. Mild bilateral lower lobe scarring and atelectasis. PLEURA: No pneumothorax or pleural effusion. PULMONARY ARTERIES: No filling defect. HEART/PERICARDIUM: Heart within normal limits in size. Coronary artery disease. No significant pericardial effusion. AORTA: No aortic aneurysm or dissection flap. Aortic valve replacement in place. MEDIASTINUM/ERIC: No enlarged lymph nodes. OSSEOUS STRUCTURES: Degenerative change. UPPER ABDOMEN: Stable small left adrenal nodule. CT/CTA Chest W/WO Contrast IMPRESSION: No evidence for pulmonary embolism. Interval decrease in size and number of pulmonary nodules with 2-3 mm pulmonary nodules as above. Individualized dose optimization techniques were used for this CT. at 1133 Reported and signed by: Mili Moore MD Electronically Signed: Mili Moore MD at 11:32 EDT Tel , Service support ,
--- NOTE | 2021-06-01 10:00 | ED.VIS.CHEST ---
HPI History of Present Illness Chief Complaint: Palpitations Narrative Narrative: 81-year-old female presenting with palpitations status post TAVR. This began overnight. She had this done on Friday of this week which was 4 days ago. Patient also had a cardiac stent a week before. Patient is not having any chest pain. Patient does feel like her heart is missing beats. She called her surgical instrument repair specialist Dr. Hector and was sent to the ER. She states that she did not want to go to [facility] so she came to [facility]. Patient is on aspirin and Plavix and no other anticoagulation. [facility] Medical History Aortic stenosis CAD (coronary artery disease) CAD (coronary artery disease) Essential hypertension History of blood transfusion History of COVID-19 Neuropathy Non-rheumatic tricuspid valve insufficiency Nonrheumatic aortic (valve) stenosis Nonrheumatic mitral (valve) insufficiency Other buttermaker helper (current) drug therapy Pure hypercholesterolemia RBBB (right bundle branch block) Home Medications atorvastatin 10 mg tablet 10 mg PO QDAY #90 tab 08/31/20 [Rx Last Taken Unknown] lisinopril 20 mg tablet 20 mg PO BID #180 tab 12/04/20 [Rx Last Taken Unknown] furosemide 20 mg tablet 20 mg PO DAILY #30 tab 12/13/20 [Rx Last Taken Unknown] ferrous sulfate 325 mg PO DAILY 01/09/21 [History Last Taken Unknown] allopurinol 300 mg PO DAILY 30 Days #30 tablet 03/12/21 [Rx Last Taken Unknown] metoprolol tartrate 25 mg tablet 25 mg PO BID #180 tab 04/17/21 [Rx Last Taken Unknown] isosorbide mononitrate 90 mg PO DAILY 05/12/21 [History Last Taken Unknown] aspirin 81 mg tablet,delayed release 81 mg PO DAILY 05/31/21 [History Last Taken Unknown] clopidogrel 75 mg tablet 75 mg PO DAILY 05/31/21 [History Last Taken Unknown] pantoprazole 40 mg tablet,delayed release 40 mg PO DAILY 05/31/21 [History Last Taken Unknown] fenofibrate nanocrystallized [Tricor] 54 mg PO QDAY 06/01/21 [History Last Taken Unknown] Allergy/AdvReac Type Severity Reaction Status Date / Time codeine Allergy Intermediate Swelling Verified 06/01/21 09:55 amoxicillin [From Augmentin] Allergy Mild Itching Verified 06/01/21 09:55 clavulanic acid Allergy Mild Itching Verified 06/01/21 09:55 [From Augmentin] niacin Allergy Mild Itching Verified 06/01/21 09:55 [From Niaspan Extended-Release] Family History Mother CHF (congestive heart failure) Brother CAD (coronary artery disease) Sister CHF (congestive heart failure) Son Cardiac pacemaker in situ WPW (Opong-Dhknpeoqw-Djgcb syndrome) Father No problems noted. Surgical History Aortic valve replaced H/O meniscectomy of right knee History of appendectomy History of coronary artery stent placement History of medial meniscus repair of left knee History of partial knee replacement History of synovectomy History of total hysterectomy History of tubal ligation Social History Smoking Status: Former smoker alcohol intake: never substance use type: does not use diet: low carbohydrate caffeine: Yes Type: coffee Number of servings: 2 what type of physical activity do you participate in: none seatbelt use: always do you feel safe at home: Yes ROS ROS ED Constitutional Constitutional ED: Denies fever(s) or subjective Eyes Eyes: Denies blurry vision or change in vision ENT ENT ED: Denies rhinorrhea or sore throat Cardiovascular Cardiovascular: Reports palpitations; Denies chest pain Respiratory/Chest Respiratory/Chest: Denies cough or dyspnea Gastrointestinal Gastrointestinal: Denies abdominal pain, nausea or vomiting Genitourinary Genitourinary ED: Denies dysuria or hematuria Musculoskeletal Musculoskeletal: Denies arthralgias or myalgias Integumentary Denies abscess or rash Neurologic Neurologic: Denies headache(s) or paresthesias EXAM Physical Exam Const Vital Signs: 06/01/21 09:33 06/01/21 09:40 06/01/21 09:54 Temperature 98.9 F 97.8 F Temperature Source Oral Oral Pulse Rate 72 72 Respiratory Rate 16 16 Respiratory Effort Blood Pressure 176/67 H 176/67 H Blood Pressure Mean 103 103 Pulse Ox 97 98 Oxygen Delivery Method Room Air Room Air Room Air 06/01/21 10:01 06/01/21 11:11 06/01/21 12:12 Temperature 98.1 F 98.1 F Temperature Source Oral Oral Pulse Rate 69 72 Respiratory Rate 14 16 Respiratory Effort Normal Non-Labored Blood Pressure 154/61 H 149/94 H Blood Pressure Mean 92 112 Pulse Ox 98 97 Oxygen Delivery Method Room Air Room Air 06/01/21 13:11 06/01/21 14:00 06/01/21 14:33 Temperature Temperature Source Pulse Rate 69 69 70 Respiratory Rate 11 L 19 H 18 Respiratory Effort Blood Pressure 147/57 H 152/52 H 153/59 H Blood Pressure Mean 87 85 90 Pulse Ox 98 98 98 Oxygen Delivery Method Room Air Room Air Positive obese General Appearance ED: NAD Nutritional Appearance: obese HEENT normocephalic and atraumatic Eyes PERRL and EOMs intact bilaterally Neck no lymphadenopathy and supple Resp normal respiratory effort Effort and Inspection: respiratory distress Cardio Rhythm: abnormal rhythm irregularly irregular Peripheral Pulses: pulses 2+ throughout Extremity normal to inspection General Extremety ED: Negative for edema General Extremity: Negative for edema Neuro oriented x3 Sensorium / Orientation: awake and alert Psych mental status grossly normal Skin no rashes or lesions noted and no wounds MDM MDM MDM Narrative Medical decision making narrative: Patient status post TAVR presenting with palpitations. These began overnight. Original EKG interpreted by myself shows a normal sinus rhythm at 71 bpm with a right bundle lavon block. Patient having palpitations and heart rate went down into the 20s and repeat EKG shows a sinus rhythm with Mobitz type II heart block on my interpretation. Patient had follow-up EKG again which shows a sinus rhythm at 48 bpm with sinus rhythm and Mobitz type II heart block at 48 bpm. I did obtain a rhythm strip which shows 3 consecutive ventricular contractions in a row on my interpretation. Pacer pads are placed on the patient. Patient's white blood cell count is 40 however she has leukemia. Her hemoglobin is 8.6 and this is actually higher than before. Her platelet count is lower at 16. Creatinine is 1.03. Electrolytes are within normal limits. Troponin is 402 which is actually decreased from her previous. She is not having any chest pain and just had a TAVR unlikely this is the reason it is elevated. TSH was elevated at 4.89. Free T4 is 0.82 and free T3 is 2.1 which is low. Patient reevaluated multiple times while waiting for [facility] to call back with a bed. She has remained stable. She was able to ambulate to the restroom without difficulty. Chest x-ray on my interpretation shows no acute cardiopulmonary process. The radiologist does agree. CTA does not identify any acute cardiopulmonary process either. There is no PE or dissection. She actually has decreased number of pulmonary nodules from previous. Patient was reevaluated at 3 PM and is doing fine. She is in and out of heart block on the monitor. Patient was accepted by [facility] and she is currently awaiting transportation. Patient reevaluated at 3:50 PM and is now being transported to [facility]. She appears stable at this time. Impression: 1. History of recent TAVR 2. Mobitz type II heart block. Lab Data Labs: Laboratory Results - last 24 hr 06/01/21 06/01/21 06/01/21 09:45 09:45 09:45 WBC 40.5 H* RBC 2.61 L Hgb 8.6 L Hct 26.4 L MCV 101.1 H MCH 33.0 H MCHC 32.6 RDW Std Deviation Not Reportable RDW Coeff of Aubrey Not Reportable Plt Count 16 L* MPV 11.1 Neut % (Auto) Not Reportable Absolute Neuts (auto) 27.9 H Absolute Lymphs (auto) 6.48 H Neutrophils % (Manual) 67 Band Neutrophils % 2 Lymphocytes % (Manual) 16 L Monocytes % (Manual) 1 Metamyelocytes % 7 H Myelocytes % 6 H Promyelocytes % 1 H Diff Path Review May foll Platelet Estimate MKD DEC Hypochromasia 2+ Anisocytosis 3+ Sodium 140 Potassium 4.0 Chloride 107 Carbon Dioxide 28.0 Anion Gap 5 BUN 25 H Creatinine 1.03 H Estim Creat Clear Calc 32.73 Est GFR (MDRD) Af Amer 66 Est GFR (MDRD) Non-Af 54 L BUN/Creatinine Ratio 24.3 H Glucose 132 H Calcium 8.9 Magnesium 2.2 Troponin I High Sens 402.4 H* TSH 4.89 H Free T4 0.82 Free T3 pg/dL 2.1 L Radiography Diagnostic Testing: Radiology Impression Chest CTA 06/01/21 09:58 IMPRESSION: No evidence for pulmonary embolism. Interval decrease in size and number of pulmonary nodules with 2-3 mm pulmonary nodules as above. Individualized dose optimization techniques were used for this CT. at 1133 Reported and signed by: Mili Moore MD Electronically Signed: Mili Moore MD at 11:32 EDT Tel , Service support , Chest X-Ray 06/01/21 10:55 IMPRESSION: No radiographic evidence of acute cardiopulmonary disease. at 1106 Reported and signed by: Mili Moore MD Electronically Signed: Mili Moore MD at 11:05 EDT Tel , Service support , ADDENDUM: 06/01/21 1133 IMPRESSION: No radiographic evidence of acute cardiopulmonary disease. at 1106 Reported and signed by: Mili Moore MD Electronically Signed: Mili Moore MD at 11:25 EDT Tel , Service support , Discharge Plan Triage Chief Complaint: Palpitations ED Provider: Francisco Cherry Dx/Rx/DC Orders Prescriptions: No Action lisinopril 20 mg tablet 20 mg PO BID Qty: 180 RF: 3 aspirin [Adult Aspirin Regimen] 81 mg tablet,delayed release (DR/EC) 81 mg PO DAILY RF: 0 clopidogrel 75 mg tablet 75 mg PO DAILY RF: 0 pantoprazole 40 mg tablet,delayed release (DR/EC) 40 mg PO DAILY RF: 0 ferrous sulfate 325 MG tablet 325 mg PO DAILY RF: 0 allopurinol 300 MG tablet 300 mg PO DAILY 30 Days Qty: 30 RF: 1 isosorbide mononitrate 60 mg tablet extended release 24 hr 90 mg PO DAILY RF: 0 fenofibrate nanocrystallized [Tricor] 48 mg tablet 54 mg PO QDAY RF: 0 atorvastatin 10 mg tablet 10 mg PO QDAY Qty: 90 RF: 3 furosemide 20 mg tablet 20 mg PO DAILY Qty: 30 RF: 11 metoprolol tartrate 25 mg tablet 25 mg PO BID Qty: 180 RF: 3 Primary Care Provider: Yesica Olsen Referrals: Yesica Olsen MD [Primary Care Provider] - Disposition Disposition: Acute Care Hospital Discharge Location: [facility] Discharge Date/Time: 06/01/21 15:45
[2021-06-01 10:03] LABS: Differential Indicated MANUAL DIFF
--- NOTE | 2021-06-01 10:09 | ED.RN ---
CALLED AND LEFT MESSAGE FOR DR WOLFE TO CALL DR PULLIAM
--- NOTE | 2021-06-01 10:15 | EKG12_ITS ---
Test Reason : TAMMIE Blood Pressure : / mmHG Vent. Rate : 052 BPM Atrial Rate : 052 BPM P-R Int : 204 ms QRS Dur : 130 ms QT Int : 454 ms P-R-T Axes : 067 102 042 degrees QTc Int : 422 ms Sinus Rhythm-high grade AV block Right bundle branch block Abnormal ECG Confirmed by YUNG POWELL, DAVID ([id number]), mapping editor KRYSTA QUIROZ ([id number]) on 06/04/2021 9:54:03 AM Referred By: HERACLIO Confirmed By:BONI BARRAGAN MD
[2021-06-01 10:23] LABS: Anion Gap 5 (5-15); BUN 25 mg/dL (7-18); BUN/Creat Ratio 24.3 RATIO (10-20); Calcium,Total 8.9 mg/dL (8.5-10.1); Chloride 107 mmol/L (98-107); Creatinine, Serum 1.03 mg/dL (0.55-1.02); EST Glomerular Filtration Rate 54 mL/min (>60); Est Glom Filt Rate - Afr Amer 66 mL/min (>60); Estimated Creatinine Clearance 32.73 ml/min; Glucose 132 mg/dL (74-106); Magnesium 2.2 mg/dL (1.6-2.6); Sodium Level 140 mmol/L (136-145); Thyroid Stim Hormone (TSH) 4.89 uIU/mL (0.358-3.74); Troponin-I HS 402.4 pg/mL (3.0-53.7)
[2021-06-01 10:33] LABS: Lymphocyte 16 % (19-41); Metamyelocyte 7 % (0-1); Monocyte 1 % (0-10); Myelocyte 6 % (0-0); Neutrophil-Band 2 % (0-5); Neutrophil-Segmented 67 % (47-70); Promyelocyte 1 % (0-0)
[2021-06-01 10:34] LABS: Anisocytosis 3+; Hypochromasia 2+; Platelet Estimate MKD DEC (ADEQ)
[2021-06-01 10:36] LABS: White Blood Count 40.5 K/mm3 (4.4-11.0)
[2021-06-01 10:37] LABS: Absolute Lymphocyte Count 6.48 X10^3/uL (0.83-4.51); Absolute Neutrophil Count 27.9 X10^3/uL (2.0-7.7)
--- NOTE | 2021-06-01 10:55 | RAD_ITS ---
HISTORY: chest pain. TECHNIQUE: XR Chest 1 View. # of images incl. paperwork: 1. COMPARISON: 05/12/2021. FINDINGS: CARDIOMEDIASTINAL STRUCTURES: Cardiac silhouette not enlarged. Mediastinal contour unremarkable with calcification of the aortic knob. LUNGS: Mild left basilar scarring again seen. PLEURA: No pleural effusion or pneumothorax. OSSEOUS STRUCTURES: Degenerative change. RAD/Chest 1 View (Portable) IMPRESSION: No radiographic evidence of acute cardiopulmonary disease. at 1106 Reported and signed by: Mili Moore MD Electronically Signed: Mili Moore MD at 11:05 EDT Tel , Service support ,
[2021-06-01 11:06] LABS: Free T3 2.1 pg/mL (2.18-3.98); T4 Free Direct 0.82 ng/dL (0.76-1.46)
[2021-06-04 13:04] LABS: Pathologist Review Reviewed
== END 2021-06-01 15:45 | disposition short-term general hospital (02) ==
LOC: ED 10:49
PROVIDERS: Emergency Provider Student in an Organized Health Care Education/Training Program; PCP Family Medicine
DX: I44.1 Atrioventricular block, second degree (principal); I25.10 Atherosclerotic heart disease of native coronary artery without angina pectoris; I08.3 Combined rheumatic disorders of mitral, aortic and tricuspid valves; I10 Essential (primary) hypertension; C95.90 Leukemia, unspecified not having achieved remission; E78.00 Pure hypercholesterolemia, unspecified; G62.9 Polyneuropathy, unspecified; E66.9 Obesity, unspecified; Z95.2 Presence of prosthetic heart valve; Z95.5 Presence of coronary angioplasty implant and graft; Z79.82 Long term (current) use of aspirin; Z79.899 Other long term (current) drug therapy; Z86.16 Personal history of COVID-19; Z87.891 Personal history of nicotine dependence; Z82.49 Family history of ischemic heart disease and other diseases of the circulatory system
CPT/HCPCS: 71045; 71275; 80048; 83735; 84439; 84443; 84481; 84484; 85025; 93005; 99285; Q9967; A4216

== ENCOUNTER 2021-06-24 14:43 | Emergency (ER) | payer MEDICARE, SELFPAY ==
[2021-06-24] VITALS (7 sets, daily range): BP systolic 147–156; BP diastolic 62–73; PULSE 81–109; RESP 16–24; TEMP 36.6–37; O2SAT 97–99; BMI 33.6; BMI 31.4
--- NOTE | 2021-06-24 15:00 | EKG12_ITS ---
Test Reason : PALPS/SOB/DIZZY Blood Pressure : / mmHG Vent. Rate : 099 BPM Atrial Rate : 099 BPM P-R Int : 138 ms QRS Dur : 162 ms QT Int : 422 ms P-R-T Axes : 076 -61 086 degrees QTc Int : 541 ms Atrial-sensed ventricular-paced rhythm Abnormal ECG Confirmed by ETTA POWELL, ROMI ([id number]), photo editor KRYSTA QUIROZ ([id number]) on 06/27/2021 9:53:36 AM Referred By: STERLING/HERACLIO Confirmed By:ROMI QUILES MD
--- NOTE | 2021-06-24 15:02 | EDS_ITS ---
HPI History of Present Illness Chief Complaint: Shortness of Breath Informant: patient Narrative Narrative: Patient is an 81-year-old female with history of coronary artery disease, TARV and recent arrhythmia requiring pacemaker 2 weeks ago at [facility]. She is presenting with palpitations and dyspnea on exertion that started last night. She denies cough or chest pain. She notes similar symptoms when she needed her pacemaker and with her NE. She denies any fever. Patient had Covid 1 year ago. She not had her Covid vaccine due to her recent diagnosis of leukemia. [facility] Medical History Aortic stenosis CAD (coronary artery disease) CAD (coronary artery disease) Essential hypertension History of blood transfusion History of COVID-19 Neuropathy Non-rheumatic tricuspid valve insufficiency Nonrheumatic aortic (valve) stenosis Nonrheumatic mitral (valve) insufficiency Other fci (current) drug therapy Pure hypercholesterolemia RBBB (right bundle branch block) Home Medications atorvastatin 10 mg tablet 10 mg PO QDAY #90 tab 08/31/20 [Rx Last Taken Unknown] lisinopril 20 mg tablet 20 mg PO BID #180 tab 12/04/20 [Rx Last Taken Unknown] furosemide 20 mg tablet 20 mg PO DAILY #30 tab 12/13/20 [Rx Last Taken Unknown] ferrous sulfate 325 mg PO DAILY 01/09/21 [History Last Taken Unknown] metoprolol tartrate 25 mg tablet 25 mg PO BID #180 tab 04/17/21 [Rx Last Taken Unknown] isosorbide mononitrate 90 mg PO DAILY 05/12/21 [History Last Taken Unknown] aspirin 81 mg tablet,delayed release 81 mg PO DAILY 05/31/21 [History Last Taken Unknown] clopidogrel 75 mg tablet 75 mg PO DAILY 05/31/21 [History Last Taken Unknown] pantoprazole 40 mg tablet,delayed release 40 mg PO DAILY 05/31/21 [History Last Taken Unknown] fenofibrate nanocrystallized [Tricor] 54 mg PO QDAY 06/01/21 [History Last Taken Unknown] allopurinol 300 mg tablet 300 mg PO DAILY 30 Days #30 tablet 06/07/21 [Rx Last Taken Unknown] hydroxyurea 1,000 mg DAILY 06/24/21 [History Last Taken Unknown] Allergy/AdvReac Type Severity Reaction Status Date / Time codeine Allergy Intermediate Swelling Verified 06/24/21 14:46 amoxicillin [From Augmentin] Allergy Mild Itching Verified 06/24/21 14:46 clavulanic acid Allergy Mild Itching Verified 06/24/21 14:46 [From Augmentin] niacin Allergy Mild Itching Verified 06/24/21 14:46 [From Niaspan Extended-Release] Family History Mother CHF (congestive heart failure) Brother CAD (coronary artery disease) Sister CHF (congestive heart failure) Son Cardiac pacemaker in situ WPW (Ytinf-Lisxchzus-Cmuld syndrome) Father No problems noted. Surgical History Aortic valve replaced H/O meniscectomy of right knee History of appendectomy History of coronary artery stent placement History of medial meniscus repair of left knee History of partial knee replacement History of synovectomy History of total hysterectomy History of tubal ligation Social History Smoking Status: Former smoker alcohol intake: never substance use type: does not use diet: low carbohydrate caffeine: Yes Type: coffee Number of servings: 2 what type of physical activity do you participate in: none seatbelt use: always do you feel safe at home: Yes ROS ROS ED Constitutional Constitutional ED: Denies chills or fever(s) Eyes Eyes: Denies change in vision ENT ENT ED: Denies ear pain or rhinorrhea Cardiovascular Cardiovascular: Reports palpitations and racing heartbeat; Denies chest pain Respiratory/Chest Respiratory/Chest: Reports dyspnea on exertion; Denies cough or dyspnea Gastrointestinal Gastrointestinal: Denies abdominal pain, nausea or vomiting Genitourinary Genitourinary ED: Denies dysuria Musculoskeletal Musculoskeletal: Denies arthralgias or myalgias Integumentary Denies rash Neurologic Neurologic: Denies headache(s) or weakness Psychiatric Psychiatric: Denies anxiety or depression EXAM Physical Exam Const Vital Signs: 06/24/21 14:44 06/24/21 15:00 06/24/21 15:06 Temperature 98.6 F 98.6 F Temperature Source Oral Oral Pulse Rate 109 H 109 H Respiratory Rate 16 18 Respiratory Effort Respiratory Depth Respiratory Pattern Blood Pressure 147/73 H 147/73 H Blood Pressure Mean 97 97 Pulse Ox 99 99 97 Oxygen Delivery Method Room Air Room Air Room Air 06/24/21 15:10 06/24/21 17:00 06/24/21 18:00 Temperature 98 F 98.4 F Temperature Source Temporal Temporal Pulse Rate 87 83 Respiratory Rate 17 24 H Respiratory Effort Normal Short of Breath Respiratory Depth Normal Respiratory Pattern Normal Blood Pressure 150/63 H 156/71 H Blood Pressure Mean 92 99 Pulse Ox 97 99 Oxygen Delivery Method Room Air Room Air Room Air 06/24/21 19:12 Temperature Temperature Source Pulse Rate 81 Respiratory Rate 18 Respiratory Effort Respiratory Depth Respiratory Pattern Blood Pressure 149/62 H Blood Pressure Mean Pulse Ox 97 Oxygen Delivery Method Positive well nourished and well developed General Appearance ED: well developed HEENT Reports moist mucous membranes atraumatic Eyes EOMs intact bilaterally Neck supple and no JVD Resp normal respiratory effort and clear to auscultation bilaterally Auscultation: Negative for rales, rhonchi, wheezes or diminished lung sounds Cardio regular rate and no murmurs Rate: tachycardic GI non-tender and non-distended Palpation: soft Extremity normal to inspection Extremity Narrative: 1+ General Extremety ED: Yes edema; Negative for tenderness General Extremity: edema Neuro oriented x3, CN's II-XII intact bilaterally and no sensory deficits noted Sensorium / Orientation: alert Motor Exam: strength 5/5 throughout Psych mental status grossly normal Skin Skin Narrative: Scattered petechial lesions of the lower extremities and multiple bruises on her arms from prior IV sites Lesions: no lesions MDM MDM MDM Narrative Medical decision making narrative: Patient evaluated for dyspnea on exertion, dizziness and some palpitations or chest that started this morning. She appears nontoxic in no acute distress. Patient is intermittently tachycardic he does have quite a medical history. With her recent hospitalizations I am concerned she could have developed a PE. Her D-dimer is elevated at 1.82 and a CTA is added on. This does not show any acute cardiopulmonary process. Her chest x- ray had showed findings concerning for possible Covid pneumonia however CT is more consistent with scarring. I suspect these findings are from her prior episode of COVID-19 infection. Because of her recent hospitalizations we did recheck a Covid antigen which was negative today. Patient does have normal high sensitive troponin of 16.1 and her repeat was 19.5. Her BNP was normal. She has a significant abnormalities of her CBC including leukocytosis, anemia and thrombocytopenia. This is all consistent with her leukemia and I did touch base with oncology on-call, , who felt like this was in line with her trend and did not think any emergent intervention was indicated. Her platelets are 10 so she will not require a platelet transfusion at this time. Patient does have about elevation of her lactate 2.3 by do not have an obvious source of infection. I do not think this is sepsis. She is not hypoxic and does not have any ambulatory hypoxia. Case is also reviewed with cardiology on-call, Dr. Weir, who does not have any further recommendations and feels that she can likely follow-up outpatient. Given that patient is not having concerning chest pain, has a normal high-sensitivity troponin x2 and is currently asymptomatic with no signs of acute fluid overload or acute PE I think she is stable for outpatient follow-up. Patient is agreeable this plan of care. She is counseled on return precautions. Lab Data Labs: Laboratory Results - last 24 hr 06/24/21 06/24/21 06/24/21 15:05 15:05 15:05 WBC 60.4 H* RBC 2.60 L Hgb 8.3 L Hct 25.7 L MCV 98.8 MCH 31.9 MCHC 32.3 RDW Std Deviation 52.2 H RDW Coeff of Aubrey 21.6 H Plt Count 10 L* MPV 11.1 Neut % (Auto) Not Reportable Absolute Neuts (auto) 42.3 H Absolute Lymphs (auto) 4.83 H Total Counted 100 Neutrophils % (Manual) 58 Band Neutrophils % 12 H Lymphocytes % (Manual) 8 L Monocytes % (Manual) 1 Metamyelocytes % 7 H Myelocytes % 12 H Promyelocytes % 2 H Differential Comment SCANNED Diff Path Review May foll Platelet Estimate MKD DEC Anisocytosis 3+ PT 13.5 INR 1.1 D-Dimer Quant (PE/DVT) 1.82 H* Sodium 140 Potassium 4.1 Chloride 107 Carbon Dioxide 25.0 Anion Gap 8 BUN 31 H Creatinine 1.25 H Estim Creat Clear Calc 26.97 Est GFR (MDRD) Af Amer 53 L Est GFR (MDRD) Non-Af 44 L BUN/Creatinine Ratio 24.8 H Glucose 144 H Lactic Acid Calcium 8.7 Troponin I High Sens 16.1 B-Natriuretic Peptide 06/24/21 06/24/21 06/24/21 15:05 15:05 17:25 WBC RBC Hgb Hct MCV MCH MCHC RDW Std Deviation RDW Coeff of Aubrey Plt Count MPV Neut % (Auto) Absolute Neuts (auto) Absolute Lymphs (auto) Total Counted Neutrophils % (Manual) Band Neutrophils % Lymphocytes % (Manual) Monocytes % (Manual) Metamyelocytes % Myelocytes % Promyelocytes % Differential Comment Diff Path Review Platelet Estimate Anisocytosis PT INR D-Dimer Quant (PE/DVT) Sodium Potassium Chloride Carbon Dioxide Anion Gap BUN Creatinine Estim Creat Clear Calc Est GFR (MDRD) Af Amer Est GFR (MDRD) Non-Af BUN/Creatinine Ratio Glucose Lactic Acid 2.3 H* Calcium Troponin I High Sens 19.5 B-Natriuretic Peptide 68.2 Radiography Chest X-Ray - ED: 1 View, Read by ED Physician, Read by Radiologist and No Acute Disease Diagnostic Testing: Radiology Impression Chest X-Ray 06/24/21 15:05 IMPRESSION: Bibasal nodular opacities, possibly Covid. However, refer to cross-sectional imaging for further evaluation. Electronically Signed: Nicanor Kearney MD at 16:41 EDT Tel , Service support , Chest CTA 06/24/21 16:00 IMPRESSION: Normal CTA chest examination, without a demonstrated pulmonary embolism or arterial dissection. COPD. Increasing small patchy areas of irregular parenchymal density in the periphery of both lung bases, suggesting of scarring or subsegmental atelectasis. Small infiltrates are not excluded. Electronically Signed: Dereck Enciso MD at 17:43 EDT , Service support , Rhythm Strip Rhythm Strip: paced Rate: 99 Ectopy: None EKG Initial EKG: Attestation: I personally reviewed and interpreted this EKG as follows: Interpretation: Paced Comments: Atrial sensed, ventricular paced rhythm This is new compared to prior EKG on 06/01/2021 consistent with patient's history of a recent pacemaker implant Discharge Plan Triage Chief Complaint: Shortness of Breath ED Provider: Breanna Walker Dx/Rx/DC Orders Clinical Impression: RICHARDS (dyspnea on exertion), Heart palpitations, Thrombocytopenia, Leukocytosis Instructions: ED Dyspnea, ED Palpitations Prescriptions: No Action lisinopril 20 mg tablet 20 mg PO BID Qty: 180 RF: 3 aspirin [Adult Aspirin Regimen] 81 mg tablet,delayed release (DR/EC) 81 mg PO DAILY RF: 0 clopidogrel 75 mg tablet 75 mg PO DAILY RF: 0 pantoprazole 40 mg tablet,delayed release (DR/EC) 40 mg PO DAILY RF: 0 ferrous sulfate 325 MG tablet 325 mg PO DAILY RF: 0 isosorbide mononitrate 60 mg tablet extended release 24 hr 90 mg PO DAILY RF: 0 fenofibrate nanocrystallized [Tricor] 48 mg tablet 54 mg PO QDAY RF: 0 hydroxyurea 500 mg capsule 1,000 mg DAILY RF: 0 atorvastatin 10 mg tablet 10 mg PO QDAY Qty: 90 RF: 3 furosemide 20 mg tablet 20 mg PO DAILY Qty: 30 RF: 11 metoprolol tartrate 25 mg tablet 25 mg PO BID Qty: 180 RF: 3 allopurinol 300 mg tablet 300 mg PO DAILY 30 Days Qty: 30 RF: 1 Primary Care Provider: Yesica Olsen Referrals: Yesica Olsen MD [Primary Care Provider] - Pipe Cazares MD [NON-STAFF] - Parth De Oliveira MD [STAFF PHYSICIAN] - Disposition Disposition: Home, Self Care Discharge Date/Time: 06/24/21 19:25
--- NOTE | 2021-06-24 15:05 | RAD_ITS ---
STUDY: X-RAY CHEST REASON FOR EXAM: Female, 81 years old. chest pain TECHNIQUE: Frontal portable view of the chest COMPARISON: 01 June 2021 FINDINGS: There are ill-defined nodular bilateral lower lung opacities. There is no pneumothorax, cardiac megaly, pulmonary edema or pleural effusions. Pacemaker is present in the left upper chest with leads terminating in the right atrium and right ventricle. RAD/Chest 1 View (Portable) IMPRESSION: Bibasal nodular opacities, possibly Covid. However, refer to cross-sectional imaging for further evaluation. Electronically Signed: Nicanor Kearney MD at 16:41 EDT Tel , Service support ,
[2021-06-24 15:22] LABS: Hematocrit 25.7 % (37-47); Hemoglobin 8.3 g/dL (12.0-15.0); Mean Corp Hgb Conc 32.3 g/dL (32-36); Mean Corpuscular Hgb 31.9 pg (27.0-32.0); Mean Corpuscular Volume 98.8 fL (81-99); Mean Platelet Vol. 11.1 fl (6.2-12.0); POSITIVE COUNT YES; POSITIVE DIFFERENTIAL YES; POSITIVE MORPHOLOGY YES; RBC Distribution Width CV 21.6 % (11.6-14.6); RBC Distribution Width SD 52.2 fl (35.1-43.9)
[2021-06-24 15:24] LABS: Platelet Count 10 K/mm3 (150-450); White Blood Count 60.4 K/mm3 (4.4-11.0)
[2021-06-24 15:25] LABS: Differential Indicated MANUAL DIFF
[2021-06-24 15:30] LABS: International Normalized Ratio 1.1; Prothrombin Time (Protime)PT. 13.5 SECONDS (11.7-14.9)
[2021-06-24 15:32] LABS: D-Dimer Quantitative (DVT/PE) 1.82 FEU/ug/m (0.27-0.49)
[2021-06-24 15:39] LABS: Anion Gap 8 (5-15); BUN 31 mg/dL (7-18); BUN/Creat Ratio 24.8 RATIO (10-20); Calcium,Total 8.7 mg/dL (8.5-10.1); Chloride 107 mmol/L (98-107); Creatinine, Serum 1.25 mg/dL (0.55-1.02); EST Glomerular Filtration Rate 44 mL/min (>60); Est Glom Filt Rate - Afr Amer 53 mL/min (>60); Estimated Creatinine Clearance 26.97 ml/min; Glucose 144 mg/dL (74-106); Potassium 4.1 mmol/L (3.5-5.1); Sodium Level 140 mmol/L (136-145); Troponin-I HS 16.1 pg/mL (3.0-53.7)
[2021-06-24 15:44] LABS: BNP,B-Type NATRIURETIC PEPTIDE 68.2 pg/mL (0-100)
--- NOTE | 2021-06-24 15:56 | NURSING ---
CALL FROM LAB, LACTIC ACID 2.3, DR. KTAZ MADE AWARE
[2021-06-24 15:57] LABS: Lactic Acid 2.3 mmol/L (0.4-1.9)
[2021-06-24 15:58] LABS: Lymphocyte 8 % (19-41); Metamyelocyte 7 % (0-1); Monocyte 1 % (0-10); Myelocyte 12 % (0-0); Neutrophil-Band 12 % (0-5); Neutrophil-Segmented 58 % (47-70); Promyelocyte 2 % (0-0); Total Cells Counted 100 (MANUAL DIFF)
--- NOTE | 2021-06-24 16:00 | CT_ITS ---
STUDY: CTA CHEST REASON FOR EXAM: Female, 81 years old. SOB, elevated dimer RADIATION DOSAGE (If Supplied By Facility): CTDIvol = ( 10.71 ) mGy, DLP = ( 391.10 ) mGycm TECHNIQUE: The examination was performed with the intravenous administration of IV 100mL Isovue-370. Post-processing of the angiographic images was performed, with multiplanar reformation and 3D reconstruction. Individualized dose optimization techniques were used for this CT. COMPARISON: None. FINDINGS: Normal enhancement of the main pulmonary artery and right and left pulmonary arteries. Normal enhancement of the bilateral peripheral pulmonary arteries. There is no demonstrated pulmonary embolism. There is atherosclerotic calcification of the aortic arch with tortuosity. There is no demonstrated aortic dissection. Normal heart and pericardium. There has been aortic stent graft placement. Pacemaker is seen with leads terminating in the right atrium and right ventricle. Normal mediastinum. Normal hilar regions. Normal visualized trachea and bronchi. The lungs are hyper expanded, with flattening of the hemidiaphragms. Numerous scattered subcentimeter nodules in both lungs are stable. However along the periphery of both lower lung domínguez, irregular pulmonary densities as much as 2.3 cm, are new or worsened since prior study. These are most suggestive of areas of scarring or subsegmental atelectasis. Small infiltrates are not excluded. No effusions. Normal osseous structures. Normal visualized upper abdomen. CT/CTA Chest W/WO Contrast IMPRESSION: Normal CTA chest examination, without a demonstrated pulmonary embolism or arterial dissection. COPD. Increasing small patchy areas of irregular parenchymal density in the periphery of both lung bases, suggesting of scarring or subsegmental atelectasis. Small infiltrates are not excluded. Electronically Signed: Dereck Enciso MD at 17:43 EDT , Service support ,
[2021-06-24 16:04] LABS: Absolute Neutrophil Count 42.3 X10^3/uL (2.0-7.7); Lymphocyte # 4.83 X10^3/ul (0.83-4.51); Neutrophil # 42.28 X10^3/uL (2.7-7.7)
[2021-06-24 16:05] LABS: Absolute Lymphocyte Count 4.83 X10^3/uL (0.83-4.51); Anisocytosis 3+; Differential Comment SCANNED; Platelet Estimate MKD DEC (ADEQ)
[2021-06-24 18:10] LABS: Troponin-I HS 19.5 pg/mL (3.0-53.7)
[2021-06-24 19:34] LABS: Reflex Lactate? Y
[2021-06-25 14:53] LABS: Pathologist Review Reviewed
== END 2021-06-24 19:25 | disposition home or self-care (01) ==
PROVIDERS: Emergency Provider Emergency Medicine; PCP Family Medicine
DX: R06.02 Shortness of breath (principal); R00.2 Palpitations; D69.6 Thrombocytopenia, unspecified; D72.829 Elevated white blood cell count, unspecified; I25.10 Atherosclerotic heart disease of native coronary artery without angina pectoris; I10 Essential (primary) hypertension; E78.00 Pure hypercholesterolemia, unspecified; Z95.0 Presence of cardiac pacemaker; Z79.82 Long term (current) use of aspirin; Z79.02 Long term (current) use of antithrombotics/antiplatelets; Z79.899 Other long term (current) drug therapy; Z87.891 Personal history of nicotine dependence; Z86.16 Personal history of COVID-19
CPT/HCPCS: 71045; 71275; 80048; 83605; 83880; 84484; 85025; 85379; 85610; 87426; 93005; 99283; Q9967; A4216

== ENCOUNTER 2021-07-15 17:27 | Emergency (ER) | payer MEDICARE, SELFPAY ==
[2021-07-15] VITALS (8 sets, daily range): BP systolic 119–143; BP diastolic 42–74; PULSE 82–94; RESP 14–16; TEMP 36.7–36.9; O2SAT 97–99; BMI 31.1
--- NOTE | 2021-07-15 18:10 | ED.VIS.GI ---
HPI HPI - GI History of Present Illness Chief Complaint: GI Bleed Narrative Narrative: 81-year-old female with history of leukemia presenting with black stools for about 24 hours. She states it is fairly persistent. She is not seeing any bright red blood that she knows of. Patient states she is not having any abdominal pain. Patient is anticoagulated on Eliquis and aspirin. She states there is been no changes to this. Patient states that she is currently on chemotherapy with Dr. Cazares. Patient does state that she has problems with anemia chronically and was transfused a couple units of blood this week by her salesperson wigs. She denies any history of GI bleed in the past. [facility] Medical History Aortic stenosis CAD (coronary artery disease) CAD (coronary artery disease) Essential hypertension History of blood transfusion History of COVID-19 Neuropathy Non-rheumatic tricuspid valve insufficiency Nonrheumatic aortic (valve) stenosis Nonrheumatic mitral (valve) insufficiency Other laborer [employer] (current) drug therapy Pure hypercholesterolemia RBBB (right bundle branch block) Home Medications atorvastatin 10 mg tablet 10 mg PO QDAY #90 tab 08/31/20 [Rx Last Taken Unknown] lisinopril 20 mg tablet 20 mg PO BID #180 tab 12/04/20 [Rx Last Taken Unknown] furosemide 20 mg tablet 20 mg PO DAILY #30 tab 12/13/20 [Rx Last Taken Unknown] ferrous sulfate 325 mg PO DAILY 01/09/21 [History Last Taken Unknown] metoprolol tartrate 25 mg tablet 25 mg PO BID #180 tab 04/17/21 [Rx Last Taken Unknown] isosorbide mononitrate 90 mg PO DAILY 05/12/21 [History Last Taken Unknown] aspirin 81 mg tablet,delayed release 81 mg PO DAILY 05/31/21 [History Last Taken Unknown] clopidogrel 75 mg tablet 75 mg PO DAILY 05/31/21 [History Last Taken Unknown] pantoprazole 40 mg tablet,delayed release 40 mg PO DAILY 05/31/21 [History Last Taken Unknown] fenofibrate nanocrystallized [Tricor] 54 mg PO QDAY 06/01/21 [History Last Taken Unknown] allopurinol 300 mg tablet 300 mg PO DAILY 30 Days #30 tablet 06/07/21 [Rx Last Taken Unknown] hydroxyurea 1,000 mg DAILY 06/24/21 [History Last Taken Unknown] tolterodine 4 mg PO DAILY 07/15/21 [History Last Taken Unknown] Allergy/AdvReac Type Severity Reaction Status Date / Time codeine Allergy Intermediate Swelling Verified 07/15/21 17:30 amoxicillin [From Augmentin] Allergy Mild Itching Verified 07/15/21 17:30 clavulanic acid Allergy Mild Itching Verified 07/15/21 17:30 [From Augmentin] niacin Allergy Mild Itching Verified 07/15/21 17:30 [From Niaspan Extended-Release] Family History Mother CHF (congestive heart failure) Brother CAD (coronary artery disease) Sister CHF (congestive heart failure) Son Cardiac pacemaker in situ WPW (Qctpy-Pybfwspcw-Alpuw syndrome) Father No problems noted. Surgical History Aortic valve replaced H/O meniscectomy of right knee History of appendectomy History of coronary artery stent placement History of medial meniscus repair of left knee History of partial knee replacement History of synovectomy History of total hysterectomy History of tubal ligation Social History Smoking Status: Former smoker alcohol intake: never substance use type: does not use diet: low carbohydrate caffeine: Yes Type: coffee Number of servings: 2 what type of physical activity do you participate in: none seatbelt use: always do you feel safe at home: Yes ROS ROS ED Constitutional Constitutional ED: Denies chills, fever(s) or sweats ENT ENT ED: Denies rhinorrhea or sore throat Cardiovascular Cardiovascular: Denies chest pain, palpitations or racing heartbeat Respiratory/Chest Respiratory/Chest: Reports dyspnea and dyspnea on exertion Gastrointestinal Gastrointestinal: Denies abdominal pain, diarrhea, nausea or vomiting Genitourinary Genitourinary ED: Denies dysuria or hematuria Musculoskeletal Musculoskeletal: Denies arthralgias or myalgias Integumentary Denies Abrasions or rash Neurologic Neurologic: Denies headache(s) or paresthesias Psychiatric Psychiatric: Denies anxiety or depression EXAM Physical Exam Const Vital Signs: 07/15/21 17:28 07/15/21 19:28 08/29/21 21:00 Temperature 98.1 F Temperature Source Oral Pulse Rate 94 90 86 Respiratory Rate 16 15 16 Blood Pressure 121/51 H 119/74 140/48 H Blood Pressure Mean 74 89 78 Blood Pressure Source Blood Pressure Position Blood Pressure Location Pulse Ox 99 98 97 Oxygen Delivery Method Room Air Room Air Room Air 07/15/21 21:45 07/15/21 22:05 Temperature 98.5 F 98.4 F Temperature Source Oral Oral Pulse Rate 87 85 Respiratory Rate 15 15 Blood Pressure 126/52 H 143/47 H Blood Pressure Mean 76 79 Blood Pressure Source Monitor Monitor Blood Pressure Position Semi-Fowlers Semi-Fowlers Blood Pressure Location Right Arm Right Arm Pulse Ox 97 98 Oxygen Delivery Method Room Air Room Air Positive well nourished General Appearance ED: NAD; Negative for pallor HEENT Reports moist mucous membranes normocephalic and atraumatic Eyes PERRL and EOMs intact bilaterally General Eye ED: Yes pale conjunctiva Resp normal respiratory effort and clear to auscultation bilaterally GI non-tender and non-distended Auscultation: normoactive bowel sounds Palpation: soft Narrative: Black stool around the rectum. Neuro CN's II-XII intact bilaterally Sensorium / Orientation: alert, oriented to person, oriented to place and oriented to time Psych mental status grossly normal and thought process normal Skin General Skin Exam: Negative for jaundice or pallor Lesions: no lesions Rashes: no rashes MDM MDM MDM Narrative Medical decision making narrative: Patient presenting with melena which has been over the last 24 hours. She does have chronic anemia but she does not have history of GI bleed that she reports. Her hemoglobin was 5.6 and now is 5.2. This is after a couple of transfusions this week. Her platelets are also low at 6. These were 8 earlier this week. Patient is on aspirin and Plavix chronically. Renal function and electrolytes are normal. Her BUN is elevated but I suspect that some of that is from her GI bleed. Patient's stool was occult positive. She was transfused 2 units of red blood cells. Her vital signs are stable and she is afebrile. She is not hypotensive. Her white blood cell count is 33.4 but this is actually lower than previously. Patient states she did not take her chemotherapy medication today nor did she take any of her platelet inhibitors out of concern for the bleeding. Discussed with Dr. Cazares who recommended transfusing platelets. I did discuss the case also with Dr. Mcclendon who agreed and felt the patient could stay at [facility] as long as she was getting transfused blood and platelets. During her stay she did complain of some left-sided jaw pain. I did obtain an EKG given her cardiac history this appears to be a paced rhythm at 86 bpm without ischemic change. High-sensitivity troponin is 20. I did speak with Dr. Mcclendon again who stated that given her cardiac history as well as her recent GI bleeding this week and being transfused with worsening anemia and platelets she felt more comfortable patient was admitted to a tertiary facility. Thus far [facility] where she had her cardiac care is full, [facility] is full, [place] also has no beds. We will continue to try to find a place to transfer the patient. In the meantime she will get platelets and blood transfusion. Patient signed out to incoming ED physician for monitoring until transfer arrangement can be made. Impression: 1. Blood loss anemia 2. Upper GI bleed 3. Thrombocytopenia 4. History of leukemia Lab Data Attestation: I reviewed the patient's lab results. Labs: Laboratory Results - last 24 hr 07/15/21 07/15/21 07/15/21 18:40 18:40 18:40 WBC 33.4 H* RBC 1.58 L Hgb 5.2 L* Hct 15.4 L MCV 97.5 MCH 32.9 H MCHC 33.8 RDW Std Deviation 47.6 H RDW Coeff of Aubrey 17.0 H Plt Count 6 L* MPV 11.6 Neut % (Auto) Not Reportable Absolute Neuts (auto) 25.4 H Absolute Lymphs (auto) 4.68 H Total Counted 100 Neutrophils % (Manual) 69 Band Neutrophils % 7 H Lymphocytes % (Manual) 14 L Monocytes % (Manual) 1 Metamyelocytes % 4 H Myelocytes % 5 H Differential Comment SEE COMMENT Diff Path Review May foll Atypical Lymphocytes RARE Platelet Estimate MKD DEC RBC Morphology N CHROM Hypochromasia 1+ Anisocytosis RARE Macrocytosis 1+ Ovalocytes RARE PT 13.9 INR 1.1 Sodium 143 Potassium 4.1 Chloride 112 H Carbon Dioxide 24.0 Anion Gap 7 BUN 30 H Creatinine 0.95 Estim Creat Clear Calc 35.49 Est GFR (MDRD) Af Amer 72 Est GFR (MDRD) Non-Af 60 BUN/Creatinine Ratio 31.5 H Glucose 150 H Calcium 8.3 L Total Bilirubin 0.20 AST 26 ALT 24 Alkaline Phosphatase 35 L Troponin I High Sens Total Protein 6.0 L Albumin 3.2 Globulin 2.8 Albumin/Globulin Ratio 1.1 Blood Type Antibody Screen Crossmatch 07/15/21 07/15/21 07/15/21 18:40 18:40 19:34 WBC RBC Hgb Hct MCV MCH MCHC RDW Std Deviation RDW Coeff of Aubrey Plt Count MPV Neut % (Auto) Absolute Neuts (auto) Absolute Lymphs (auto) Total Counted Neutrophils % (Manual) Band Neutrophils % Lymphocytes % (Manual) Monocytes % (Manual) Metamyelocytes % Myelocytes % Differential Comment Diff Path Review Atypical Lymphocytes Platelet Estimate RBC Morphology Hypochromasia Anisocytosis Macrocytosis Ovalocytes PT INR Sodium Potassium Chloride Carbon Dioxide Anion Gap BUN Creatinine Estim Creat Clear Calc Est GFR (MDRD) Af Amer Est GFR (MDRD) Non-Af BUN/Creatinine Ratio Glucose Calcium Total Bilirubin AST ALT Alkaline Phosphatase Troponin I High Sens 20 Total Protein Albumin Globulin Albumin/Globulin Ratio Blood Type A NEGATIVE Antibody Screen NEGATIVE Crossmatch See Detail Discharge Plan Triage Chief Complaint: GI Bleed ED Provider: Francisco Cherry Dx/Rx/DC Orders Prescriptions: No Action lisinopril 20 mg tablet 20 mg PO BID Qty: 180 RF: 3 aspirin [Adult Aspirin Regimen] 81 mg tablet,delayed release (DR/EC) 81 mg PO DAILY RF: 0 clopidogrel 75 mg tablet 75 mg PO DAILY RF: 0 pantoprazole 40 mg tablet,delayed release (DR/EC) 40 mg PO DAILY RF: 0 ferrous sulfate 325 MG tablet 325 mg PO DAILY RF: 0 isosorbide mononitrate 60 mg tablet extended release 24 hr 90 mg PO DAILY RF: 0 fenofibrate nanocrystallized [Tricor] 48 mg tablet 54 mg PO QDAY RF: 0 hydroxyurea 500 mg capsule 1,000 mg DAILY RF: 0 tolterodine 4 mg capsule,extended release 24hr 4 mg PO DAILY RF: 0 atorvastatin 10 mg tablet 10 mg PO QDAY Qty: 90 RF: 3 furosemide 20 mg tablet 20 mg PO DAILY Qty: 30 RF: 11 metoprolol tartrate 25 mg tablet 25 mg PO BID Qty: 180 RF: 3 allopurinol 300 mg tablet 300 mg PO DAILY 30 Days Qty: 30 RF: 1 Primary Care Provider: Yesica Olsen
[2021-07-15] MEDS: 0.9% Normal Saline 1,000 ML 1000 ML IV (18:43)
[2021-07-15 18:54] LABS: Hematocrit 15.4 % (37-47); Mean Corp Hgb Conc 33.8 g/dL (32-36); Mean Corpuscular Hgb 32.9 pg (27.0-32.0); Mean Corpuscular Volume 97.5 fL (81-99); Mean Platelet Vol. 11.6 fl (6.2-12.0); POSITIVE COUNT YES; POSITIVE DIFFERENTIAL YES; POSITIVE MORPHOLOGY YES; RBC Distribution Width SD 47.6 fl (35.1-43.9); Red Blood Count 1.58 M/mm3 (4.2-5.4)
[2021-07-15 19:07] LABS: International Normalized Ratio 1.1; Prothrombin Time (Protime)PT. 13.9 SECONDS (11.7-14.9)
[2021-07-15 19:13] LABS: ALB/GLOB Ratio 1.1 RATIO (0.9-2.4); AST(SGOT) 26 U/L (15-37); Alanine Aminotransfer ALT/SGPT 24 U/L (13-56); Albumin, Serum 3.2 g/dL (3.2-5.0); Alkaline Phosphatase 35 U/L (45-117); Anion Gap 7 (5-15); BUN 30 mg/dL (7-18); BUN/Creat Ratio 31.5 RATIO (10-20); Calcium,Total 8.3 mg/dL (8.5-10.1); Chloride 112 mmol/L (98-107); Creatinine, Serum 0.95 mg/dL (0.55-1.02); EST Glomerular Filtration Rate 60 mL/min (>60); Est Glom Filt Rate - Afr Amer 72 mL/min (>60); Estimated Creatinine Clearance 35.49 ml/min; Globulin 2.8 g/dL (2.2-4.2); Glucose 150 mg/dL (74-106); Potassium 4.1 mmol/L (3.5-5.1); Sodium Level 143 mmol/L (136-145)
--- NOTE | 2021-07-15 19:39 | EKG12_ITS ---
Test Reason : CHEST DISCOMFORT Blood Pressure : / mmHG Vent. Rate : 086 BPM Atrial Rate : 086 BPM P-R Int : 154 ms QRS Dur : 168 ms QT Int : 464 ms P-R-T Axes : 041 -44 091 degrees QTc Int : 555 ms Atrial-sensed ventricular-paced rhythm Abnormal ECG Confirmed by SUSAN POWELL, JL ([id number]), managing editor KRYSTA QUIROZ ([id number]) on 07/17/2021 8:38:32 AM Referred By: HERACLIO Confirmed By:LJ DAVIS MD
[2021-07-15 19:40] LABS: White Blood Count 33.4 K/mm3 (4.4-11.0)
[2021-07-15 19:41] LABS: Hemoglobin 5.2 g/dL (12.0-15.0)
[2021-07-15 19:42] LABS: Differential Indicated MANUAL DIFF; Platelet Count 6 K/mm3 (150-450)
[2021-07-15 19:50] LABS: Lymphocyte 14 % (19-41); Metamyelocyte 4 % (0-1); Monocyte 1 % (0-10); Myelocyte 5 % (0-0); Neutrophil-Band 7 % (0-5); Neutrophil-Segmented 69 % (47-70); Total Cells Counted 100 (MANUAL DIFF)
[2021-07-15 19:54] LABS: Anisocytosis RARE; Atypical Lymphocyte RARE %; Hypochromasia 1+; Macrocytosis 1+; Ovalocyte RARE; Platelet Estimate MKD DEC (ADEQ); Red Cell Morphology N CHROM NORMAL (NORM C&C)
[2021-07-15 19:56] LABS: Absolute Neutrophil Count 25.4 X10^3/uL (2.0-7.7)
[2021-07-15 19:57] LABS: Absolute Lymphocyte Count 4.68 X10^3/uL (0.83-4.51)
[2021-07-15 20:11] LABS: Troponin-I HS 20 pg/mL (3.0-54.0)
--- NOTE | 2021-07-15 23:04 | ED.RN ---
[facility] called for transfer no beds at this time
--- NOTE | 2021-07-15 23:05 | ED.RN ---
[facility] called for transfer no beds at this time
--- NOTE | 2021-07-15 23:06 | ED.RN ---
[facility] called for transfer at this time they are placing patients on wait list at this time
--- NOTE | 2021-07-15 23:10 | ED.RN ---
[facility] called for transfer they are full at this time
--- NOTE | 2021-07-15 23:10 | ED.RN ---
[facility] called for transfer. [facility] is taking patients information and speaking to the Doctor at this time
[2021-07-16] VITALS (9 sets, daily range): BP systolic 123–146; BP diastolic 43–52; PULSE 70–81; RESP 14–24; TEMP 36.6–36.8; O2SAT 97–99
--- NOTE | 2021-07-16 05:51 | ED.RN ---
called and left message with son at this time that patient can be picked up and transported to [facility]
[2021-07-16 14:12] LABS: Pathologist Review Reviewed
== END 2021-07-16 07:51 | disposition short-term general hospital (02) ==
PROVIDERS: Emergency Provider Student in an Organized Health Care Education/Training Program; PCP Family Medicine
DX: D50.0 Iron deficiency anemia secondary to blood loss (chronic) (principal); K92.1 Melena; D69.6 Thrombocytopenia, unspecified; I25.10 Atherosclerotic heart disease of native coronary artery without angina pectoris; I45.10 Unspecified right bundle-branch block; I08.3 Combined rheumatic disorders of mitral, aortic and tricuspid valves; I10 Essential (primary) hypertension; E78.00 Pure hypercholesterolemia, unspecified; Z79.01 Long term (current) use of anticoagulants; Z79.82 Long term (current) use of aspirin; Z79.899 Other long term (current) drug therapy; Z87.891 Personal history of nicotine dependence; Z85.6 Personal history of leukemia; Z86.16 Personal history of COVID-19
CPT/HCPCS: 80053; 82274; 84484; 85025; 85610; 86644; 86850; 86900; 86901; 86920; 86965; 93005; 96361; 96365; 99285; J7030; J7050; P9016; P9035; P9040; A4216

== ENCOUNTER 2021-11-07 15:05 | Inpatient (IN) | payer MEDICARE, SELFPAY ==
[2021-11-07] VITALS (18 sets, daily range): BP systolic 144–181; BP diastolic 61–91; PULSE 66–106; RESP 16–20; TEMP 36.3–37.4; O2SAT 97–100; BMI 34.0; BMI 32.3
--- NOTE | 2021-11-07 15:29 | EKG12_ITS ---
Test Reason : CP Blood Pressure : / mmHG Vent. Rate : 093 BPM Atrial Rate : 093 BPM P-R Int : 140 ms QRS Dur : 168 ms QT Int : 456 ms P-R-T Axes : 075 -48 097 degrees QTc Int : 566 ms Atrial-sensed ventricular-paced rhythm Abnormal ECG Confirmed by SUSAN POWELL, JL ([id number]), story editor KRYSTA QUIROZ ([id number]) on 11/13/2021 9:25:50 AM Referred By: JUAN Confirmed By:JL DAVIS MD
--- NOTE | 2021-11-07 15:30 | EDS_ITS ---
HPI History of Present Illness Chief Complaint: Chest Pain Informant: patient Onset/Context/Timing Onset: Today Activity at onset: gradual Timing: Continuous Quality: Positive for Aching Location: - (Left scapula, left arm, jaw) Worsened By: Exertion Relieved By: Nothing Associated Symptoms: Positive for Dyspnea; Negative for Nausea, Vomiting, Diaphoresis, Cough, Fever, Lightheadedness, Acid Reflux and Palpitations Narrative Narrative: Patient presents with chest pain that began today. Patient states it is aching. Patient states it starts in her left scapular area and then goes down the back of her left arm. Patient states it then goes into her jaw. Patient states this feels similar to the pain she had with her prior stent. Patient states she was given a transfusion of a unit of platelets yesterday. Patient admits to some shortness of breath. Patient states her pain is worse with any exertion. Patient states nothing makes it better. Patient denies any nausea or vomiting. Patient denies any diaphoresis. Patient denies any cough or fever. Patient denies any lightheadedness or palpitations. Prior Similar Symptoms: Yes and With Prior Angina CVD Risk Factors: Positive for Hypertension and Hypercholesterolemia; Negative for Diabetes, Family History 1' </=55 and Smoking PE Risk Factors: Positive for Cancer; Negative for Recent Travel/Surgery, Recent Immobilization, Prior DVT or PE and OCP + Smoking + >/=35 TAD Risk Factors: Positive for Hypertension [facility] Medical History (Updated 11/07/21 @ 20:[address] Parth De Oliveira MD) Aortic stenosis CAD (coronary artery disease) CAD (coronary artery disease) CLL (chronic lymphocytic leukemia) Complete heart block Difficult intravenous access Essential hypertension GI bleed History of blood transfusion History of COVID-19 History of transcatheter aortic valve replacement (TAVR) (05/28/21) Neuropathy Non-rheumatic tricuspid valve insufficiency Non-ST elevation (NSTEMI) myocardial infarction Nonrheumatic aortic (valve) stenosis Nonrheumatic mitral (valve) insufficiency Other usp (current) drug therapy Pure hypercholesterolemia RBBB (right bundle branch block) Home Medications furosemide 20 mg tablet 20 mg PO DAILY #30 tab 12/13/20 [Rx Last Taken 11/07/21] metoprolol tartrate 25 mg tablet 25 mg PO BID #180 tab 04/17/21 [Rx Last Taken 11/07/21] clopidogrel 75 mg tablet 75 mg PO DAILY 05/31/21 [History Last Taken 11/07/21] pantoprazole 40 mg tablet,delayed release 40 mg PO DAILY 05/31/21 [History Last Taken 11/07/21] allopurinol 300 mg tablet 300 mg PO DAILY 30 Days #30 tablet 06/07/21 [Rx Last Taken 11/07/21] hydroxyurea 1,000 mg DAILY 06/24/21 [History Last Taken 11/07/21] tolterodine 4 mg PO DAILY 07/15/21 [History Last Taken 11/07/21] atorvastatin 80 mg tablet 80 mg PO QPM 07/24/21 [History Last Taken 11/06/21] lisinopril 20 mg tablet 20 mg PO BID tab 07/24/21 [History Last Taken 11/07/21] ferrous sulfate 325 mg (65 mg iron) tablet 325 mg PO DAILY #90 tab 08/07/21 [Rx Last Taken 11/07/21] ondansetron HCl 4 mg tablet 4 mg PO Q8H PRN #30 tab 09/18/21 [Rx Last Taken Unknown] decitabine-cedazuridine [Inqovi] 1 tab PO DAILY 11/07/21 [History Last Taken Unknown] fenofibrate 54 mg PO DAILY 11/07/21 [History Last Taken 11/06/21] isosorbide mononitrate 30 mg PO DAILY 11/07/21 [History Last Taken 11/07/21] Allergy/AdvReac Type Severity Reaction Status Date / Time codeine Allergy Intermediate Swelling Verified 11/07/21 15:08 amoxicillin [From Augmentin] Allergy Mild Itching Verified 11/07/21 15:08 clavulanic acid Allergy Mild Itching Verified 11/07/21 15:08 [From Augmentin] niacin Allergy Mild Itching Verified 11/07/21 15:08 [From Niaspan Extended-Release] Family History Mother CHF (congestive heart failure) Brother CAD (coronary artery disease) Sister CHF (congestive heart failure) Son Cardiac pacemaker in situ WPW (Oipyy-Tysquwjwu-Vqqkf syndrome) Father No problems noted. Surgical History Aortic valve replaced H/O meniscectomy of right knee History of appendectomy History of coronary artery stent placement (05/15/21) History of medial meniscus repair of left knee History of partial knee replacement History of permanent cardiac pacemaker placement (06/04/21) History of synovectomy History of total hysterectomy History of tubal ligation S/P colonoscopy Social History Smoking Status: Former smoker alcohol intake: never substance use type: does not use diet: low carbohydrate caffeine: Yes Type: coffee Number of servings: 2 what type of physical activity do you participate in: none seatbelt use: always do you feel safe at home: Yes ROS ROS ED Constitutional Constitutional ED: Denies chills or fever(s) Eyes Eyes: Denies blurry vision or change in vision ENT ENT ED: Denies rhinorrhea or sore throat Cardiovascular Cardiovascular: Reports chest pain; Denies palpitations Respiratory/Chest Respiratory/Chest: Reports dyspnea; Denies cough Gastrointestinal Gastrointestinal: Denies abdominal pain, nausea or vomiting Genitourinary Genitourinary ED: Denies dysuria or hematuria Musculoskeletal Musculoskeletal: Reports back pain; Denies neck pain Integumentary Denies abscess or rash Neurologic Neurologic: Denies headache(s) or weakness Allergic/Immunologic Allergic/Immunologic ED: Denies mouth swelling or urticaria EXAM Physical Exam Const Vital Signs: 11/07/21 15:06 11/07/21 15:09 11/07/21 15:35 Temperature 97.3 F L Temperature Source Temporal Pulse Rate 102 H Respiratory Rate 16 Respiratory Effort Normal Non-Labored Respiratory Depth Respiratory Pattern Blood Pressure 181/91 H Blood Pressure Mean 121 Blood Pressure Source Blood Pressure Position Blood Pressure Location Pulse Ox 98 Oxygen Delivery Method Room Air Room Air 11/07/21 15:54 11/07/21 15:55 11/07/21 16:01 Temperature Temperature Source Pulse Rate 98 98 103 H Respiratory Rate Respiratory Effort Respiratory Depth Respiratory Pattern Blood Pressure 167/75 H 167/75 H 144/77 H Blood Pressure Mean 105 Blood Pressure Source Blood Pressure Position Blood Pressure Location Pulse Ox Oxygen Delivery Method 11/07/21 16:05 11/07/21 17:00 11/07/21 17:55 Temperature 97.8 F Temperature Source Temporal Pulse Rate 93 89 81 Respiratory Rate 16 16 17 Respiratory Effort Respiratory Depth Respiratory Pattern Blood Pressure 154/69 H 160/66 H 165/85 H Blood Pressure Mean 97 97 111 Blood Pressure Source Blood Pressure Position Blood Pressure Location Pulse Ox 98 98 97 Oxygen Delivery Method Room Air Room Air Room Air 11/07/21 18:00 11/07/21 18:38 11/07/21 18:39 Temperature 99.3 F H Temperature Source Temporal Pulse Rate 81 94 90 Respiratory Rate 16 20 H Respiratory Effort Respiratory Depth Respiratory Pattern Blood Pressure 180/64 H 178/82 H Blood Pressure Mean 102 114 Blood Pressure Source Monitor Blood Pressure Position Semi-Fowlers Blood Pressure Location Left Arm Pulse Ox 98 99 Oxygen Delivery Method Room Air Room Air 11/07/21 19:53 11/07/21 20:19 11/07/21 20:38 Temperature 98.7 F 98.1 F Temperature Source Oral Oral Pulse Rate 106 H 89 90 Respiratory Rate 18 18 Respiratory Effort Respiratory Depth Respiratory Pattern Blood Pressure 161/74 H 166/66 H Blood Pressure Mean 103 99 Blood Pressure Source Monitor Monitor Blood Pressure Position Semi-Fowlers Supine Blood Pressure Location Left Arm Left Arm Pulse Ox 100 100 Oxygen Delivery Method Room Air Room Air 11/07/21 20:46 11/07/21 20:53 11/07/21 21:53 Temperature 98.7 F 98.7 F Temperature Source Oral Oral Pulse Rate 84 80 Respiratory Rate 18 18 Respiratory Effort Normal Non-Labored Respiratory Depth Normal Respiratory Pattern Normal Blood Pressure 163/61 H 172/61 H Blood Pressure Mean 95 98 Blood Pressure Source Monitor Manual Blood Pressure Position Semi-Fowlers Semi-Fowlers Blood Pressure Location Left Arm Left Arm Pulse Ox 100 100 Oxygen Delivery Method Room Air Room Air Room Air 11/07/21 21:59 11/07/21 22:53 Temperature 97.5 F L Temperature Source Oral Pulse Rate 80 66 Respiratory Rate 18 Respiratory Effort Respiratory Depth Respiratory Pattern Blood Pressure 172/61 H 167/62 H Blood Pressure Mean 97 Blood Pressure Source Manual Blood Pressure Position Semi-Fowlers Blood Pressure Location Left Arm Pulse Ox 99 Oxygen Delivery Method Room Air Positive well nourished, well developed and obese General Appearance ED: well developed Nutritional Appearance: obese HEENT normocephalic and atraumatic Eyes PERRL and EOMs intact bilaterally Neck supple and no JVD Chest Wall palpation of chest normal Resp normal respiratory effort and clear to auscultation bilaterally Effort and Inspection: Negative for respiratory distress Cardio regular rate, regular rhythm and no murmurs GI normal to inspection, nondistended, normoactive bowel sounds, soft to palpation, non-tender and non-distended Extremity normal to inspection General Extremety ED: Negative for edema or tenderness General Extremity: Negative for edema Neuro oriented x3, CN's II-XII intact bilaterally and no sensory deficits noted Sensorium / Orientation: awake and alert Motor Exam: strength 5/5 throughout Psych mental status grossly normal Heart Score History: Moderately Suspicious ECG: Nonspecific Repolarization Age: >/= 65 years Risk Factors: >/= 3 Risk Factors or History of CAD Troponin: </= Normal Limit Score: 6 MDM MDM MDM Narrative Medical decision making narrative: EKG was obtained. On my interpretation it shows a paced rhythm with a rate of 92. There is a left bundle branch block pattern noted. There are no acute ST or T wave changes. CBC shows a white blood cell count of 14.1, hemoglobin was 7.0, hematocrit was 21.3, and platelets were 29. These are consistent with prior results. Basic metabolic profile showed a sodium of 146 and chloride of 111. Initial high-sensitivity troponin was normal at 33. Portable 1 view chest x-ray was obtained. On my interpretation, lung domínguez are clear. There is normal cardiac silhouette. Bony thorax is normal. There is no acute process noted. Radiologist also interpreted the x-ray and agrees. Patient ambulated to the bathroom here in the emergency department. Patient developed more pain in her scapula and jaw after this. Patient was given sublingual nitroglycerin for this. Patient states this improved her pain. Patient states she cannot take aspirin because she is on Plavix. Case was discussed with the hospitalist. He will admit the patient to the hospital. Patient understands and is agreeable with the plan. All questions were answered. Lab Data Labs: Laboratory Results - last 24 hr 11/07/21 11/07/21 11/07/21 15:25 15:25 17:25 WBC 14.1 H RBC 2.12 L Hgb 7.0 L Hct 21.3 L MCV 100.5 H MCH 33.0 H MCHC 32.9 RDW Std Deviation 74.7 H RDW Coeff of Aubrey 23.5 H Plt Count 29 L* MPV 11.2 Neut % (Auto) Not Reportable Absolute Neuts (auto) 12.0 H Absolute Lymphs (auto) 1.69 Total Counted 100 Neutrophils % (Manual) 77 H Band Neutrophils % 8 H Lymphocytes % (Manual) 12 L Monocytes % (Manual) 1 Myelocytes % 2 H Diff Path Review May foll Sodium 146 H Potassium 3.4 L Chloride 111 H Carbon Dioxide 24.0 Anion Gap 11 BUN 14 Creatinine 0.85 Estim Creat Clear Calc 39.66 Est GFR (MDRD) Af Amer 82 Est GFR (MDRD) Non-Af 68 BUN/Creatinine Ratio 16.5 Glucose 223 H Calcium 8.3 L Troponin I High Sens 33 96 H Blood Type Antibody Screen Crossmatch 11/07/21 11/07/21 17:50 22:03 WBC RBC Hgb Hct MCV MCH MCHC RDW Std Deviation RDW Coeff of Aubrey Plt Count MPV Neut % (Auto) Absolute Neuts (auto) Absolute Lymphs (auto) Total Counted Neutrophils % (Manual) Band Neutrophils % Lymphocytes % (Manual) Monocytes % (Manual) Myelocytes % Diff Path Review Sodium Potassium Chloride Carbon Dioxide Anion Gap BUN Creatinine Estim Creat Clear Calc Est GFR (MDRD) Af Amer Est GFR (MDRD) Non-Af BUN/Creatinine Ratio Glucose Calcium Troponin I High Sens 317 H* Blood Type A NEGATIVE Antibody Screen NEGATIVE Crossmatch See Detail Radiography Chest X-Ray - ED: 1 View, Read by ED Physician, Read by Radiologist and Normal Diagnostic Testing: Clinical Impression(s) from Imaging Studies Chest X-Ray 11/07/21 15:40 IMPRESSION: No acute abnormality is seen. Electronically Signed: Juliano Pickard MD at 15:50 EST , Service support , EKG Initial EKG: Attestation: I personally reviewed and interpreted this EKG as follows: Interpretation: No Acute Injury Pattern, Paced (92) and LBBB Treatment and Re-Evaluation Vital Sign Attestation:: Vital signs were reviewed prior to admission. They are stable. Discharge Plan Dx/Rx/DC Orders Clinical Impression: Angina pectoris Disposition Disposition: Acute Care Hospital [facility] Discharge Date/Time: 11/07/21 18:12
--- NOTE | 2021-11-07 15:40 | RAD_ITS ---
STUDY: X-RAY CHEST REASON FOR EXAM: Female, 81 years old. Chest pain TECHNIQUE: Single AP portable view of the chest. COMPARISON: Comparison is made with prior study dated 06/24/2021. FINDINGS: EKG electrodes are seen. The lungs are clear and expanded. A left-sided dual-chamber pacemaker is seen. There is no demonstrated pleural abnormality. Normal size heart. Normal mediastinum and alton. Normal visualized pulmonary arteries. There is atherosclerotic calcification of the aortic arch with tortuosity. There are diffuse degenerative changes of the visualized thoracic spine. Normal visualized ribs, clavicles, and shoulders. There is no demonstrated abnormality of the visualized soft tissue structures of the upper abdomen. RAD/Chest 1 View (Portable) IMPRESSION: No acute abnormality is seen. Electronically Signed: Juliano Pickard MD at 15:50 EST , Service support ,
[2021-11-07 15:45] LABS: Hematocrit 21.3 % (37-47); Mean Corp Hgb Conc 32.9 g/dL (32-36); Mean Corpuscular Volume 100.5 fL (81-99); Mean Platelet Vol. 11.2 fl (6.2-12.0); POSITIVE COUNT YES; POSITIVE MORPHOLOGY YES; Platelet Count 29 K/mm3 (150-450); RBC Distribution Width CV 23.5 % (11.6-14.6); RBC Distribution Width SD 74.7 fl (35.1-43.9); Red Blood Count 2.12 M/mm3 (4.2-5.4); White Blood Count 14.1 K/mm3 (4.4-11.0)
[2021-11-07 15:47] LABS: Differential Indicated MANUAL DIFF
[2021-11-07] MEDS: Nitroglycerin SL (ED/IMG/CATH) 0.4 MG TABLET SL ×2 (15:54→16:01)
[2021-11-07 15:58] LABS: Anion Gap 11 (5-15); BUN 14 mg/dL (7-18); BUN/Creat Ratio 16.5 RATIO (10-20); Calcium,Total 8.3 mg/dL (8.5-10.1); Chloride 111 mmol/L (98-107); Creatinine, Serum 0.85 mg/dL (0.55-1.02); EST Glomerular Filtration Rate 68 mL/min (>60); Est Glom Filt Rate - Afr Amer 82 mL/min (>60); Estimated Creatinine Clearance 39.66 ml/min; Glucose 223 mg/dL (74-106); Potassium 3.4 mmol/L (3.5-5.1); Sodium Level 146 mmol/L (136-145); Troponin-I HS 33 pg/mL (3.0-54.0)
[2021-11-07 16:19] LABS: Lymphocyte 12 % (19-41); Monocyte 1 % (0-10); Myelocyte 2 % (0-0); Neutrophil-Band 8 % (0-5); Neutrophil-Segmented 77 % (47-70); Total Cells Counted 100 (MANUAL DIFF)
[2021-11-07 16:22] LABS: Absolute Lymphocyte Count 1.69 X10^3/uL (0.83-4.51)
[2021-11-07 17:44] LABS: Troponin-I HS 96 pg/mL (3.0-54.0)
--- NOTE | 2021-11-07 18:53 | EKG12_ITS ---
Test Reason : CP ADMISSION Blood Pressure : / mmHG Vent. Rate : 080 BPM Atrial Rate : 080 BPM P-R Int : 206 ms QRS Dur : 170 ms QT Int : 468 ms P-R-T Axes : 066 -46 104 degrees QTc Int : 539 ms Electronic Ventricular Pacemaker Abnormal ECG Confirmed by ETTA POWELL, ROMI ([id number]), newspaper photo editor KRYSTA QUIROZ ([id number]) on 11/12/2021 10:26:16 AM Referred By: TANYA Confirmed By:ROMI QUILES MD
--- NOTE | 2021-11-07 19:44 | CON.PCM.CA_ITS ---
Assessment & Plan Assessment/Plan (1) Non-ST elevation (NSTEMI) myocardial infarction: PLAN: The patient presented with symptoms of unstable angina pectoris and enzyme findings (dynamic) compatible with a non-ST segment elevation TX. At the present time she appears to be resting comfortably. She is being monitored. She will continue medical management/support as deemed appropriate. As part of her management she will receive additional PRBCs. Ideally she would undergo further evaluation with diagnostic cardiac catheterization. In the past she has undergone such a procedure when her hemoglobin increased after PRBCs. Also at that time her platelet count was approximately 28,000 - 33,000. Thus her platelet count is currently in a similar range. Thus, if after her PRBCs increase her H&H and her platelet count remains acceptable then she may be eligible to undergo a repeat diagnostic cardiac catheterization to evaluate for obvious evidence of in-stent restenosis that would require additional percutaneous evaluation and care. The cardiac catheterization procedure and risk were discussed with her. She was agreeable to this approach. (2) CAD (coronary artery disease): QUALIFIERS: Coronary Disease-Associated Artery/Lesion type: [place] artery [place] vs. transplanted heart: [place] heart Associated angina: with unstable angina Qualified Code(s): I25.110 - Atherosclerotic heart disease of [place] coronary artery with unstable angina pectoris PLAN: Her previous cardiac catheterization is noted. She did undergo an LAD PCI via the right radial artery approach. There is concern now with the possibility, based on her symptoms and her objective findings, of in-stent restenosis. She will continue evaluation care as noted above. (3) History of coronary artery stent placement: PLAN: She did receive a drug-eluting stent to the LAD distribution. Again based upon her symptoms and her objective findings there is concern of the possibility of in-stent restenosis. Thus she will continue medical therapy and hematologic support and depending upon her course be considered for further evaluation with diagnostic cardiac catheterization. (4) History of transcatheter aortic valve replacement (TAVR): PLAN: She has undergone TAVR placement as previously noted. Her TAVR valve can be followed by history, exam, and echocardiographic studies. She should continue AHA antibiotic prophylaxis as well. (5) History of permanent cardiac pacemaker placement: PLAN: She does have a permanent pacemaker in place. It has been reported as functioning appropriately. It can be reevaluated as needed. (6) Pure hypercholesterolemia: PLAN: She will continue lipid-lowering therapy. (7) Essential hypertension: PLAN: Her blood pressure is somewhat elevated. Her medications may need to be adjusted to try and bring her blood pressure under better control. (8) Myeloproliferative neoplasm: PLAN: She does have an underlying myeloproliferative neoplasm. She is being followed by hematology/oncology. For this she is receiving a chemotherapeutic agent. She states this is to bring her white blood cell count down. She states the side effect is also temporarily brings her platelet count down. (9) Leukocytosis: QUALIFIERS: Leukocytosis type: unspecified Qualified Code(s): D72.829 - Elevated white blood cell count, unspecified PLAN: Her WBCs are noted. She will continue medical therapy per hematology/oncology. (10) Anemia: QUALIFIERS: Anemia type: bone marrow failure Bone marrow failure anemia type: other bone marrow failure Qualified Code(s): D61.89 - Other specified aplastic anemias and other bone marrow failure syndromes PLAN: She has received intermittent PRBCs. She will receive additional PRBCs to hopefully elevate her hemoglobin and hematocrit prior to an invasive cardiovascular procedure. (11) Thrombocytopenia: PLAN: Her platelet counts appear to be in a similar range as they were during her previous diagnostic cardiac catheterization. Para graft her platelet counts will need to be followed. If they remain in an acceptable range then hopefully she can go through another diagnostic cardiac catheterization as noted above. Addt'l Comments The patient's case has been discussed and reviewed with the patient and previously with the [facility] emergency department staff. This note was generated using a voice recognition system and there may be i ncorrect words, spelling or punctuation that were not noted when reviewing the office note prior to saving. HPI Consult Data Date of Consult: 11/07/21 HPI Narrative HPI Narrative: EDWARD ELIAS, is a 81 year old white female who presents for cardiovascular consultation based upon concerns of unstable angina pectoris and non-ST segment elevation TX superimposed upon a history of CAD status post LAD PCI, aortic valve disease status post TAVR, hyperlipidemia, hypertension, myelo proliferative neoplasm suggestive of MPN/CMML cared for by hematology/oncology being monitored for concerns of ongoing leukocytosis, anemia, and thrombocytopenia requiring intermittent PRBC transfusion and platelet transfusion along with medical management with Inqovi. The patient underwent evaluation earlier this year in April with diagnostic cardiac catheterization at [facility] with concerns of her ongoing anemia and thrombocytopenia at that time which led to a diagnosis of CAD superimposed upon her underlying aortic valve disorder/stenosis. She was subsequently transferred to [facility] where she subsequently underwent PCI of the ostial LAD which included a MINE with a 3 mm x 12 mm Xience Skypoint Rx drug- eluting stent. In May of this year, on 05-28-2021, she underwent placement of a TAVR with a #23 Crow S3 valve at [facility]. She was subsequent noted to have concerns of complete heart block and required permanent pacemaker placement. She states her pacemaker has been followed by [facility]. She states she has been told that she is ventricular pacing 100% of the time. She notes that she has been receiving her PRBCs approximately every 1 to 2 weeks . With her new chemotherapeutic agent she has decreased her platelet counts to less than 10,000. She then receives platelet transfusion which brings her platelet count back up between 20 and 30,000. She states it will stay there until she takes her next chemotherapy cycle at which time it will decrease again. She states that yesterday evening after her platelet transfusion she felt somewhat more short of breath and dyspneic when lying back and felt better sitting upright. She noted today she developed her scapular discomfort with radiation to her jaw and radiation to the left upper extremity which she states was the same as what she felt before she received her LAD PCI. She did not com plain of any acute respiratory issues nor did she have any acute nausea, emesis, or diaphoresis. She did not lose consciousness. Based upon the symptoms being the same as what she experienced before her PCI she elected to present to the hospital for further evaluation and care. In the emergency department she had an initial troponin I level of 33. Subsequently increased to 96 (abnormal). Her ECG appeared to demonstrate an underlying electronic ventricular paced rhythm. Her chest x-ray demonstrated no acute cardiopulmonary condition. The [facility] emergency department staff stated they did contact [facility] for consideration for the patient to be transferred back there for further evaluation and care. However, apparently based upon the ongoing elevated hospital census levels due to COVID-19, they were not able to accept the patient in transfer. She has been referred for further cardiovascular evaluation including diagnostic cardiac catheterization. [facility] Medical History (Updated 11/07/21 @ 20:[address] Parth De Oliveira MD) Aortic stenosis CAD (coronary artery disease) CAD (coronary artery disease) CLL (chronic lymphocytic leukemia) Complete heart block Difficult intravenous access Essential hypertension GI bleed History of blood transfusion History of COVID-19 History of transcatheter aortic valve replacement (TAVR) (05/28/21) Neuropathy Non-rheumatic tricuspid valve insufficiency Non-ST elevation (NSTEMI) myocardial infarction Nonrheumatic aortic (valve) stenosis Nonrheumatic mitral (valve) insufficiency Other terminal clerk (current) drug therapy Pure hypercholesterolemia RBBB (right bundle branch block) Home Medications furosemide 20 mg tablet 20 mg PO DAILY #30 tab 12/13/20 [Rx Last Taken 11/07/21] metoprolol tartrate 25 mg tablet 25 mg PO BID #180 tab 04/17/21 [Rx Last Taken 11/07/21] clopidogrel 75 mg tablet 75 mg PO DAILY 05/31/21 [History Last Taken 11/07/21] pantoprazole 40 mg tablet,delayed release 40 mg PO DAILY 05/31/21 [History Last Taken 11/07/21] allopurinol 300 mg tablet 300 mg PO DAILY 30 Days #30 tablet 06/07/21 [Rx Last Taken 11/07/21] hydroxyurea 1,000 mg DAILY 06/24/21 [History Last Taken 11/07/21] tolterodine 4 mg PO DAILY 07/15/21 [History Last Taken 11/07/21] atorvastatin 80 mg tablet 80 mg PO QPM 07/24/21 [History Last Taken 11/06/21] lisinopril 20 mg tablet 20 mg PO BID tab 07/24/21 [History Last Taken 11/07/21] ferrous sulfate 325 mg (65 mg iron) tablet 325 mg PO DAILY #90 tab 08/07/21 [Rx Last Taken 11/07/21] ondansetron HCl 4 mg tablet 4 mg PO Q8H PRN #30 tab 09/18/21 [Rx Last Taken Unknown] decitabine-cedazuridine [Inqovi] 1 tab PO DAILY 11/07/21 [History Last Taken Unknown] fenofibrate 54 mg PO DAILY 11/07/21 [History Last Taken 11/06/21] isosorbide mononitrate 30 mg PO DAILY 11/07/21 [History Last Taken 11/07/21] Allergy/AdvReac Type Severity Reaction Status Date / Time codeine Allergy Intermediate Swelling Verified 11/07/21 15:08 amoxicillin [From Augmentin] Allergy Mild Itching Verified 11/07/21 15:08 clavulanic acid Allergy Mild Itching Verified 11/07/21 15:08 [From Augmentin] niacin Allergy Mild Itching Verified 11/07/21 15:08 [From Niaspan Extended-Release] Family History Mother CHF (congestive heart failure) Brother CAD (coronary artery disease) Sister CHF (congestive heart failure) Son Cardiac pacemaker in situ WPW (Ykwnc-Qjcxteepw-Johai syndrome) Father No problems noted. Surgical History Aortic valve replaced H/O meniscectomy of right knee History of appendectomy History of coronary artery stent placement (05/15/21) History of medial meniscus repair of left knee History of partial knee replacement History of permanent cardiac pacemaker placement (06/04/21) History of synovectomy History of total hysterectomy History of tubal ligation S/P colonoscopy Social History Smoking Status: Former smoker alcohol intake: never substance use type: does not use diet: low carbohydrate caffeine: Yes Type: coffee Number of servings: 2 what type of physical activity do you participate in: none seatbelt use: always do you feel safe at home: Yes ROS Constitutional Constitutional: Reports as per HPI Eyes Eyes: Reports as per HPI ENT HEENT: Reports as per HPI Cardiovascular Cardiovascular: Reports chest pain at rest Respiratory/Chest Respiratory/Chest: Reports as per HPI Gastrointestinal Gastrointestinal: Reports as per HPI Genitourinary Genitourinary: Reports as per HPI Musculoskeletal Musculoskeletal: Reports as per HPI Integumentary Integumentary: Reports as per HPI Neurologic Neurologic: Reports as per HPI Physical Exam Const alert and oriented x3 Orientation / Consciousness: awake HEENT normocephalic, head/scalp atraumatic and hearing grossly normal bilaterally Eyes PERRL, EOMs intact bilaterally and conjunctivae normal Neck full ROM, supple and no JVD Chest Chest: left pectoral incision Resp clear to auscultation bilaterally Cardio regular rate, regular rhythm, S1 normal heart sound and S2 normal heart sound Heart Sounds: murmur systolic II/ soft mid left sternal border and LVOT GI normal to inspection, nondistended, normoactive bowel sounds Extremity no pedal edema Skin General Skin Exam: ecchymosis Neuro oriented x3, moves all extremities, no focal motor deficits and no sensory deficits noted Psych mental status grossly normal Risk Stratification Risk Stratification Applicable: Yes Age >/= 65: Yes >/= 3 CAD Risk Factors (HTN, HLD, DM, family hx of CAD, or current smoker): Yes Aspirin Use in the Past 7 Days: No Severe Angina (>/= episodes in 24 hours): Yes EKG ST Changes >/= 0.5mm: No Positive Cardiac Marker: Yes SHAWANDA Risk Stratification Score: 4 SHAWANDA % Risk: 20% Risk Procedure Criteria Type of Procedure Procedure Type: Elective Elective Risks - COVID COVID Risk Discussion: The surgeon/proceduralist and patient have discussed in detail the risk of exposure to and/or potential harm posed by the COVID-19 virus with having a surgery/procedure at this time versus the risk of delaying the surgery/procedure. It is not possible to know either the risk of delaying the surgery or procedure or chance of getting an infection with perfect accuracy, but a joint decision was made between the patient and the surgeon/proceduralist to proceed at this time with the scheduled surgery/procedure as indicated on the consent form. Objective Data Vital Signs: Vital Signs Temp Pulse Resp BP Pulse Ox 99.3 F H 90 20 H 178/82 H 99 11/07/21 18:38 11/07/21 18:39 11/07/21 18:38 11/07/21 18:38 11/07/21 18:38 Oxygen Delivery Method Room Air Weight: 177 lb 0.499 oz Body Mass Index (BMI) 32.3 Lab / Micro Data Result Diagrams: 11/07/21 15:25 11/07/21 15:25 Labs: Laboratory Results - last 24 hr 11/07/21 15:25: WBC 14.1 H, RBC 2.12 L, Hgb 7.0 L, Hct 21.3 L, MCV 100.5 H, MCH 33.0 H, MCHC 32.9, RDW Std Deviation 74.7 H, RDW Coeff of Aubrey 23.5 H, Plt Count 29 L*, MPV 11.2, Neut % (Auto) Not Reportable, Absolute Neuts (auto) 12.0 H, Absolute Lymphs (auto) 1.69, Total Counted 100, Neutrophils % (Manual) 77 H, Band Neutrophils % 8 H, Lymphocytes % (Manual) 12 L, Monocytes % (Manual) 1, M yelocytes % 2 H, Diff Path Review March11/07/21 15:25: Sodium 146 H, Potassium 3.4 L, Chloride 111 H, Carbon Dioxide 24.0, Anion Gap 11, BUN 14, Creatinine 0.85, Estim Creat Clear Calc 39.66, Est GFR (MDRD) Af Amer 82, Est GFR (MDRD) Non-Af 68, BUN/Creatinine Ratio 16.5, Glucose 223 H, Calcium 8.3 L, Troponin I High Sens 33 11/07/21 17:25: Troponin I High Sens 96 H 11/07/21 17:50: Blood Type A NEGATIVE, Antibody Screen NEGATIVE, Crossmatch See Detail Cardiology Labs/Tests 11/07/21 15:25: WBC 14.1 H, RBC 2.12 L, Hgb 7.0 L, Hct 21.3 L, MCV 100.5 H, MCH 33.0 H, MCHC 32.9, Plt Count 29 L*, MPV 11.2, Neut % (Auto) Not Reportable, Absolute Neuts (auto) 12.0 H, Total Counted 100, Neutrophils % (Manual) 77 H, Band Neutrophils % 8 H, Lymphocytes % (Manual) 12 L, Monocytes % (Manual) 1, Myelocytes % 2 H 11/07/21 15:25: Sodium 146 H, Potassium 3.4 L, Chloride 111 H, Carbon Dioxide 24.0, Anion Gap 11, BUN 14, Creatinine 0.85, Est GFR (MDRD) Af Amer 82, Est GFR (MDRD) Non-Af 68, BUN/Creatinine Ratio 16.5, Glucose 223 H, Calcium 8.3 L Rhythm: As noted above EKG: As noted above ECHO: 05-29-2021: [facility] Left ventricle: Normal with LVEF 68% Right ventricle: Normal size. Systolic function is normal. Left atrium: Normal Right atrium: Normal Mitral valve: Severely calcified, severely thickened annulus. Severely thickened, severely calcified leaflets. The findings are consistent with mild stenosis. Aortic valve: There is a bioprosthetic aortic valve. Well-seated. Normal function. Aorta: The aorta is poorly visualized but grossly normal. Pericardium: Extracardiac: There is no pericardial effusion Cardiac Cath:05-14-2021 CONCLUSIONS Aortic Valve Calcification- Severe Mitral Valve Annular Calcification Severe annular calcification RECOMMENDATIONS Risk factor modification Medical therapy Surgery consult for coronary revascularization Surgery consult for valvular disease DESCRIPTION OF PROCEDURE The patient arrived to the procedure lab. The risks and benefits of the procedure as well as a full description of our services here and current unavailability of surgical backup were fully explained to the patient and/or their significant other prior to the catheterization. The Timeout was completed, verifying the correct patient and procedure. The patient's procedural site was prepped and draped in the usual fashion. Local anesthetic was given subcutaneously to right groin region with Lidocaine 2%. Using a modified Seldinger technique, arterial access was obtained via the right femoral artery, a 4Fr sheath was inserted Left Coronary Artery selective angiography was performed in multiple views using a 4 Fr. JL5 catheter. Right Coronary Artery selective angiography was then performed in multiple views using a 4 Fr. 3DRC catheter.The arterial sheath was pulled and manual compression applied until hemostasis is achieved. CORONARY ANGIOGRAPHY DOMINANCE: Right Dominant LEFT HEART ASSESSMENT LEFT MAIN: Angiographically normal LEFT ANTERIOR DESCENDING ARTERY: OSTIAL LAD: 90 % Stenosis PROX LAD: Mild calcification CIRCUMFLEX ARTERY: PROX CIRC: Mild luminal irregularities RIGHT CORONARY ARTERY: MID RCA: Mild calcification VALVE FINDINGS: Aortic Valve Calcification - severe Mitral Valve Annular Calcification Severe AORTIC ROOT: Angiographically normal PCI: 05-17-2021: [facility] LAD: Ostial: 3 mm x 12 mm Xience Skypoint Rx drug-eluting stent CT Surgery: 05-28-2021: [facility]: TAVR: #23 Crow S3 Valve Radiography Diagnostic Testing: Radiology Impression Chest X-Ray 11/07/21 15:40 IMPRESSION: No acute abnormality is seen. Electronically Signed: Juliano Pickard MD at 15:50 EST , Service support ,
[2021-11-07] MEDS: 0.9% Saline Lock 10 ML Syringe IV (20:39)
--- NOTE | 2021-11-07 21:45 | HP.PCM.HOS_ITS ---
HPI - General General Date of Admission: 11/07/21 HPI Narrative HPI Narrative: EDWARD ELIAS, is a 81 year old white female who presents for cardiovascular consultation based upon concerns of unstable angina pectoris and non-ST segment elevation OR superimposed upon a history of CAD status post LAD PCI, aortic valve disease status post TAVR, hyperlipidemia, hypertension, myelo proliferative neoplasm suggestive of MPN/CMML cared for by hematology/oncology being monitored for concerns of ongoing leukocytosis, anemia, and thrombocytopenia requiring intermittent PRBC transfusion and platelet transfusion. Last night patient did have problems breathing and had to sleep with her head m ore elevated after her platelet transfusion. She noticed this morning after working in the kitchen that she had pain that radiated up to her jaw from her shoulder blade, and the pain got worse and did not improve upon sitting down. Overall the chest pain did feel like previous angina episodes. The patient did have more pain similar to this when she was ambulating in the ER. She had labs with a normal troponin which did increase 33>96. Hgb 7.0 and Plt 29 (due to her MPN/CMML history). EKG showed bundle branch block with no acute ischemic changes. Cardiology was contacted in the ED and recommended transfer to [facility] however they could not accept the transfer and therefore cardiac cath was pl anned. [facility] Medical History (Updated 11/07/21 @ 20:[address] Parth De Oliveira MD) Aortic stenosis CAD (coronary artery disease) CAD (coronary artery disease) CLL (chronic lymphocytic leukemia) Complete heart block Difficult intravenous access Essential hypertension GI bleed History of blood transfusion History of COVID-19 History of transcatheter aortic valve replacement (TAVR) (05/28/21) Neuropathy Non-rheumatic tricuspid valve insufficiency Non-ST elevation (NSTEMI) myocardial infarction Nonrheumatic aortic (valve) stenosis Nonrheumatic mitral (valve) insufficiency Other longterm (current) drug therapy Pure hypercholesterolemia RBBB (right bundle branch block) Home Medications furosemide 20 mg tablet 20 mg PO DAILY #30 tab 12/13/20 [Rx Last Taken 11/07/21] metoprolol tartrate 25 mg tablet 25 mg PO BID #180 tab 04/17/21 [Rx Last Taken 11/07/21] clopidogrel 75 mg tablet 75 mg PO DAILY 05/31/21 [History Last Taken 11/07/21] pantoprazole 40 mg tablet,delayed release 40 mg PO DAILY 05/31/21 [History Last Taken 11/07/21] allopurinol 300 mg tablet 300 mg PO DAILY 30 Days #30 tablet 06/07/21 [Rx Last Taken 11/07/21] hydroxyurea 1,000 mg DAILY 06/24/21 [History Last Taken 11/07/21] tolterodine 4 mg PO DAILY 07/15/21 [History Last Taken 11/07/21] atorvastatin 80 mg tablet 80 mg PO QPM 07/24/21 [History Last Taken 11/06/21] lisinopril 20 mg tablet 20 mg PO BID tab 07/24/21 [History Last Taken 11/07/21] ferrous sulfate 325 mg (65 mg iron) tablet 325 mg PO DAILY #90 tab 08/07/21 [Rx Last Taken 11/07/21] ondansetron HCl 4 mg tablet 4 mg PO Q8H PRN #30 tab 09/18/21 [Rx Last Taken Unknown] decitabine-cedazuridine [Inqovi] 1 tab PO DAILY 11/07/21 [History Last Taken Unknown] fenofibrate 54 mg PO DAILY 11/07/21 [History Last Taken 11/06/21] isosorbide mononitrate 30 mg PO DAILY 11/07/21 [History Last Taken 11/07/21] Allergy/AdvReac Type Severity Reaction Status Date / Time codeine Allergy Intermediate Swelling Verified 11/07/21 15:08 amoxicillin [From Augmentin] Allergy Mild Itching Verified 11/07/21 15:08 clavulanic acid Allergy Mild Itching Verified 11/07/21 15:08 [From Augmentin] niacin Allergy Mild Itching Verified 11/07/21 15:08 [From Niaspan Extended-Release] Family History Mother CHF (congestive heart failure) Brother CAD (coronary artery disease) Sister CHF (congestive heart failure) Son Cardiac pacemaker in situ WPW (Osrml-Fwwdqpzul-Qhijv syndrome) Father No problems noted. Surgical History Aortic valve replaced H/O meniscectomy of right knee History of appendectomy History of coronary artery stent placement (05/15/21) History of medial meniscus repair of left knee History of partial knee replacement History of permanent cardiac pacemaker placement (06/04/21) History of synovectomy History of total hysterectomy History of tubal ligation S/P colonoscopy Social History Smoking Status: Former smoker alcohol intake: never substance use type: does not use diet: low carbohydrate caffeine: Yes Type: coffee Number of servings: 2 what type of physical activity do you participate in: none seatbelt use: always do you feel safe at home: Yes ROS ROS Narrative + CP No f/c, diarrhea, constipation, no abdominal pain or numbness tingling, seizures headaches or trouble seeing hearing swallowing Vital Signs Vital Signs Vital Signs: 11/07/21 15:06 11/07/21 15:09 11/07/21 15:35 Temperature 97.3 F L Temperature Source Temporal Pulse Rate 102 H Respiratory Rate 16 Respiratory Effort Normal Non-Labored Respiratory Depth Respiratory Pattern Blood Pressure 181/91 H Blood Pressure Mean 121 Blood Pressure Source Blood Pressure Position Blood Pressure Location Pulse Ox 98 Oxygen Delivery Method Room Air Room Air 11/07/21 15:54 11/07/21 15:55 11/07/21 16:01 Temperature Temperature Source Pulse Rate 98 98 103 H Respiratory Rate Respiratory Effort Respiratory Depth Respiratory Pattern Blood Pressure 167/75 H 167/75 H 144/77 H Blood Pressure Mean 105 Blood Pressure Source Blood Pressure Position Blood Pressure Location Pulse Ox Oxygen Delivery Method 11/07/21 16:05 11/07/21 17:00 11/07/21 17:55 Temperature 97.8 F Temperature Source Temporal Pulse Rate 93 89 81 Respiratory Rate 16 16 17 Respiratory Effort Respiratory Depth Respiratory Pattern Blood Pressure 154/69 H 160/66 H 165/85 H Blood Pressure Mean 97 97 111 Blood Pressure Source Blood Pressure Position Blood Pressure Location Pulse Ox 98 98 97 Oxygen Delivery Method Room Air Room Air Room Air 11/07/21 18:00 11/07/21 18:38 11/07/21 18:39 Temperature 99.3 F H Temperature Source Temporal Pulse Rate 81 94 90 Respiratory Rate 16 20 H Respiratory Effort Respiratory Depth Respiratory Pattern Blood Pressure 180/64 H 178/82 H Blood Pressure Mean 102 114 Blood Pressure Source Monitor Blood Pressure Position Semi-Fowlers Blood Pressure Location Left Arm Pulse Ox 98 99 Oxygen Delivery Method Room Air Room Air 11/07/21 19:53 11/07/21 20:19 11/07/21 20:38 Temperature 98.7 F 98.1 F Temperature Source Oral Oral Pulse Rate 106 H 89 90 Respiratory Rate 18 18 Respiratory Effort Respiratory Depth Respiratory Pattern Blood Pressure 161/74 H 166/66 H Blood Pressure Mean 103 99 Blood Pressure Source Monitor Monitor Blood Pressure Position Semi-Fowlers Supine Blood Pressure Location Left Arm Left Arm Pulse Ox 100 100 Oxygen Delivery Method Room Air Room Air 11/07/21 20:46 11/07/21 20:53 Temperature 98.7 F Temperature Source Oral Pulse Rate 84 Respiratory Rate 18 Respiratory Effort Normal Non-Labored Respiratory Depth Normal Respiratory Pattern Normal Blood Pressure 163/61 H Blood Pressure Mean 95 Blood Pressure Source Monitor Blood Pressure Position Semi-Fowlers Blood Pressure Location Left Arm Pulse Ox 100 Oxygen Delivery Method Room Air Room Air Weight Weight: 177 lb 0.499 oz Body Mass Index (BMI) 32.3 Physical Exam Narrative Mild bruising noted likely 2/2 low platelets Const alert and no apparent distress General Appearance: cooperative HEENT normocephalic and head/scalp atraumatic Eyes PERRL and EOMs intact bilaterally Resp normal respiratory effort Cardio regular rate, regular rhythm, S1 normal heart sound and S2 normal heart sound GI normal to inspection, nondistended, normoactive bowel sounds and soft to palpation Neuro Sensorium / Orientation: awake, alert and oriented to person Psych affect normal Results Lab / Micro Data Result Diagrams: 11/07/21 15:25 11/07/21 15:25 Labs: Laboratory Results - last 24 hr 11/07/21 15:25: WBC 14.1 H, RBC 2.12 L, Hgb 7.0 L, Hct 21.3 L, MCV 100.5 H, MCH 33.0 H, MCHC 32.9, RDW Std Deviation 74.7 H, RDW Coeff of Aubrey 23.5 H, Plt Count 29 L*, MPV 11.2, Neut % (Auto) Not Reportable, Absolute Neuts (auto) 12.0 H, Absolute Lymphs (auto) 1.69, Total Counted 100, Neutrophils % (Manual) 77 H, Band Neutrophils % 8 H, Lymphocytes % (Manual) 12 L, Monocytes % (Manual) 1, Myelocytes % 2 H, Diff Path Review March11/07/21 15:25: Sodium 146 H, Potassium 3.4 L, Chloride 111 H, Carbon Dioxide 24.0, Anion Gap 11, BUN 14, Creatinine 0.85, Estim Creat Clear Calc 39.66, Est GFR (MDRD) Af Amer 82, Est GFR (MDRD) Non-Af 68, BUN/Creatinine Ratio 16.5, Glucose 223 H, Calcium 8.3 L, Troponin I High Sens 33 11/07/21 17:25: Troponin I High Sens 96 H 11/07/21 17:50: Blood Type A NEGATIVE, Antibody Screen NEGATIVE, Crossmatch See Detail Radiology Impression Chest X-Ray 11/07/21 15:40 IMPRESSION: No acute abnormality is seen. 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 These are consistent with prior results. Basic metabolic profile showed a sodium of 146 and chloride of 111. Initial high-sensitivity troponin was normal at 33, now 96 and cardiology with plans for angiogram. HTN NSTEMI TAVR history - Heparin drip & Monitor on PCU with telemetry - Cath per cardiology plans - SLN Nitro tablets - Resume home medications, cont IMDUR 30, Lopressor 50 BID, lasix 20 daily, and Zestril 20 BID - Resume Plavix tomorrow - OK for diet after cath unless cardiology recommends NPO - EKG reviewed, paced and LBBB evident. - Monitor BP CMML/MPN - Follows with oncology - Monitor daily hgb and Platelets. - Transfuse if Hgb < 7 - Luekocytosis expected given disease DNR/DNI Lovenox for DVT prophylaxis resumed tomorrow. Enzo Gutiérrez MD Charges/Coding Visit Charges Inpatient E&M: 97597 Init Hosp L2
[2021-11-07] MEDS: Atorvastatin Calcium 80 MG Tablet PO (21:58)
[2021-11-07] MEDS: Lisinopril 20 MG Tablet PO (21:58)
[2021-11-07] MEDS: Metoprolol Tartrate 50 MG Tablet PO (21:59)
[2021-11-07 22:35] LABS: Troponin-I HS 317 pg/mL (3.0-54.0)
--- NOTE | 2021-11-07 22:46 | PCS.PANDOC ---
PANDEMIC DOCUMENTATION INITIATED: Date: 07/02/2021 Time: 190
[2021-11-08] VITALS (19 sets, daily range): BP systolic 130–166; BP diastolic 51–88; PULSE 58–72; RESP 15–18; TEMP 36.9–37.1; O2SAT 95–100
[2021-11-08] MEDS: Furosemide 20 MG/2 ML VIAL IV (00:02)
--- NOTE | 2021-11-08 05:55 | EKG12_ITS ---
Test Reason : AM EKG Blood Pressure : / mmHG Vent. Rate : 067 BPM Atrial Rate : 067 BPM P-R Int : 186 ms QRS Dur : 164 ms QT Int : 500 ms P-R-T Axes : 060 -60 114 degrees QTc Int : 528 ms Electronic Ventricular Pacemaker Abnormal ECG Confirmed by ETTA POWELL, ROMI ([id number]), acquisitions editor KRYSTA QUIROZ ([id number]) on 11/12/2021 10:22:31 AM Referred By: TANYA Confirmed By:ROMI QUILES MD
[2021-11-08] MEDS: Metoprolol Tartrate 50 MG Tablet PO (06:40)
[2021-11-08] MEDS: Clopidogrel Bisulfate 75 MG Tablet PO (06:40)
[2021-11-08] MEDS: Lisinopril 20 MG Tablet PO (06:40)
[2021-11-08] MEDS: Isosorbide Mononitrate 30 MG Tablet PO (06:40)
[2021-11-08 06:59] LABS: Hematocrit 26.6 % (37-47); Mean Corp Hgb Conc 33.8 g/dL (32-36); Mean Corpuscular Hgb 31.9 pg (27.0-32.0); Mean Corpuscular Volume 94.3 fL (81-99); Mean Platelet Vol. 11.6 fl (6.2-12.0); POSITIVE COUNT YES; POSITIVE MORPHOLOGY YES; RBC Distribution Width CV 20.6 % (11.6-14.6); RBC Distribution Width SD 49.8 fl (35.1-43.9); Red Blood Count 2.82 M/mm3 (4.2-5.4); White Blood Count 14.8 K/mm3 (4.4-11.0)
[2021-11-08 07:14] LABS: Differential Indicated MANUAL DIFF; Platelet Count 22 K/mm3 (150-450)
[2021-11-08 07:27] LABS: Anion Gap 9 (5-15); BUN 12 mg/dL (7-18); BUN/Creat Ratio 17.5 RATIO (10-20); Calcium,Total 8.4 mg/dL (8.5-10.1); Chloride 109 mmol/L (98-107); Creatinine, Serum 0.68 mg/dL (0.55-1.02); EST Glomerular Filtration Rate 87 mL/min (>60); Est Glom Filt Rate - Afr Amer 105 mL/min (>60); Estimated Creatinine Clearance 33.71 ml/min; Glucose 111 mg/dL (74-106); Potassium 3.8 mmol/L (3.5-5.1); Sodium Level 144 mmol/L (136-145); Troponin-I HS 563 pg/mL (3.0-54.0)
[2021-11-08 07:49] LABS: Lymphocyte 11 % (19-41); Monocyte 1 % (0-10); Myelocyte 3 % (0-0); Neutrophil-Band 12 % (0-5); Neutrophil-Segmented 73 % (47-70); Nucleated Red Bld Cells,Manual 1 % (0-5); Total Cells Counted 100 (MANUAL DIFF)
[2021-11-08 07:50] LABS: Anisocytosis 1+; Platelet Estimate MKD DEC (ADEQ); Red Cell Morphology N CHROM NORMAL (NORM C&C)
[2021-11-08 07:54] LABS: Absolute Lymphocyte Count 1.63 X10^3/uL (0.83-4.51); Absolute Neutrophil Count 12.6 X10^3/uL (2.0-7.7)
[2021-11-08] MEDS: 0.9% Saline Lock 10 ML Syringe IV (08:23)
--- NOTE | 2021-11-08 08:30 | NURSING ---
Report called to Sheila SOLIMAN labor relations manager.
--- NOTE | 2021-11-08 09:43 | CASEMGMT ---
Addendum entered by Augusto Valdivia 11/08/21 09:57: Call placed to [facility] health and safety representative. She confirmed that [facility] and [facility] are now in network as well. Original Note: Insurance review for hospitals In-network with [facility] Insurance if transfer is recommended is as follows: [facility], [facility] and . Samantha CATALANN RN CM
[2021-11-08] MEDS: 0.9% Normal Saline 1,000 ML 75 ML IV (10:07)
--- NOTE | 2021-11-08 10:18 | CL.D_ITS ---
Patient Name: EDWARD ELIAS Study Date: 11/08/2021 Performing: Parth De Oliveira MD Ht: 62 inches 157 cm : 1940 Wt: 176.6 lbs 80 kg Age: 81 Gender: female BSA: 1.81 PROCEDURE(S) PERFORMED [id number])[facility] CLINICAL PROFILE AND INDICATIONS Indications: ACS <= 24 hrs, Worsening Angina, Suspected CAD Heart Failure: None Stress/Imaging Stress/Image Study Performed: No Angina Classification Anginal Classification w/in 2 Weeks: CCS IV CAD Presentations: Non-STEMI. CONCLUSIONS [place] Multivessel CAD LAD: Ostial: Stent: Eccentric: 85% In Stent Restenosis RECOMMENDATIONS Medical therapy Surgery consult for coronary revascularization Case discussed / reviewed with Dr. Weir of Interventional Cardiology DESCRIPTION OF PROCEDURE The patient arrived to the procedure lab. The risks and benefits of the procedure as well as a full d escription of our services here and current unavailability of surgical backup were fully explained to the patient and/or their significant other prior to the catheterization. The Timeout was completed, verifying the correct patient and procedure. The patient's procedural site was prepped and draped in the usual fashion. Local anesthetic was given subcutaneously to right radial region with Lidocaine 2% . Using a modified Seldinger technique, arterial access was obtained via the right radial artery, a 6 Fr sheath was inserted. Left Coronary Artery selective angiography was performed in multiple views u sing a 5 Fr. 4.0 [place] catheter. Right Coronary Artery selective angiography was then performed in mu ltiple views using a 5 Fr. JR 4 catheter.The arterial sheath was pulled and a TR Band was applied for hemostasis. Sheath Flushed prior to removal. 15cc air inserted. CORONARY ANGIOGRAPHY DOMINANCE: Right Dominant LEFT HEART ASSESSMENT Left Ventricular Ejection Fraction: Not assessed LEFT MAIN: short vessel: patent LEFT ANTERIOR DESCENDING ARTERY: OSTIAL LAD: Previously placed stent has an instent 85 % restenosis MID LAD: Mild luminal irregularities CIRCUMFLEX ARTERY: OSTIAL CIRC: 25 % Stenosis MID CIRC: Mild luminal irregularities RIGHT CORONARY ARTERY: MID RCA: Mild luminal irregularities DISTAL RCA: Mild luminal irregularities, Mild luminal irregularities COMPLICATIONS No Complications PROCEDURE MEDICATIONS Fentanyl 50 mcg IV Versed 1 mg IV Oxygen: 2 L/min via nasal cannula Heparin given IA 11/08/2021 09:17:00 Verapamil 2.5mg, Ntg 100mcgs, 3000 units of Heparin given IA 11/08/2021 09:17:00 SUMMARY OF HEMODYNAMIC DATA Time AIR REST ECG 08:53:59 AO 123/56 (89) SA 09:19:01 AO 114/49 (75) 09:19:28 AO 135/60 (92) 09:26:43 AO 158/52 (91) 09:28:14 Signed By Parth De Oliveira MD On 11/08/2021 10:18:39 Parth De Oliveira MD
--- NOTE | 2021-11-08 10:36 | NURSING ---
Transfer center sales representative [employer] called to ask that a rapid covid swab be performed on patient. She requested a phone call when it results at .
[2021-11-08] MEDS: Furosemide 20 MG Tablet PO (11:01)
[2021-11-08] MEDS: Allopurinol 300 MG Tablet PO (11:01)
[2021-11-08] MEDS: Tolterodine Tartrate 4 MG CAP.SA PO (11:01)
[2021-11-08] MEDS: Pantoprazole Sodium 40 MG Tablet PO (11:02)
[2021-11-08] MEDS: Ferrous Sulfate 325 MG Tablet PO (11:02)
[2021-11-08] MEDS: Fenofibrate 48 MG Tablet PO (11:02)
--- NOTE | 2021-11-08 13:02 | PCM.PN.CARD ---
Subjective Subjective The patient is now status post diagnostic cardiac catheterization. She has had no new acute cardiovascular complaints. Objective Data Vital Signs: Vital Signs Temp Pulse Resp BP Pulse Ox 98.8 F 62 16 150/62 H 98 11/08/21 12:51 11/08/21 12:51 11/08/21 12:51 11/08/21 12:51 11/08/21 12:51 Oxygen Delivery Method Room Air Weight: 177 lb 0.499 oz Body Mass Index (BMI) 32.3 Intake & Output: Intake and Output for Last 24 Hours 11/06/21 11/07/21 11/08/21 23:59 23:59 23:59 Intake Total 400 / 640 880 / 880 Balance 400 / 640 880 / 880 Lab / Micro Data Result Diagrams: 11/08/21 05:50 11/08/21 05:50 Labs: Laboratory Results - last 24 hr 11/07/21 15:25: WBC 14.1 H, RBC 2.12 L, Hgb 7.0 L, Hct 21.3 L, MCV 100.5 H, MCH 33.0 H, MCHC 32.9, RDW Std Deviation 74.7 H, RDW Coeff of Aubrey 23.5 H, Plt Count 29 L*, MPV 11.2, Neut % (Auto) Not Reportable, Absolute Neuts (auto) 12.0 H, Absolute Lymphs (auto) 1.69, Total Counted 100, Neutrophils % (Manual) 77 H, Band Neutrophils % 8 H, Lymphocytes % (Manual) 12 L, Monocytes % (Manual) 1, Myelocytes % 2 H, Diff Path Review March11/07/21 15:25: Sodium 146 H, Potassium 3.4 L, Chloride 111 H, Carbon Dioxide 24.0, Anion Gap 11, BUN 14, Creatinine 0.85, Estim Creat Clear Calc 39.66, Est GFR (MDRD) Af Amer 82, Est GFR (MDRD) Non-Af 68, BUN/Creatinine Ratio 16.5, Glucose 223 H, Calcium 8.3 L, Troponin I High Sens 33 11/07/21 17:25: Troponin I High Sens 96 H 11/07/21 17:50: Blood Type A NEGATIVE, Antibody Screen NEGATIVE, Crossmatch See Detail 11/07/21 17:50: Crossmatch See Detail 11/07/21 22:03: Troponin I High Sens 317 H* 11/08/21 05:50: WBC 14.8 H, RBC 2.82 L, Hgb 9.0 L, Hct 26.6 L, MCV 94.3 D, MCH 31.9, MCHC 33.8, RDW Std Deviation 49.8 H, RDW Coeff of Aubrey 20.6 H, Plt Count 22 L*, MPV 11.6, Neut % (Auto) Not Reportable, Absolute Neuts (auto) 12.6 H, Absolute Lymphs (auto) 1.63, Total Counted 100, Neutrophils % (Manual) 73 H, Band Neutrophils % 12 H, Lymphocytes % (Manual) 11 L, Monocytes % (Manual) 1, Myelocytes % 3 H, Nucleated RBCs/100 WBC 1, Diff Path Review March, Platelet Estimate MKD DEC, RBC Morphology N CHROM, Anisocytosis 1+ 11/08/21 05:50: Sodium 144, Potassium 3.8, Chloride 109 H, Carbon Dioxide 26.0, Anion Gap 9, BUN 12, Creatinine 0.68, Estim Creat Clear Calc 33.71, Est GFR (MDRD) Af Amer 105, Est GFR (MDRD) Non-Af 87, BUN/Creatinine Ratio 17.5, Glucose 111 H, Calcium 8.4 L, Troponin I High Sens 563 H* Micro: Microbiology 11/08/21 10:58 Nasal Secretion SARS-CoV-2 Antigen (Rapid) - Final Cardiology Labs/Tests 11/07/21 15:25: WBC 14.1 H, RBC 2.12 L, Hgb 7.0 L, Hct 21.3 L, MCV 100.5 H, MCH 33.0 H, MCHC 32.9, Plt Count 29 L*, MPV 11.2, Neut % (Auto) Not Reportable, Absolute Neuts (auto) 12.0 H, Total Counted 100, Neutrophils % (Manual) 77 H, Band Neutrophils % 8 H, Lymphocytes % (Manual) 12 L, Monocytes % (Manual) 1, Myelocytes % 2 H 11/07/21 15:25: Sodium 146 H, Potassium 3.4 L, Chloride 111 H, Carbon Dioxide 24.0, Anion Gap 11, BUN 14, Creatinine 0.85, Est GFR (MDRD) Af Amer 82, Est GFR (MDRD) Non-Af 68, BUN/Creatinine Ratio 16.5, Glucose 223 H, Calcium 8.3 L 11/08/21 05:50: WBC 14.8 H, RBC 2.82 L, Hgb 9.0 L, Hct 26.6 L, MCV 94.3 D, MCH 31.9, MCHC 33.8, Plt Count 22 L*, MPV 11.6, Neut % (Auto) Not Reportable, Absolute Neuts (auto) 12.6 H, Total Counted 100, Neutrophils % (Manual) 73 H, Band Neutrophils % 12 H, Lymphocytes % (Manual) 11 L, Monocytes % (Manual) 1, Myelocytes % 3 H 11/08/21 05:50: Sodium 144, Potassium 3.8, Chloride 109 H, Carbon Dioxide 26.0, Anion Gap 9, BUN 12, Creatinine 0.68, Est GFR (MDRD) Af Amer 105, Est GFR (MDRD) Non-Af 87, BUN/Creatinine Ratio 17.5, Glucose 111 H, Calcium 8.4 L Rhythm: Electronic ventricular paced rhythm Cardiac cath: CONCLUSIONS [place] Multivessel CAD LAD: Ostial: Stent: Eccentric: 85% In Stent Restenosis RECOMMENDATIONS Medical therapy Surgery consult for coronary revascularization Case discussed / reviewed with Dr. Weir of Interventional Cardiology DESCRIPTION OF PROCEDURE The patient arrived to the procedure lab. The risks and benefits of the procedure as well as a full description of our services here and current unavailability of surgical backup were fully explained to the patient and/or their significant other prior to the catheterization. The Timeout was completed, verifying the correct patient and procedure. The patient's procedural site was prepped and draped in the usual fashion. Local anesthetic was given subcutaneously to right radial region with Lidocaine 2%. Using a modified Seldinger technique, arterial access was obtained via the right radial artery, a 6Fr sheath was inserted. Left Coronary Artery selective angiography was performed in multiple views using a 5 Fr. 4.0 [place] catheter. Right Coronary Artery selective angiography was then performed in multiple views using a 5 Fr. JR 4 catheter.The arterial sheath was pulled and a TR Band was applied for hemostasis. Sheath Flushed prior to removal. 15cc air inserted. CORONARY ANGIOGRAPHY DOMINANCE: Right Dominant LEFT HEART ASSESSMENT Left Ventricular Ejection Fraction: Not assessed LEFT MAIN: short vessel: patent LEFT ANTERIOR DESCENDING ARTERY: OSTIAL LAD: Previously placed stent has an instent 85 % restenosis MID LAD: Mild luminal irregularities CIRCUMFLEX ARTERY: OSTIAL CIRC: 25 % Stenosis MID CIRC: Mild luminal irregularities RIGHT CORONARY ARTERY: MID RCA: Mild luminal irregularities DISTAL RCA: Mild luminal irregularities, Mild luminal irregularities Radiography Diagnostic Testing: Radiology Impression Chest X-Ray 11/07/21 15:40 IMPRESSION: No acute abnormality is seen. Electronically Signed: Juliano Pickard MD at 15:50 EST , Service support , Physical Exam Const alert and oriented x3 Orientation / Consciousness: awake HEENT normocephalic, head/scalp atraumatic and hearing grossly normal bilaterally Eyes PERRL, EOMs intact bilaterally and conjunctivae normal Neck full ROM, supple and no JVD Chest Chest: left pectoral incision Resp clear to auscultation bilaterally Cardio regular rate, regular rhythm, S1 normal heart sound and S2 normal heart sound Heart Sounds: murmur systolic II/ soft mid left sternal border and LVOT GI normal to inspection, nondistended, normoactive bowel sounds Extremity no pedal edema Peripheral Pulses: Yes radial pulses present right (No bruits: No hematoma) 2+ Skin no rashes or lesions noted General Skin Exam: ecchymosis Neuro oriented x3, moves all extremities, no focal motor deficits and no sensory deficits noted Psych mental status grossly normal Assessment & Plan Assessment/Plan (1) Non-ST elevation (NSTEMI) myocardial infarction: PLAN: The patient presented with symptoms of unstable angina pectoris and enzyme findings (dynamic) compatible with a non-ST segment elevation DE. She states overall she does feel better since her PRBC transfusion and her hemoglobin has increased. (2) CAD (coronary artery disease): QUALIFIERS: Coronary Disease-Associated Artery/Lesion type: [place] artery [place] vs. transplanted heart: wiyot heart Associated angina: with unstable angina Qualified Code(s): I25.110 - Atherosclerotic heart disease of [place] coronary artery with unstable angina pectoris PLAN: Her previous cardiac catheterization and PCI reports were noted. She did undergo an LAD PCI via the right radial artery approach. As noted by her cardiac catheterization, performed via the right radial artery approach, she is noted to have the appearance of LAD in-stent restenosis. (3) History of coronary artery stent placement: PLAN: She did receive a drug-eluting stent to the LAD distribution. As noted above, based upon her cardiac catheterization. She is noted to have the appearance of LAD in-stent restenosis. Her case was discussed with Dr. Weir of interventional cardiology. He noted, as her previous procedure was a high risk procedure, so would a repeat PCI be of this area based upon concern of potential compromise of the left main coronary artery. There was also discussion as to whether or not the patient's hematologic status could be optimized to allow her to undergo CT surgery with a PARKER to the LAD. Thus, the patient is continuing conservative medical management. She is not proceeding with further catheter-based revascularization at [facility]. As previously noted, based upon ongoing COVID-19 concerns at [facility] where she had her previous PCI and TAVR performed, she was unable to be accepted there in transfer. She was agreeable to being transferred to another tertiary care center for additional evaluation care. Thus, her case was discussed with Dr. Lacey of CT surgery at [facility] in [place], [place] (also part of her [employer] pay[employer] system). He agreed to accept the patient in transfer for further heart team evaluation and care. (4) History of transcatheter aortic valve replacement (TAVR): PLAN: She has undergone TAVR placement as previously noted. Her TAVR valve can be followed by history, exam, and echocardiographic studies. She should continue AHA antibiotic prophylaxis as well. (5) History of permanent cardiac pacemaker placement: PLAN: She does have a permanent pacemaker in place. It has been reported as functioning appropriately. It can be reevaluated as needed. (6) Pure hypercholesterolemia: PLAN: She will continue lipid-lowering therapy. (7) Essential hypertension: PLAN: Her blood pressure is somewhat elevated. Her medications may need to be adjusted to try and bring her blood pressure under better control. (8) Myeloproliferative neoplasm: PLAN: She does have an underlying myeloproliferative neoplasm. She is being followed by hematology/oncology. For this she is receiving a chemotherapeutic agent. She states this is to bring her white blood cell count down. She states the side effect is also temporarily brings her platelet count down. (9) Leukocytosis: QUALIFIERS: Leukocytosis type: unspecified Qualified Code(s): D72.829 - Elevated white blood cell count, unspecified PLAN: Her WBCs are noted. She will continue medical therapy per hematology/oncology. (10) Anemia: QUALIFIERS: Anemia type: bone marrow failure Bone marrow failure anemia type: other bone marrow failure Qualified Code(s): D61.89 - Other specified aplastic anemias and other bone marrow failure syndromes PLAN: She has received intermittent PRBCs. She received 2 units PRBC prior to today's procedure. She looks better and states she feels better with her hemoglobin being up at approximately 9. (11) Thrombocytopenia: PLAN: Her platelet counts will need to be followed as she goes through additional cardiovascular evaluation and care. Addt'l Comments This note was generated using a voice recognition system and there may be incorrect words, spelling or punctuation that were not noted when reviewing the office note prior to saving.
--- NOTE | 2021-11-08 13:58 | PN.HOSP_ITS ---
Documented by User: Joce ROSADO 11/08/21 14:10 Subjective Subjective Patient is an 81-year-old female comfortably resting in bed, alert and orient x3. Patient reports improvement of chest pain from admission. Denies development of any new symptoms overnight. Does not appear in acute distress. Objective Data Objective Data Vital Signs: Vital Signs Temp Pulse Resp BP Pulse Ox 98.8 F 62 16 150/62 H 98 11/08/21 12:51 11/08/21 12:51 11/08/21 12:51 11/08/21 12:51 11/08/21 12:51 Oxygen Delivery Method Room Air Weight: 177 lb 0.499 oz Body Mass Index (BMI) 32.3 Intake & Output: Intake and Output for Last 24 Hours 11/06/21 11/07/21 11/08/21 23:59 23:59 23:59 Intake Total 400 / 640 880 / 880 Balance 400 / 640 880 / 880 Lab / Micro Data Result Diagrams: 11/08/21 05:50 11/08/21 05:50 Labs: Laboratory Results - last 24 hr 11/07/21 15:25: WBC 14.1 H, RBC 2.12 L, Hgb 7.0 L, Hct 21.3 L, MCV 100.5 H, MCH 33.0 H, MCHC 32.9, RDW Std Deviation 74.7 H, RDW Coeff of Aubrey 23.5 H, Plt Count 29 L*, MPV 11.2, Neut % (Auto) Not Reportable, Absolute Neuts (auto) 12.0 H, Absolute Lymphs (auto) 1.69, Total Counted 100, Neutrophils % (Manual) 77 H, Band Neutrophils % 8 H, Lymphocytes % (Manual) 12 L, Monocytes % (Manual) 1, Myelocytes % 2 H, Diff Path Review March11/07/21 15:25: Sodium 146 H, Potassium 3.4 L, Chloride 111 H, Carbon Dioxide 24.0, Anion Gap 11, BUN 14, Creatinine 0.85, Estim Creat Clear Calc 39.66, Est GFR (MDRD) Af Amer 82, Est GFR (MDRD) Non-Af 68, BUN/Creatinine Ratio 16.5, Glucose 223 H, Calcium 8.3 L, Troponin I High Sens 33 11/07/21 17:25: Troponin I High Sens 96 H 11/07/21 17:50: Blood Type A NEGATIVE, Antibody Screen NEGATIVE, Crossmatch See Detail 11/07/21 17:50: Crossmatch See Detail 11/07/21 22:03: Troponin I High Sens 317 H* 11/08/21 05:50: WBC 14.8 H, RBC 2.82 L, Hgb 9.0 L, Hct 26.6 L, MCV 94.3 D, MCH 31.9, MCHC 33.8, RDW Std Deviation 49.8 H, RDW Coeff of Aubrey 20.6 H, Plt Count 22 L*, MPV 11.6, Neut % (Auto) Not Reportable, Absolute Neuts (auto) 12.6 H, Absolute Lymphs (auto) 1.63, Total Counted 100, Neutrophils % (Manual) 73 H, Band Neutrophils % 12 H, Lymphocytes % (Manual) 11 L, Monocytes % (Manual) 1, Myelocytes % 3 H, Nucleated RBCs/100 WBC 1, Diff Path Review March, Platelet Estimate MKD DEC, RBC Morphology N CHROM, Anisocytosis 1+ 11/08/21 05:50: Sodium 144, Potassium 3.8, Chloride 109 H, Carbon Dioxide 26.0, Anion Gap 9, BUN 12, Creatinine 0.68, Estim Creat Clear Calc 33.71, Est GFR (MDRD) Af Amer 105, Est GFR (MDRD) Non-Af 87, BUN/Creatinine Ratio 17.5, Glucose 111 H, Calcium 8.4 L, Troponin I High Sens 563 H* Micro: Microbiology 11/08/21 10:58 Nasal Secretion SARS-CoV-2 Antigen (Rapid) - Final Radiography Diagnostic Testing: Radiology Impression Chest X-Ray 11/07/21 15:40 IMPRESSION: No acute abnormality is seen. Electronically Signed: Juliano Pickard MD at 15:50 EST , Service support , Physical Exam Const alert, oriented x3 and no apparent distress HEENT head/scalp atraumatic, moist oral mucous membranes and oropharynx normal Head and Scalp: normocephalic Eyes PERRL, EOMs intact bilaterally and conjunctivae normal Neck no lymphadenopathy, supple and no JVD Resp normal respiratory effort, no retractions, no use of accessory muscles and clear to auscultation bilaterally Cardio regular rate, regular rhythm, no murmurs and no JVD GI normal to inspection, nondistended, normoactive bowel sounds, soft to palpation and non-tender Extremity normal to inspection, full ROM and no clubbing, cyanosis or edema Peripheral Pulses: Yes pulses 2+ throughout Skin no rashes or lesions noted, no wounds, skin turgor normal and no jaundice Neuro CN's II-XII intact bilaterally Psych affect normal Assessment & Plan Assessment/Plan (1) Non-ST elevation (NSTEMI) myocardial infarction: (2) Acute zym-[place]-aajaibrey myocardial infarction: (3) CAD (coronary artery disease): QUALIFIERS: Associated angina: with unstable angina Coronary Disease-Associated Artery/Lesion type: [place] artery [place] vs. transplanted heart: [place] heart Qualified Code(s): I25.110 - Atherosclerotic heart disease of [place] coronary artery with unstable angina pectoris PLAN: Day 1 Discharge planning: Awaiting transfer to [place] for ongoing cardiac care. 1) NSTEMI Patient underwent cardiac catheterization today which demonstrated appearance of LAD in-stent restenosis. This is a high risk procedure that requires a tertiary level of care. Transfer initiated per Dr. De Oliveira to [place] to undergo CT surgery with PARKER to the LAD per Dr. Lacey. Currently awaiting bed. Continue isosorbide and Plavix. 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 Hemoglobin is 9 and platelets are at 22,000, which is actually above baseline for patient. Patient follows with oncology as an outpatient. We will continue to monitor CBC and will transfuse if hemoglobin falls below 7. Continue oral iron supplementation. 3) hyperlipidemia Continue statin and fenofibrate. 4) gout Continue allopurinol. 5) HTN Continue lisinopril, Lasix and metoprolol. DVT prophylaxis -Lovenox Patient seen by Joce Arellano PA-C, under the supervision of Dr. Mayen. Documented by User: Dr. Vita Mayen MD 11/08/21 14:49 Objective Data Lab / Micro Data Result Diagrams: 11/08/21 05:50 11/08/21 05:50 Charges/Coding Addendum Addendum: This patient was seen in conjunction with ALONZO Tompkins. I have independently interviewed and examined the patient and reviewed pertinent historical, laboratory, and other data. Please refer to ALONZO Tompkins's note for his patient's presentation, findings, and recommendations. I have reviewed and his note and concur with his documentation 81-year-old female with multiple comorbidities including myeloproliferative neoplasm, who gets platelet transfusions as well as blood transfusions in the outpatient and follows with hematology/oncology who comes in with complaints of chest pain. Patient stated that she had problems breathing and sleeping. She was in her kitchen working when she had chest pain that radiated to her jaw from the shoulder blade. This pain did not improve was sitting down. She was seen in the emergency department and had elevated troponin. Her hemoglobin was 7.0. Patient was transfused 2 units of packed RBC. The initial plan was to transfer to an acute care hospital but that could not happen. Patient underwent cardiac catheterization. Findings were that of her 85% restenosis of the ostial LAD. She was unable to be accepted at [facility] where she has had a previous PCI and TAVR. She was accepted at [facility]. Patient was seen and examined. Denied any new complaints. Physical Exam: Gen: Comfortable, pale, not jaundiced CVS:HS I +II, regular, no murmurs RESP: Diminished at lung bases GI: BS present and normal, soft, nontender, no palpable organs EXT:No edema
[2021-11-08 14:02] LABS: Pathologist Review Reviewed
[2021-11-08 14:07] LABS: Pathologist Review Reviewed
--- NOTE | 2021-11-08 14:41 | NURSING ---
Report called to Mone SOLIMAN at [facility]
--- NOTE | 2021-11-08 15:30 | DS.PCM_ITS ---
Documented by User: Joce ROSADO 11/08/21 15:33 Providers Date of Admission: 11/07/21 Primary Care Physician: Dr. Yesica Olsen MD Reason For Visit: NSTEMI Diagnosis Discharge Diagnosis (1) Non-ST elevation (NSTEMI) myocardial infarction: Status: Acute Code(s): I21.4 - Non-ST elevation (NSTEMI) myocardial infarction (2) Acute wym-AU-egiekfiec myocardial infarction: Status: Acute Code(s): I21.4 - Non-ST elevation (NSTEMI) myocardial infarction (3) CAD (coronary artery disease): Status: Acute Code(s): I25.10 - Atherosclerotic heart disease of [place] coronary artery without angina pectoris Qualifiers: Associated angina: with unstable angina Coronary Disease-Associated Artery/Lesion type: [place] artery [place] vs. transplanted heart: [place] heart Qualified Code(s): I25.110 - Atherosclerotic heart disease of [place] coronary artery with unstable angina pectoris Medications at Discharge Home Medications furosemide 20 mg tablet 20 mg PO DAILY #30 tab 12/13/20 metoprolol tartrate 25 mg tablet 25 mg PO BID #180 tab 04/17/21 clopidogrel 75 mg tablet 75 mg PO DAILY 05/31/21 pantoprazole 40 mg tablet,delayed release 40 mg PO DAILY 05/31/21 allopurinol 300 mg tablet 300 mg PO DAILY 30 Days #30 tablet 06/07/21 hydroxyurea 1,000 mg DAILY 06/24/21 tolterodine 4 mg PO DAILY 07/15/21 atorvastatin 80 mg tablet 80 mg PO QPM 07/24/21 lisinopril 20 mg tablet 20 mg PO BID tab 07/24/21 ferrous sulfate 325 mg (65 mg iron) tablet 325 mg PO DAILY #90 tab 08/07/21 ondansetron HCl 4 mg tablet 4 mg PO Q8H PRN #30 tab 09/18/21 decitabine-cedazuridine [Inqovi] 1 tab PO DAILY 11/07/21 fenofibrate 54 mg PO DAILY 11/07/21 isosorbide mononitrate 30 mg PO DAILY 11/07/21 Hospital Course Summary of Care Provided Minutes Spent on Discharge: 35 Hospital Course: Disposition: Patient to discharge to [facility] for tertiary level of care. 1) NSTEMI Patient underwent cardiac catheterization today which demonstrated appearance of LAD in-stent restenosis. This is a high risk procedure that requires a tertiary level of care. Transfer initiated per Dr. De Oliveira to [facility] to undergo CT surgery with PARKER to the LAD per Dr. Lacey. 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 Hemoglobin is 9 and platelets are at 22,000, which is actually above baseline for patient. Patient follows with oncology as an outpatient. We will continue to monitor CBC and will transfuse if hemoglobin falls below 7. Continue oral iron supplementation. 3) hyperlipidemia Continue statin and fenofibrate. 4) gout Continue allopurinol. 5) HTN Continue lisinopril, Lasix and metoprolol. Patient seen by Joce Arellano PA-C, under the supervision of Dr. Mayen. Physical Exam Narrative Patient is an 81-year-old female comfortably resting in bed, alert and orient x3. Patient reports improvement of chest pain from admission. Denies development of any new symptoms overnight. Does not appear in acute distress. Const alert, oriented x3 and no apparent distress HEENT normocephalic, head/scalp atraumatic and hearing grossly normal bilaterally Eyes PERRL, EOMs intact bilaterally and conjunctivae normal Neck no lymphadenopathy, supple and no JVD Resp normal respiratory effort, no retractions, no use of accessory muscles and clear to auscultation bilaterally Cardio regular rate, regular rhythm, no murmurs and no JVD GI normal to inspection, nondistended, normoactive bowel sounds, soft to palpation and non-tender Extremity normal to inspection, full ROM and no clubbing, cyanosis or edema Skin no rashes or lesions noted, no wounds and skin turgor normal Neuro CN's II-XII intact bilaterally Psych affect normal Weight / BMI Weight Weight: 177 lb 0.499 oz Body Mass Index (BMI) 32.3 ABG / Lab / Microbiology Data Result Diagrams: 11/08/21 05:50 11/08/21 05:50 Laboratory: Laboratory Results - last 24 hr 11/07/21 15:25: WBC 14.1 H, RBC 2.12 L, Hgb 7.0 L, Hct 21.3 L, MCV 100.5 H, MCH 33.0 H, MCHC 32.9, RDW Std Deviation 74.7 H, RDW Coeff of Aubrey 23.5 H, Plt Count 29 L*, MPV 11.2, Neut % (Auto) Not Reportable, Absolute Neuts (auto) 12.0 H, Absolute Lymphs (auto) 1.69, Total Counted 100, Neutrophils % (Manual) 77 H, Band Neutrophils % 8 H, Lymphocytes % (Manual) 12 L, Monocytes % (Manual) 1, Myelocytes % 2 H, Diff Path Review Reviewed 11/07/21 15:25: Sodium 146 H, Potassium 3.4 L, Chloride 111 H, Carbon Dioxide 24.0, Anion Gap 11, BUN 14, Creatinine 0.85, Estim Creat Clear Calc 39.66, Est GFR (MDRD) Af Amer 82, Est GFR (MDRD) Non-Af 68, BUN/Creatinine Ratio 16.5, Glucose 223 H, Calcium 8.3 L, Troponin I High Sens 33 11/07/21 17:25: Troponin I High Sens 96 H 11/07/21 17:50: Blood Type A NEGATIVE, Antibody Screen NEGATIVE, Crossmatch See Detail 11/07/21 17:50: Crossmatch See Detail 11/07/21 22:03: Troponin I High Sens 317 H* 11/08/21 05:50: WBC 14.8 H, RBC 2.82 L, Hgb 9.0 L, Hct 26.6 L, MCV 94.3 D, MCH 31.9, MCHC 33.8, RDW Std Deviation 49.8 H, RDW Coeff of Aubrey 20.6 H, Plt Count 22 L*, MPV 11.6, Neut % (Auto) Not Reportable, Absolute Neuts (auto) 12.6 H, Absolute Lymphs (auto) 1.63, Total Counted 100, Neutrophils % (Manual) 73 H, Band Neutrophils % 12 H, Lymphocytes % (Manual) 11 L, Monocytes % (Manual) 1, Myelocytes % 3 H, Nucleated RBCs/100 WBC 1, Diff Path Review Reviewed, Platelet Estimate MKD DEC, RBC Morphology N CHROM, Anisocytosis 1+ 11/08/21 05:50: Sodium 144, Potassium 3.8, Chloride 109 H, Carbon Dioxide 26.0, Anion Gap 9, BUN 12, Creatinine 0.68, Estim Creat Clear Calc 33.71, Est GFR (MDRD) Af Amer 105, Est GFR (MDRD) Non-Af 87, BUN/Creatinine Ratio 17.5, Glucose 111 H, Calcium 8.4 L, Troponin I High Sens 563 H* Microbiology: Microbiology 11/08/21 10:58 Nasal Secretion SARS-CoV-2 Antigen (Rapid) - Final Radiography Diagnostic Testing: Radiology Impression Chest X-Ray 11/07/21 15:40 IMPRESSION: No acute abnormality is seen. Electronically Signed: Juliano Pickard MD at 15:50 EST , Service support , Meaningful Use Info Meaningful Use Diagnoses (Choose all that apply): None applicable Discharge Plan Admission Admit Date/Time: 11/07/21 23:26 Attending Provider: Vita Mayen Primary Care Provider: Yesica Olsen Discharge Orders/Prescriptions Prescriptions: No Action clopidogrel 75 mg tablet 75 mg PO DAILY RF: 0 pantoprazole 40 mg tablet,delayed release (DR/EC) 40 mg PO DAILY RF: 0 ferrous sulfate 325 mg (65 mg iron) tablet 325 mg PO DAILY Qty: 90 RF: 1 ondansetron HCl [Zofran] 4 mg tablet 4 mg PO Q8H PRN (Reason: nausea and vomiting) Qty: 30 RF: 0 hydroxyurea 500 mg capsule 1,000 mg DAILY RF: 0 tolterodine 4 mg capsule,extended release 24hr 4 mg PO DAILY RF: 0 Inqovi 35-100 mg tablet 1 tab PO DAILY RF: 0 isosorbide mononitrate 30 mg tablet extended release 24 hr 30 mg PO DAILY RF: 0 fenofibrate 54 mg tablet 54 mg PO DAILY RF: 0 furosemide 20 mg tablet 20 mg PO DAILY Qty: 30 RF: 11 metoprolol tartrate 25 mg tablet 25 mg PO BID Qty: 180 RF: 3 allopurinol 300 mg tablet 300 mg PO DAILY 30 Days Qty: 30 RF: 1 atorvastatin 80 mg tablet 80 mg PO QPM RF: 0 lisinopril 20 mg tablet 20 mg PO BID RF: 0 Referrals / Follow Up: Yesica Olsen MD [Primary Care Provider] - Disposition Discharge Orders: Discharge Patient (Routine); Ordered 11/08/21 Ordered By: Dr. Parth De Oliveira Documented by User: Dr. Vita Mayen MD 11/09/21 13:26 Providers Date of Admission: 11/07/21 Reason For Visit: NSTEMI Medications at Discharge Home Medications furosemide 20 mg tablet 20 mg PO DAILY #30 tab 12/13/20 metoprolol tartrate 25 mg tablet 25 mg PO BID #180 tab 04/17/21 clopidogrel 75 mg tablet 75 mg PO DAILY 05/31/21 pantoprazole 40 mg tablet,delayed release 40 mg PO DAILY 05/31/21 allopurinol 300 mg tablet 300 mg PO DAILY 30 Days #30 tablet 06/07/21 hydroxyurea 1,000 mg DAILY 06/24/21 tolterodine 4 mg PO DAILY 07/15/21 atorvastatin 80 mg tablet 80 mg PO QPM 07/24/21 lisinopril 20 mg tablet 20 mg PO BID tab 07/24/21 ferrous sulfate 325 mg (65 mg iron) tablet 325 mg PO DAILY #90 tab 08/07/21 ondansetron HCl 4 mg tablet 4 mg PO Q8H PRN #30 tab 09/18/21 decitabine-cedazuridine [Inqovi] 1 tab PO DAILY 11/07/21 fenofibrate 54 mg PO DAILY 11/07/21 isosorbide mononitrate 30 mg PO DAILY 11/07/21 ABG / Lab / Microbiology Data Result Diagrams: 11/08/21 05:50 11/08/21 05:50 Discharge Plan Admission Admit Date/Time: 11/07/21 23:26 Attending Provider: Vita Mayen Primary Care Provider: Yesica Olsen Discharge Orders/Prescriptions Prescriptions: No Action clopidogrel 75 mg tablet 75 mg PO DAILY RF: 0 pantoprazole 40 mg tablet,delayed release (DR/EC) 40 mg PO DAILY RF: 0 ferrous sulfate 325 mg (65 mg iron) tablet 325 mg PO DAILY Qty: 90 RF: 1 ondansetron HCl [Zofran] 4 mg tablet 4 mg PO Q8H PRN (Reason: nausea and vomiting) Qty: 30 RF: 0 hydroxyurea 500 mg capsule 1,000 mg DAILY RF: 0 tolterodine 4 mg capsule,extended release 24hr 4 mg PO DAILY RF: 0 Inqovi 35-100 mg tablet 1 tab PO DAILY RF: 0 isosorbide mononitrate 30 mg tablet extended release 24 hr 30 mg PO DAILY RF: 0 fenofibrate 54 mg tablet 54 mg PO DAILY RF: 0 furosemide 20 mg tablet 20 mg PO DAILY Qty: 30 RF: 11 metoprolol tartrate 25 mg tablet 25 mg PO BID Qty: 180 RF: 3 allopurinol 300 mg tablet 300 mg PO DAILY 30 Days Qty: 30 RF: 1 atorvastatin 80 mg tablet 80 mg PO QPM RF: 0 lisinopril 20 mg tablet 20 mg PO BID RF: 0 Referrals / Follow Up: Yesica Olsen MD [Primary Care Provider] - Disposition Discharge Orders: Discharge Patient (Routine); Ordered 11/08/21 Ordered By: Dr. Parth De Oliveira Charges/Coding Addendum Addendum: This patient was seen in conjunction with ALONZO Tompkins. I have independently interviewed and examined the patient and reviewed pertinent historical, laboratory, and other data. Please refer to ALONZO Tompkins's note for his patient's presentation, findings, and recommendations. I have reviewed and his note and concur with his documentation 81-year-old female with multiple comorbidities including myeloproliferative neoplasm, who gets platelet transfusions as well as blood transfusions in the outpatient and follows with hematology/oncology who comes in with complaints of chest pain. Patient stated that she had problems breathing and sleeping. She was in her kitchen working when she had chest pain that radiated to her jaw from the shoulder blade. This pain did not improve was sitting down. She was seen in the emergency department and had elevated troponin. Her hemoglobin was 7.0. Patient was transfused 2 units of packed RBC. The initial plan was to transfer to an acute care hospital but that could not happen. Patient underwent cardiac catheterization. Findings were that of her 85% restenosis of the ostial LAD. She was unable to be accepted at [facility] where she has had a previous PCI and TAVR. She was accepted at [facility]. Patient was seen and examined. Denied any new complaints. Physical Exam: Gen: Comfortable, pale, not jaundiced CVS:HS I +II, regular, no murmurs RESP: Diminished at lung bases GI: BS present and normal, soft, nontender, no palpable organs EXT:No edema Visit Charges Inpatient E&M: 79849 Disch Hosp
== END 2021-11-08 17:03 | disposition short-term general hospital (02) | DRG 280 ==
LOC: ED 17:38 → PCU 23:33
PROVIDERS: Internal Medicine Cardiovascular Disease; Admitting Provider Hospitalist; Emergency Provider Emergency Medicine; PCP Family Medicine; Visit Provider Internal Medicine
DX: I21.4 Non-ST elevation (NSTEMI) myocardial infarction (principal); D61.89 Other specified aplastic anemias and other bone marrow failure syndromes; C93.10 Chronic myelomonocytic leukemia not having achieved remission; T82.855A Stenosis of coronary artery stent, initial encounter; I45.2 Bifascicular block; Y83.1 Surgical operation with implant of artificial internal device as the cause of abnormal reaction of the patient, or of later complication, without mention of misadventure at the time of the procedure; I25.110 Atherosclerotic heart disease of native coronary artery with unstable angina pectoris; I10 Essential (primary) hypertension; E78.00 Pure hypercholesterolemia, unspecified; D69.6 Thrombocytopenia, unspecified; M10.9 Gout, unspecified; I08.3 Combined rheumatic disorders of mitral, aortic and tricuspid valves; I25.2 Old myocardial infarction; G62.9 Polyneuropathy, unspecified; Z66 Do not resuscitate; Z95.3 Presence of xenogenic heart valve; Z95.0 Presence of cardiac pacemaker; Z79.899 Other long term (current) drug therapy; Z87.891 Personal history of nicotine dependence; Z86.16 Personal history of COVID-19
CPT/HCPCS: 36415; 36430; 71045; 80048; 84484; 85025; 86850; 86900; 86901; 86920; 86922; 86965; 87426; 93005; 93454; 97802; 99152; 99153; 99285; J7030; J7040; P9016; P9035; A4216; C1769; C1894; J1940; Q9967

== ENCOUNTER → 2022-04-23 | Outpatient (CLI) | payer MEDICARE, SELFPAY ==
--- NOTE | 2022-04-23 10:22 | RAD_ITS ---
STUDY: X-RAY CHEST REASON FOR EXAM: Female, 81 years old. COUGH, DYSPNEA TECHNIQUE: XR Chest 2 Views COMPARISON: 11.07.21 FINDINGS: There is no demonstrated pleural abnormality. There is bilateral infiltrate. There is a left sided pacemaker batterypack. tavr. Normal size heart. Normal mediastinum and alton. Normal visualized pulmonary arteries. There is atherosclerotic calcification of the aortic arch with tortuosity. There are diffuse degenerative changes of the visualized thoracic spine. There is degenerative osteoarthritis of the bilateral shoulders. There is no demonstrated abnormality of the visualized soft tissue structures of the upper abdomen. RAD/Chest PA and Lateral IMPRESSION: There is bilateral infiltrate. Electronically Signed: Sebastian Galo MD at 18:21 EDT ,
== END | disposition home or self-care (01) ==
PROVIDERS: PCP Internal Medicine; Visit Provider Internal Medicine
DX: R06.00 Dyspnea, unspecified (principal); D47.1 Chronic myeloproliferative disease; R07.9 Chest pain, unspecified; R05.9 Cough, unspecified
CPT/HCPCS: 36430; 71046; 86965; P9035; A4216

== ENCOUNTER 2022-04-24 11:57 | Observation (INO) | payer MEDICARE, SELFPAY ==
[2022-04-24] VITALS (9 sets, daily range): BP systolic 111–179; BP diastolic 48–95; PULSE 94–111; RESP 15–20; TEMP 35.8–37.3; O2SAT 94–100; BMI 30.2; BMI 29.4
--- NOTE | 2022-04-24 12:25 | EX.ED.VIS.UR ---
HPI HPI - URI History of Present Illness Chief Complaint: Shortness of Breath Informant: patient and family Onset/Context/Timing Onset: Weeks Context: Gradual Onset Timing: Continuous Current Severity: Mild Maximum Severity: Mild Associated Symptoms Associated Symptoms: Positive for Productive Cough Narrative Narrative: 81-year-old female history of CAD, aortic valve, CML with recent platelet and blood transfusions. Patient's had URI symptoms for 2 weeks. Had 2 negative COVID test. Was on a Z-Casey which did not improve her symptoms. Has seen her primary care physician recently had blood work and a chest x-ray showing bilateral lower lobe pneumonia. Patient's primary care physician called me today and wanted her admitted for IV antibiotics. Prior similar symptoms: Yes Recent Illness/Hospitalization: No ROS ROS ED ROS Narrative Cough. Intermittent fevers. Shortness of breath. Review of Systems ROS Unobtainable: Denies due to encephalopathy Constitutional Constitutional ED: Reports fever(s) Eyes Eyes: Denies change in vision ENT ENT ED: Denies ear pain Cardiovascular Cardiovascular: Denies chest pain or palpitations Respiratory/Chest Respiratory/Chest: Reports cough, dyspnea and sputum Gastrointestinal Gastrointestinal: Denies abdominal pain, diarrhea, nausea or vomiting Genitourinary Genitourinary ED: Denies dysuria Musculoskeletal Musculoskeletal: Denies myalgias Integumentary Denies rash Neurologic Neurologic: Denies headache(s) Psychiatric Psychiatric: Denies depression Endocrine Endocrinology: Denies polyuria Hematologic/Lymphatic Hematologic/Lymphatic: Denies easy bruising Allergic/Immunologic Allergic/Immunologic ED: Denies urticaria PFSH PFSH Medical History Aortic stenosis Atherosclerotic heart disease of [place] coronary artery without angina pectoris CAD (coronary artery disease) CAD (coronary artery disease) CLL (chronic lymphocytic leukemia) Complete heart block Difficult intravenous access Essential hypertension GI bleed History of blood transfusion History of COVID-19 History of left heart catheterization (LHC) (~11/08/21) History of transcatheter aortic valve replacement (TAVR) (05/28/21) Intervertebral disc disorder with radiculopathy of lumbar region Neuropathy Non-rheumatic tricuspid valve insufficiency Non-ST elevation (NSTEMI) myocardial infarction Nonrheumatic aortic (valve) stenosis Nonrheumatic mitral (valve) insufficiency Other extermination supervisor (current) drug therapy Pure hypercholesterolemia RBBB (right bundle branch block) Segmental and somatic dysfunction of lumbar region Segmental and somatic dysfunction of pelvic region Segmental and somatic dysfunction of thoracic region Home Medications tolterodine 4 mg PO DAILY 07/15/21 [History Last Taken 11/07/21] lisinopril 20 mg tablet 20 mg PO BID tab 07/24/21 [History Last Taken 11/07/21] ferrous sulfate 325 mg (65 mg iron) tablet 325 mg PO DAILY #90 tab 08/07/21 [Rx Last Taken 11/07/21] ondansetron HCl 4 mg tablet 4 mg PO Q8H PRN #30 tab 09/18/21 [Rx Last Taken Unknown] fenofibrate 54 mg PO DAILY 11/07/21 [History Last Taken 11/06/21] allopurinol 300 mg tablet 300 mg PO DAILY 30 Days #30 tablet 01/14/22 [Rx Last Taken Unknown] amlodipine 5 mg tablet 5 mg PO DAILY #90 tab 01/21/22 [Rx Last Taken Unknown] atorvastatin 80 mg tablet 80 mg PO QPM #90 tab 01/21/22 [Rx Last Taken Unknown] clopidogrel 75 mg tablet 75 mg PO DAILY #90 tab 01/21/22 [Rx Last Taken Unknown] furosemide 20 mg tablet 20 mg PO DAILY #30 tab 01/21/22 [Rx Last Taken Unknown] isosorbide mononitrate 30 mg tablet,extended release 24 hr 30 mg PO DAILY #90 tab 01/21/22 [Rx Last Taken Unknown] metoprolol tartrate 25 mg tablet 25 mg PO BID #180 tab 01/21/22 [Rx Last Taken Unknown] Allergy/AdvReac Type Severity Reaction Status Date / Time codeine Allergy Intermediate Swelling Verified 04/24/22 11:58 amoxicillin [From Augmentin] Allergy Mild Itching Verified 04/24/22 11:58 clavulanic acid Allergy Mild Itching Verified 04/24/22 11:58 [From Augmentin] niacin Allergy Mild Itching Verified 04/24/22 11:58 [From Niaspan Extended-Release] Family History Mother CHF (congestive heart failure) Brother CAD (coronary artery disease) Sister CHF (congestive heart failure) Son Cardiac pacemaker in situ WPW (Rsenv-Jhapziinn-Vohpj syndrome) Father No problems noted. Surgical History Aortic valve replaced H/O meniscectomy of right knee History of appendectomy History of coronary artery stent placement (11/14/21) History of medial meniscus repair of left knee History of partial knee replacement History of permanent cardiac pacemaker placement (06/04/21) History of synovectomy History of total hysterectomy History of tubal ligation S/P colonoscopy Social History Smoking Status: Former smoker alcohol intake: never substance use type: does not use diet: low carbohydrate caffeine: Yes Type: coffee Number of servings: 2 what type of physical activity do you participate in: none seatbelt use: always do you feel safe at home: Yes EXAM Physical Exam Narrative Exam Narrative: 81-year-old female no acute distress. Vital signs stable afebrile. Pulse ox 9% on room air no hypoxia. H EENT exam unremarkable. Neck nontender. Lungs coarse breath sounds but no rales, rhonchi or wheezing. Equal symmetrical. Heart tachycardic rate about 105 no murmur. Chest wall nontender. Abdomen soft nontender. Moving all 4 extremities. Calves are nontender without edema or cords. Neurologically she is awake and alert with no focal motor deficits. Const Vital Signs: 04/24/22 11:58 04/24/22 12:19 Temperature 96.5 F L Temperature Source Temporal Pulse Rate 108 H Respiratory Rate 16 Respiratory Effort Short of Breath Respiratory Pattern Tachypnea Blood Pressure 111/95 H Blood Pressure Mean 100 Pulse Ox 100 Oxygen Delivery Method Room Air Room Air Positive well nourished and well developed; Negative for cachectic or contractures General Appearance ED: well developed and NAD; Negative for cachectic, contractures, cyanotic, diaphoretic or pallor Nutritional Appearance: Negative for cachectic HEENT Reports moist mucous membranes; Denies dry mucous membranes normocephalic and atraumatic; Negative for scalp tenderness Face and Sinus: Negative for sinus tenderness, maxillary instability or facial tenderness Mouth ED: No dry mucous membranes Mouth: No dry mucous membranes Throat: posterior oropharynx normal Eyes PERRL and EOMs intact bilaterally General Eye ED: Yes pale conjunctiva; Negative for scleral icterus Neck no lymphadenopathy, supple, no meningeal signs and no JVD General: Negative for anterior neck swelling or lymphadenopathy Resp normal respiratory effort and clear to auscultation bilaterally Auscultation: Negative for rales, rhonchi or wheezes Cardio S1 normal heart sound, S2 normal heart sound and no murmurs Rate: tachycardic; Negative for regular rate Rhythm: regular rhythm GI non-tender, non-distended and no masses Inspection: Negative for abdominal distention Auscultation: normoactive bowel sounds Palpation: soft; Negative for tender or guarding Back/Spine no CVA tenderness and normal ROM General Back: Negative for CVA tenderness Cervical Spine: Negative for cervical spine tenderness Thoracic Spine / Upper Back: Negative for thoracic spinal tenderness Extremity normal to inspection and full ROM General Extremety ED: Negative for cyanosis or tenderness General Extremity: Negative for cyanosis Neuro oriented x3 Sensorium / Orientation: alert, oriented to person, oriented to place and oriented to time; Negative for orientation impaired, lethargic or stuporous Motor Exam: strength 5/5 throughout; Negative for general weakness Psych mental status grossly normal Attitude: No agitated Mood & Affect: Negative for depressed or tearful Skin General Skin Exam: Negative for jaundice or pallor Lesions: no lesions Rashes: no rashes MDM MDM MDM Narrative Medical decision making narrative: 81-year-old female cough diagnoses bilateral lower lobe pneumonia by chest x-ray. Primary care physician due to her chronic medical problems and failed an outpatient oral antibiotic therapy wanted her sent to the emergency department and admitted for pneumonia. Treated with IV antibiotics. She will be started on IV Levaquin. Screening labs are being obtained. Repeat exam unchanged. I spoke to the hospitalist who will admit the patient. Lab Data Attestation: I reviewed the patient's lab results. Lab results narrative: CBC shows a white count of 30,000. H&H is 7.4 and 23 these are both her baseline. Platelet count of 14,000 again along her baseline. 3% bands. Electrolytes unremarkable gap of 6 BUN and creatinine normal. Glucose of 91. Recent chest x-ray read as bilateral lower lobe infiltrates. Labs: Laboratory Results - last 24 hr 04/24/22 04/24/22 12:38 12:38 WBC 30.1 H* RBC 2.33 L Hgb 7.4 L Hct 23.0 L MCV 98.7 MCH 31.8 MCHC 32.2 RDW Std Deviation 62.5 H RDW Coeff of Aubrey 18.7 H Plt Count 14 L* MPV 12.4 H Neut % (Auto) Not Reportable Absolute Neuts (auto) 16.3 H Absolute Lymphs (auto) 6.90 H Total Counted 100 Neutrophils % (Manual) 54 Band Neutrophils % 3 Lymphocytes % (Manual) 23 Monocytes % (Manual) 3 Metamyelocytes % 1 Myelocytes % 13 H Promyelocytes % 3 H Diff Path Review May foll Polychromasia 1+ Anisocytosis 1+ Sodium 138 Potassium 4.4 Chloride 107 Carbon Dioxide 25.0 Anion Gap 6 BUN 13 Creatinine 0.71 Estim Creat Clear Calc 32.17 Est GFR (MDRD) Af Amer 101 Est GFR (MDRD) Non-Af 84 BUN/Creatinine Ratio 18.4 Glucose 91 Calcium 8.5 Discharge Plan Triage Chief Complaint: Shortness of Breath ED Provider: Rah Pride Dx/Rx/DC Orders Clinical Impression: Bilateral pneumonia, History of chronic myeloid leukemia, History of anemia of chronic disease Prescriptions: No Action ferrous sulfate 325 mg (65 mg iron) tablet 325 mg PO DAILY Qty: 90 RF: 1 ondansetron HCl [Zofran] 4 mg tablet 4 mg PO Q8H PRN (Reason: nausea and vomiting) Qty: 30 RF: 0 tolterodine 4 mg capsule,extended release 24hr 4 mg PO DAILY RF: 0 fenofibrate 54 mg tablet 54 mg PO DAILY RF: 0 lisinopril 20 mg tablet 20 mg PO BID RF: 0 allopurinol 300 mg tablet 300 mg PO DAILY 30 Days Qty: 30 RF: 1 amlodipine 5 mg tablet 5 mg PO DAILY Qty: 90 RF: 3 atorvastatin 80 mg tablet 80 mg PO QPM Qty: 90 RF: 3 clopidogrel 75 mg tablet 75 mg PO DAILY Qty: 90 RF: 3 furosemide 20 mg tablet 20 mg PO DAILY Qty: 30 RF: 11 isosorbide mononitrate 30 mg tablet extended release 24 hr 30 mg PO DAILY Qty: 90 RF: 3 metoprolol tartrate 25 mg tablet 25 mg PO BID Qty: 180 RF: 3 Primary Care Provider: Alee Meléndez Referrals: Alee Meléndez MD [Primary Care Provider] - Disposition Disposition: Acute Care [facility]
[2022-04-24] MEDS: levoFLOXacin IV 750 MG/150 ML BAG 100 MG IV (12:49)
[2022-04-24 13:01] LABS: Hemoglobin 7.4 g/dL (12.0-15.0); Mean Corp Hgb Conc 32.2 g/dL (32-36); Mean Corpuscular Hgb 31.8 pg (27.0-32.0); Mean Corpuscular Volume 98.7 fL (81-99); Mean Platelet Vol. 12.4 fl (6.2-12.0); POSITIVE COUNT YES; POSITIVE DIFFERENTIAL YES; POSITIVE MORPHOLOGY YES; RBC Distribution Width CV 18.7 % (11.6-14.6); RBC Distribution Width SD 62.5 fl (35.1-43.9); Red Blood Count 2.33 M/mm3 (4.2-5.4)
[2022-04-24 13:06] LABS: Differential Indicated MANUAL DIFF; Platelet Count 14 K/mm3 (150-450); White Blood Count 30.1 K/mm3 (4.4-11.0)
[2022-04-24 13:11] LABS: Anion Gap 6 (5-15); BUN 13 mg/dL (7-18); BUN/Creat Ratio 18.4 RATIO (10-20); Calcium,Total 8.5 mg/dL (8.5-10.1); Chloride 107 mmol/L (98-107); Creatinine, Serum 0.71 mg/dL (0.55-1.02); EST Glomerular Filtration Rate 84 mL/min (>60); Est Glom Filt Rate - Afr Amer 101 mL/min (>60); Estimated Creatinine Clearance 32.17 ml/min; Glucose 91 mg/dL (74-106); Potassium 4.4 mmol/L (3.5-5.1); Sodium Level 138 mmol/L (136-145)
[2022-04-24 13:20] LABS: Lymphocyte 23 % (19-41); Metamyelocyte 1 % (0-1); Monocyte 3 % (0-10); Myelocyte 13 % (0-0); Neutrophil-Band 3 % (0-5); Neutrophil-Segmented 54 % (47-70); Promyelocyte 3 % (0-0); Total Cells Counted 100 (MANUAL DIFF)
[2022-04-24 13:22] LABS: Anisocytosis 1+; Polychromasia 1+
[2022-04-24 13:25] LABS: Absolute Neutrophil Count 16.3 X10^3/uL (2.0-7.7)
--- NOTE | 2022-04-24 16:43 | CPS ---
patient refused respiratory panel, charge nurse informed.
--- NOTE | 2022-04-24 17:25 | PCM.HP.STD ---
HPI - General General Date of Admission: 04/24/22 Date of Service: 04/24/22 Chief Complaint: Cough, shortness of breath, abnormal chest x-ray HPI Narrative EDWARD ELIAS, is a 81 F who presents to the emergency room at [facility] at the direction of her PCP for complaints of continued cough, blood-tinged yellow sputum production, dyspnea on exertion, and an abnormal chest x-ray which was obtained today. Patient states she finished a course of antibiotics (Z-Casey) approximately a week ago, she still has her symptomology however. Patient did tell me that she has had some shortness of breath over the last several weeks. Chest x-ray obtained yesterday showed bilateral pulmonary infiltrates, patient's labs were abnormal for a white blood cell count of 30,000, hemoglobin was 7.4, beta natruretic peptide was 153, and the patient's temperature was 99.2. Patient's pulse ox on room air was 100%. Patient will be placed in observation status for community-acquired pneumonia without hypoxia, she was given IV Levaquin in the emergency room, this will be continued in the hospital, I contacted Dr. Perez today and he will see the patient in consultation tomorrow, he asked that I obtain additional studies which I have ordered. Patient will be placed on aerosol treatments. Patient has a history of her prior chest CTA done on 06/24/2021 which showed evidence of COPD and patchy areas of irregular parenchymal density in the periphery of both lung bases suggesting scarring or subsegmental atelectasis. Patient's last chest x-ray which was performed on 11/07/2021 was read out as showing no acute abnormality. [facility] Medical History (Updated 04/24/22 @ 15:31 by Jovita Johnson) Aortic stenosis Atherosclerotic heart disease of [place] coronary artery without angina pectoris CAD (coronary artery disease) CAD (coronary artery disease) CLL (chronic lymphocytic leukemia) Complete heart block Difficult intravenous access Essential hypertension Former smoker GI bleed History of blood transfusion History of COVID-19 History of left heart catheterization (LHC) (~11/08/21) History of transcatheter aortic valve replacement (TAVR) (05/28/21) Hypertension Intervertebral disc disorder with radiculopathy of lumbar region Neuropathy Non-rheumatic tricuspid valve insufficiency Non-ST elevation (NSTEMI) myocardial infarction Nonrheumatic aortic (valve) stenosis Nonrheumatic mitral (valve) insufficiency Other bed bug exterminator (current) drug therapy Pacemaker Pure hypercholesterolemia RBBB (right bundle branch block) Segmental and somatic dysfunction of lumbar region Segmental and somatic dysfunction of pelvic region Segmental and somatic dysfunction of thoracic region Home Medications tolterodine 4 mg PO DAILY 07/15/21 [History Last Taken 04/23/22] lisinopril 20 mg tablet 20 mg PO BID tab 07/24/21 [History Last Taken 04/23/22] ferrous sulfate 325 mg (65 mg iron) tablet 325 mg PO DAILY #90 tab 08/07/21 [Rx Last Taken 04/23/22] fenofibrate 54 mg PO DAILY 11/07/21 [History Last Taken 04/23/22] allopurinol 300 mg tablet 300 mg PO DAILY 30 Days #30 tablet 01/14/22 [Rx Last Taken 04/23/22] amlodipine 5 mg tablet 5 mg PO DAILY #90 tab 01/21/22 [Rx Last Taken 04/23/22] atorvastatin 80 mg tablet 80 mg PO QPM #90 tab 01/21/22 [Rx Last Taken 04/23/22] clopidogrel 75 mg tablet 75 mg PO DAILY #90 tab 01/21/22 [Rx Last Taken 04/23/22] furosemide 20 mg tablet 20 mg PO DAILY #30 tab 01/21/22 [Rx Last Taken 04/23/22] isosorbide mononitrate 30 mg tablet,extended release 24 hr 30 mg PO DAILY #90 tab 01/21/22 [Rx Last Taken 04/23/22] metoprolol tartrate 25 mg tablet 25 mg PO BID #180 tab 01/21/22 [Rx Last Taken 04/23/22] decitabine-cedazuridine [Inqovi] See Rx Instructions .ROUTE .COMPLEX 04/24/22 [History Last Taken Unknown] ondansetron HCl 4 mg PO Q8H PRN PRN 04/24/22 [History Last Taken 04/23/22] Allergy/AdvReac Type Severity Reaction Status Date / Time codeine Allergy Intermediate Swelling Verified 04/24/22 11:58 amoxicillin [From Augmentin] Allergy Mild Itching Verified 04/24/22 11:58 clavulanic acid Allergy Mild Itching Verified 04/24/22 11:58 [From Augmentin] niacin Allergy Mild Itching Verified 04/24/22 11:58 [From Niaspan Extended-Release] Family History Mother CHF (congestive heart failure) Brother CAD (coronary artery disease) Sister CHF (congestive heart failure) Son Cardiac pacemaker in situ WPW (Slheb-Srvrpdqiy-Cbles syndrome) Father No problems noted. Surgical History Aortic valve replaced H/O meniscectomy of right knee History of appendectomy History of coronary artery stent placement (11/14/21) History of medial meniscus repair of left knee History of partial knee replacement History of permanent cardiac pacemaker placement (06/04/21) History of synovectomy History of total hysterectomy History of tubal ligation S/P colonoscopy Social History Smoking Status: Former smoker alcohol intake: never substance use type: does not use diet: low carbohydrate caffeine: Yes Type: coffee Number of servings: 2 what type of physical activity do you participate in: none seatbelt use: always do you feel safe at home: Yes ROS Constitutional Constitutional: Denies anorexia, change in weight, fever(s), night sweats or weakness Eyes Eyes: Denies blurry vision, change in vision, discharge from eye(s) or eye pain Cardiovascular Cardiovascular: Denies chest pain, claudication, edema or palpitations Respiratory/Chest Respiratory/Chest: Reports cough, hemoptysis, productive cough and shortness of breath with exertion; Denies shortness of breath at rest Gastrointestinal Gastrointestinal: Denies abdominal pain, coffee ground emesis, constipation, diarrhea, dyspepsia, hematemesis, hematochezia, melena, nausea or vomiting Genitourinary Genitourinary: Denies burning urination, dysuria, hematuria, nocturia, urinary frequency, urinary hesitancy, urinary incontinence or urinary urgency Musculoskeletal Musculoskeletal: Denies back pain, joint pain, joint stiffness, joint swelling, myalgias or neck pain Neurologic Neurologic: Denies abnormal gait, abnormal speech, dizziness, focal weakness, headache(s), loss of vision, numbness, other visual disturbances, paresthesias, syncope or tingling Psychiatric Psychiatric: Denies anxiety, cognitive impairment, depression, irritability, mood swings or suicidal ideation Endocrine Endocrinology: Denies change in body appearance, cold intolerance, excessive sweating, heat intolerance, polydipsia or polyuria Hematologic/Lymphatic Hematologic/Lymphatic: Denies none, anemia, easy bleeding, easy bruising or lymphadenopathy Allergic/Immunologic Allergic/Immunologic: Denies rhinitis, urticaria, eczemia or asthma Vital Signs Vital Signs Vital Signs: 04/24/22 11:58 04/24/22 12:19 04/24/22 13:55 Temperature 96.5 F L 98.9 F Temperature Source Temporal Temporal Pulse Rate 108 H 94 Respiratory Rate 16 18 Respiratory Effort Short of Breath Respiratory Depth Respiratory Pattern Tachypnea Blood Pressure 111/95 H 141/91 H Blood Pressure Mean 100 107 Blood Pressure Source Blood Pressure Position Blood Pressure Location Pulse Ox 100 100 Oxygen Delivery Method Room Air Room Air Room Air 04/24/22 14:02 04/24/22 15:15 04/24/22 16:09 Temperature 99.2 F H Temperature Source Oral Pulse Rate 96 111 H Respiratory Rate 18 20 H Respiratory Effort Normal Non-Labored Respiratory Depth Normal Respiratory Pattern Normal Blood Pressure 142/56 H 179/79 H Blood Pressure Mean 84 112 Blood Pressure Source Monitor Blood Pressure Position Semi-Fowlers Blood Pressure Location Left Arm Pulse Ox 99 100 100 Oxygen Delivery Method Room Air Room Air Room Air Weight Weight: 72.9 kg Body Mass Index (BMI) 29.4 Physical Exam Const alert, oriented x3, no apparent distress and healthy appearing General Appearance: cooperative, well kempt and well developed Orientation / Consciousness: awake, oriented to person, oriented to place and oriented to time HEENT normocephalic, head/scalp atraumatic, hearing grossly normal bilaterally and moist oral mucous membranes Eyes PERRL, EOMs intact bilaterally and conjunctivae normal Neck nuchal rigidity, supple, no JVD, thyroid normal and no carotid bruits General: trachea midline Resp normal respiratory effort, no retractions, no use of accessory muscles and clear to auscultation bilaterally Auscultation: Negative for rales, rhonchi or wheezes Cardio regular rate, regular rhythm, S1 normal heart sound, S2 normal heart sound, no murmurs, no rub and no gallops GI normal to inspection, nondistended, normoactive bowel sounds, soft to palpation, non-tender and non-distended Extremity no clubbing, cyanosis or edema Skin no rashes or lesions noted General Skin Exam: no breakdown Neuro oriented x3, CN's II-XII intact bilaterally, no focal motor deficits and no sensory deficits noted Sensorium / Orientation: awake and alert Speech: speech normal Psych affect normal Results Lab / Micro Data Result Diagrams: 04/24/22 12:38 04/24/22 12:38 Labs: Laboratory Results - last 24 hr 04/24/22 12:38: WBC 30.1 H*, RBC 2.33 L, Hgb 7.4 L, Hct 23.0 L, MCV 98.7, MCH 31.8, MCHC 32.2, RDW Std Deviation 62.5 H, RDW Coeff of Aubrey 18.7 H, Plt Count 14 L*, MPV 12.4 H, Neut % (Auto) Not Reportable, Absolute Neuts (auto) 16.3 H, Absolute Lymphs (auto) 6.90 H, Total Counted 100, Neutrophils % (Manual) 54, Band Neutrophils % 3, Lymphocytes % (Manual) 23, Monocytes % (Manual) 3, Metamyelocytes % 1, Myelocytes % 13 H, Promyelocytes % 3 H, Diff Path Review May foll, Polychromasia 1+, Anisocytosis 1+ 04/24/22 12:38: Sodium 138, Potassium 4.4, Chloride 107, Carbon Dioxide 25.0, Anion Gap 6, BUN 13, Creatinine 0.71, Estim Creat Clear Calc 32.17, Est GFR (MDRD) Af Amer 101, Est GFR (MDRD) Non-Af 84, BUN/Creatinine Ratio 18.4, Glucose 91, Calcium 8.5 04/24/22 12:38: B-Natriuretic Peptide 153.0 H 04/24/22 14:17: COVID-19 (ELY) Not Detected Assessment & Plan Assessment/Plan (1) Leukocytosis: QUALIFIERS: Leukocytosis type: unspecified Qualified Code(s): D72.829 - Elevated white blood cell count, unspecified PLAN: 1. Bilateral pulmonary infiltrates indicative of community-acquired pneumonia-? Viral etiology-patient will be placed in observation status on MedSurg, IV Levaquin will be continued, patient will be seen in consultation by pulmonary medicine, sputum culture will be obtained if possible, urine antigens for Legionella and strep was ordered as well as CMV antibody test and mycoplasma antibody tests. Patient will be given aerosol treatments. Patient had a COVID PCR performed which was negative. #2 dyspnea on exertion-in talking with the patient, this appears to be a problem that has been present over the last several weeks, again patient will be seen in consultation by pulmonary medicine #3 chronic myeloproliferative disease-patient's medication will be held during her hospitalization #4 coronary artery disease-stable at this time, continue present medications #5 essential hypertension-continue present medication #6 hyperlipidemia-patient will remain on her home medication #7 chronic anemia-secondary to myeloproliferative disorder, CBC will be rechecked tomorrow #8 status post TAVR 05/28/2021 Charges/Coding Visit Charges OBSV E&M: 47203 Initial observation care L3
[2022-04-24] MEDS: Albuterol 2.5 MG/3 ML VIAL.NEB. INHALATION (19:12)
[2022-04-24] MEDS: Atorvastatin Calcium 80 MG Tablet PO (21:12)
[2022-04-24] MEDS: Metoprolol Tartrate 25 MG Tablet PO (21:12)
[2022-04-24] MEDS: Lisinopril 20 MG Tablet PO (21:13)
[2022-04-25] VITALS (13 sets, daily range): BP systolic 107–147; BP diastolic 45–96; PULSE 68–94; RESP 14–18; TEMP 36.7–37.4; O2SAT 92–99
--- NOTE | 2022-04-25 05:55 | RAD_ITS ---
STUDY: X-RAY CHEST REASON FOR EXAM: Female, 81 years old. Pneumonia TECHNIQUE: AP and lateral views of the chest. COMPARISON: Comparison is made with prior study dated 04/23/2022. FINDINGS: Persistent bilateral pulmonary infiltrates worse in the right hemithorax. There has been a [id number] degree of improved aeration. There is no demonstrated pleural abnormality. Normal size heart. A left-sided dual-chamber pacemaker seen. Normal mediastinum and alton. Normal visualized pulmonary arteries. There is atherosclerotic calcification of the aortic arch with tortuosity. There are diffuse degenerative changes of the visualized thoracic spine. Normal visualized ribs, clavicles, and shoulders. There is no demonstrated abnormality of the visualized soft tissue structures of the upper abdomen. RAD/Chest PA and Lateral IMPRESSION: Residual bilateral pulmonary infiltrates more prominent in the right hemithorax with a mild to moderate degree of improved aeration. Electronically Signed: Juliano Pickard MD at 8:55 EDT ,
[2022-04-25 06:08] LABS: Hematocrit 19.9 % (37-47); Hemoglobin 6.3 g/dL (12.0-15.0); Mean Corp Hgb Conc 31.7 g/dL (32-36); Mean Corpuscular Hgb 31.5 pg (27.0-32.0); Mean Corpuscular Volume 99.5 fL (81-99); POSITIVE COUNT YES; POSITIVE MORPHOLOGY YES; RBC Distribution Width CV 19.2 % (11.6-14.6); RBC Distribution Width SD 64.2 fl (35.1-43.9); White Blood Count 24.6 K/mm3 (4.4-11.0)
[2022-04-25 06:13] LABS: Differential Indicated MANUAL DIFF
[2022-04-25 06:14] LABS: Platelet Count 9 K/mm3 (150-450)
[2022-04-25 06:35] LABS: Anion Gap 5 (5-15); BUN 10 mg/dL (7-18); BUN/Creat Ratio 15.5 RATIO (10-20); Calcium,Total 8.2 mg/dL (8.5-10.1); Chloride 108 mmol/L (98-107); Creatinine, Serum 0.64 mg/dL (0.55-1.02); EST Glomerular Filtration Rate 93 mL/min (>60); Est Glom Filt Rate - Afr Amer 113 mL/min (>60); Estimated Creatinine Clearance 33.71 ml/min; Glucose 99 mg/dL (74-106); Potassium 4.3 mmol/L (3.5-5.1); Sodium Level 138 mmol/L (136-145)
[2022-04-25 07:10] LABS: Lymphocyte 9 % (19-41); Metamyelocyte 4 % (0-1); Neutrophil-Segmented 87 % (47-70); Total Cells Counted 100 (MANUAL DIFF)
[2022-04-25 07:11] LABS: Platelet Estimate MKD DEC (ADEQ)
[2022-04-25 07:12] LABS: Anisocytosis 2+; Polychromasia RARE
[2022-04-25] MEDS: Albuterol 2.5 MG/3 ML VIAL.NEB. INHALATION (07:12)
[2022-04-25 07:13] LABS: Microcytosis 1+
--- NOTE | 2022-04-25 07:49 | CT_ITS ---
STUDY: CT CHEST WITHOUT CONTRAST REASON FOR EXAM: Female, 81 years old. Abnormal chest x-ray RADIATION DOSAGE (If Supplied By Facility): CTDIvol = ( 9.36 ) mGy, DLP = ( 315.64 ) mGycm TECHNIQUE: Transaxial imaging was performed without the administration of intravenous contrast material. Multiplanar coronal and sagittal images were reformatted. Individualized dose optimization techniques were used for this CT. COMPARISON: Comparison is made with prior examination dated 02/02/2021 and 06/24/2021. FINDINGS: CHEST There is evidence of a multiple focal bilateral pulmonary infiltrates in both lungs worse in the right lung base. Bilateral scattered pulmonary nodules worse in the right hemithorax. Radiographic follow-up recommended. Small left pleural effusion. There are calcifications of the coronary arteries. There is evidence of aortic valve replacement. Tiny pericardial effusion. A left-sided dual-chamber pacemaker is seen. There are multiple small lymph nodes within the mediastinum, which are normal in size and morphology most compatible with reactive lymph hyperplasia. Normal hilar regions. Normal unenhanced pulmonary arteries. There is atherosclerotic calcification of the aortic arch with tortuosity and elongation of the aortic arch and descending thoracic aorta. There are multi-level degenerative changes of the thoracic spine. There is no demonstrated abnormality of the visualized upper abdomen. CT/Chest without Contrast IMPRESSION: Focal bilateral pulmonary opacities as described with nodular densities. A repeat CT scan of the thorax is recommended following treatment. Electronically Signed: Juliano Pickard MD at 9:09 EDT ,
--- NOTE | 2022-04-25 07:50 | CON.PCM.CC_ITS ---
Assessment & Plan Assessment/Plan (1) Leukocytosis: QUALIFIERS: Leukocytosis type: unspecified Qualified Code(s): D72.829 - Elevated white blood cell count, unspecified (2) Myeloproliferative neoplasm: (3) Cough: (4) Nonrheumatic aortic (valve) stenosis: PLAN: RECOMMENDATIONS: 1. Infectious work-up negative thus far. Antibody titers pending. 2. Obtain CT of the chest without contrast 3. Potential addition of steroids pending outcome of CT scan 4. Walking oximetry prior to discharge 5. Defer to hospitalist on transfusion requirements IMPRESSIONS: 1. Chronic cough with abnormal chest x-ray Unclear etiology at this time. Infectious work-up has been relatively negative thus far. Patient has been noticing symptoms since the onset of immunotherapy. Cannot exclude an element of pneumonitis leading to the chronic cough. CMV and mycoplasma antibody levels are currently pending, but viral is negative. Will obtain a CT of the chest for clarification of pattern. Extensive groundglass opacities were not noted at the end of 2020 (last CT scan). Lack of tachycardia and hypoxia make PE unlikely, so will hold off on using contrast. Patient's underlying malignancy does complicate infectious evaluation. Okay to continue IV Levaquin for now. Sputum culture has been ordered, but not obtained. 2. Anemia/thrombocytopenia secondary to chronic myeloproliferative disease Defer to hospitalist on transfusions. Patient is stating that she is not wanting to continue with immunotherapy. Await the CT scan of the chest. Patient has scattered groundglass opacities, pneumonitis would be a conside ration. Significant anemia may be leading to an element of patient's reported dyspnea on exertion. Patient's major complaint to myself has been chronic cough, which can also be seen in pneumonitis. 3. CAD/hyperlipidemia/hypertension/advanced age/status post TAVR Complicates care, management, recovery and prognosis. Okay to continue with baseline medications from my perspective. May need to readdress CODE STATUS given my discussion as patient does not appear to wish full code. HPI Consult Data Date of Consult: 04/25/22 HPI Narrative HPI Narrative: EDWARD ELIAS is an 81 F, with past medical history listed below, who presents to [facility] on 04/24/2022 secondary to an abnormal chest x-ray. Patient has had URI symptoms for the last 2 weeks that did not respond to a Z-Casey. Primary care physician had ordered a chest x-ray and blood work that showed persistent bilateral lower lobe infiltrates. Given failure of outpatient symptoms with p.o. antibiotics, patient was referred to the ER for evaluation of IV antibiotics. In the ER, patient was afebrile, but tachycardic at 108 bpm. Patient was saturating well on room air. Laboratory work-up showed a white blood cell count of 30.1 with a hemoglobin of 6.4 and a platelet count of 14. Chemistry was relatively unremarkable. Chest x-ray continue to show bilateral infiltrates. Patient was initiated on IV Levaquin and admitted to the hospital for further evaluation. Viral panel and COVID-19 testing were negative. Patient overall feels subjectively unchanged compared to previous. Patient states that she is not having significant respiratory distress, but does have a cough that is largely dry. Patient is not reporting any concomitant chest pain, abdominal pain, nausea or vomiting. Patient states that she feels that she is gone downhill since her oncologist switched me from hydroxychloroquine. Patient states that she has not been able to talk with Dr. Cazares as he has been on vacation, but plans on telling him that she feels that the chemotherapy is causing more harm than good. Patient does state that she has been requiring transfusions more frequently and this has been associated with her leukemia. Patient does have an extensive cardiac history. Patient has been compliant with her Lasix therapy denies any lower extremity edema. Patient does report a history of smoking in the past, but has not smoked recently. Patient is unaware if she is ever had pulmonary function test or seen a block mechanic. Patient does not require supplemental oxygen normally. Review of systems otherwise negative from a constitutional, HEENT, respiratory, cardiovascular, GI, genitourinary, musculoskeletal, skin, neurologic, psychia tric and hematologic system unless stated above. 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) Hypertension Intervertebral disc disorder with radiculopathy of lumbar region Neuropathy Non-rheumatic tricuspid valve insufficiency Non-ST elevation (NSTEMI) myocardial infarction Nonrheumatic aortic (valve) stenosis Nonrheumatic mitral (valve) insufficiency Other nursing home (current) drug therapy Pacemaker Pure hypercholesterolemia RBBB (right bundle branch block) Segmental and somatic dysfunction of lumbar region Segmental and somatic dysfunction of pelvic region Segmental and somatic dysfunction of thoracic region Home Medications tolterodine 4 mg PO DAILY 07/15/21 [History Last Taken 04/23/22] lisinopril 20 mg tablet 20 mg PO BID tab 07/24/21 [History Last Taken 04/23/22] ferrous sulfate 325 mg (65 mg iron) tablet 325 mg PO DAILY #90 tab 08/07/21 [Rx Last Taken 04/23/22] fenofibrate 54 mg PO DAILY 11/07/21 [History Last Taken 04/23/22] allopurinol 300 mg tablet 300 mg PO DAILY 30 Days #30 tablet 01/14/22 [Rx Last Taken 04/23/22] amlodipine 5 mg tablet 5 mg PO DAILY #90 tab 01/21/22 [Rx Last Taken 04/23/22] atorvastatin 80 mg tablet 80 mg PO QPM #90 tab 01/21/22 [Rx Last Taken 04/23/22] clopidogrel 75 mg tablet 75 mg PO DAILY #90 tab 01/21/22 [Rx Last Taken 04/23/22] furosemide 20 mg tablet 20 mg PO DAILY #30 tab 01/21/22 [Rx Last Taken 04/23/22] isosorbide mononitrate 30 mg tablet,extended release 24 hr 30 mg PO DAILY #90 tab 01/21/22 [Rx Last Taken 04/23/22] metoprolol tartrate 25 mg tablet 25 mg PO BID #180 tab 01/21/22 [Rx Last Taken 04/23/22] decitabine-cedazuridine [Inqovi] See Rx Instructions .ROUTE .COMPLEX 04/24/22 [History Last Taken Unknown] ondansetron HCl 4 mg PO Q8H PRN PRN 04/24/22 [History Last Taken 04/23/22] Allergy/AdvReac Type Severity Reaction Status Date / Time codeine Allergy Intermediate Swelling Verified 04/24/22 11:58 amoxicillin [From Augmentin] Allergy Mild Itching Verified 04/24/22 11:58 clavulanic acid Allergy Mild Itching Verified 04/24/22 11:58 [From Augmentin] niacin Allergy Mild Itching Verified 04/24/22 11:58 [From Niaspan Extended-Release] Family History Mother CHF (congestive heart failure) Brother CAD (coronary artery disease) Sister CHF (congestive heart failure) Son Cardiac pacemaker in situ WPW (Acrpl-Ufrvahtfr-Hhdpl syndrome) Father No problems noted. Surgical History Aortic valve replaced H/O meniscectomy of right knee History of appendectomy History of coronary artery stent placement (11/14/21) History of medial meniscus repair of left knee History of partial knee replacement History of permanent cardiac pacemaker placement (06/04/21) History of synovectomy History of total hysterectomy History of tubal ligation S/P colonoscopy Social History Smoking Status: Former smoker alcohol intake: never substance use type: does not use diet: low carbohydrate caffeine: Yes Type: coffee Number of servings: 2 what type of physical activity do you participate in: none seatbelt use: always do you feel safe at home: Yes ROS ROS Narrative See HPI Physical Exam Const alert, oriented x3 and no apparent distress Constitutional Narrative: Several episodes of dry coughing noted General Appearance: cooperative, well kempt and well developed; Negative for ill appearing Orientation / Consciousness: awake Nutritional Appearance: obese HEENT normocephalic, head/scalp atraumatic, hearing grossly normal bilaterally and moist oral mucous membranes Eyes PERRL, EOMs intact bilaterally and conjunctivae normal Neck nuchal rigidity, supple, no JVD, thyroid normal and no carotid bruits General: trachea midline Resp normal respiratory effort, no retractions, no use of accessory muscles and clear to auscultation bilaterally Auscultation: Negative for rales, rhonchi or wheezes Cardio regular rate, regular rhythm, S1 normal heart sound, S2 normal heart sound, no murmurs, no rub and no gallops GI normal to inspection, nondistended, normoactive bowel sounds, soft to palpation, non-tender and non-distended Extremity no clubbing, cyanosis or edema Skin no rashes or lesions noted General Skin Exam: no breakdown Neuro oriented x3, CN's II-XII intact bilaterally, no focal motor deficits and no sensory deficits noted Sensorium / Orientation: awake and alert Speech: speech normal Psych affect normal Lab / Micro Data Result Diagrams: 04/25/22 05:45 04/25/22 05:45 Labs: Laboratory Results - last 24 hr 04/24/22 12:38: WBC 30.1 H*, RBC 2.33 L, Hgb 7.4 L, Hct 23.0 L, MCV 98.7, MCH 31.8, MCHC 32.2, RDW Std Deviation 62.5 H, RDW Coeff of Aubrey 18.7 H, Plt Count 14 L*, MPV 12.4 H, Neut % (Auto) Not Reportable, Absolute Neuts (auto) 16.3 H, Absolute Lymphs (auto) 6.90 H, Total Counted 100, Neutrophils % (Manual) 54, Band Neutrophils % 3, Lymphocytes % (Manual) 23, Monocytes % (Manual) 3, Metamyelocytes % 1, Myelocytes % 13 H, Promyelocytes % 3 H, Diff Path Review May foll, Polychromasia 1+, Anisocytosis 1+ 04/24/22 12:38: Sodium 138, Potassium 4.4, Chloride 107, Carbon Dioxide 25.0, Anion Gap 6, BUN 13, Creatinine 0.71, Estim Creat Clear Calc 32.17, Est GFR (MDRD) Af Amer 101, Est GFR (MDRD) Non-Af 84, BUN/Creatinine Ratio 18.4, Glucose 91, Calcium 8.5 04/24/22 12:38: B-Natriuretic Peptide 153.0 H 04/24/22 14:17: COVID-19 (ELY) Not Detected 04/25/22 05:45: WBC 24.6 H, RBC 2.00 L, Hgb 6.3 L, Hct 19.9 L, MCV 99.5 H, MCH 31.5, MCHC 31.7 L, RDW Std Deviation 64.2 H, RDW Coeff of Aubrey 19.2 H, Plt Count 9 L*, MPV 12.0, Neut % (Auto) Not Reportable, Total Counted 100, Neutrophils % (Manual) 87 H, Lymphocytes % (Manual) 9 L, Metamyelocytes % 4 H, Diff Path Review May foll, Platelet Estimate MKD DEC, Polychromasia RARE, Anisocytosis 2+, Microcytosis 1+ 04/25/22 05:45: Sodium 138, Potassium 4.3, Chloride 108 H, Carbon Dioxide 25.0, Anion Gap 5, BUN 10, Creatinine 0.64, Estim Creat Clear Calc 33.71, Est GFR (MDRD) Af Amer 113, Est GFR (MDRD) Non-Af 93, BUN/Creatinine Ratio 15.5, Glucose 99, Calcium 8.2 L 04/25/22 07:35: Crossmatch See Detail Micro: Microbiology 04/25/22 05:50 Urine, Clean Catch Legionella Antigen - Final 04/25/22 05:50 Urine, Clean Catch Streptococcus pneumoniae Antigen (M - Final 04/24/22 22:50 Mucosa - Nose Respiratory Panel (PCR) - Final Charges/Coding Visit Charges Inpatient E&M: 73578 Init Hosp L2
[2022-04-25] MEDS: amLODIPine 5 MG Tablet PO (08:56)
[2022-04-25] MEDS: Ferrous Sulfate 325 MG Tablet PO (08:56)
[2022-04-25] MEDS: Furosemide 20 MG Tablet PO (08:56)
[2022-04-25] MEDS: Isosorbide Mononitrate 30 MG Tablet PO (08:56)
[2022-04-25] MEDS: Clopidogrel Bisulfate 75 MG Tablet PO (08:57)
[2022-04-25] MEDS: Metoprolol Tartrate 25 MG Tablet PO (08:57)
[2022-04-25] MEDS: Lisinopril 20 MG Tablet PO (08:57)
--- NOTE | 2022-04-25 09:47 | PCM.DC ---
Discharge Instructions Diet Discharge Diet: Low fat / Low cholesterol Activity Discharge Activity: Return to Normal Activity Dressing / Incision Call your doctor if you observe: Fever of 101 or Higher, Shortness of breath, Dizziness, Fainting spells, Swelling in the ankles, Chest pain and Increased palpitations (irregular heartbeat) Follow Up Care Test Results: Test results from this visit will be discussed in further detail at your follow-up appointment, if applicable. Discharge Plan Admission Admit Date/Time: 04/24/22 15:16 Attending Provider: Vincenzo Pelletier Primary Care Provider: Alee Meléndez Consulting Providers: Jovany Perez ; Madi Bull ; Charlene Don NP ; Yaakov [place] Discharge Orders/Prescriptions Prescriptions: New levofloxacin 750 mg tablet 750 mg PO Q48H 7 Days Qty: 4 RF: 0 Continued ferrous sulfate 325 mg (65 mg iron) tablet 325 mg PO DAILY Qty: 90 RF: 1 tolterodine 4 mg capsule,extended release 24hr 4 mg PO DAILY RF: 0 fenofibrate 54 mg tablet 54 mg PO DAILY RF: 0 ondansetron HCl 4 mg tablet 4 mg PO Q8H PRN PRN (Reason: Nausea) RF: 0 Inqovi 35-100 mg tablet See Rx Instructions .ROUTE .COMPLEX RF: 0 lisinopril 20 mg tablet 20 mg PO BID RF: 0 allopurinol 300 mg tablet 300 mg PO DAILY 30 Days Qty: 30 RF: 1 amlodipine 5 mg tablet 5 mg PO DAILY Qty: 90 RF: 3 atorvastatin 80 mg tablet 80 mg PO QPM Qty: 90 RF: 3 clopidogrel 75 mg tablet 75 mg PO DAILY Qty: 90 RF: 3 furosemide 20 mg tablet 20 mg PO DAILY Qty: 30 RF: 11 isosorbide mononitrate 30 mg tablet extended release 24 hr 30 mg PO DAILY Qty: 90 RF: 3 metoprolol tartrate 25 mg tablet 25 mg PO BID Qty: 180 RF: 3 Referrals / Follow Up: Alee Meléndez MD [Primary Care Provider] - Disposition Disposition (needs filled in before D/C Order can be placed): Home, Self Care
--- NOTE | 2022-04-25 11:30 | CASEMGMT ---
RN CM Face to Face with patient for initial transition planning/care coordination assessment. RN CM introduced self and role at [facility]. Patient lying in bed, alert and oriented. Patient willing to participate in assessment and is able to answer all questions appropriately. Care providers, pharmacy, and demographics verified. Patient wishes to discharge home, denies need for home health at this time. Patient states she has no further needs or concerns at this time. CM to follow for discharge planning needs that may arise. PCP: Rika Specialists: Alvino, canvas goods fabricator; Debora, oncologist Preferred Pharmacy: [facility] Insurance: Lucky Pai Prescription Benefit: yes Living Will/HPOA: yes, son Skip Cook HPOA LNOK: sons Living Arrangements: Patient lives with son in a 1.5 story house with bed and bath on first floor. Patient states she is independent at home. Transportation: self, son DME/HHC: patine states she has shower chair, cane, walker, wheelchair, and grab bars. No preference for DME. No previous HHC or SNF Disposition Plan: Patient to discharge home with family support and follow-plans in place. Deena HERNANDEZ, RN, CM
[2022-04-25 12:30] LABS: Pathologist Review Reviewed
[2022-04-25 12:30] LABS: Pathologist Review Reviewed
--- NOTE | 2022-04-25 13:17 | DS.PCM_ITS ---
Providers Date of Admission: 04/24/22 Primary Care Physician: Dr. Alee Meléndez MD Consultations 04/24/22 15:52 Consult: Non Categorical Preschool Teacher / Pulmonary Medicine Routine Consulting Provider: Pulmonary Medicine leda Steamburg Reason for Consult: bilateral infiltrates EMERGENT Consult: No MD Notified: Yes Date Notified: 04/24/22 Time Notified: 15:24 Method of Notification: Verbal Reason For Visit: BILATERAL LOWER LOBE PNEUMONIA Diagnosis Discharge Diagnosis (1) Leukocytosis: Status: Chronic Code(s): D72.829 - Elevated white blood cell count, unspecified Qualifiers: Leukocytosis type: unspecified Qualified Code(s): D72.829 - Elevated white blood cell count, unspecified (2) Myeloproliferative neoplasm: Status: Chronic Code(s): D47.1 - Chronic myeloproliferative disease (3) Cough: Status: Acute Code(s): R05.9 - Cough, unspecified (4) Nonrheumatic aortic (valve) stenosis: Status: Chronic Code(s): I35.0 - Nonrheumatic aortic (valve) stenosis Medications at Discharge Home Medications tolterodine 4 mg PO DAILY 07/15/21 lisinopril 20 mg tablet 20 mg PO BID tab 07/24/21 ferrous sulfate 325 mg (65 mg iron) tablet 325 mg PO DAILY #90 tab 08/07/21 fenofibrate 54 mg PO DAILY 11/07/21 allopurinol 300 mg tablet 300 mg PO DAILY 30 Days #30 tablet 01/14/22 amlodipine 5 mg tablet 5 mg PO DAILY #90 tab 01/21/22 atorvastatin 80 mg tablet 80 mg PO QPM #90 tab 01/21/22 clopidogrel 75 mg tablet 75 mg PO DAILY #90 tab 01/21/22 furosemide 20 mg tablet 20 mg PO DAILY #30 tab 01/21/22 isosorbide mononitrate 30 mg tablet,extended release 24 hr 30 mg PO DAILY #90 tab 01/21/22 metoprolol tartrate 25 mg tablet 25 mg PO BID #180 tab 01/21/22 Inqovi See Rx Instructions .ROUTE .COMPLEX 04/24/22 ondansetron HCl 4 mg PO Q8H PRN PRN 04/24/22 levofloxacin 750 mg PO Q48H 7 Days #4 tab 04/25/22 Hospital Course Operations None Procedures None Summary of Care Provided Minutes Spent on Discharge: 38 Hospital Course: Per HPI: EDWARD ELIAS, is a 81 F who presents to the emergency room at [facility] at the direction of her PCP for complaints of continued cough, blood-tinged yellow sputum production, dyspnea on exertion, and an abnormal chest x-ray which was obtained today. Patient states she finished a course of antibiotics (Z-Casey) approximately a week ago, she still has her symptomology however. Patient did tell me that she has had some shortness of breath over the last several weeks. Chest x-ray obtained yesterday showed bilateral pulmonary infiltrates, patient's labs were abnormal for a white blood cell count of 30,000, hemoglobin was 7.4, beta natruretic peptide was 153, and the patient's temperature was 99.2. Patient's pulse ox on room air was 100%. Patient will be placed in observation status for community-acquired pneumonia without hypoxia, she was given IV Levaquin in the emergency room, this will be continued in the hospital, I contacted Dr. Perez today and he will see the patient in consultation tomorrow, he asked that I obtain additional studies which I have ordered. Patient will be placed on aerosol treatments. Patient has a history of her prior chest CTA done on 06/24/2021 which showed evidence of COPD and patchy areas of irregular parenchymal density in the periphery of both lung bases suggesting scarring or subsegmental atelectasis. Patient's last chest x-ray which was performed on 11/07/2021 was read out as showing no acute abnormality. Hospital Course: 1. Bilateral pulmonary infiltrates with possible community-acquired pneumonia versus chemo induced grade 1 pneumonitis?81-year-old female with history of CML who recently started chemotherapy presented to the hospital 2 weeks of shortness of breath. Initially she was placed on a Z-Casey which does not help. It does look like she did have bacterial conversion of a viral URI as she states that she initially started getting better and then she started getting worse again. Pulmonology was consulted and recommended a CT scan today which did demonstrate signs of a grade 1 pneumonitis from her chemotherapy. She does not want to continue chemotherapy and we have discussed with her that she should not continue it based on these findings and should have a repeat CT scan of her chest as an outpatient. I do recommend that she follow-up with pulmonology in 2 weeks. In the meantime given the possible bacterial pneumonia will continue with Levaquin however given her creatinine clearance she will need to be doing this every other day for 4 doses. Sputum cultures pending as are mycoplasma and CMV antibody tests. She is currently maintained on room air and does not have any difficulty with ambulation and does not require oxygen on discharge. I discussed with her the plan for discharge today she expressed understanding the risk and benefits of going home and she would really like to go home today she feels much improved. 2. 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 Her home medications will be continued where appropriate. Since she started chemotherapy she has been getting transfused twice a month and she will get 2 units of blood as well as unit of platelets here prior to discharge. Physical Exam Const alert, oriented x3 and no apparent distress General Appearance: cooperative HEENT normocephalic and moist oral mucous membranes Eyes PERRL, EOMs intact bilaterally and conjunctivae normal Neck supple and no JVD Resp normal respiratory effort, no retractions, no use of accessory muscles and clear to auscultation bilaterally Auscultation: Negative for crackles, rales, rhonchi or wheezes Cardio regular rate, regular rhythm, S1 normal heart sound, S2 normal heart sound and no murmurs GI soft to palpation, non-tender and non-distended; Negative for hepatosplenomegaly Extremity no clubbing, cyanosis or edema Skin no rashes or lesions noted Neuro no focal motor deficits and no sensory deficits noted Psych affect normal Appearance: appropriate Weight / BMI Weight Weight: 160 lb 11.472 oz Body Mass Index (BMI) 29.4 ABG / Lab / Microbiology Data Result Diagrams: 04/25/22 05:45 04/25/22 05:45 Laboratory: Laboratory Results - last 24 hr 04/24/22 12:38: Absolute Neuts (auto) 16.3 H, Absolute Lymphs (auto) 6.90 H, Total Counted 100, Neutrophils % (Manual) 54, Band Neutrophils % 3, Lymphocytes % (Manual) 23, Monocytes % (Manual) 3, Metamyelocytes % 1, Myelocytes % 13 H, Promyelocytes % 3 H, Diff Path Review Reviewed, Polychromasia 1+, Anisocytosis 1+ 04/24/22 12:38: B-Natriuretic Peptide 153.0 H 04/24/22 14:17: COVID-19 (ELY) Not Detected 04/25/22 05:45: WBC 24.6 H, RBC 2.00 L, Hgb 6.3 L, Hct 19.9 L, MCV 99.5 H, MCH 31.5, MCHC 31.7 L, RDW Std Deviation 64.2 H, RDW Coeff of Aubrey 19.2 H, Plt Count 9 L*, MPV 12.0, Neut % (Auto) Not Reportable, Total Counted 100, Neutrophils % (Manual) 87 H, Lymphocytes % (Manual) 9 L, Metamyelocytes % 4 H, Diff Path Review Reviewed, Platelet Estimate MKD DEC, Polychromasia RARE, Anisocytosis 2+, Microcytosis 1+ 04/25/22 05:45: Sodium 138, Potassium 4.3, Chloride 108 H, Carbon Dioxide 25.0, Anion Gap 5, BUN 10, Creatinine 0.64, Estim Creat Clear Calc 33.71, Est GFR (MDRD) Af Amer 113, Est GFR (MDRD) Non-Af 93, BUN/Creatinine Ratio 15.5, Glucose 99, Calcium 8.2 L 04/25/22 07:35: Blood Type A NEGATIVE, Antibody Screen NEGATIVE, Crossmatch See Detail Microbiology: Microbiology 04/25/22 05:50 Urine, Clean Catch Legionella Antigen - Final 04/25/22 05:50 Urine, Clean Catch Streptococcus pneumoniae Antigen (M - Final 04/24/22 22:50 Mucosa - Nose Respiratory Panel (PCR) - Final Radiography Diagnostic Testing: Radiology Impression Chest X-Ray 04/25/22 05:55 IMPRESSION: Residual bilateral pulmonary infiltrates more prominent in the right hemithorax with a mild to moderate degree of improved aeration. Electronically Signed: Juliano Pickard MD at 8:55 EDT , Chest CT 04/25/22 07:49 IMPRESSION: Focal bilateral pulmonary opacities as described with nodular densities. A repeat CT scan of the thorax is recommended following treatment. Electronically Signed: Juliano Pickard MD at 9:09 EDT , D/C Instructions Discharge Diet: Low fat / Low cholesterol Call your doctor if you observe: Fever of 101 or Higher, Shortness of breath, Dizziness, Fainting spells, Swelling in the ankles, Chest pain and Increased palpitations (irregular heartbeat) Meaningful Use Info Meaningful Use Diagnoses (Choose all that apply): None applicable Discharge Plan Admission Admit Date/Time: 04/24/22 15:16 Attending Provider: Vincenzo Pelletier Primary Care Provider: Alee Meléndez Consulting Providers: Jovany Perez ; Madi Bull ; Charlene Don NP ; Yaakov [place] Discharge Orders/Prescriptions Prescriptions: New levofloxacin 750 mg tablet 750 mg PO Q48H 7 Days Qty: 4 RF: 0 Continued ferrous sulfate 325 mg (65 mg iron) tablet 325 mg PO DAILY Qty: 90 RF: 1 tolterodine 4 mg capsule,extended release 24hr 4 mg PO DAILY RF: 0 fenofibrate 54 mg tablet 54 mg PO DAILY RF: 0 ondansetron HCl 4 mg tablet 4 mg PO Q8H PRN PRN (Reason: Nausea) RF: 0 Inqovi 35-100 mg tablet See Rx Instructions .ROUTE .COMPLEX RF: 0 lisinopril 20 mg tablet 20 mg PO BID RF: 0 allopurinol 300 mg tablet 300 mg PO DAILY 30 Days Qty: 30 RF: 1 amlodipine 5 mg tablet 5 mg PO DAILY Qty: 90 RF: 3 atorvastatin 80 mg tablet 80 mg PO QPM Qty: 90 RF: 3 clopidogrel 75 mg tablet 75 mg PO DAILY Qty: 90 RF: 3 furosemide 20 mg tablet 20 mg PO DAILY Qty: 30 RF: 11 isosorbide mononitrate 30 mg tablet extended release 24 hr 30 mg PO DAILY Qty: 90 RF: 3 metoprolol tartrate 25 mg tablet 25 mg PO BID Qty: 180 RF: 3 Referrals / Follow Up: Alee Meléndez MD [Primary Care Provider] - Disposition Disposition (needs filled in before D/C Order can be placed): Home, Self Care Charges/Coding Visit Charges OBSV E&M: 23673 Observation care discharge
[2022-04-25 14:27] LABS: Absolute Neutrophil Count 21.4 X10^3/uL (2.0-7.7)
[2022-04-25] MEDS: Allopurinol 300 MG Tablet PO (14:44)
[2022-04-25] MEDS: Acetaminophen 325 MG Tablet 650 MG PO (16:16)
[2022-04-25] MEDS: 0.9% Saline Lock 10 ML Syringe IV (20:23)
[2022-04-29 20:06] LABS: CMV Acute Antibody IgM < 30.0 AU/mL (0.0-29.9); CMV Antibody IgG < 0.60 U/mL (0.00-0.59); Mycoplasma Pneum AB IgG < 100 U/mL (0-99); Mycoplasma pneum. AB IgM < 770 U/mL (0-769)
== END 2022-04-25 20:40 | disposition home or self-care (01) ==
LOC: ED 13:45 → PCU 14:46
PROVIDERS: Admitting Provider Internal Medicine; Emergency Provider Emergency Medicine; PCP Internal Medicine; Visit Provider Family Medicine
DX: J18.9 Pneumonia, unspecified organism (principal); C91.10 Chronic lymphocytic leukemia of B-cell type not having achieved remission; J44.0 Chronic obstructive pulmonary disease with (acute) lower respiratory infection; C94.6 Myelodysplastic disease, not elsewhere classified; D69.6 Thrombocytopenia, unspecified; I25.10 Atherosclerotic heart disease of native coronary artery without angina pectoris; E78.5 Hyperlipidemia, unspecified; I10 Essential (primary) hypertension; Z79.02 Long term (current) use of antithrombotics/antiplatelets; T45.1X5A Adverse effect of antineoplastic and immunosuppressive drugs, initial encounter; D64.81 Anemia due to antineoplastic chemotherapy; Z79.899 Other long term (current) drug therapy; Z86.16 Personal history of COVID-19; I25.2 Old myocardial infarction; M99.03 Segmental and somatic dysfunction of lumbar region; M99.05 Segmental and somatic dysfunction of pelvic region; M99.02 Segmental and somatic dysfunction of thoracic region; Z95.2 Presence of prosthetic heart valve; Z20.822 Contact with and (suspected) exposure to COVID-19; Z87.891 Personal history of nicotine dependence; R06.02 Shortness of breath
CPT/HCPCS: 36415; 36430; 71046; 71250; 80048; 83880; 85025; 86644; 86645; 86738; 86850; 86900; 86901; 86920; 86922; 86965; 87449; 87633; 87635; 94640; 96365; 96366; 97802; 99218; 99283; J7040; J7050; P9035; P9040; A4216; G0378; U0003; U0005

== ENCOUNTER 2022-05-14 08:36 | Emergency (ER) | payer MEDICARE, SELFPAY ==
[2022-05-14] VITALS (20 sets, daily range): BP systolic 115–180; BP diastolic 51–101; PULSE 77–110; RESP 11–26; TEMP 36.6–37.4; O2SAT 97–99; BMI 26.5
--- NOTE | 2022-05-14 09:17 | EKG12_ITS ---
Test Reason : SOB Blood Pressure : / mmHG Vent. Rate : 102 BPM Atrial Rate : 102 BPM P-R Int : 128 ms QRS Dur : 148 ms QT Int : 402 ms P-R-T Axes : 071 -55 102 degrees QTc Int : 523 ms Atrial-sensed ventricular-paced rhythm Abnormal ECG Confirmed by ETTA POWELL, ROMI ([id number]), editor dictionary KRYSTA QUIROZ ([id number]) on 05/16/2022 11:07:36 AM Referred By: ANNAMARIA Confirmed By:ROMI QUILES MD
--- NOTE | 2022-05-14 09:18 | ED.VIS.DYS ---
HPI History of Present Illness Chief Complaint: Shortness of Breath Informant: patient Narrative Narrative: 81-year-old female sent into the emergency room for the evaluation of dyspnea. She states symptoms began yesterday. She has a history of coronary artery disease and CML. She states that she was recently admitted for pneumonia. She is also had blood transfusions last week for her anemia. She denies any recent fevers. She notes a cough but is unchanged. She is not short of breath at rest. She denies any chest pain but notes back pain intermittently. [facility] Medical History Aortic stenosis Atherosclerotic heart disease of [place] coronary artery without angina pectoris CAD (coronary artery disease) CAD (coronary artery disease) CLL (chronic lymphocytic leukemia) Complete heart block Difficult intravenous access Essential hypertension Former smoker GI bleed History of anemia of chronic disease History of blood transfusion History of COVID-19 History of left heart catheterization (LHC) (~11/08/21) History of transcatheter aortic valve replacement (TAVR) (05/28/21) Hypertension Intervertebral disc disorder with radiculopathy of lumbar region Neuropathy Non-rheumatic tricuspid valve insufficiency Non-ST elevation (NSTEMI) myocardial infarction Nonrheumatic aortic (valve) stenosis Nonrheumatic mitral (valve) insufficiency 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 Pacemaker Pure hypercholesterolemia RBBB (right bundle branch block) Segmental and somatic dysfunction of lumbar region Segmental and somatic dysfunction of pelvic region Segmental and somatic dysfunction of thoracic region Home Medications tolterodine 4 mg capsule,extended release 24 hr 4 mg PO DAILY bladder 07/15/21 [History Last Taken 04/23/22] lisinopril 20 mg tablet 20 mg PO BID blood pressure 07/24/21 [History Last Taken 04/23/22] ferrous sulfate 325 mg (65 mg iron) tablet 325 mg PO DAILY anemia #90 tabs 08/07/21 [Rx Last Taken 04/23/22] fenofibrate 54 mg tablet 54 mg PO DAILY CHOLESTEROL 11/07/21 [History Last Taken 04/23/22] allopurinol 300 mg tablet 300 mg PO DAILY 30 days #30 tabs 01/14/22 [Rx Last Taken 04/23/22] amlodipine 5 mg tablet 5 mg PO DAILY #90 tabs 01/21/22 [Rx Last Taken 04/23/22] atorvastatin 80 mg tablet 80 mg PO QPM #90 tabs 01/21/22 [Rx Last Taken 04/23/22] clopidogrel 75 mg tablet 75 mg PO DAILY #90 tabs 01/21/22 [Rx Last Taken 04/23/22] furosemide 20 mg tablet 20 mg PO DAILY #30 tabs 01/21/22 [Rx Last Taken 04/23/22] isosorbide mononitrate 30 mg tablet,extended release 24 hr 30 mg PO DAILY HEART #90 tabs 01/21/22 [Rx Last Taken 04/23/22] metoprolol tartrate 25 mg tablet 25 mg PO BID #180 tabs 01/21/22 [Rx Last Taken 04/23/22] ondansetron HCl 4 mg tablet 4 mg PO Q8H PRN PRN Nausea 04/24/22 [History Last Taken 04/23/22] levofloxacin 750 mg tablet 750 mg PO Q48H 7 days #4 tabs 04/25/22 [Rx Last Taken Unknown] Allergy/AdvReac Type Severity Reaction Status Date / Time codeine Allergy Intermediate Swelling Verified 05/14/22 08:39 amoxicillin [From Augmentin] Allergy Mild Itching Verified 05/14/22 08:39 clavulanic acid Allergy Mild Itching Verified 05/14/22 08:39 [From Augmentin] niacin Allergy Mild Itching Verified 05/14/22 08:39 [From Niaspan Extended-Release] Family History Mother CHF (congestive heart failure) Brother CAD (coronary artery disease) Sister CHF (congestive heart failure) Son Cardiac pacemaker in situ WPW (Frujg-Wpwozwhye-Khvat syndrome) Father No problems noted. Surgical History Aortic valve replaced H/O meniscectomy of right knee History of appendectomy History of coronary artery stent placement (11/14/21) History of medial meniscus repair of left knee History of partial knee replacement History of permanent cardiac pacemaker placement (06/04/21) History of synovectomy History of total hysterectomy History of tubal ligation S/P colonoscopy Social History Smoking Status: Former smoker alcohol intake: never substance use type: does not use diet: low carbohydrate caffeine: Yes Type: coffee Number of servings: 2 what type of physical activity do you participate in: none seatbelt use: always do you feel safe at home: Yes ROS ROS ED Constitutional Constitutional ED: Denies chills or weight loss Eyes Eyes: Denies change in vision or diplopia ENT ENT ED: Denies ear pain, rhinorrhea or sore throat Cardiovascular Cardiovascular: Denies chest pain, orthopnea, palpitations or racing heartbeat Respiratory/Chest Respiratory/Chest: Reports cough, dyspnea and dyspnea on exertion; Denies orthopnea Gastrointestinal Gastrointestinal: Denies abdominal pain, diarrhea, nausea or vomiting Genitourinary Genitourinary ED: Denies dysuria, hematuria or urinary frequency Musculoskeletal Musculoskeletal: Reports back pain; Denies arthralgias or myalgias Integumentary Denies abscess or rash Neurologic Neurologic: Denies headache(s) or weakness Psychiatric Psychiatric: Denies anxiety, depression, suicidal ideation or suicidal thoughts Endocrine Endocrinology: Denies polydipsia, polyphagia or polyuria Allergic/Immunologic Allergic/Immunologic ED: Denies mouth swelling, tongue swelling or urticaria EXAM Physical Exam Const Vital Signs: 05/14/22 08:37 05/14/22 09:09 05/14/22 09:09 Temperature 97.9 F 97.9 F Temperature Source Temporal Temporal Pulse Rate 110 H 99 Respiratory Rate 20 H 18 Respiratory Effort Normal Non-Labored Respiratory Depth Normal Respiratory Pattern Normal Blood Pressure 115/77 143/51 H Blood Pressure Mean 89 81 Pulse Ox 98 98 Oxygen Delivery Method Room Air Room Air Room Air Positive well nourished and well developed General Appearance ED: well developed HEENT Reports normocephalic, head/scalp atraumatic and moist mucous membranes Eyes PERRL and EOMs intact bilaterally Neck no lymphadenopathy, supple and no JVD Resp normal respiratory effort and clear to auscultation bilaterally Cardio regular rate and no murmurs Rate: tachycardic GI normal to inspection, nondistended, normoactive bowel sounds and non-tender Palpation: soft Back/Spine no CVA tenderness and normal ROM Extremity normal to inspection General Extremety ED: Negative for edema General Extremity: Negative for edema Neuro oriented x3 and CN's II-XII intact bilaterally Sensorium / Orientation: alert Motor Exam: strength 5/5 throughout Psych mental status grossly normal Mood & Affect: Negative for depressed or tearful Skin no rashes or lesions noted and no wounds MDM MDM EKG Initial EKG: Attestation: I personally reviewed and interpreted this EKG as follows: Comments: Atrially sensed ventricularly paced rhythm with a ventricular rate of 102 bpm Prior EKG tracings: available for review Prior: Unchanged (08 November 2021) Discharge Plan Triage Chief Complaint: Shortness of Breath ED Provider: Deion Lawson Dx/Rx/DC Orders Prescriptions: No Action ferrous sulfate 325 mg (65 mg iron) tablet 325 mg PO DAILY Qty: 90 1RF Rx Instructions: OTC tolterodine 4 mg capsule,extended release 24hr 4 mg PO DAILY Label Comments: TAKE 1 CAPSULE BY MOUTH EVERY DAY fenofibrate 54 mg tablet 54 mg PO DAILY ondansetron HCl 4 mg tablet 4 mg PO Q8H PRN PRN (Reason: Nausea) Label Comments: TAKE 1 TABLET BY MOUTH EVERY 8 HOURS NEEDED FOR NAUSEA AND VOMITING levofloxacin 750 mg tablet 750 mg PO Q48H 7 Days Qty: 4 0RF lisinopril 20 mg tablet 20 mg PO BID allopurinol 300 mg tablet 300 mg PO DAILY 30 Days Qty: 30 1RF amlodipine 5 mg tablet 5 mg PO DAILY Qty: 90 3RF atorvastatin 80 mg tablet 80 mg PO QPM Qty: 90 3RF clopidogrel 75 mg tablet 75 mg PO DAILY Qty: 90 3RF furosemide 20 mg tablet 20 mg PO DAILY Qty: 30 11RF isosorbide mononitrate 30 mg tablet extended release 24 hr 30 mg PO DAILY Qty: 90 3RF metoprolol tartrate 25 mg tablet 25 mg PO BID Qty: 180 3RF Primary Care Provider: Alee Meléndez Referrals: Alee Meléndez MD [Primary Care Provider] -
[2022-05-14 09:43] LABS: Hematocrit 19.8 % (37-47); Hemoglobin 6.4 g/dL (12.0-15.0); Mean Corp Hgb Conc 32.3 g/dL (32-36); Mean Platelet Vol. 8.7 fl (6.2-12.0); POSITIVE COUNT YES; POSITIVE DIFFERENTIAL YES; POSITIVE MORPHOLOGY YES; Platelet Count 8 K/mm3 (150-450); RBC Distribution Width CV 18.5 % (11.6-14.6); RBC Distribution Width SD 59.6 fl (35.1-43.9)
[2022-05-14 09:57] LABS: ALB/GLOB Ratio 0.8 RATIO (0.9-2.4); AST(SGOT) 45 U/L (15-37); Alanine Aminotransfer ALT/SGPT 44 U/L (13-56); Alkaline Phosphatase 72 U/L (45-117); Anion Gap 7 (5-15); BUN 17 mg/dL (7-18); BUN/Creat Ratio 23.5 RATIO (10-20); Calcium,Total 8.5 mg/dL (8.5-10.1); Chloride 106 mmol/L (98-107); Creatinine, Serum 0.72 mg/dL (0.55-1.02); Differential Indicated MANUAL DIFF; EST Glomerular Filtration Rate 82 mL/min (>60); Est Glom Filt Rate - Afr Amer 99 mL/min (>60); Estimated Creatinine Clearance 33.71 ml/min; Globulin 3.9 g/dL (2.2-4.2); Glucose 124 mg/dL (74-106); Potassium 4.4 mmol/L (3.5-5.1); Protein, Total 6.9 g/dL (6.4-8.2); Sodium Level 139 mmol/L (136-145); Troponin-I HS 15 pg/mL (3.0-54.0); White Blood Count 107.7 K/mm3 (4.4-11.0)
--- NOTE | 2022-05-14 09:59 | RAD_ITS ---
STUDY: X-RAY CHEST REASON FOR EXAM: Female, 81 years old. Dyspnea TECHNIQUE: Single AP portable view of the chest. COMPARISON: Comparison is made with prior study dated 04/25/2022. FINDINGS: EKG electrodes are seen. Persistent bilateral pulmonary infiltrates more prominent in the right hemithorax. There has been a moderate degree of improvement as compared to prior study. There is no demonstrated pleural abnormality. Normal size heart. A left-sided dual-chamber pacemaker seen. Normal mediastinum and alton. Normal visualized pulmonary arteries. There is atherosclerotic calcification of the aortic arch with tortuosity. There are diffuse degenerative changes of the visualized thoracic spine. Normal visualized ribs, clavicles, and shoulders. There is no demonstrated abnormality of the visualized soft tissue structures of the upper abdomen. RAD/Chest 1 View (Portable) IMPRESSION: Persistent patchy bilateral pulmonary infiltrates more prominent in the right hemithorax although there has been a moderate degree of improvement as compared to prior study. Electronically Signed: Juliano Pickard MD at 10:34 EDT ,
[2022-05-14 10:27] LABS: Blast 3 % (0-0); Lymphocyte 14 % (19-41); Metamyelocyte 4 % (0-1); Myelocyte 10 % (0-0); Neutrophil-Band 2 % (0-5); Neutrophil-Segmented 67 % (47-70); Total Cells Counted 100 (MANUAL DIFF)
[2022-05-14 10:28] LABS: Atypical Lymphocyte 2+ %; Platelet Estimate MKD DEC (ADEQ); Red Cell Morphology NORM C+C NORMAL (NORM C&C)
[2022-05-14 10:31] LABS: Absolute Lymphocyte Count 15.06 X10^3/uL (0.83-4.51); Absolute Neutrophil Count 74.3 X10^3/uL (2.0-7.7); Lymphocyte # 15.06 X10^3/ul (0.83-4.51); Neutrophil # 74.31 X10^3/uL (2.7-7.7)
[2022-05-15 12:27] LABS: Pathologist Review Reviewed
== END 2022-05-14 18:30 | disposition home or self-care (01) ==
PROVIDERS: Emergency Medicine; Emergency Provider Emergency Medicine; PCP Internal Medicine; Visit Provider Emergency Medicine
DX: D64.9 Anemia, unspecified (principal); D69.6 Thrombocytopenia, unspecified; I25.10 Atherosclerotic heart disease of native coronary artery without angina pectoris; I45.10 Unspecified right bundle-branch block; I10 Essential (primary) hypertension; E78.00 Pure hypercholesterolemia, unspecified; I25.2 Old myocardial infarction; Z95.0 Presence of cardiac pacemaker; Z95.5 Presence of coronary angioplasty implant and graft; Z79.02 Long term (current) use of antithrombotics/antiplatelets; Z79.899 Other long term (current) drug therapy; Z86.16 Personal history of COVID-19; Z87.891 Personal history of nicotine dependence
CPT/HCPCS: 71045; 80053; 84484; 85025; 86644; 86850; 86900; 86901; 86920; 86922; 86965; 93005; 99283; J7030; J7050; P9035; P9040; A4216

== ENCOUNTER 2022-05-22 13:15 | Emergency (ER) | payer MEDICARE, SELFPAY ==
[2022-05-22 13:16] VITALS: BP 130/56; PULSE 118; RESP 20; TEMP 36.4; O2SAT 98; BMI 26.5
[2022-05-22 14:00] VITALS: O2SAT 98
--- NOTE | 2022-05-22 14:07 | CT_ITS ---
STUDY: CT BRAIN WITHOUT CONTRAST REASON FOR EXAM: Female, 82 years old. And injury due to a fall. Confusion. Patient is on LITHIUM. RADIATION DOSAGE (If Supplied By Facility): CTDIvol = ( 44.99 ) mGy, DLP = ( 796.11 ) mGycm TECHNIQUE: Transaxial CT imaging of the brain was performed without administration of intravenous contrast material. Individualized dose optimization techniques were used for this CT. COMPARISON: No relevant priors. FINDINGS: Normal soft tissue structures. Normal calvarium. There is mild cerebral atrophy with widening of the extra-axial spaces and ventricular dilatation. There is a 3.4 cm x 2.3 cm well-defined CSF collection in the superior area of the posterior left parietal occipital lobes. Small amount of petechial hemorrhage is seen surrounding this collection. There is also evidence of an acute subdural hematoma overlying the posterior right parietal occipital lobe. Normal basal ganglia and thalami. Normal brainstem. There is mild cerebellar atrophy. There are no findings of an acute ischemic infarction. Atherosclerotic calcification of the cavernous portions of the internal carotid arteries bilaterally. Normal visualized paranasal sinuses. CT/Brain/Head without Contrast IMPRESSION: Small acute subdural hematoma overlying the posterior left parietal occipital lobes. 3.4 cm x 2.3 cm cystic CSF containing structure in the posterior aspect of the superior left parietal occipital lobe with a small amount of the hemorrhagic contusion surrounding it. N.B. : The above Results were Read Back by Juliano Pickard MD to Jovita Kitchen MD, and understanding confirmed on 05/22/2022 14:52:21 (ET). Electronically Signed: Juliano Pickard MD at 14:53 EDT ,
--- NOTE | 2022-05-22 14:07 | EKG12_ITS ---
Test Reason : fall Blood Pressure : / mmHG Vent. Rate : 104 BPM Atrial Rate : 104 BPM P-R Int : 134 ms QRS Dur : 150 ms QT Int : 416 ms P-R-T Axes : 068 -60 105 degrees QTc Int : 547 ms Atrial-sensed ventricular-paced rhythm Abnormal ECG Confirmed by ETTA POWELL, ROMI ([id number]), photograph editor KRYSTA QUIROZ ([id number]) on 05/25/2022 9:37:41 AM Referred By: Fidelina Confirmed By:ROMI QUILES MD
--- NOTE | 2022-05-22 14:07 | VDLE_ITS ---
Reason For Study: Pain RIGHT LEFT GSV is normal. GSV is normal. CFV is compressible, spontaneous, phasic, CFV is compressible, spontaneous, phasic, competent and demonstrates normal competent, and demonstrates normal augmentation. augmentation. FV is compressible, spontaneous, phasic, FV is compressible, spontaneous, phasic, competent and demonstrates normal competent and demonstrates normal augmentation. augmentation. POP V is compressible, spontaneous, phasic, POP V is compressible, spontaneous, phasic, competent and demonstrates normal competent and demonstrates normal augmentation. augmentation. T/P Trunk is compressible. T/P Trunk is compressible. PTV is compressible. PTV is compressible. RT PerV is compressible. LT PerV is compressible. Procedure This is a venous duplex using B-mode, color flow and spectral Doppler. Exam performed portable in ED. A preliminary report was called and/or faxed to ED. VL/Venous Duplex US - Qamar Extrem Interpretation Summary No evidence for acute deep venous thrombosis bilateral lower extremities with p atent and compressible bilateral great saphenous veins. Ordering Physician: Jovita Kitchen Referring Physician: Alee Meléndez M.D. Performed By: Deena Melendrez RVT
--- NOTE | 2022-05-22 14:07 | RAD_ITS ---
STUDY: X-RAY CHEST REASON FOR EXAM: Female, 82 years old. Sob TECHNIQUE: Single AP portable view of the chest. COMPARISON: Comparison is made with prior study dated 05/14/2022. FINDINGS: EKG electrodes are seen. Residual mild degree of bilateral basilar pulmonary infiltrates. There is been further clearing as compared to prior study. There is no demonstrated pleural abnormality. A prosthetic aortic valve is seen. A left-sided dual-chamber pacemaker is seen. Normal mediastinum and alton. Normal visualized pulmonary arteries. There is atherosclerotic calcification of the aortic arch with tortuosity. There are diffuse degenerative changes of the visualized thoracic spine. Normal visualized ribs, clavicles, and shoulders. There is no demonstrated abnormality of the visualized soft tissue structures of the upper abdomen. RAD/Chest 1 View (Portable) IMPRESSION: Persistent bibasilar infiltrates worse at the right lung base although there has been moderate clearing as the compared to prior study. Electronically Signed: Juliano Pickard MD at 15:11 EDT ,
--- NOTE | 2022-05-22 14:09 | CT_ITS ---
STUDY: CT ABDOMEN AND PELVIS WITHOUT CONTRAST REASON FOR EXAM: Female, 82 years old. Fall, buttock pain, thrombocytopenia RADIATION DOSAGE (If Supplied By Facility): CTDIvol = ( 11.67 ) mGy, DLP = ( 656.03 ) mGycm TECHNIQUE: Transaxial images were obtained from the dome of the diaphragm to the symphysis pubis without oral contrast, and without intravenous contrast. Sagittal and coronal images were reconstructed. Individualized dose optimization techniques were used for this CT. COMPARISON: None. FINDINGS: Mild increased reticular nodular pattern at the lung bases. Scattered subcentimeter nodules seen at the lung bases. Dual-chamber pacemaker is seen. Calcification of the mitral valve annulus. Minimal degree of anterior pericardial thickening. Normal liver. Mildly distended gallbladder lumen. There is mild splenomegaly. Normal pancreas. Normal bilateral adrenal glands. 2 mm nonobstructive catheter is in the lower pole of the right kidney. Normal left kidney. Normal visualized stomach. Normal small intestine. There are multiple colonic diverticula consistent with diverticulosis. The appendix is visualized and appears normal. There is diffuse atherosclerotic calcification of the abdominal aorta, without a demonstrated aneurysm. Normal inferior vena cava. There is borderline retroperitoneal lymphadenopathy with enlarged nodes no greater than 10mm in the short axis diameter. Normal urinary bladder. There is absence of the uterus consistent with a prior hysterectomy. Normal abdominal wall. Disc space narrowing and spondylosis at the L4-L5 and L5-S1 levels. CT/Abdomen/Pelvis without Cont IMPRESSION: Mild splenomegaly. Mildly distended gallbladder lumen. Reticular nodular pattern at the lung bases. Sigmoid diverticulosis. Electronically Signed: Juliano Pickard MD at 15:04 EDT ,
--- NOTE | 2022-05-22 14:10 | EDS_ITS ---
HPI History of Present Illness Chief Complaint: Fall Informant: patient Onset/Context/Timing Onset: Today Narrative Narrative: Patient presents after a fall. Patient states she got up sometime overnight to go the bathroom and fell. She believes her legs were just weak. She denied having chest pain or palpitations. She did not pass out. She has a history of CLL and recently was admitted for blood and platelet transfusion. Per family blood work was checked yesterday and her hemoglobin was 7.9 and platelet count down to 8. After fall nursing staff at the oncology office recommended she come in for evaluation. Patient does report increased shortness of breath as well as urinary frequency. She denies back pain. She is complaining of bilateral calf pain that has been ongoing for the past 4 to 5 days. [facility] Medical History Aortic stenosis Atherosclerotic heart disease of [place] coronary artery without angina pectoris CAD (coronary artery disease) CLL (chronic lymphocytic leukemia) Complete heart block Difficult intravenous access Essential hypertension Former smoker GI bleed History of anemia of chronic disease History of blood transfusion History of COVID-19 History of left heart catheterization (LHC) (~11/08/21) History of transcatheter aortic valve replacement (TAVR) (05/28/21) Hypertension Intervertebral disc disorder with radiculopathy of lumbar region Neuropathy Non-rheumatic tricuspid valve insufficiency Non-ST elevation (NSTEMI) myocardial infarction Nonrheumatic aortic (valve) stenosis Nonrheumatic mitral (valve) insufficiency Other correction (current) drug therapy Pacemaker Pure hypercholesterolemia RBBB (right bundle branch block) Segmental and somatic dysfunction of lumbar region Segmental and somatic dysfunction of pelvic region Segmental and somatic dysfunction of thoracic region Home Medications tolterodine 4 mg capsule,extended release 24 hr 4 mg PO DAILY bladder 07/15/21 [History Last Taken 04/23/22] lisinopril 20 mg tablet 20 mg PO BID blood pressure 07/24/21 [History Last Taken 04/23/22] ferrous sulfate 325 mg (65 mg iron) tablet 325 mg PO DAILY anemia #90 tabs 08/07/21 [Rx Last Taken 04/23/22] fenofibrate 54 mg tablet 54 mg PO DAILY CHOLESTEROL 11/07/21 [History Last Taken 04/23/22] allopurinol 300 mg tablet 300 mg PO DAILY 30 days #30 tabs 01/14/22 [Rx Last Taken 04/23/22] amlodipine 5 mg tablet 5 mg PO DAILY #90 tabs 01/21/22 [Rx Last Taken 04/23/22] atorvastatin 80 mg tablet 80 mg PO QPM #90 tabs 01/21/22 [Rx Last Taken 04/23/22] clopidogrel 75 mg tablet 75 mg PO DAILY #90 tabs 01/21/22 [Rx Last Taken 04/23/22] furosemide 20 mg tablet 20 mg PO DAILY #30 tabs 01/21/22 [Rx Last Taken 04/23/22] isosorbide mononitrate 30 mg tablet,extended release 24 hr 30 mg PO DAILY HEART #90 tabs 01/21/22 [Rx Last Taken 04/23/22] metoprolol tartrate 25 mg tablet 25 mg PO BID #180 tabs 01/21/22 [Rx Last Taken 04/23/22] ondansetron HCl 4 mg tablet 4 mg PO Q8H PRN PRN Nausea 04/24/22 [History Last Taken 04/23/22] levofloxacin 750 mg tablet 750 mg PO Q48H 7 days #4 tabs 04/25/22 [Rx Last Taken Unknown] hydroxyurea 500 mg capsule (Hydrea) 1,000 mg PO DAILY #60 caps 05/21/22 [Rx Last Taken Unknown] Allergy/AdvReac Type Severity Reaction Status Date / Time codeine Allergy Intermediate Swelling Verified 05/22/22 13:20 amoxicillin [From Augmentin] Allergy Mild Itching Verified 05/22/22 13:20 clavulanic acid Allergy Mild Itching Verified 05/22/22 13:20 [From Augmentin] niacin Allergy Mild Itching Verified 05/22/22 13:20 [From Niaspan Extended-Release] Family History Mother CHF (congestive heart failure) Brother CAD (coronary artery disease) Sister CHF (congestive heart failure) Son Cardiac pacemaker in situ WPW (Aiduh-Lgnmidtdj-Bliba syndrome) Father No problems noted. Surgical History Aortic valve replaced H/O meniscectomy of right knee History of appendectomy History of coronary artery stent placement (11/14/21) History of medial meniscus repair of left knee History of partial knee replacement History of permanent cardiac pacemaker placement (06/04/21) History of synovectomy History of total hysterectomy History of tubal ligation S/P colonoscopy Social History Smoking Status: Former smoker alcohol intake: never substance use type: does not use diet: low carbohydrate caffeine: Yes Type: coffee Number of servings: 2 what type of physical activity do you participate in: none seatbelt use: always do you feel safe at home: Yes ROS ROS ED Constitutional Constitutional ED: Denies chills or fever(s) Eyes Eyes: Denies change in vision or discharge from eye(s) ENT ENT ED: Denies discharge from eye(s), rhinorrhea or sore throat Cardiovascular Cardiovascular: Denies chest pain or palpitations Respiratory/Chest Respiratory/Chest: Reports dyspnea; Denies cough Gastrointestinal Gastrointestinal: Denies abdominal pain, diarrhea, nausea or vomiting Genitourinary Genitourinary ED: Reports urinary frequency; Denies difficulty urinating or dysuria Musculoskeletal Musculoskeletal: Reports extremity pain; Denies back pain Integumentary Reports other Details: New ecchymosis right wrist ; Denies Abrasions or rash Neurologic Neurologic: Reports weakness; Denies headache(s) Psychiatric Psychiatric: Denies anxiety or depression Allergic/Immunologic Allergic/Immunologic ED: Denies lip swelling or urticaria EXAM Physical Exam Const Vital Signs: 05/22/22 13:16 05/22/22 14:00 05/22/22 14:25 Temperature 97.5 F L 98.1 F Temperature Source Temporal Temporal Pulse Rate 118 H 103 H Respiratory Rate 20 H 20 H Blood Pressure 130/56 H 126/67 H Blood Pressure Mean 80 86 Pulse Ox 98 98 98 Oxygen Delivery Method Room Air Room Air Room Air Positive well nourished and well developed General Appearance ED: well developed HEENT Reports normocephalic and head/scalp atraumatic HEENT Narrative: Older appearing ecchymosis infraorbital bilaterally. Extraocular movements fully intact. Eyes PERRL and EOMs intact bilaterally Neck supple Neck Narrative: No C-spine tenderness. Chest Wall inspection of chest normal and palpation of chest normal Resp normal respiratory effort and clear to auscultation bilaterally Cardio regular rhythm Rate: tachycardic GI normal to inspection, nondistended, normoactive bowel sounds and non-tender Palpation: soft Back/Spine Back/Spine Narrative: No thoracic or lumbar tenderness. Extremity normal to inspection Extremity Narrative: Mild tenderness in the bilateral calves. No significant edema. Neuro oriented x3 Neuro Narrative: No focal neurologic deficits. Sensorium / Orientation: alert Psych mental status grossly normal Skin Skin Narrative: Ecchymoses as noted above. MDM MDM MDM Narrative Medical decision making narrative: Patient sent for CT scan of the head and abdomen and pelvis. Chest x-ray obtained along with venous ultrasound of the lower extremities. Lab work and urinalysis ordered. Lab Data Attestation: I reviewed the patient's lab results. Labs: Laboratory Results - last 24 hr 05/22/22 05/22/22 05/22/22 14:15 14:15 14:15 WBC 115.6 H* RBC 2.31 L Hgb 7.3 L Hct 21.9 L MCV 94.8 MCH 31.6 MCHC 33.3 RDW Std Deviation 51.8 H RDW Coeff of Aubrey 16.5 H Plt Count 7 L* MPV 10.8 Neut % (Auto) Not Reportable PT 13.9 INR 1.1 APTT 30.1 Sodium 137 Potassium 4.6 Chloride 106 Carbon Dioxide 23.0 Anion Gap 8 BUN 26 H Creatinine 1.00 Estim Creat Clear Calc 33.12 Est GFR (MDRD) Af Amer 68 Est GFR (MDRD) Non-Af 56 L BUN/Creatinine Ratio 26.0 H Glucose 158 H Calcium 8.9 Total Bilirubin 0.60 Direct Bilirubin 0.16 AST 38 H ALT 38 Alkaline Phosphatase 68 Troponin I High Sens 22 Total Protein 7.4 Albumin 3.7 Globulin 3.7 Urine Color Urine Clarity Urine pH Ur Specific [place] Urine Protein Urine Glucose (UA) Urine Ketones Urine Occult Blood Urine Nitrite Urine Bilirubin Urine Urobilinogen Ur Leukocyte Esterase Urine RBC Urine WBC Ur Squamous Epith Cells Urine Bacteria Urine Mucus 05/22/22 14:15 WBC RBC Hgb Hct MCV MCH MCHC RDW Std Deviation RDW Coeff of Aubrey Plt Count MPV Neut % (Auto) PT INR APTT Sodium Potassium Chloride Carbon Dioxide Anion Gap BUN Creatinine Estim Creat Clear Calc Est GFR (MDRD) Af Amer Est GFR (MDRD) Non-Af BUN/Creatinine Ratio Glucose Calcium Total Bilirubin Direct Bilirubin AST ALT Alkaline Phosphatase Troponin I High Sens Total Protein Albumin Globulin Urine Color Yellow Urine Clarity Sl Cloudy Urine pH 7.0 Ur Specific [place] 1.010 Urine Protein 30 H Urine Glucose (UA) Normal Urine Ketones 5 H Urine Occult Blood 150 H Urine Nitrite Positive H Urine Bilirubin Negative Urine Urobilinogen Normal Ur Leukocyte Esterase 500 H Urine RBC 5-10 SEEN Urine WBC 25-50 SEEN Ur Squamous Epith Cells 0 SEEN Urine Bacteria 4+ Urine Mucus 0 SEEN Radiography Chest X-Ray - ED: 1 View, Read by ED Physician, Normal, Heart, Lungs and Mediastinum Diagnostic Testing: Clinical Impression(s) from Imaging Studies Brain CT 05/22/22 14:07 IMPRESSION: Small acute subdural hematoma overlying the posterior left parietal occipital lobes. 3.4 cm x 2.3 cm cystic CSF containing structure in the posterior aspect of the superior left parietal occipital lobe with a small amount of the hemorrhagic contusion surrounding it. N.B. : The above Results were Read Back by Juliano Pickard MD to Jovita Kitchen MD, and understanding confirmed on 05/22/2022 14:52:21 (ET). Electronically Signed: Juliano Pickard MD at 14:53 EDT , ADDENDUM: 05/22/22 1500 IMPRESSION: Small acute subdural hematoma overlying the posterior left parietal occipital lobes. 3.4 cm x 2.3 cm cystic CSF containing structure in the posterior aspect of the superior left parietal occipital lobe with a small amount of the hemorrhagic contusion surrounding it. N.B. : The above Results were Read Back by Juliano Pickard MD to Jovita Kithcen MD, and understanding confirmed on 05/22/2022 14:52:21 (ET). Electronically Signed: Juliano Pickard MD at 14:53 EDT , EKG Initial EKG: Attestation: I personally reviewed and interpreted this EKG as follows: Comments: AV paced with ventricular rate of 104. No acute ischemia. Treatment and Re-Evaluation Narrative: I received a phone call from radiology that the patient has evidence of a small acute subdural hematoma overlying the posterior left parietal occipital lobe. There is a 3.4 x 2.3 cm cystic CSF-containing structure in the posterior aspect of the superior left parietal occipital lobe with a small amount of hemorrhagic contusion surrounding it. Chest x-ray per my interpretation is unremarkable. Venous ultrasound of the legs reveals no DVT. Lab work reveals chronically elevated white count at 115. Hemoglobin is 7.3 and platelet count is 7000. Coags are normal. Chemistry studies and LFTs normal. Troponin is normal at 22. Urinalysis does show infection with 4+ bacteria, 25-50 white cells, and positive nitrites. Test results discussed with patient and son at bedside. She is alert and oriented at this time with a normal neuro exam. She states that her fall occurred 14 hours ago. I was I do have concern with evidence of subdural hemorrhage and the patient's significant thrombocytopenia. We do not have platelets here. She will need urgent transfer to a trauma center. Patient has been I discussed with [facility]. Discharge Plan Triage Chief Complaint: Fall ED Provider: Jovita Kitchen Dx/Rx/DC Orders Clinical Impression: Fall, Thrombocytopenia, Subdural hemorrhage, Chronic lymphocytic leukemia Prescriptions: No Action ferrous sulfate 325 mg (65 mg iron) tablet 325 mg PO DAILY Qty: 90 1RF Rx Instructions: OTC tolterodine 4 mg capsule,extended release 24hr 4 mg PO DAILY Label Comments: TAKE 1 CAPSULE BY MOUTH EVERY DAY fenofibrate 54 mg tablet 54 mg PO DAILY ondansetron HCl 4 mg tablet 4 mg PO Q8H PRN PRN (Reason: Nausea) Label Comments: TAKE 1 TABLET BY MOUTH EVERY 8 HOURS NEEDED FOR NAUSEA AND VOMITING levofloxacin 750 mg tablet 750 mg PO Q48H 7 Days Qty: 4 0RF lisinopril 20 mg tablet 20 mg PO BID allopurinol 300 mg tablet 300 mg PO DAILY 30 Days Qty: 30 1RF amlodipine 5 mg tablet 5 mg PO DAILY Qty: 90 3RF atorvastatin 80 mg tablet 80 mg PO QPM Qty: 90 3RF clopidogrel 75 mg tablet 75 mg PO DAILY Qty: 90 3RF furosemide 20 mg tablet 20 mg PO DAILY Qty: 30 11RF isosorbide mononitrate 30 mg tablet extended release 24 hr 30 mg PO DAILY Qty: 90 3RF metoprolol tartrate 25 mg tablet 25 mg PO BID Qty: 180 3RF hydroxyurea [Hydrea] 500 mg capsule 1,000 mg PO DAILY Qty: 60 0RF Primary Care Provider: Alee Meléndez Referrals: Alee Meléndez MD [Primary Care Provider] - Disposition Disposition: Acute Care Hospital Discharge Location: [facility]
[2022-05-22 14:25] VITALS: BP 126/67; PULSE 103; RESP 20; TEMP 36.7; O2SAT 98
[2022-05-22 14:27] LABS: Mucous, Urine 0 SEEN /hpf (<or=2+); Squamous Epithelial Cells - UA 0 SEEN /hpf (5-10)
[2022-05-22 14:31] LABS: Hematocrit 21.9 % (37-47); Hemoglobin 7.3 g/dL (12.0-15.0); Mean Corp Hgb Conc 33.3 g/dL (32-36); Mean Corpuscular Hgb 31.6 pg (27.0-32.0); Mean Corpuscular Volume 94.8 fL (81-99); Mean Platelet Vol. 10.8 fl (6.2-12.0); POSITIVE COUNT YES; POSITIVE DIFFERENTIAL YES; POSITIVE MORPHOLOGY YES; Platelet Count 7 K/mm3 (150-450); RBC Distribution Width CV 16.5 % (11.6-14.6); RBC Distribution Width SD 51.8 fl (35.1-43.9); Red Blood Count 2.31 M/mm3 (4.2-5.4)
[2022-05-22 14:32] LABS: Color, Urine Yellow (Yellow); Glucose, Dipstick Normal (Normal); Ketone-Dipstick 5 mg/dl (Negative); Leukocyte Esterase-Dipstick 500 /ul (Negative); Nitrite-Dipstick Positive (Negative); Occult Blood-Urine 150 /ul (Negative); Protein-Dipstick 30 mg/dl (Negative); Urine Bilirubin Dipstick Negative (Negative); Urine Urobilinogen Normal (Normal)
[2022-05-22 14:33] LABS: Urine Clarity Sl Cloudy (Clear)
[2022-05-22 14:36] LABS: Differential Indicated MANUAL DIFF; White Blood Count 115.6 K/mm3 (4.4-11.0)
[2022-05-22 14:40] LABS: Bacteria 4+ /hpf (None Seen); Red Blood Cells-Urine 5-10 SEEN /hpf (0-5); White Blood Cells 25-50 SEEN /hpf (0-5)
[2022-05-22 14:43] LABS: International Normalized Ratio 1.1; Prothrombin Time (Protime)PT. 13.9 SECONDS (11.7-14.9)
[2022-05-22 14:44] LABS: Partial Thromboplast Time 30.1 Seconds (24.1-36.2)
[2022-05-22 14:50] LABS: AST(SGOT) 38 U/L (15-37); Alanine Aminotransfer ALT/SGPT 38 U/L (13-56); Albumin, Serum 3.7 g/dL (3.2-5.0); Alkaline Phosphatase 68 U/L (45-117); Anion Gap 8 (5-15); BUN 26 mg/dL (7-18); Bilirubin, Direct 0.16 mg/dL (0.00-0.30); Calcium,Total 8.9 mg/dL (8.5-10.1); Chloride 106 mmol/L (98-107); EST Glomerular Filtration Rate 56 mL/min (>60); Est Glom Filt Rate - Afr Amer 68 mL/min (>60); Estimated Creatinine Clearance 33.12 ml/min; Globulin 3.7 g/dL (2.2-4.2); Glucose 158 mg/dL (74-106); Potassium 4.6 mmol/L (3.5-5.1); Protein, Total 7.4 g/dL (6.4-8.2); Sodium Level 137 mmol/L (136-145); Troponin-I HS 22 pg/mL (3.0-54.0)
[2022-05-22 15:00] VITALS: BP 134/59; PULSE 101; RESP 18; TEMP 36.7; O2SAT 99
[2022-05-22 15:07] LABS: Lymphocyte 13 % (19-41); Metamyelocyte 8 % (0-1); Myelocyte 1 % (0-0); Neutrophil-Band 5 % (0-5); Neutrophil-Segmented 73 % (47-70); Platelet Estimate MKD DEC (ADEQ); Total Cells Counted 100 (MANUAL DIFF)
--- NOTE | 2022-05-22 15:07 | NURSING ---
TRANSFERRING TO [facility] DR KIRKLAND, FOR DR SEE
[2022-05-22 15:08] LABS: Hypochromasia 1+; Red Cell Morphology N CYTIC NORMAL (NORM C&C)
--- NOTE | 2022-05-22 15:08 | ED.RN ---
Pt denies any complaints other than her calves hurting. Aware of plan to transfer to [place].
[2022-05-22 15:10] LABS: Absolute Neutrophil Count 90.2 X10^3/uL (2.0-7.7)
--- NOTE | 2022-05-22 15:15 | NURSING ---
CALLED [facility], ETA IS 40 MIN
[2022-05-22] MEDS: Ciprofloxacin 400 MG/200 ML BAG 200 MG IV (16:11)
[2022-05-22 16:13] VITALS: BP 127/61; PULSE 98; RESP 20; O2SAT 99
[2022-05-24 09:36] LABS: Pathologist Review Reviewed
== END 2022-05-22 16:21 | disposition short-term general hospital (02) ==
LOC: ED 15:08
PROVIDERS: Emergency Provider Emergency Medicine; PCP Internal Medicine; Visit Provider Emergency Medicine
DX: I62.00 Nontraumatic subdural hemorrhage, unspecified (principal); C91.10 Chronic lymphocytic leukemia of B-cell type not having achieved remission; D69.6 Thrombocytopenia, unspecified; E78.00 Pure hypercholesterolemia, unspecified; I25.10 Atherosclerotic heart disease of native coronary artery without angina pectoris; I25.2 Old myocardial infarction; I10 Essential (primary) hypertension; M79.661 Pain in right lower leg; M79.662 Pain in left lower leg; Z95.0 Presence of cardiac pacemaker; Z95.4 Presence of other heart-valve replacement; Z95.5 Presence of coronary angioplasty implant and graft; Z79.02 Long term (current) use of antithrombotics/antiplatelets; Z79.899 Other long term (current) drug therapy; Z86.16 Personal history of COVID-19; Z87.891 Personal history of nicotine dependence
CPT/HCPCS: 70450; 71045; 74176; 80048; 80076; 81001; 84484; 85025; 85610; 85730; 87077; 87086; 87088; 87186; 93005; 93970; 96365; 99285; J7040; A4216; J0744